=== PATIENT | male | born 1945 | race Caucasian/White ===

== ENCOUNTER → 2016-12-24 | Outpatient (CLI) | payer OTHER, MEDICARE, MEDICAID ==
[~2016-12-24] MED LIST: ACET325T51 PO; ATOR40TA64 PO; LACT10SO32 PO; LATA2.5D7 BOTH EYES; METF500T4 PO; METO10TA3 PO; OMEP20CA10 PO; PROP10DR3 BOTH EYES; PROP20TA7 PO; RIFA550T5 PO; SPIR50TA3 PO
--- NOTE | 2016-12-24 13:36 | DI ---
Indication: ITS.REASON: K74.60 LIVER CIRRHOSIS PROCEDURE: US ABDOMEN COMPLETE: Encounter: Initial Comparison: None Technique: Grayscale and color Doppler sonographic imaging of the abdomen was performed. Findings: Limited exam due to patient body habitus and bowel gas. Hepatic parenchyma is sonographically dense without gross focal mass. The gallbladder could not be visualized and may be absent. Both the intra and extrahepatic biliary system are of normal caliber with the common duct measuring 4 mm in dimension. Limited visualization of the pancreas due to shadowing bowel gas. Both kidneys are present without collecting system dilatation. The right measures 9.5 cm in length and left measures 9.8 cm. The spleen is at the upper limits of normal at 14.8 cm in length. The visualized portions of the IVC are unremarkable. Aorta could not be visualized due to shadowing bowel gas. Small amount of free fluid. Impression: 1. Small volume ascites and borderline splenomegaly. 2. Increased sonographic density of the liver compatible with the provided history of cirrhosis. .
== END ==
LOC: IMA 10:17
PROVIDERS: ATTEND Internal Medicine
DX: K74.60 Unspecified cirrhosis of liver (principal); R18.8 Other ascites

== ENCOUNTER 2017-03-26 04:14 | Inpatient (IN) ==
--- NOTE | 2017-03-26 04:38 | Emergency Department Report ---
SOB HPI - General Chief Complaint: Shortness of Breath/Dyspnea Stated Complaint: LOW BACK PAIN Time Seen by Provider: 03/26/17 04:38 Source: patient, family, EMS Mode of arrival: EMS Limitations: no limitations - History of Present Illness Patient is a 71-year-old male presents emergency room for evaluation of intermittent chest pain, shortness of breath and back pain. Patient had intermittent chest pain off and on for the last few days, did develop constant chest pain last night, no associated diaphoresis mild nausea. Patient does have chronic low back pain as well, decided today to present to the ER for evaluation. MD Complaint: shortness of breath, cough, chest pain Onset (ago): hour(s) Context: choking/aspiration Severity: mild Consistency/Duration: intermittent Relieving factors: medication Associated symptoms: cough - Related Data Home Medications Medication Instructions Recorded Confirmed Acetaminophen 650 mg PO Q4HR PRN #0 10/11/15 04/23/17 Omeprazole 20 mg PO ACB #0 10/11/15 04/23/17 Folic Acid/Vit B Comp + C 1 mg PO DAILY 04/08/17 04/23/17 [Nephrocaps] Lactulose Oral Liq [Lactulose] 40 gm PO BID 04/08/17 04/23/17 Benzonatate 100 mg PO Q6H PRN 04/23/17 04/23/17 DiphenhydrAMINE [Benadryl] 25 mg PO Q6H PRN 04/23/17 04/23/17 Previous Rx's Medication Instructions Recorded Aspirin *EC* [Ecotrin] 81 mg PO DAILY tablet 04/03/17 Coenzyme Q-10 [Co Q-10] 200 mg PO DAILY capsule 04/03/17 Furosemide [Lasix] 40 mg PO DAILY #30 tablet 04/03/17 Metoprolol Succinate (Xl) [Toprol 150 mg PO DAILY #30 tablet 04/03/17 Xl] Neomycin Sulfate 500 mg PO QID #28 tablet 04/03/17 Spironolactone [Aldactone] 50 mg PO DAILY tablet 04/03/17 Tamsulosin [Flomax] 0.4 mg PO HS #30 capsule 04/03/17 Allergies Allergy/AdvReac Type Severity Reaction Status Date / Time No Known Drug Allergies Allergy Unknown Verified 04/23/17 14:48 Review of Systems Constitutional: Reports: weakness. Denies: fever, chills ENT: Denies: congestion Gastrointestinal: Denies: abdominal pain, nausea, vomiting Genitourinary: Denies: dysuria, frequency Musculoskeletal: Reports: back pain Neurological: Denies: headache, weakness, numbness Psychiatric: Denies: anxiety, depression Endocrine: Denies: fatigue PFS Patient Stated Medical History Glaucoma Yes Coronary Artery Disease Yes Hypertension Yes Diabetes Mellitus Type 2 Yes Cirrhosis Yes Gastroesophageal Reflux Yes Disease Other GI Yes: ESOPH VARICIES Other Musculoskeletal Yes: DIFFICULTY WALKING Clinic Medical History Type 2 diabetes mellitus (Chronic Medical) Liver disease (Chronic Medical) HTN (hypertension) (Chronic Medical) Cataracts, bilateral (Chronic Medical) Family History: Family History Mother HTN (hypertension) Stroke Father Heart failure - Social History Smoking status: Never smoker Physical Exam - Limitations Limitations: no limitations - General General appearance: alert, in no apparent distress - Eye Eye exam: Present: normal appearance - ENT ENT exam: Present: normal exam, mucous membranes dry - Neck Neck exam: Present: normal inspection, full ROM - Chest Chest inspection: Present: normal inspection, symmetric chest wall rise. Absent : tenderness - Respiratory Respiratory exam: Present: normal lung sounds bilaterally. Absent: respiratory distress, wheezes, stridor - Cardiovascular Cardiovascular exam: Present: regular rate, normal rhythm, normal heart sounds - Abdominal Exam Abdominal exam: Present: soft. Absent: distention, tenderness - Extremities Exam Extremities exam: Present: normal inspection, full ROM - Back Exam Back exam: Present: normal inspection, full ROM - Skin Skin exam: Present: warm, dry - Neurological Exam Neurological exam: Present: alert, oriented X3 - Psychiatric Psychiatric exam: Present: normal affect, normal mood Course Vital Signs Temperature 97.7 F 03/26/17 04:20 Pulse Rate 96 03/26/17 04:20 Respiratory Rate 20 03/26/17 04:20 Blood Pressure 141/80 H 03/26/17 04:20 Pulse Oximetry 100 03/26/17 04:20 Temperature 97.3 F 04/03/17 15:40 Pulse Rate 71 04/03/17 16:00 Respiratory Rate 18 04/03/17 15:40 Blood Pressure 140/80 H 04/03/17 15:40 Pulse Oximetry 96 04/03/17 15:40 Shortness of Breath/Dyspnea - Differential Diagnosis Likely: acute exacerbation of chronic obstructive airways disease, congestive heart failure, community acquired pneumonia, pulmonary embolism - Medical Records Attestation: I reviewed the patient's medical records. - Lab Data Attestation: I reviewed the patient's lab results. Result diagrams: 04/03/17 04:18 04/03/17 04:18 Lab Results 03/26/17 03/26/17 03/26/17 Range/Units 04:45 04:49 04:51 WBC (4.5-11.0) T/MM3 RBC (4.50-5.90) M/MM3 Hgb (13.5-17.5) GM/DL Hct (41-53) % MCV (80-100) UM3 MCH (26-34) UUG MCHC (31-37) GM/DL RDW Std Deviation (36.9-50.2) FL Plt Count (130-400) T/MM3 MPV (9.4-12.4) UM3 Immature Gran % (Auto) Neut % (Auto) Lymph % (Auto) [place] % (Auto) Eos % (Auto) Baso % (Auto) Neut # Lymph # [place] # Eos # Baso # Abs Immat Gran (auto) Neutrophils % (Manual) (33-66) % Band Neutrophils % (0-6) % Lymphocytes % (Manual) (23-45) % Monocytes % (Manual) (0-9.0) % Neutrophils # (Manual) (1.8-7.7) T/MM3 Band Neutrophils # T/MM3 Lymphocytes # (Manual) (1-4.8) T/MM3 Monocytes # (Manual) (0-0.8) T/MM3 RBC Morph Comment INR (0.99-1.21) APTT (24-36) SEC D-Dimer (0-230) NG/ML Turbidity (0-20) Sodium (134-144) MEQ/L Potassium (3.6-5) MEQ/L Chloride (98-107) MEQ/L Carbon Dioxide (22-30) MEQ/L Anion Gap (5-15) MEQ/L BUN (9-20) MG/DL Creatinine (0.8-1.5) MG/DL GFR Calculation BUN/Creatinine Ratio (6-26) RATIO Glucose (75-110) MG/DL Calculated Osmolality (261-280) MOSM/KG Calcium (8.4-10.2) MG/DL Magnesium (1.6-2.3) MG/DL Total Bilirubin (0.20-1.30) MG/DL Icterus Index (0-7) AST (17-59) U/L ALT (21-72) U/L Alkaline Phosphatase (38-126) U/L Ammonia < 9 L (9-33) UMOL/L Troponin I (0-0.12) ng/ml B-Natriuretic Peptide (0-175) pg/mL Total Protein (6.3-8.2) G/DL Albumin (3.5-5.0) G/DL Globulin (2.4-3.6) G/DL Albumin/Globulin Ratio (1.1-2.2) RATIO Prealbumin 5.2 L (17.6-36.0) MG/DL Plasma Lactate (0.6-2.2) MMOL/L Aldosterone Baseline 37 H (<=21) ng/dL Procalcitonin NG/ML Specimen Hemolysis (0-25) 03/26/17 03/26/17 03/26/17 Range/Units 04:54 04:54 04:54 WBC 12.6 H (4.5-11.0) T/MM3 RBC 2.91 L (4.50-5.90) M/MM3 Hgb 10.4 L (13.5-17.5) GM/DL Hct 30.5 L (41-53) % MCV 104.8 H (80-100) UM3 MCH 35.7 H (26-34) UUG MCHC 34.1 (31-37) GM/DL RDW Std Deviation 58.5 H (36.9-50.2) FL Plt Count 79 L (130-400) T/MM3 MPV 10.1 (9.4-12.4) UM3 Immature Gran % (Auto) Not performed Neut % (Auto) Not performed Lymph % (Auto) Not performed [place] % (Auto) Not performed Eos % (Auto) Not performed Baso % (Auto) Not performed Neut # Not performed Lymph # Not performed [place] # Not performed Eos # Not performed Baso # Not performed Abs Immat Gran (auto) Not performed Neutrophils % (Manual) 85.0 H (33-66) % Band Neutrophils % 1.0 (0-6) % Lymphocytes % (Manual) 6.0 L (23-45) % Monocytes % (Manual) 8.0 (0-9.0) % Neutrophils # (Manual) 10.7 H (1.8-7.7) T/MM3 Band Neutrophils # 0.1 T/MM3 Lymphocytes # (Manual) 0.8 L (1-4.8) T/MM3 Monocytes # (Manual) 1.0 H (0-0.8) T/MM3 RBC Morph Comment Not performed INR (0.99-1.21) APTT (24-36) SEC D-Dimer 1114 H (0-230) NG/ML Turbidity < 20 (0-20) Sodium 136 (134-144) MEQ/L Potassium 6.5 H* (3.6-5) MEQ/L Chloride 116 H (98-107) MEQ/L Carbon Dioxide 7 L* (22-30) MEQ/L Anion Gap 13 (5-15) MEQ/L BUN 30.0 H (9-20) MG/DL Creatinine 3.0 H (0.8-1.5) MG/DL GFR Calculation 21 BUN/Creatinine Ratio 10 (6-26) RATIO Glucose 162 H (75-110) MG/DL Calculated Osmolality 272 (261-280) MOSM/KG Calcium 8.8 (8.4-10.2) MG/DL Magnesium 2.0 (1.6-2.3) MG/DL Total Bilirubin 1.70 H (0.20-1.30) MG/DL Icterus Index < 2 (0-7) AST 26 (17-59) U/L ALT 45 (21-72) U/L Alkaline Phosphatase 139 H (38-126) U/L Ammonia (9-33) UMOL/L Troponin I 0.078 (0-0.12) ng/ml B-Natriuretic Peptide 3400 H (0-175) pg/mL Total Protein 7.4 (6.3-8.2) G/DL Albumin 3.1 L (3.5-5.0) G/DL Globulin 4.3 H (2.4-3.6) G/DL Albumin/Globulin Ratio 0.7 L (1.1-2.2) RATIO Prealbumin (17.6-36.0) MG/DL Plasma Lactate 2.0 (0.6-2.2) MMOL/L Aldosterone Baseline (<=21) ng/dL Procalcitonin NG/ML Specimen Hemolysis < 15 (0-25) 03/26/17 03/26/17 03/26/17 Range/Units 04:54 04:54 07:11 WBC (4.5-11.0) T/MM3 RBC (4.50-5.90) M/MM3 Hgb (13.5-17.5) GM/DL Hct (41-53) % MCV (80-100) UM3 MCH (26-34) UUG MCHC (31-37) GM/DL RDW Std Deviation (36.9-50.2) FL Plt Count (130-400) T/MM3 MPV (9.4-12.4) UM3 Immature Gran % (Auto) Neut % (Auto) Lymph % (Auto) [place] % (Auto) Eos % (Auto) Baso % (Auto) Neut # Lymph # [place] # Eos # Baso # Abs Immat Gran (auto) Neutrophils % (Manual) (33-66) % Band Neutrophils % (0-6) % Lymphocytes % (Manual) (23-45) % Monocytes % (Manual) (0-9.0) % Neutrophils # (Manual) (1.8-7.7) T/MM3 Band Neutrophils # T/MM3 Lymphocytes # (Manual) (1-4.8) T/MM3 Monocytes # (Manual) (0-0.8) T/MM3 RBC Morph Comment INR 1.24 H (0.99-1.21) APTT 30.1 (24-36) SEC D-Dimer (0-230) NG/ML Turbidity < 20 (0-20) Sodium 136 (134-144) MEQ/L Potassium 5.6 H (3.6-5) MEQ/L Chloride 116 H (98-107) MEQ/L Carbon Dioxide 7 L* (22-30) MEQ/L Anion Gap 13 (5-15) MEQ/L BUN 31.0 H (9-20) MG/DL Creatinine 2.8 H D (0.8-1.5) MG/DL GFR Calculation 23 BUN/Creatinine Ratio 11 (6-26) RATIO Glucose 194 H (75-110) MG/DL Calculated Osmolality 274 (261-280) MOSM/KG Calcium 8.5 (8.4-10.2) MG/DL Magnesium (1.6-2.3) MG/DL Total Bilirubin 1.60 H (0.20-1.30) MG/DL Icterus Index < 2 (0-7) AST 36 (17-59) U/L ALT 44 (21-72) U/L Alkaline Phosphatase 120 (38-126) U/L Ammonia (9-33) UMOL/L Troponin I (0-0.12) ng/ml B-Natriuretic Peptide (0-175) pg/mL Total Protein 7.1 (6.3-8.2) G/DL Albumin 2.9 L (3.5-5.0) G/DL Globulin 4.2 H (2.4-3.6) G/DL Albumin/Globulin Ratio 0.7 L (1.1-2.2) RATIO Prealbumin (17.6-36.0) MG/DL Plasma Lactate (0.6-2.2) MMOL/L Aldosterone Baseline (<=21) ng/dL Procalcitonin 0.41 NG/ML Specimen Hemolysis < 15 (0-25) - Radiology Data Attestation: I reviewed the patient's radiology results. No acute cardiopulmonary findings - EKG Data EKG #1 EKG attestation: Yes: I reviewed and interpreted this EKG. EKG shows normal: sinus rhythm Rate: normal Rhythm: NSR [place]/QRS: left axis deviation, LBBB When compared to previous EKG there are: no significant changes Interpretation: no acute changes Disposition Clinical Impression: Asthma with exacerbation Disposition: 02 To [facility] Acute Care Condition: Stable - Seen By: physician
[2017-03-26] MEDS: NITROGLYCERIN 0.4 MG SUBLINGUAL TABLET SL PRN ×3 (05:01→05:13)
[2017-03-26] MEDS ORDERED: NS 1,000 ML IV ONE (05:37)
[2017-03-26] MEDS ORDERED: CALCIUM GLUCONATE 1,000 MG in NS 50 ML IV ONE (05:37)
[2017-03-26] MEDS ORDERED: DEXTROSE 50% SYRINGE 50ml (1 AMP) IVP ONE (05:38)
[2017-03-26] MEDS ORDERED: INSULIN REGULAR, HUMAN 100 UNIT/ML INJECTION IVP ONE (05:38)
[2017-03-26] MEDS ORDERED: NITROGLYCERIN 2% OINTMENT 1gm PACKET TP ONE (06:07)
--- NOTE | 2017-03-26 07:51 | XRay Report ---
INDICATION: cough shortness of air exertional dyspnea PROCEDURE: CHEST 2-VIEWS UPRIGHT (PA & LAT) Encounter: Initial COMPARISON: October 11, 2015 FINDINGS: The lungs are clear without evidence of focal abnormal airspace opacity. There is no pleural effusion or pneumothorax. The heart size, mediastinal contours and pulmonary vascularity are stable. IMPRESSION: No acute cardiopulmonary disease. .
[2017-03-26] MEDS ORDERED: CEFTRIAXONE (ER USE ONLY) 1 GM in NS 100 ML IV ONE (07:53)
[2017-03-26] MEDS: SALINE FLUSH 10ml SYRINGE IVF PRN ×4 (08:17→23:33)
[2017-03-26] MEDS: NS 1,000 ML IV SCH ×2 (08:35→23:49)
[2017-03-26] MEDS ORDERED: SENNA + DOCUSATE TABLET PO PRN (09:31)
[2017-03-26] MEDS ORDERED: METOCLOPRAMIDE 10mg/2ml INJECTION IVP PRN (09:31)
--- NOTE | 2017-03-26 10:05 | History & Physical Report ---
<Nadine Ahuja - Last Filed: 03/26/17 09:57> History of Present Illness Date: 03/26/17 Chief complaint: dyspnea HPI: Silas Paul is a pleasant 71 year old male who presented to [facility] emergency room today, 03/26/17, for evaluation of dyspnea and chest pain. He reports that for the past 3 weeks he has had increased shortness of breath and dyspnea on exertion. He also complains of off and on chest pain for "a while" and indicates that last night around 1800 he started having chest pain. He denies any radiation of the pain or diaphoresis and describes the pain as aching. He also complains of lower back pain as well as recent gagging with eating resulting in decreased eating, though he states his appetite is good. He denies any recent fevers but admits to chills and "shaking" about a week ago. He complains of a chronic nonproductive cough that he does not feel is any worse recently. He He denies any headache, changes in vision, nausea, vomiting , dysuria, hematuria, diarrhea, constipation, abdominal pain, numbness, tingling or recent falls or injury. He has a know history of cirrhosis for which he takes lactulose which causes chronic loose stools. No blood or melana in his stools. In light of his increasing dyspnea and off and on chest pain, with new back pain, he decided to seek further evaluation. He was transported to [facility] emergency room via EMS from [facility], where he resides. Upon arrival to the ED, vital signs revealed he was afebrile with a temperature of 97.7, heart rate 86, tachypneic with respiratory rate at 25, blood pressure 137/78 and pulse ox 98% on room air. His chest pain was treated with nitro which relieved his pain and a nitro patch was placed. Labs were obtained and revealed leukocytosis with WBC 12.6, anemia with hemoglobin 10.4, thrombocytopenia with platelets 79, sodium 136, hyperkalemia with potassium 5.6 , elevated renal function with BUN 31 and SCr 2.8 and hyperglycemia with glucose 194. Renal function from 09/2015 revealed SCr at 1.4. Troponin was 0.078, BNP 3400, lactate 2.0, procalcitonin was 0.041. Ammonia <9 and magnesium 2.0. CO2 was low at 7. Chest x-ray showed no acute cardiopulmonary abnormalities. He has a known history of noninsulin diabetes as well as CAD with 1 stent placed "years ago", hypertension and cirrhosis secondary to prior alcohol abuse with esophageal varieties and liver stent. He denies any alcohol use in > 5 years. In light of his acute dyspnea and concern for severe sepsis in light of his leukocytosis, thrombocytpenia, altered renal function and elevated lactate, he received Rocephin 1g IV for empiric coverage of pulmonary pathogens and Dr. Larkin was consulted and he was admitted into in-patient status for further evaluation, IV hydration, electrolyte correction and close cardiac and respiratory monitoring. His length of stay is expected to exceed more than 2 over nights. On exam, he is seen upon arrival to his room, #[id number]. He is resting in bed and has mild conversational dyspnea with noted tachypenia. He states that his chest pain has been relieved to 2/10 with the placement of the nitro patch. When asked about his chest pain, he points to his epigastric region. Cardiac exam reveals regular rate and rhythm and lungs are clear to auscultation. Abdomen is soft, distended with active bowel sounds and non-tender. Trace edema noted to bilateral lower extremities with 2+ pedal pulses bilaterally. He is alert, orientated and pleasant on exam. Review of Systems All systems: reviewed and no additional remarkable complaints except as stated - Constitutional Constitutional: Present: chills, weakness (generalized). Absent: fever(s), headache(s), night sweats - EENMT Eyes: Absent: blurry vision, change in vision, photophobia Balance: Absent: falling to one side Nose: Absent: nosebleeds Mouth/Throat: Present: changes in swallowing (gagging). Absent: sore throat - Cardiovascular Cardiovascular: Present: chest pain, dyspnea on exertion. Absent: palpitations , syncope, edema Vascular: Present: varicosities. Absent: pedal edema, unilateral swelling - Respiratory Respiratory: Present: cough, dyspnea, dyspnea on exertion. Absent: hemoptysis, wheezing, pain on inspiration, chest congestion, excessive phlegm production - Gastrointestinal Gastrointestinal: Absent: abdominal pain, change in bowel habits, change in stool character, coffee ground emesis, constipation, diarrhea, melena, nausea, vomiting - Genitourinary Genitourinary: Absent: difficulty urinating, dysuria - Musculoskeletal Musculoskeletal: Present: back pain. Absent: deformity, joint swelling, limited range of motion, neck pain - Integumentary/Breasts Integumentary: Present: non-healing lesions (left ankle - chronic) - Neurological Neurological: Present: weakness (generalized). Absent: abnormal speech, dizziness, focal weakness, headache(s), numbness - Hematologic/Lymphatic Hematologic/Lymphatic: Absent: easy bleeding PFS Patient Stated Medical History Glaucoma Coronary Artery Disease Hypertension Diabetes Mellitus Type 2 Cirrhosis Gastroesophageal Reflux Disease ESOPH VARICIES DIFFICULTY WALKING Cataracts, bilateral Anxiety Dyslipidemia Surgical History: Cardiac stent x 1. Liver stent. Knee arthoscopy, bilateral. EGD with banding - > 10 years ago. Family History: Family History Mother, age 78. HTN (hypertension) Stroke DVT DM Father, age 77. Heart failure Sister, alive age 74. No known health issues. Daughter, alive. No known health issues. - Social History Smoking status: Never smoker Substance use type: does not use Alcohol intake: former (prior abuse >5 yrs.) Alcohol intake frequency: does not drink Housing: assisted living facility ([facility] service: Yes Current occupational status: retired Does patient use chewing tobacco?: No Current residence: Assisted Living Social history: PCP - Dr. Bartlett. Medications Home Medications Medication Instructions Recorded Confirmed Type Acetaminophen 650 mg PO Q4HR PRN #0 10/11/15 03/26/17 History Lactulose 60 ml PO QID #0 10/11/15 03/26/17 History Omeprazole 20 mg PO ACB #0 10/11/15 03/26/17 History Spironolactone 50 mg PO TID #0 10/11/15 03/26/17 History cetirizine 10 mg tablet 10 mg PO DAILY tab 03/10/17 03/26/17 History furosemide 20 mg tablet 20 mg PO QAM 28 Days 03/10/17 03/26/17 History lorazepam 0.5 mg tablet 0.25 mg PO HS PRN 03/10/17 03/26/17 History melatonin 3 mg tablet 3 mg PO HS PRN 03/10/17 03/26/17 History metoprolol succinate ER 50 mg 50 mg PO DAILY 28 Days 03/10/17 03/26/17 History tablet,extended release 24 hr morphine concentrate 20 mg/mL oral 5 mg PO Q2H PRN ml 03/10/17 03/26/17 History syringe (FOR ORAL USE ONLY) neomycin 500 mg tablet 500 mg PO Q8HR 28 Days 03/10/17 03/26/17 History Benzonatate 100 mg PO Q6H PRN 03/26/17 03/26/17 History Morphine Sulfate 5 mg PO Q2H PRN 03/26/17 03/26/17 History Allergies Allergy/AdvReac Type Severity Reaction Status Date / Time No Known Drug Allergies Allergy Unknown Verified 03/26/17 09:54 Exam Vital Signs: Temperature 97.9 F 03/26/17 08:30 Pulse Rate 83 03/26/17 08:30 Respiratory Rate 24 03/26/17 08:30 Blood Pressure 139/74 03/26/17 08:30 Pulse Oximetry 99 03/26/17 08:30 Oxygen Delivery Method Room Air Telemetry Rhythm: Sinus Rhythm Height: 6 ft Weight: 267 lb 13.786 oz Body Mass Index: 36.3 - Constitutional Present: mild distress, well nourished, well developed, obese, cooperative. Absent: diaphoretic - Routine HEENT Exam Head: Present: normocephalic, atraumatic Eye: Present: PERRL. Absent: conjunctival icterus, scleral injection ENT: Present: mucous membranes moist - Routine Neck Exam Present: supple, full ROM, trachea midline - Routine Chest/Breast/Axilla Exam Chest wall: Absent: tenderness - Routine Respiratory Exam Present: dyspnea, respiratory distress (mild) - Detailed Respiratory Exam Present: clear to auscultation. Absent: wheezes Comments: increased respiratory effort and tachypnea. - Routine Cardiovascular Exam Present: RRR, S1, S2 Comments: distant - Routine Abdominal Exam Present: soft, normoactive bowel sounds, non tender, distended. Absent: rebound , guarding, firm - Routine Extremities Exam Present: edema (trace), non tender, full ROM, pulses intact (2+ bilaterally). Absent: cyanosis, calf tenderness - Routine Back/Spine/Pelvis Exam Back/Spine: Present: full ROM. Absent: vertebral tenderness, erythema, warmth - Routine Skin Exam Present: dry, warm. Absent: cyanosis, erythema, jaundice Comments: bandage noted to left medial ankle which is clean, dry and intact. Reported lesion being monitored by Dr. Jasso. No warmth, erythema or signs of bleeding or discharge. - Routine Neurological Exam Present: alert, oriented X3, moving all extremities, hearing grossly intact, normal speech. Absent: motor deficit, facial asymmetry - Routine Psychiatric Exam Present: normal affect, cooperative Results - Labs CBC & Chem 7: 03/26/17 04:54 03/26/17 07:11 - Imaging and Cardiology Chest x-ray Status: image reviewed by me Additional comments: NAD Assessment and Plan (1) SIRS (systemic inflammatory response syndrome) Current visit: Yes Status: Acute (2) Chest pain Current visit: Yes Status: Acute (3) Acute kidney injury Current visit: Yes Status: Acute (4) Hypocapnia Current visit: Yes Status: Acute (5) Hyperkalemia Current visit: Yes Status: Acute (6) Thrombocytopenia Current visit: Yes Status: Acute (7) Anemia Current visit: Yes Status: Acute (8) Hepatic cirrhosis Current visit: Yes Status: Chronic (9) Type 2 diabetes mellitus Current visit: No Status: Chronic (10) CAD (coronary artery disease) Current visit: Yes Status: Chronic (11) Dyslipidemia Current visit: Yes Status: Chronic (12) HTN (hypertension) Current visit: No Status: Acute (13) GERD (gastroesophageal reflux disease) Current visit: Yes Status: Chronic (14) Ankle wound Current visit: Yes Status: Chronic (15) Anxiety Current visit: Yes Status: Chronic (16) Obesity (BMI 30-39.9) Current visit: Yes Status: Chronic DVT Prophylaxis: SCD's Assessment and Plan: - SIRS, present on admission, as indicated by tachypnea, leukocytosis, thrombocytopenia, elevated lactate and renal insufficiency. .Patient does not have obvious source of infection or would otherwise meet criteria for severe sepsis. .Admit to inpatient status under the care of Dr. Larkin and hospitalist service. .NS 125cc/hr for fluid resuscitation. Monitor closely for signs of fluid overload with daily weight. BNP on admission was 3400. .Rocephin 1g IV x 1 dose give in ED for empiric coverage of pulmonary pathogens. Will discuss continuation of antibiotics with Dr. Larkin in light of no acute infection noted. Blood cultures pending. - Acute Chest pain with dyspnea .History of CAD with stent placement "years ago". Chest pain improved with nitro and relieved with nitropaste. .Initial troponin 0.078. Repeat troponin elevated to 7. .Dr. Lujan consulted for further evaluation. Patient is open to heart cath and treatment if indicated. .Repeat EKG appears unchanged with peaked t-waves and LBBB. Unknown if BBB is acute or chronic. Will try and obtain records from [place]. .Repeat exam with Dr. Osborne at 1120 indicated the patient was pain free. ASA given and Leah with Dr. Lujan present. Will initiate lovenox. .Discussed patient wishes with regard to code status. Patient wishes to be a FULL CODE at this time. - Acute Kidney Injury, present on admission. .Review of labs from 09/2015 revealed previous SCr at 1.5. Elevated BUN and SCr on admission at 31 and 2.8 respectively. .Fluid resuscitation with NS 125cc/hr. Recheck BMP in AM and monitor closely. - Hypocapnia, present on admission. .CO2 7 on admission. .ABG ordered - results pending. Patient tachynic on exam with mild conversational dyspnea. Consider bicarb replacement. - Hyperkalemia, present on admission. .5.6 on admission. Peaked t-waves noted on EKG. .Will hold home spirnolactone and continue to monitor closely. Coming down with IVF. Monitor closely on telemetry. - Thrombocytopenia, present on admission. .Platelets 79 on admission. - Anemia, present on admission. .No signs of acute bleeding. 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 - Hepatic cirrhosis, chronic. .Ammonia <9 on admission. History of prior TIPS procedure ~8-10 years ago. .Continue home lactulose. - Diabetes, Type II, chronic. .Hold home metformin in light of renal function. .Monitor blood sugars closely with BGMs. Sliding scale insulin as indicated. Will check A1c. - CAD, Hypertension and Dyslipidemia, chronic. .History of CAD and stent placement at [place] years ago. .Continue home medications including atorvastatin, propanolol and metoprolol. .Will hold home spironalactone and lasix in light of hyperkalemia and acute kidney injury. - GERD, chronic. .Continue home Nexium. - Ankle wound, chronic. .Currently being managed by Dr. Jasso. Monitor for signs of infection. Change bandage as needed or every 3 days. - Anxiety, chronic. .Continue home ativan as needed. - Obesity, BMI 36 .Carb controlled diet. .Patient complained of gagging with eating. Consult speech therapy for swallow function test. Upon discharge, patient's care will be returned to his PCP, Dr. Bartlett. Sepsis Assessment - Evaluation Sepsis screening result: Severe Sepsis Risk Possible source: pulmonary, endocarditis, GI tract/intra-abdominal, skin/soft tissue, wound SIRS Criteria: WBC > or equal to 12,000, RR > or equal to 20 Severe Sepsis: lactate > or equal to 2.0 mg/dl, Creatinine >2.0 mg/dL, platelet count < 100,000 - Focused Exam Respiratory exam: Present: dyspnea. Absent: wheezes Hospital Course Summary Disclaimer: The visit summary below is not to be considered part of the above Progress Note. Hospital Course: 03/26/17 11:39 - SIRS, present on admission, as indicated by tachypnea, leukocytosis, thrombocytopenia, elevated lactate and renal insufficiency. .Patient does not have obvious source of infection or would otherwise meet criteria for severe sepsis. .Admit to inpatient status under the care of Dr. Larkin and hospitalist service. .NS 125cc/hr for fluid resuscitation. Monitor closely for signs of fluid overload with daily weight. BNP on admission was 3400. .Rocephin 1g IV x 1 dose give in ED for empiric coverage of pulmonary pathogens. Will discuss continuation of antibiotics with Dr. Larkin in light of no acute infection noted. Blood cultures pending. - Acute Chest pain with dyspnea .History of CAD with stent placement "years ago". Chest pain improved with nitro and relieved with nitropaste. .Initial troponin 0.078. Repeat troponin elevated to 7. .Dr. Lujan consulted for further evaluation. Patient is open to heart cath and treatment if indicated. .Repeat EKG appears unchanged with peaked t-waves and LBBB. Unknown if BBB is acute or chronic. [facility] and [facility]. .Repeat exam with Dr. Osborne at 1120 indicated the patient was pain free. ASA given and Leah with Dr. Lujan present. Will initiate lovenox. .Discussed patient wishes with regard to code status. Patient wishes to be a FULL CODE at this time. - Acute Kidney Injury, present on admission. .Review of labs from 09/2015 revealed previous SCr at 1.5. Elevated BUN and SCr on admission at 31 and 2.8 respectively. .Fluid resuscitation with NS 125cc/hr. Recheck BMP in AM and monitor closely. - Hypocapnia, present on admission. .CO2 7 on admission. .ABG ordered - results pending. Patient tachynic on exam with mild conversational dyspnea. Consider bicarb replacement. - Hyperkalemia, present on admission. .5.6 on admission. Peaked t-waves noted on EKG. .Will hold home spirnolactone and continue to monitor closely. Coming down with IVF. Monitor closely on telemetry. - Thrombocytopenia, present on admission. .Platelets 79 on admission. - Anemia, present on admission. .No signs of acute bleeding. 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 - Hepatic cirrhosis, chronic. .Ammonia <9 on admission. History of prior TIPS procedure ~8-10 years ago. .Continue home lactulose. - Diabetes, Type II, chronic. .Hold home metformin in light of renal function. .Monitor blood sugars closely with BGMs. Sliding scale insulin as indicated. Will check A1c. - CAD, Hypertension and Dyslipidemia, chronic. .History of CAD and stent placement at [place] years ago. .Continue home medications including atorvastatin, propanolol and metoprolol. .Will hold home spironalactone and lasix in light of hyperkalemia and acute kidney injury. - GERD, chronic. .Continue home Nexium. - Ankle wound, chronic. .Currently being managed by Dr. Jasso. Monitor for signs of infection. Change bandage as needed or every 3 days. - Anxiety, chronic. .Continue home ativan as needed. - Obesity, BMI 36 .Carb controlled diet. .Patient complained of gagging with eating. Consult speech therapy for swallow function test. Upon discharge, patient's care will be returned to his PCP, Dr. Bartlett. <Jax Osborne - Last Filed: 03/26/17 15:51> History of Present Illness Date: 03/26/17 [facility] Patient Stated Medical History Glaucoma Yes Coronary Artery Disease Yes Hypertension Yes Diabetes Mellitus Type 2 Yes Cirrhosis Yes Gastroesophageal Reflux Yes Disease Other GI Yes: ESOPH VARICIES Other Musculoskeletal Yes: DIFFICULTY WALKING Clinic Medical History (Last Updated 03/26/17 @ 13:31 by Leah Kerr APRN) Type 2 diabetes mellitus (Chronic Medical) Liver disease (Chronic Medical) HTN (hypertension) (Acute Medical) Cataracts, bilateral (Chronic Medical) Family History: Family History Mother HTN (hypertension) Stroke Father Heart failure Exam Vital Signs: Temperature 97.9 F 03/26/17 08:30 Pulse Rate 92 03/26/17 11:44 Respiratory Rate 24 03/26/17 11:44 Blood Pressure 157/82 H 03/26/17 11:44 Pulse Oximetry 98 03/26/17 11:44 Oxygen Delivery Method Room Air Height: 6 ft Weight: 121.5 kg Results - Labs CBC & Chem 7: 03/26/17 04:54 03/26/17 07:11 - ABG Interpretation ABG results: 03/26/17 10:55 ABG pH 7.190 L* ABG pCO2 11 L* ABG pO2 131 H ABG HCO3 4 L ABG Total CO2 4.5 L ABG O2 Saturation 98.0 ABG Base Excess -21.4 L Assessment and Plan (1) HTN (hypertension) Current visit: No Status: Acute (2) Type 2 diabetes mellitus Current visit: No Status: Chronic (3) Dyslipidemia Current visit: Yes Status: Chronic (4) GERD (gastroesophageal reflux disease) Current visit: Yes Status: Chronic (5) CAD (coronary artery disease) Current visit: Yes Status: Chronic (6) Hepatic cirrhosis Current visit: Yes Status: Chronic (7) Obesity (BMI 30-39.9) Current visit: Yes Status: Chronic (8) Anxiety Current visit: Yes Status: Chronic (9) Ankle wound Current visit: Yes Status: Chronic (10) Acute kidney injury Current visit: Yes Status: Acute (11) SIRS (systemic inflammatory response syndrome) Current visit: Yes Status: Acute (12) Anemia Current visit: Yes Status: Acute (13) Thrombocytopenia Current visit: Yes Status: Acute (14) Hyperkalemia Current visit: Yes Status: Acute (15) Hypocapnia Current visit: Yes Status: Acute (16) Chest pain Current visit: Yes Status: Acute Assessment and Plan: I have independently examined this patient and reviewed the plan of care as above and agree. Pt is a 71 YO male with H.O DM, Cirrhosis (Attributed to ETOH), CAD and S/P 1 stent who presented to us with the above problems and had minor CP. A repeat TnI was very high suggesting an acute NSTEMI. Pt EKG shows LBBB. Pt also is very acidotic, but appeared very comfortable, no metformin found in his outpatient meds. On exam. Pt appears surprisingly comfortable. Mentation is clear, oriented x 3 conversant coherent. No SOB Mucosas moist No JVD RRR no murmur Abd - distented + Ascitic wave Ext - trace edema. Neuro - non focal no asterixis. DIAGNOSIS - 1) Acute NSTEMI. Pt is diabetic so could have silent ischemia. Initial Tni Negative, repeat at 9:22 AM - 7.46 (HIGH), repeat at 13:38 (16.4 (HIGH). Pt has had a previous stent. INR is 1.24 - Start IV Nitro - heparin - ASA given. - manage pt in the ICU, correct metabolic acidosis. - Continue betablockers. Hold diuretics for now due to GRACE. - [facility] 2) Acute renal failure BUN/Cr on admission 31/2.8 with K of 6.5. - Review of labs from 09/2015 revealed previous SCr at 1.5. Elevated BUN and SCr on admission at 31 and 2.8 respectively. - K normalized on the second sample - Will recheck again later. - Pt was on Aldactone for his cirrhosis - will hold. 3) Type II DM, and obesity - Initially reported as pt taking metformin at [facility] , but this medication is not on the list. BMI = 36 - Lactic acid normal x 2 so lactic acidosis is not the cause of the low blood pH - Will manage with sliding scale for now. a) Acidosis on ABG on admission - Pt not on Metformin. Seems to be excessive for level of kidney failure. Check UA, if urine is not very acidic, pt probably has RTA (related to DM) - Start bicarbonate drip for his acidosis - Will follow serial BUN/Cr once stable may check a PTH. - Later check Vitamin D level. - Start Oral Bicarb 4) Cirrhosis of the liver, with thrombocytopenia (PLT - 79K), coagulopathy (INR 1.24), ascites, esophageal varices. - Pt has been on Lactulose at home + oral aminoglycoside to decrease Ammonia; this could worsen acidosis (By causing diarrhea and increase losses of alkali) - Will hold off Lactulose for now, follow serial ammonia levels. - Consider abd U/S and tap if pt condition suggests ongoing infection due to risk of SBP - Pt decribes what sounds like a TIPS procedure in the past. 5) Anemia probably due to inflammation (ACD) but pt has macrocytic indices. - Check B12 and other basic workup. 6) Ankle wound - chronic, managed by Dr Jasso. 7) SIRS ? Pt received rocephin on the ED but has no symptoms of URI, or PNA. Will hold off now. His labs will be repeated tonight. His lactic acid is normal on admssion. 8) CODE STATUS - PT IS FULL CODE. Prevention PUD - PPI (IV) protonix DVT - Pt is on therapeutic lovenox. Hospital Course Summary Disclaimer: The visit summary below is not to be considered part of the above Progress Note.
[2017-03-26] MEDS: INSULIN ASPART 100unit/ml INJECTION SQ PRN ×2 (10:50→21:40)
[2017-03-26] MEDS ORDERED: ASPIRIN 325 MG TABLET PO SCH (11:15)
[2017-03-26] MEDS ORDERED: SODIUM BICARBONATE 100 MEQ in D5W 1,000 ML IV SCH (11:45)
[2017-03-26] MEDS ORDERED: ENOXAPARIN 120 MG/0.8 ML INJECTION SQ SCH (11:45)
[2017-03-26] MEDS: NITROGLYCERIN 2% OINTMENT 1gm PACKET TP SCH ×2 (11:45→17:02)
[2017-03-26] MEDS ORDERED: HEPARIN 1,000unit/ml INJECTION 10ml IVP ONE (12:00)
[2017-03-26] MEDS ORDERED: HEPARIN DRIP 20,000 UNIT/500 ML BAG IV SCH (12:32)
--- NOTE | 2017-03-26 12:44 | Cardiology Consult Note ---
History of Present Illness Consult date: 03/26/17 <Leah Kerr - 03/26/17 13:26> Requesting physician: Yair Larkin <Leah Kerr - 03/26/17 13:26> Consult reason: chest pain (elevated troponin) <Leah Kerr - 03/26/17 13: 26> Chief complaint: dyspnea, abd pain, chest pain <Leah Kerr - 03/26/17 13: 26> History of present illness: Dakota Paul is a 71 year old male who has a known history of CAD with stent placed "years ago," noninsulin diabetes, hypertension and cirrhosis secondary to prior alcohol abuse with esophageal varieties and liver stent. He presented to the ED today, for evaluation of dyspnea and chest pain. He reports that for the past 3 weeks he has had increased shortness of breath and dyspnea on exertion. He also complains of off and on chest pain for "a while" and indicates that last night around 1800 he started having chest pain. He denies any radiation of the pain or diaphoresis and describes the pain as aching. He also complains of lower back pain as well as recent gagging with eating resulting in decreased eating, though he states his appetite is good. He denies any recent fevers but admits to chills and "shaking" about a week ago. He complains of a chronic nonproductive cough that he does not feel is any worse recently. He denies any headache, changes in vision, nausea, vomiting, dysuria, hematuria, diarrhea, constipation, abdominal pain, numbness, tingling or recent falls or injury. He has a know history of cirrhosis for which he takes lactulose which causes chronic loose stools. No blood or melena in his stools. In light of his increasing dyspnea and off and on chest pain, with new back pain, he decided to seek further evaluation. He was transported to [facility] via EMS from [facility], where he resides. Upon arrival to the ED, vital signs revealed he was afebrile with a temperature of 97.7, heart rate 86, tachypneic with respiratory rate at 25, blood pressure 137/78 and pulse ox 98% on room air. His chest pain was treated with nitro which relieved his pain and a nitro patch was placed. Labs were obtained and revealed leukocytosis with WBC 12.6, anemia with hemoglobin 10.4, thrombocytopenia with platelets 79, sodium 136, hyperkalemia with potassium 5.6 , elevated renal function with BUN 31 and SCr 2.8 and hyperglycemia with glucose 194. Renal function from 09/2015 revealed SCr at 1.4. Troponin was 0.078, BNP 3400, lactate 2.0, procalcitonin was 0.041. Ammonia <9 and magnesium 2.0. CO2 was low at 7. Chest x-ray showed no acute cardiopulmonary abnormalities. He denies any alcohol use in > 5 years. In light of his acute dyspnea and concern for severe sepsis in light of his leukocytosis, thrombocytpenia, altered renal function and elevated lactate, he received Rocephin 1g IV for empiric coverage of pulmonary pathogens and Dr. Larkin was consulted and he was admitted into in-patient status for further evaluation , IV hydration, electrolyte correction and close cardiac and respiratory monitoring. His second troponin level resulted at 7.46 this morning and with chest pain and history of diabetes, Dr. Lujan is consulted. He is examined in his room on Medical. He is resting in bed and has mild conversational dyspnea with noted tachypnea. He states that his chest pain has been relieved to 2/10 with the placement of the nitro patch. When asked about his chest pain, he points to his epigastric region. Cardiac exam reveals regular rate and rhythm and lungs are clear to auscultation. Abdomen is soft, distended with active bowel sounds and non-tender. Trace edema noted to bilateral lower extremities with 2+ pedal pulses bilaterally. He is alert, orientated and pleasant on exam. <Leah Kerr 03/26/17 13:26> Review of Systems - Constitutional Constitutional: Present: chills, weakness (generalized). Absent: fever(s), headache(s), night sweats <Leah Kerr 03/26/17 13:26> - EENMT Eyes: Absent: blurry vision, change in vision, photophobia <Leah Kerr 03/26/17 13:26> Balance: Absent: falling to one side <Leah Kerr 03/26/17 13:26> Nose: Absent: nosebleeds <Leah Kerr 03/26/17 13:26> Mouth/Throat: Present: changes in swallowing (gagging). Absent: sore throat < CiriloLeah lopez [facility] 03/26/17 13:26> - Cardiovascular Cardiovascular: Present: chest pain, dyspnea on exertion. Absent: palpitations , syncope, edema <Cirilo,Amy [facility] 03/26/17 13:26> Vascular: Present: varicosities. Absent: pedal edema, unilateral swelling < CiriloLeah lopez 03/26/17 13:26> - Respiratory Respiratory: Present: cough, dyspnea, dyspnea on exertion. Absent: hemoptysis, wheezing, pain on inspiration, chest congestion, excessive phlegm production < Cirilo,Amy 03/26/17 13:26> - Gastrointestinal Gastrointestinal: Absent: abdominal pain, change in bowel habits, change in stool character, coffee ground emesis, constipation, diarrhea, melena, nausea, vomiting <CiriloLeah lopez [facility] 03/26/17 13:26> - Genitourinary Genitourinary: Absent: difficulty urinating, dysuria <CiriloLeah lopez 13:26> - Musculoskeletal Musculoskeletal: Present: back pain. Absent: deformity, joint swelling, limited range of motion, neck pain <CiriloLeah lopez 03/26/17 13:26> - Integumentary/Breasts Integumentary: Present: non-healing lesions (left ankle - chronic) <CiriloLeah lopez [facility] 03/26/17 13:26> - Neurological Neurological: Present: weakness (generalized). Absent: abnormal speech, dizziness, focal weakness, headache(s), numbness <CiriloLeah lopez [facility] 03/26/17 13 :26> - Hematologic/Lymphatic Hematologic/Lymphatic: Absent: easy bleeding <CiriloLeah lopez [facility] 03/26/17 13:26> [facility] Patient Stated Medical History Glaucoma Yes Coronary Artery Disease Yes Hypertension Yes Diabetes Mellitus Type 2 Yes Cirrhosis Yes Gastroesophageal Reflux Yes Disease Other GI Yes: ESOPH VARICIES Hx Renal Disease No Other Musculoskeletal Yes: DIFFICULTY WALKING Clinic Medical History (Last Updated 03/26/17 @ 13:31 by Leah Kerr APRN) HTN (hypertension) (Acute Medical) Cataracts, bilateral (Chronic Medical) Liver disease (Chronic Medical) Type 2 diabetes mellitus (Chronic Medical) <Jerson Lujan - 04/01/17 08:13> Patient Stated Medical History Glaucoma Yes Coronary Artery Disease Yes Hypertension Yes Dyslipidemia Yes Diabetes Mellitus Type 2 Yes Cirrhosis Yes Gastroesophageal Reflux Yes Disease Other GI Yes: ESOPH VARICIES Other Musculoskeletal Yes: DIFFICULTY WALKING Anxiety Yes <Leah Kerr 03/26/17 13:26> Surgical History: Cardiac stent x 1. Liver stent. Knee arthoscopy, bilateral. EGD with banding - > 10 years ago. <Leah Kerr 03/26/17 13:26> Family History: Family History Mother HTN (hypertension) Stroke Father Heart failure <Jerson Lujan - 04/01/17 08:13> Mother, age 78. HTN (hypertension) Stroke DVT DM Father, age 77. Heart failure Sister, alive age 74. No known health issues. Daughter, alive. No known health issues. <Leah Kerr 03/26/17 13:26> - Social History Smoking status: Never smoker <Leah Kerr 03/26/17 13:26> Substance use type: does not use <Leah Kerr 03/26/17 13:26> Alcohol intake: former <Leah Kerr 03/26/17 13:26> Alcohol intake frequency: does not drink <Leah Kerr 03/26/17 13:26> Housing: assisted living facility <Leah Kerr 03/26/17 13:26> Current occupational status: retired <Leah Kerr 03/26/17 13:26> Does patient use chewing tobacco?: No <Leah Kerr 03/26/17 13:26> Current residence: Assisted Living <Leah Kerr 03/26/17 13:26> Medications Home Medications Medication Instructions Recorded Confirmed Type Acetaminophen 650 mg PO Q4HR PRN #0 10/11/15 03/26/17 History Lactulose 60 ml PO QID #0 10/11/15 03/26/17 History Omeprazole 20 mg PO ACB #0 10/11/15 03/26/17 History Spironolactone 50 mg PO TID #0 10/11/15 03/26/17 History cetirizine 10 mg tablet 10 mg PO DAILY tab 03/10/17 03/26/17 History furosemide 20 mg tablet 20 mg PO QAM 28 Days 03/10/17 03/26/17 History lorazepam 0.5 mg tablet 0.25 mg PO HS PRN 03/10/17 03/26/17 History melatonin 3 mg tablet 3 mg PO HS PRN 03/10/17 03/26/17 History metoprolol succinate ER 50 mg 50 mg PO DAILY 28 Days 03/10/17 03/26/17 History tablet,extended release 24 hr morphine concentrate 20 mg/mL oral 5 mg PO Q2H PRN ml 03/10/17 03/26/17 History syringe (FOR ORAL USE ONLY) neomycin 500 mg tablet 500 mg PO Q8HR 28 Days 03/10/17 03/26/17 History Benzonatate 100 mg PO Q6H PRN 03/26/17 03/26/17 History Morphine Sulfate 5 mg PO Q2H PRN 03/26/17 03/26/17 History <Jerson Lujan - 04/01/17 08:13> Allergies Allergy/AdvReac Type Severity Reaction Status Date / Time No Known Drug Allergies Allergy Unknown Verified 03/26/17 09:54 <Jerson Lujan - 04/01/17 08:13> Exam Vital signs: Temperature 97.0 F 04/01/17 07:17 Pulse Rate 70 04/01/17 07:17 Respiratory Rate 20 04/01/17 07:17 Blood Pressure 153/69 H 04/01/17 07:17 Pulse Oximetry 97 04/01/17 07:17 Oxygen Delivery Method Room Air <Jerson Lujan - 04/01/17 08:13> Temperature 97.9 F 03/26/17 08:30 Pulse Rate 92 03/26/17 11:44 Respiratory Rate 24 03/26/17 11:44 Blood Pressure 157/82 H 03/26/17 11:44 Pulse Oximetry 98 03/26/17 11:44 Oxygen Delivery Method Room Air <Leah Kerr - 03/26/17 13:26> - Constitutional no acute distress, obese, cooperative <Leah Kerr - 03/26/17 13:26> - Routine HEENT Exam ENT: Present: mucous membranes moist <Leah Kerr - 03/26/17 13:26> - Routine Neck Exam Absent: JVD, carotid bruit <Leah Kerr 03/26/17 13:26> - Routine Chest/Breast/Axilla Exam Chest wall: Absent: tenderness <Leah Kerr 03/26/17 13:26> - Routine Respiratory Exam Present: dyspnea <Leah Kerr 03/26/17 13:26> - Routine Cardiovascular Exam Present: RRR, S1, S2 <Leah Kerr 03/26/17 13:26> - Routine Abdominal Exam Present: soft, normoactive bowel sounds <Leah Kerr 03/26/17 13:26> - Routine Skin Exam Present: intact <Leah Kerr 03/26/17 13:26> - Routine Neurological Exam Present: alert, oriented X3 <Leah Kerr 03/26/17 13:26> - Routine Psychiatric Exam Present: normal affect, normal thought process <Leah Kerr 03/26/17 13: 26> Results 04/01/17 04:26 04/01/17 04:26 <TaiJerson - 04/01/17 08:13> Cardiac Enzymes 04/01/17 Range/Units 04:26 AST 32 (17-59) U/L CBC 04/01/17 Range/Units 04:26 WBC 4.5 (4.5-11.0) T/MM3 RBC 2.50 L (4.50-5.90) M/MM3 Hgb 8.6 L (13.5-17.5) GM/DL Hct 26.6 L (41-53) % Plt Count 66 L (130-400) T/MM3 Neut # 3.4 (1.8-7.7) T/MM3 Lymph # 0.6 L (1-4.8) T/MM3 [place] # 0.4 (0-0.8) T/MM3 Eos # 0.1 (0-0.5) T/MM3 Baso # 0.0 (0-0.2) T/MM3 Comprehensive Metabolic Panel 04/01/17 Range/Units 04:26 Sodium 135 (134-144) MEQ/L Potassium 4.0 (3.6-5) MEQ/L Chloride 103 (98-107) MEQ/L Carbon Dioxide 26 (22-30) MEQ/L BUN 31.0 H (9-20) MG/DL Creatinine 2.3 H (0.8-1.5) MG/DL Glucose 99 (75-110) MG/DL Calcium 7.6 L (8.4-10.2) MG/DL Unconjugated Bilirubin 0.40 (0.00-11.10) MG/DL AST 32 (17-59) U/L ALT 24 (21-72) U/L Alkaline Phosphatase 80 (38-126) U/L Total Protein 5.6 L (6.3-8.2) G/DL Albumin 2.3 L (3.5-5.0) G/DL Intake and Output 03/31/17 04/01/17 04/01/17 22:59 06:59 14:59 Intake Total 955.00 / 955.00 898.75 / 898.75 206.25 / 206.25 Output Total 425 / 425 475 / 475 Balance 530.00 / 530.00 423.75 / 423.75 206.25 / 206.25 Intake: IV 465.00 / 465.00 648.75 / 648.75 206.25 / 206.25 Kefzol 2 G In Normal 100 / 100 100 / 100 Saline 100 ml @ 200 mls/ hr IV Q8H [facility] Rx#: [id number] Normal Saline 1,000 ml @ 365.00 / 365.00 548.75 / 548.75 206.25 / 206.25 75 mls/hr IV .[id number] Rx#:[id number] Oral 490 / 490 250 / 250 Output: Urine 425 / 425 475 / 475 Other: # Voids 1 # Bowel Movements 1 Weight 130.8 kg 130.4 kg Patient Weight 04/02/17 06:59 Weight 130.4 kg <Jerson Lujan - 04/01/17 08:13> Cardiac Enzymes 03/26/17 Range/Units 09:22 Troponin I 7.460 H D (0-0.12) ng/ml Intake and Output 03/25/17 03/26/17 03/26/17 22:59 06:59 14:59 Intake Total 100 / 100 Balance 100 / 100 Intake: IV 100 / 100 Rocephin 1 gm In Normal 100 / 100 Saline 100 ml @ 200 mls/ hr IV O ONE Rx#:[id number] Other: Weight 267 lb 13.786 oz Patient Weight 03/27/17 06:59 Weight 267 lb 13.786 oz Laboratory Results - last 48 hr 03/26/17 03/26/17 03/26/17 04:45 04:49 04:54 WBC 12.6 H RBC 2.91 L Hgb 10.4 L Hct 30.5 L MCV 104.8 H MCH 35.7 H MCHC 34.1 RDW Std Deviation 58.5 H Plt Count 79 L MPV 10.1 Immature Gran % (Auto) Not performed Neut % (Auto) Not performed Lymph % (Auto) Not performed [place] % (Auto) Not performed Eos % (Auto) Not performed Baso % (Auto) Not performed Neut # Not performed Lymph # Not performed [place] # Not performed Eos # Not performed Baso # Not performed Abs Immat Gran (auto) Not performed Neutrophils % (Manual) 85.0 H Band Neutrophils % 1.0 Lymphocytes % (Manual) 6.0 L Monocytes % (Manual) 8.0 Neutrophils # (Manual) 10.7 H Band Neutrophils # 0.1 Lymphocytes # (Manual) 0.8 L Monocytes # (Manual) 1.0 H RBC Morph Comment Not performed INR APTT D-Dimer ABG pH ABG pCO2 ABG pO2 ABG HCO3 ABG Total CO2 ABG O2 Saturation ABG Base Excess O2 Delivery Method Turbidity Sodium Potassium Chloride Carbon Dioxide Anion Gap BUN Creatinine GFR Calculation BUN/Creatinine Ratio Glucose Glucometer Calculated Osmolality Calcium Magnesium Total Bilirubin Icterus Index AST ALT Alkaline Phosphatase Ammonia < 9 L Troponin I B-Natriuretic Peptide Total Protein Albumin Globulin Albumin/Globulin Ratio Prealbumin 5.2 L Plasma Lactate Procalcitonin Specimen Hemolysis Specimen Comment Tests Not Done Reason Tests Not Done 03/26/17 03/26/17 03/26/17 04:54 04:54 04:54 WBC RBC Hgb Hct MCV MCH MCHC RDW Std Deviation Plt Count MPV Immature Gran % (Auto) Neut % (Auto) Lymph % (Auto) [place] % (Auto) Eos % (Auto) Baso % (Auto) Neut # Lymph # [place] # Eos # Baso # Abs Immat Gran (auto) Neutrophils % (Manual) Band Neutrophils % Lymphocytes % (Manual) Monocytes % (Manual) Neutrophils # (Manual) Band Neutrophils # Lymphocytes # (Manual) Monocytes # (Manual) RBC Morph Comment INR APTT D-Dimer 1114 H ABG pH ABG pCO2 ABG pO2 ABG HCO3 ABG Total CO2 ABG O2 Saturation ABG Base Excess O2 Delivery Method Turbidity < 20 Sodium 136 Potassium 6.5 H* Chloride 116 H Carbon Dioxide 7 L* Anion Gap 13 BUN 30.0 H Creatinine 3.0 H GFR Calculation 21 BUN/Creatinine Ratio 10 Glucose 162 H Glucometer Calculated Osmolality 272 Calcium 8.8 Magnesium 2.0 Total Bilirubin 1.70 H Icterus Index < 2 AST 26 ALT 45 Alkaline Phosphatase 139 H Ammonia Troponin I 0.078 B-Natriuretic Peptide 3400 H Total Protein 7.4 Albumin 3.1 L Globulin 4.3 H Albumin/Globulin Ratio 0.7 L Prealbumin Plasma Lactate 2.0 Procalcitonin 0.41 Specimen Hemolysis < 15 Specimen Comment Tests Not Done Reason Tests Not Done 03/26/17 03/26/17 03/26/17 04:54 07:11 09:22 WBC RBC Hgb Hct MCV MCH MCHC RDW Std Deviation Plt Count MPV Immature Gran % (Auto) Neut % (Auto) Lymph % (Auto) [place] % (Auto) Eos % (Auto) Baso % (Auto) Neut # Lymph # [place] # Eos # Baso # Abs Immat Gran (auto) Neutrophils % (Manual) Band Neutrophils % Lymphocytes % (Manual) Monocytes % (Manual) Neutrophils # (Manual) Band Neutrophils # Lymphocytes # (Manual) Monocytes # (Manual) RBC Morph Comment INR 1.24 H APTT 30.1 D-Dimer ABG pH ABG pCO2 ABG pO2 ABG HCO3 ABG Total CO2 ABG O2 Saturation ABG Base Excess O2 Delivery Method Turbidity < 20 Sodium 136 Potassium 5.6 H Chloride 116 H Carbon Dioxide 7 L* Anion Gap 13 BUN 31.0 H Creatinine 2.8 H D GFR Calculation 23 BUN/Creatinine Ratio 11 Glucose 194 H Glucometer Calculated Osmolality 274 Calcium 8.5 Magnesium Total Bilirubin 1.60 H Icterus Index < 2 AST 36 ALT 44 Alkaline Phosphatase 120 Ammonia Troponin I B-Natriuretic Peptide Total Protein 7.1 Albumin 2.9 L Globulin 4.2 H Albumin/Globulin Ratio 0.7 L Prealbumin Plasma Lactate 1.6 Procalcitonin Specimen Hemolysis < 15 Specimen Comment Tests Not Done Reason Tests Not Done 03/26/17 03/26/17 03/26/17 09:22 10:25 10:37 WBC RBC Hgb Hct MCV MCH MCHC RDW Std Deviation Plt Count MPV Immature Gran % (Auto) Neut % (Auto) Lymph % (Auto) [place] % (Auto) Eos % (Auto) Baso % (Auto) Neut # Lymph # [place] # Eos # Baso # Abs Immat Gran (auto) Neutrophils % (Manual) Band Neutrophils % Lymphocytes % (Manual) Monocytes % (Manual) Neutrophils # (Manual) Band Neutrophils # Lymphocytes # (Manual) Monocytes # (Manual) RBC Morph Comment INR APTT D-Dimer ABG pH ABG pCO2 ABG pO2 ABG HCO3 ABG Total CO2 ABG O2 Saturation ABG Base Excess O2 Delivery Method Turbidity Sodium Potassium Chloride Carbon Dioxide Anion Gap BUN Creatinine GFR Calculation BUN/Creatinine Ratio Glucose Glucometer 186 Calculated Osmolality Calcium Magnesium Total Bilirubin Icterus Index AST ALT Alkaline Phosphatase Ammonia Troponin I 7.460 H D B-Natriuretic Peptide Total Protein Albumin Globulin Albumin/Globulin Ratio Prealbumin Plasma Lactate Procalcitonin Specimen Hemolysis < 15 Specimen Comment [place] new specimen Tests Not Done Abg Reason Tests Not Done Clotted specimen 03/26/17 10:55 WBC RBC Hgb Hct MCV MCH MCHC RDW Std Deviation Plt Count MPV Immature Gran % (Auto) Neut % (Auto) Lymph % (Auto) [place] % (Auto) Eos % (Auto) Baso % (Auto) Neut # Lymph # [place] # Eos # Baso # Abs Immat Gran (auto) Neutrophils % (Manual) Band Neutrophils % Lymphocytes % (Manual) Monocytes % (Manual) Neutrophils # (Manual) Band Neutrophils # Lymphocytes # (Manual) Monocytes # (Manual) RBC Morph Comment INR APTT D-Dimer ABG pH 7.190 L* ABG pCO2 11 L* ABG pO2 131 H ABG HCO3 4 L ABG Total CO2 4.5 L ABG O2 Saturation 98.0 ABG Base Excess -21.4 L O2 Delivery Method Room air Turbidity Sodium Potassium Chloride Carbon Dioxide Anion Gap BUN Creatinine GFR Calculation BUN/Creatinine Ratio Glucose Glucometer Calculated Osmolality Calcium Magnesium Total Bilirubin Icterus Index AST ALT Alkaline Phosphatase Ammonia Troponin I B-Natriuretic Peptide Total Protein Albumin Globulin Albumin/Globulin Ratio Prealbumin Plasma Lactate Procalcitonin Specimen Hemolysis Specimen Comment Tests Not Done Reason Tests Not Done <Leah Kerr - 03/26/17 13:26> - Imaging and Cardiology EKG results: image reviewed <Leah Kerr - 03/26/17 13:26> Imaging & Cardiology Narrative: Date of Exam: 03/26/17 Ordering Provider: Henry Mesa MD Type of Exam(s): XR chest 2V Reason for Exam(s): cough shortness of air exertional dyspnea INDICATION: cough shortness of air exertional dyspnea PROCEDURE: CHEST 2-VIEWS UPRIGHT (PA & LAT) Encounter: Initial COMPARISON: October 11, 2015 FINDINGS: The lungs are clear without evidence of focal abnormal airspace opacity. There is no pleural effusion or pneumothorax. The heart size, mediastinal contours and pulmonary vascularity are stable. IMPRESSION: No acute cardiopulmonary disease. 03/26/17 13:06 <Leah Kerr - 03/26/17 13:26> EKG interpretations - Dysrhythmias Sinus rhythms and dysrhythmias: sinus rhythm <Leah Kerr - 03/26/17 13:26> - Blocks, axis, hypertrophy, ST abn AV and intraventricular conduction: 1 AV block, left bundle branch block (fixed/ intermittent, complete/incomplete) <Leah Kerr - 03/26/17 13:26> QRS axis and voltage: left axis deviation (-30 to -90) <Leah Kerr - 03/26 13:26> Assessment and Plan (1) HTN (hypertension) Current visit: No Status: Acute (2) Liver disease Current visit: No Status: Chronic (3) Type 2 diabetes mellitus Current visit: No Status: Chronic (4) Dyslipidemia Current visit: Yes Status: Chronic (5) CAD (coronary artery disease) Current visit: Yes Status: Chronic (6) Acute kidney injury Current visit: Yes Status: Acute (7) SIRS (systemic inflammatory response syndrome) Current visit: Yes Status: Acute (8) NSTEMI (non-ST elevated myocardial infarction) Current visit: Yes Status: Acute <Jerson Lujan - 04/01/17 08:13> (1) NSTEMI (non-ST elevated myocardial infarction) Start date: 03/26/17 Current visit: Yes Status: Acute NSTEMI .History of CAD with stent placement "years ago". Chest pain improved with nitro and relieved with nitropaste. .Initial troponin 0.078. Repeat troponin elevated to 7.46, continue to trend. .Repeat EKG appears unchanged with peaked t-waves and LBBB. Unknown if BBB is acute or chronic. .Needs heart cath when kidney function allows. .Transfer to CCU. Start nitro drip. Start Heparin drip per pharmacy consult ( thank you for your help). .Discussed patient wishes with regard to code status. Patient wishes to be a FULL CODE at this time. Plan Left heart cath tomorrow afternoon if kidney function allows (2) SIRS (systemic inflammatory response syndrome) Current visit: Yes Status: Acute Per attending: - SIRS, present on admission, as indicated by tachypnea, leukocytosis, thrombocytopenia, elevated lactate and renal insufficiency. .Patient does not have obvious source of infection or would otherwise meet criteria for severe sepsis. .Admit to inpatient status under the care of Dr. Larkin and hospitalist service. .NS 125cc/hr for fluid resuscitation. Monitor closely for signs of fluid overload with daily weight. BNP on admission was 3400. .Rocephin 1g IV x 1 dose give in ED for empiric coverage of pulmonary pathogens. Will discuss continuation of antibiotics with Dr. Larkin in light of no acute infection noted. Blood cultures pending. (3) Acute kidney injury Current visit: Yes Status: Acute - Acute Kidney Injury, present on admission. .Review of labs from 09/2015 revealed previous SCr at 1.5. Elevated BUN and SCr on admission at 31 and 2.8 respectively. .No NAFISA/ ARB due to kidney injury (4) CAD (coronary artery disease) Current visit: Yes Status: Chronic History of CAD and stent placement at [place] years ago. Continue home medications including atorvastatin, and metoprolol. Hold home Spironolactone and Lasix in light of hyperkalemia and acute kidney injury. (5) Type 2 diabetes mellitus Current visit: No Status: Chronic per attending (6) HTN (hypertension) Current visit: No Status: Acute Continue home metoprolol (7) Dyslipidemia Current visit: Yes Status: Chronic Continue home atorvastatin (8) Liver disease Current visit: No Status: Chronic No Statins due to liver disease <Leah Kerr - 03/26/17 18:42> - Attestation Attestation Narrative: 04/01/17 08:13 Recommendation After examining the patient I agree with the above assessment. I am involved in the formulation of the patient's plan of care. <Jerson Lujan - 04/01/17 08:13> Hospital Course Summary Disclaimer: The visit summary below is not to be considered part of the above Progress Note. <Jerson Lujan - 04/01/17 08:13> The visit summary below is not to be considered part of the above Progress Note. <Leah Kerr - 03/26/17 13:26> Hospital Course: 03/26/17 11:39 - SIRS, present on admission, as indicated by tachypnea, leukocytosis, thrombocytopenia, elevated lactate and renal insufficiency. .Patient does not have obvious source of infection or would otherwise meet criteria for severe sepsis. .Admit to inpatient status under the care of Dr. Larkin and hospitalist service. .NS 125cc/hr for fluid resuscitation. Monitor closely for signs of fluid overload with daily weight. BNP on admission was 3400. .Rocephin 1g IV x 1 dose give in ED for empiric coverage of pulmonary pathogens. Will discuss continuation of antibiotics with Dr. Larkin in light of no acute infection noted. Blood cultures pending. - Acute Chest pain with dyspnea .History of CAD with stent placement "years ago". Chest pain improved with nitro and relieved with nitropaste. .Initial troponin 0.078. Repeat troponin elevated to 7. .Dr. Lujan consulted for further evaluation. Patient is open to heart cath and treatment if indicated. .Repeat EKG appears unchanged with peaked t-waves and LBBB. Unknown if BBB is acute or chronic. [facility] .Repeat exam with Dr. Osborne at 1120 indicated the patient was pain free. ASA given and Leah with Dr. Lujan present. Will initiate lovenox. .Discussed patient wishes with regard to code status. Patient wishes to be a FULL CODE at this time. - Acute Kidney Injury, present on admission. .Review of labs from 09/2015 revealed previous SCr at 1.5. Elevated BUN and SCr on admission at 31 and 2.8 respectively. .Fluid resuscitation with NS 125cc/hr. Recheck BMP in AM and monitor closely. - Hypocapnia, present on admission. .CO2 7 on admission. .ABG ordered - results pending. Patient tachynic on exam with mild conversational dyspnea. Consider bicarb replacement. - Hyperkalemia, present on admission. .5.6 on admission. Peaked t-waves noted on EKG. .Will hold home spirnolactone and continue to monitor closely. Coming down with IVF. Monitor closely on telemetry. - Thrombocytopenia, present on admission. .Platelets 79 on admission. - Anemia, present on admission. .No signs of acute bleeding. 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 - Hepatic cirrhosis, chronic. .Ammonia <9 on admission. History of prior TIPS procedure ~8-10 years ago. .Continue home lactulose. - Diabetes, Type II, chronic. .Hold home metformin in light of renal function. .Monitor blood sugars closely with BGMs. Sliding scale insulin as indicated. Will check A1c. - CAD, Hypertension and Dyslipidemia, chronic. .History of CAD and stent placement at [place] years ago. .Continue home medications including atorvastatin, propanolol and metoprolol. .Will hold home spironalactone and lasix in light of hyperkalemia and acute kidney injury. - GERD, chronic. .Continue home Nexium. - Ankle wound, chronic. .Currently being managed by Dr. Jasso. Monitor for signs of infection. Change bandage as needed or every 3 days. - Anxiety, chronic. .Continue home ativan as needed. - Obesity, BMI 36 .Carb controlled diet. .Patient complained of gagging with eating. Consult speech therapy for swallow function test. Upon discharge, patient's care will be returned to his PCP, Dr. Bartlett. <Leah Kerr - 03/26/17 13:26> Sepsis Assessment - Evaluation Sepsis screening result: Severe Sepsis Risk <Leah Kerr - 03/26/17 13:26>
[2017-03-26] MEDS ORDERED: BENZONATATE 100 MG CAPSULE PO PRN (12:57)
--- NOTE | 2017-03-26 12:59 | Pharmacy Consult ---
Pharmacy Consult-Heparin - Laboratory Information Heparin Plt Count 79 T/MM3 (130-400) L 03/26/17 04:54 APTT 30.1 SEC (24-36) 03/26/17 04:54 - Consult Information HEPARIN CONSULT (Initial): Dx: CARDIAC Event Baseline PTT = 30.1 Sec. Baseline platelet count = 79 T/mm3 (noted low). PTT Target Range = 50 - 75 Will give Heparin Bolus of 7,000 units, start Heparin Drip at 1440units/hr (36ml /hr). Heparin 20,000 units in D5W 500ml. We will continue to monitor and make adjustments accordingly. Thank you.
[2017-03-26] MEDS ORDERED: LACTULOSE 20 GM/30 ML ORAL LIQUID PO SCH (13:00)
[2017-03-26] MEDS: HEPARIN DRIP 20,000 UNIT/500 ML BAG IV SCH (13:22)
[2017-03-26] MEDS: ACETAMINOPHEN 325 MG TABLET PO PRN (13:45)
[2017-03-26] MEDS: NITROGLYCERIN DRIP 50 MG/250 ML BAG IV PRN (15:20)
[2017-03-26] MEDS: PANTOPRAZOLE 40 MG INJECTION IVP SCH (17:15)
[2017-03-26] MEDS ORDERED: LEVOFLOXACIN PB 750 MG/150 ML BAG IV SCH (20:30)
[2017-03-26] MEDS ORDERED: SODIUM BICARBONATE 650 MG TABLET PO SCH (21:00)
[2017-03-26] MEDS: NS FLUSH BAG 500ml IV PRN (22:49)
[2017-03-27] MEDS: SODIUM BICARBONATE 100 MEQ in D5W 1,000 ML IV SCH ×2 (00:45→12:37)
[2017-03-27] MEDS: ACETAMINOPHEN 325 MG TABLET PO PRN ×2 (00:48→17:58)
[2017-03-27] MEDS: HEPARIN DRIP 20,000 UNIT/500 ML BAG IV SCH ×3 (03:45→13:42)
[2017-03-27] MEDS: INSULIN ASPART 100unit/ml INJECTION SQ PRN ×4 (05:24→20:42)
[2017-03-27] MEDS: SALINE FLUSH 10ml SYRINGE IVF PRN ×3 (05:24→17:00)
--- NOTE | 2017-03-27 07:29 | Pharmacy Consult- Renal Dosing ---
Pharamcy Consul-Renal Dosing - Laboratory Information 03/26/17 03/26/17 03/27/17 17:32 22:10 05:19 BUN 32.0 H 32.0 H 32.0 H Creatinine 2.6 H D 2.6 H 2.5 H LEVAQUIN DOSING: Patient's SCr = 2.5 mg/dl. Calculated CrCl = 37 mL/min. I was contacted by nursing at home with a Levaquin Consult. With the age of 71 and serum creatininie of 2.5 mg/dL, I ordered Levofloxacin 750 mg IV q48h. Thank you for the Consult, Ken White [facility].
--- NOTE | 2017-03-27 08:17 | XRay Report ---
Indication: PICC placement PROCEDURE: XR chest post-procedure 1V: Encounter: Initial Comparison: 03/26/2017 at 1711 Findings: Left PICC line remains in place with the tip projecting over the mid SVC. Lungs are clear. No pneumothorax. Motion artifact. Cardiac silhouette remains enlarged. Mediastinal contours and pulmonary vascularity are unchanged. Impression: Left PICC line tip projecting over the mid SVC. There is a preliminary report by virtual radiologic. .
--- NOTE | 2017-03-27 08:20 | XRay Report ---
Indication: post picc insertion PROCEDURE: XR chest post-procedure 1V: Encounter: Initial Comparison: 03/26/2017 at 0534 Findings: New left PICC line in place with the tip projecting over the mid SVC. No gross pneumothorax. Heart size and mediastinal contours are stable. Impression: New left PICC line tip projecting over the region of the mid SVC. .
--- NOTE | 2017-03-27 08:21 | XRay Report ---
Indication: check post picc insertion PROCEDURE: XR chest post-procedure 1V: Encounter: Initial Comparison: March 26, 2017 at 0534 Findings: Left PICC line in place with the tip apparently extending into the azygos vein. No pneumothorax. Lungs are grossly clear. Cardiac silhouette is enlarged but unchanged. Impression: Left PICC line tip projects over the azygos vein. Recommend repositioning or replacement prior to use. There is a preliminary report by virtual radiologic. .
--- NOTE | 2017-03-27 08:48 | Progress Note ---
Subjective: PT states he is feeilng fine. No CP no SOB. No adverse events overnight reported by nursing. Bartenders was called with gram + cocci in blood, pt was given Vancomicyn one dose and will continue. Pt states he is feeling fine. He had a good night, denies any pain, malaise not SOB, has tachypnea. Objective Vital signs: Temperature 97.3 F 03/27/17 08:00 Pulse Rate 79 03/27/17 08:00 Respiratory Rate 32 H 03/27/17 08:00 Blood Pressure 120/56 03/27/17 08:00 Pulse Oximetry 100 03/27/17 08:00 Oxygen Delivery Method Room Air Rhythm: Normal Sinus Rhythm Weight: 123.7 kg - Constitutional Present: no acute distress - Routine HEENT Exam Head: Present: normocephalic, atraumatic Eye: Present: EOMI, PERRL - Routine Respiratory Exam Present: CTA bilaterally Comments: Pt has tachypnea. - Routine Cardiovascular Exam Present: RRR - Routine Abdominal Exam Present: soft, non tender, distended - Routine Extremities Exam Present: edema. Absent: cyanosis, clubbing - Routine Neurological Exam Present: alert, oriented X3 - Routine Psychiatric Exam Present: normal affect Results - Labs CBC & Chem 7: 03/27/17 05:18 03/27/17 05:19 - ABG Interpretation ABG results: 03/26/17 03/26/17 10:55 23:22 ABG pH 7.190 L* ABG pCO2 11 L* ABG pO2 131 H ABG HCO3 4 L ABG Total CO2 4.5 L ABG O2 Saturation 98.0 ABG Base Excess -21.4 L VBG pH 7.210 L VBG pCO2 18 L VBG pO2 35 L VBG HCO3 7 L VBG Total CO2 7.8 VBG O2 Saturation 52.0 VBG Base Excess -18.5 L Assessment and Plan (1) HTN (hypertension) Current visit: No Status: Acute (2) Type 2 diabetes mellitus Current visit: No Status: Chronic (3) Dyslipidemia Current visit: Yes Status: Chronic (4) GERD (gastroesophageal reflux disease) Current visit: Yes Status: Chronic (5) CAD (coronary artery disease) Current visit: Yes Status: Chronic (6) Hepatic cirrhosis Current visit: Yes Status: Chronic (7) Obesity (BMI 30-39.9) Current visit: Yes Status: Chronic (8) Anxiety Current visit: Yes Status: Chronic (9) Ankle wound Current visit: Yes Status: Chronic (10) Acute kidney injury Current visit: Yes Status: Acute (11) SIRS (systemic inflammatory response syndrome) Current visit: Yes Status: Acute (12) Anemia Current visit: Yes Status: Acute (13) Thrombocytopenia Current visit: Yes Status: Acute (14) Hyperkalemia Current visit: Yes Status: Acute (15) Hypocapnia Current visit: Yes Status: Acute (16) Chest pain Current visit: Yes Status: Acute Assessment and Plan: This is a 71 YO male with H.O DM, Cirrhosis (Attributed to ETOH), CAD and S/P 1 stent who presented to us with the above problems and had minor CP. A repeat TnI was very high suggesting an acute NSTEMI. Pt EKG showed LBBB and was repeat EKG did not show any changes. Pt was moved to the ICU on 03/26 in the AM; repeat TnI remained high but it is now trending down. Electrically and mechanically stable. On 03/26 pt was reported to have gram + Cocci in blood and was started on Vancomicyn. This was growing on 2/2 bottles. DIAGNOSIS - 1) Acute NSTEMI (03/26); pt did not have a lot of CP on admission. Pt is diabetic so could have silent ischemia. Initial Tni Negative, repeat at 9:22 AM - 7.46 (HIGH), repeat at 13:38 (16.4 (HIGH); now trending down. Pt has had a previous stent. INR was 1.24 on admission. Will need a cardiac cath at some time. - Continue with IV Nitro - heparin - very stable. - ASA given. - Continue beta-blockers. - Hold diuretics for now due to GRACE. - [facility] 2) Gram positive bacteremia with Staphylococcus Sp. No sensitivities yet. Called lab and confirmed no sensitivities are done yet; This is a preliminary result but 2/2 bottles are growing same organism. . - Called pharmacy - will continue with vancomicyn (Received first dose yesterday evening) - Will hold Levaquin for now. - HRCT chest - looking for a source ? PNA ? - Abdominal U/S and paracenthesis later - R/O SBP. 3) Acute renal failure BUN/Cr on admission .8 with K of 6.5 on admission, this rapidly normalized after pt was seen in the ED and is now normal. 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 Baseline creatinine previous this admission was about 1.5 - BUN/Cr = 31/2.8 (03/26); 32/2.5 (03/27) - K = 6.5 (03/26); 4.7 (03/27) - Will follow serial BUN/Cr once stable may check a PTH and a Vitamin D level. - Pt was on Aldactone for his cirrhosis - will hold. 4) Type II DM, and obesity - Initially reported as pt taking metformin at [facility] , but this medication is not on the list. BMI = 36 - Lactic acid normal x 2 so lactic acidosis is not the cause of the low blood pH. CO2 very low - possibly RTA. - Will manage glucose with sliding scale for now. a) Acidosis on ABG on admission, most likely due to RTA. remains acidotic. Lactic acid normal on admission. - ABG ON ADMISSION - pH -7.19; CO2 - 11; PO2 131, HCO3 - 4; total CO2 45, BE -(minus) 21.4 - Aldosterone level (PENDING). - Urine pH is 5.0 pt probably has RTA (related to DM) - While on Bicarb drip his CO2 is stable but has not increased. Will increase Bicarb to 150 MEq/L and increase to 125 cc/hr (03/27 - 8am) was on 100MEq/L at 100cc/hr - Increase Oral bicarb to 650 mg PO TID. - Recheck this PM. 5) Cirrhosis of the liver, with thrombocytopenia (PLT - 79K), coagulopathy (INR 1.24), ascites, esophageal varices. Pt has also hyponatremia. - Na levels - 136 (03/26); 128 (03/27) WIll restrict oral fluids. - Ammonia - <9 (03/26); 17 (03/27) OF LACTULOSE. - PLT - 79k (03/26); 71k (03/27) - Pt has been on Lactulose at home + oral aminoglycoside to decrease Ammonia ; this could worsen acidosis (By causing diarrhea and increase losses of alkali) . - Lactulose on hold. Ammonia trending up will keep an eye on it. - U/S ordered. - Pt decribes what sounds like a TIPS procedure in the past. 6) Anemia probably due to inflammation (ACD) but pt has macrocytic indices. - B12 is pending. 7) Ankle wound - chronic, managed by Dr Jasso. - Source of Staph ? 8) SIRS ? Pt received rocephin on the ED, no source was identified. Will check CT chest - paracenthesis - if negative ankle wound could be the source - May need to look for OM if the wound looks bad enough. 9) CODE STATUS - PT IS FULL CODE. Prevention PUD - PPI (IV) protonix DVT - Pt is on therapeutic Heparin for ACS. Sepsis Assessment - Evaluation Sepsis screening result: No Definite Risk Hospital Course Summary Disclaimer: The visit summary below is not to be considered part of the above Progress Note. Hospital Course: 03/26/17 11:39 - SIRS, present on admission, as indicated by tachypnea, leukocytosis, thrombocytopenia, elevated lactate and renal insufficiency. .Patient does not have obvious source of infection or would otherwise meet criteria for severe sepsis. .Admit to inpatient status under the care of Dr. Larkin and hospitalist service. .NS 125cc/hr for fluid resuscitation. Monitor closely for signs of fluid overload with daily weight. BNP on admission was 3400. .Rocephin 1g IV x 1 dose give in ED for empiric coverage of pulmonary pathogens. Will discuss continuation of antibiotics with Dr. Larkin in light of no acute infection noted. Blood cultures pending. - Acute Chest pain with dyspnea .History of CAD with stent placement "years ago". Chest pain improved with nitro and relieved with nitropaste. .Initial troponin 0.078. Repeat troponin elevated to 7. .Dr. Lujan consulted for further evaluation. Patient is open to heart cath and treatment if indicated. .Repeat EKG appears unchanged with peaked t-waves and LBBB. Unknown if BBB is acute or chronic. Will try and obtain records from [place]. .Repeat exam with Dr. Osborne at 1120 indicated the patient was pain free. ASA given and Leah with Dr. Lujan present. Will initiate lovenox. .Discussed patient wishes with regard to code status. Patient wishes to be a FULL CODE at this time. - Acute Kidney Injury, present on admission. .Review of labs from 09/2015 revealed previous SCr at 1.5. Elevated BUN and SCr on admission at 31 and 2.8 respectively. .Fluid resuscitation with NS 125cc/hr. Recheck BMP in AM and monitor closely. - Hypocapnia, present on admission. .CO2 7 on admission. .ABG ordered - results pending. Patient tachynic on exam with mild conversational dyspnea. Consider bicarb replacement. - Hyperkalemia, present on admission. .5.6 on admission. Peaked t-waves noted on EKG. .Will hold home spirnolactone and continue to monitor closely. Coming down with IVF. Monitor closely on telemetry. - Thrombocytopenia, present on admission. .Platelets 79 on admission. - Anemia, present on admission. .No signs of acute bleeding. 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 - Hepatic cirrhosis, chronic. .Ammonia <9 on admission. History of prior TIPS procedure ~8-10 years ago. .Continue home lactulose. - Diabetes, Type II, chronic. .Hold home metformin in light of renal function. .Monitor blood sugars closely with BGMs. Sliding scale insulin as indicated. Will check A1c. - CAD, Hypertension and Dyslipidemia, chronic. .History of CAD and stent placement at [place] years ago. .Continue home medications including atorvastatin, propanolol and metoprolol. .Will hold home spironalactone and lasix in light of hyperkalemia and acute kidney injury. - GERD, chronic. .Continue home Nexium. - Ankle wound, chronic. .Currently being managed by Dr. Jasso. Monitor for signs of infection. Change bandage as needed or every 3 days. - Anxiety, chronic. .Continue home ativan as needed. - Obesity, BMI 36 .Carb controlled diet. .Patient complained of gagging with eating. Consult speech therapy for swallow function test. Upon discharge, patient's care will be returned to his PCP, Dr. Bartlett.
[2017-03-27] MEDS: PANTOPRAZOLE 40 MG INJECTION IVP SCH (08:54)
[2017-03-27] MEDS: ASPIRIN *EC* 81 MG TABLET PO SCH (08:55)
--- NOTE | 2017-03-27 09:02 | Pharmacy Consult-Antibiotics ---
Pharmacy Consult-Vancomycin - Laboratory Information WBC 9.6 T/MM3 (4.5-11.0) 03/27/17 05:18 BUN 32.0 MG/DL (9-20) H 03/27/17 05:19 Creatinine 2.5 MG/DL (0.8-1.5) H 03/27/17 05:19 Procalcitonin 0.41 NG/ML 03/26/17 04:54 VANCOMYCIN CONSULT: Dx: SIRS, no known source of infection Current Renal Fx: Serum Creatinine = 2.5mg/dl. Estimated Creatinine Clearance ~ 37 mL/min. The patient hs Acute Renal Function so the dosing of the patient is critical. I ordered Vancomycin 1,500 mg IV q24hrs @ 0900. The estimated trough will be aroung 18 mcg/ml. The Pharmacy will continue to monitor renal function and vancomycin levels, and will adjust regimen to maintain therapeutic levels. Thank you for the Vancomycin consult, Ken White RP,
[2017-03-27] MEDS: SODIUM BICARBONATE 650 MG TABLET PO SCH ×3 (10:07→21:01)
--- NOTE | 2017-03-27 10:07 | Ultrasound Report ---
Indication: cirrhosis with ascites PROCEDURE: US abdomen complete: Encounter: Initial Comparison: None Technique: Grayscale and color Doppler sonographic imaging of the abdomen was performed. Findings: Hepatic parenchyma is echogenic, nodular and mildly heterogeneous without discrete mass. The gallbladder is apparently visualized with mild wall thickening that could be reactive given the patient's history of cirrhosis. No shadowing gallstones seen. Sonographic Romano's sign was negative. No intrahepatic bile duct dilatation. Extrahepatic common duct is normal at 5 mm in diameter. Visualized portions of the head and body of the pancreas are unremarkable. Both kidneys are present without collecting system dilatation. The right measures 11 cm in length and left measures 10.7 cm. The spleen is enlarged at 16.3 cm in diameter. The visualized portions of the aorta and IVC are unremarkable. Trace ascites seen in Morison's pouch and the left lower quadrant. Impression: 1. Minimal ascites. This does not appear to be enough to safely perform a diagnostic paracentesis. 2. Changes of cirrhosis and portal hypertension. .
--- NOTE | 2017-03-27 10:07 | Echocardiogram ---
DATE OF PROCEDURE March 26, [address] Yair Larkin This is a two-dimensional echo with spectral Doppler, color-flow and M-mode. It was obtained in a patient with chest pain. Left atrium is dilated. Left ventricle end-diastolic dimension is increased. Left ventricle wall thickness is increased. Global hypokinesia is present with ejection fraction of about 30-35%. Right atrium is normal. Right ventricle is normal. Aortic root dimension is normal. Mitral annulus is calcified. Mitral valve leaflets are normal with moderate mitral regurgitation. Aortic valve shows fibrocalcific changes with no stenosis or insufficiency. Pulmonary valve shows no pulmonary insufficiency. There is no pericardial effusion. IMPRESSION 1. Global hypokinesia with ejection fraction of about 30-35%. 2. Left ventricular dilation. 3. Concentric left ventricular hypertrophy. 4. Left atrial dilation. 5. Mitral annulus calcification with moderate mitral regurgitation. 6. Aortic sclerosis. 7. Mild tricuspid regurgitation with normal estimated pulmonary artery systolic pressure of 20. MTDD
--- NOTE | 2017-03-27 11:15 | CT Scan Report ---
Indication: Gram positive bacteremia PROCEDURE: CT chest wo con: Encounter: Initial Comparison: Chest x-ray dated March 26, 2017 Technique: Axial CT images were performed through the chest without intravenous contrast. Coronal and sagittal two-dimensional reformats. Automated Exposure Control and Iterative Reconstruction dose reducing techniques were utilized. Findings: There is new fluid in the right major fissure creating a "pseudotumor" appearance. Small right pleural effusion. Interlobular septal thickening throughout the lungs. Right lower lobe mild atelectasis. No pneumothorax. No pulmonary masses. Motion artifact. The central airways are patent. Exam was obtained in expiration. No axillary or mediastinal adenopathy by CT criteria. Left PICC line in place extending to the mid SVC. Heart is mildly enlarged. No pericardial effusion. The upper abdomen shows a TIPS procedure and a cirrhotic liver with evidence of portal hypertension. Splenomegaly. Bilateral gynecomastia. Trace perihepatic ascites. Arterial vascular calcifications. Impression: 1. Evidence of volume overload and moderate pulmonary edema. 2. Cirrhosis and portal hypertension. 3. No focal pneumonia. .
--- NOTE | 2017-03-27 11:31 | Cardiology Progress Note ---
Subjective Principal diagnosis: chest pain (elevated troponin) <Leah Kerr - 11:34> Interval history: Dakota is seen in his room in CCU. He has undergone abdominal US and CT of chest this morning. He denies chest pain or pressure, palpitations, or dyspnea. <Leah Kerr - 03/27/17 11:34> Exam Vital signs: Temperature 97.3 F 04/03/17 15:40 Pulse Rate 71 04/03/17 16:00 Respiratory Rate 18 04/03/17 15:40 Blood Pressure 140/80 H 04/03/17 15:40 Pulse Oximetry 96 04/03/17 15:40 Oxygen Delivery Method Room Air <MargievenessapipeJerson - 04/05/17 11:13> Temperature 98.1 F 03/28/17 16:00 Pulse Rate 75 03/28/17 16:30 Respiratory Rate 25 H 03/28/17 16:30 Blood Pressure 133/71 03/28/17 16:30 Pulse Oximetry 98 03/28/17 16:30 Oxygen Delivery Method Room Air <Edmundo Garciaca L - 03/28/17 18:07> Temperature 97.3 F 03/27/17 08:00 Pulse Rate 79 03/27/17 08:00 Respiratory Rate 32 H 03/27/17 08:00 Blood Pressure 120/56 03/27/17 08:00 Pulse Oximetry 100 03/27/17 08:00 Oxygen Delivery Method Room Air <Leah Kerr - 03/27/17 11:34> - Constitutional no acute distress, well nourished, cooperative <Leah Kerr - 03/27/17 11: 34> - Routine HEENT Exam ENT: Present: mucous membranes moist <Leah Kerr - 03/27/17 11:34> - Routine Neck Exam Absent: JVD, carotid bruit <Leah Kerr 03/27/17 11:34> - Routine Chest/Breast/Axilla Exam Chest wall: Absent: tenderness <Leah Kerr - 03/27/17 11:34> - Routine Respiratory Exam Present: CTA bilaterally. Absent: rales, respiratory distress, wheezes < Leah Kerr - 03/27/17 11:34> - Routine Cardiovascular Exam Present: RRR, S1, S2. Absent: JVD <Leah Kerr - 03/27/17 11:34> - Routine Abdominal Exam Present: soft, non tender <Leah Kerr - 03/27/17 11:34> - Routine Extremities Exam Present: edema <Leah Kerr - 03/27/17 11:34> - Routine Skin Exam Present: intact. Absent: rash <Leah Kerr - 03/27/17 11:34> - Routine Neurological Exam Present: alert, oriented X3 <Leah Kerr - 03/27/17 11:34> - Routine Psychiatric Exam Present: normal affect, normal thought process <Leah Kerr 03/27/17 11: 34> - Urinary Catheter Management Urethral Cath placed during this visit: yes, but has since been removed by the nurse < Jerson Lujan - 04/05/17 11:13> Urethral indwelling: Yes <MargievenessapipeJerson - 04/05/17 11:13> Insertion date: 04/01/17 <CheynenepipeJerson - 04/05/17 11:13> Insertion time: 11:37 <Allyssa Lujanin - 04/05/17 11:13> Removal date: 04/03/17 <TaiJerson - 04/05/17 11:13> Removal time: 13:01 <TaiJerson - 04/05/17 11:13> Hospital Course This is a general summary of the patient's hospital course. For more details refer to the complete medical record. <CheyennepipeJerson - 04/05/17 11:13> This is a general summary of the patient's hospital course. For more details refer to the complete medical record. <Allyssa Garcia - 03/28/17 18:07> This is a general summary of the patient's hospital course. For more details refer to the complete medical record. <Leah Kerr - 03/27/17 11:34> Hospital course: 03/26/17 11:39 - SIRS, present on admission, as indicated by tachypnea, leukocytosis, thrombocytopenia, elevated lactate and renal insufficiency. .Patient does not have obvious source of infection or would otherwise meet criteria for severe sepsis. .Admit to inpatient status under the care of Dr. Larkin and hospitalist service. .NS 125cc/hr for fluid resuscitation. Monitor closely for signs of fluid overload with daily weight. BNP on admission was 3400. .Rocephin 1g IV x 1 dose give in ED for empiric coverage of pulmonary pathogens. Will discuss continuation of antibiotics with Dr. Larkin in light of no acute infection noted. Blood cultures pending. - Acute Chest pain with dyspnea .History of CAD with stent placement "years ago". Chest pain improved with nitro and relieved with nitropaste. .Initial troponin 0.078. Repeat troponin elevated to 7. .Dr. Lujan consulted for further evaluation. Patient is open to heart cath and treatment if indicated. .Repeat EKG appears unchanged with peaked t-waves and LBBB. Unknown if BBB is acute or chronic. Will try and obtain records from [place]. .Repeat exam with Dr. Osborne at 1120 indicated the patient was pain free. ASA given and Leah with Dr. Lujan present. Will initiate lovenox. .Discussed patient wishes with regard to code status. Patient wishes to be a FULL CODE at this time. - Acute Kidney Injury, present on admission. .Review of labs from 09/2015 revealed previous SCr at 1.5. Elevated BUN and SCr on admission at 31 and 2.8 respectively. .Fluid resuscitation with NS 125cc/hr. Recheck BMP in AM and monitor closely. - Hypocapnia, present on admission. .CO2 7 on admission. .ABG ordered - results pending. Patient tachynic on exam with mild conversational dyspnea. Consider bicarb replacement. - Hyperkalemia, present on admission. .5.6 on admission. Peaked t-waves noted on EKG. .Will hold home spirnolactone and continue to monitor closely. Coming down with IVF. Monitor closely on telemetry. - Thrombocytopenia, present on admission. .Platelets 79 on admission. - Anemia, present on admission. .No signs of acute bleeding. 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 - Hepatic cirrhosis, chronic. .Ammonia <9 on admission. History of prior TIPS procedure ~8-10 years ago. .Continue home lactulose. - Diabetes, Type II, chronic. .Hold home metformin in light of renal function. .Monitor blood sugars closely with BGMs. Sliding scale insulin as indicated. Will check A1c. - CAD, Hypertension and Dyslipidemia, chronic. .History of CAD and stent placement at [place] years ago. .Continue home medications including atorvastatin, propanolol and metoprolol. .Will hold home spironalactone and lasix in light of hyperkalemia and acute kidney injury. - GERD, chronic. .Continue home Nexium. - Ankle wound, chronic. .Currently being managed by Dr. Jasso. Monitor for signs of infection. Change bandage as needed or every 3 days. - Anxiety, chronic. .Continue home ativan as needed. - Obesity, BMI 36 .Carb controlled diet. .Patient complained of gagging with eating. Consult speech therapy for swallow function test. Upon discharge, patient's care will be returned to his PCP, Dr. Bartlett. <Leah Kerr - 03/27/17 11:34> Progress Note-A&P (1) HTN (hypertension) Status: Chronic (2) Liver disease Status: Chronic (3) Type 2 diabetes mellitus Status: Chronic (4) Dyslipidemia Status: Chronic (5) CAD (coronary artery disease) Status: Chronic (6) Acute kidney injury Status: Resolved (7) SIRS (systemic inflammatory response syndrome) Problem details: later discovered to be severe sepsis Status: Resolved (8) Anemia Problem details: Chronic disease, some rectal blood loss during hospitalization Status: Acute (9) NSTEMI (non-ST elevated myocardial infarction) Status: Resolved <Jerson Lujan - 04/05/17 11:13> (1) Anemia (2) CAD (coronary artery disease) Status: Chronic (3) HTN (hypertension) Status: Acute (4) Type 2 diabetes mellitus Status: Chronic (5) Liver disease Status: Chronic (6) Dyslipidemia Status: Chronic (7) Acute kidney injury Status: Acute Assessment and plan: Creatinine 2.5 today (8) SIRS (systemic inflammatory response syndrome) Status: Acute (9) NSTEMI (non-ST elevated myocardial infarction) Status: Acute Assessment and plan: Patient need heart cath at some point. Unable to proceed today due to kidney function and infection. Will continue to wait and watch. Continue Heparin drip today and plan to change to DVT prophylaxis Heprain tomorrow. Continue to watch Hgb and platelets. <Leah Kerr - 03/27/17 11:28> (1) NSTEMI (non-ST elevated myocardial infarction) Status: Acute (2) HTN (hypertension) Status: Acute (3) Liver disease Status: Chronic (4) Type 2 diabetes mellitus Status: Chronic (5) Dyslipidemia Status: Chronic (6) CAD (coronary artery disease) Status: Chronic Assessment and plan: Patient need heart cath at some point. Unable to proceed today due to kidney function and infection. Will continue to wait and watch. Change to DVT prophylaxis. Continue to watch Hgb and platelets. (7) Acute kidney injury Status: Acute (8) SIRS (systemic inflammatory response syndrome) Status: Acute <Allyssa Garcia - 03/28/17 18:07> - Time Spent With Patient Total time spent is greater than 50% in coordination of care (as documented) at patient's floor/unit and/or counseling patient: <Jerson Lujan - 04/05/17 11:13> Total time spent is greater than 50% in coordination of care (as documented) at patient's floor/unit and/or counseling patient: <Allyssa Garcia - 03/28/17 18:07> Total time spent is greater than 50% in coordination of care (as documented) at patient's floor/unit and/or counseling patient: <Leah Kerr - 03/27/17 11:34> less than 15 minutes <Leah Kerr - 03/27/17 11:34> - Attestation Attestation Narrative: Recommendation After examining the patient I agree with the above assessment. I am involved in the formulation of the patient's plan of care. <Jerson Lujan - 04/05/17 11:13> Sepsis Assessment - Evaluation Sepsis screening result: No Definite Risk <Leah Kerr - 03/27/17 11:34>
[2017-03-27] MEDS: SODIUM BICARBONATE 150 MEQ in D5W 850 ML IV SCH ×2 (12:27→21:29)
--- NOTE | 2017-03-27 13:36 | Pharmacy Consult ---
Pharmacy Consult-Heparin - Laboratory Information Heparin Plt Count 71 T/MM3 (130-400) L 03/27/17 05:18 APTT 80.4 SEC (24-36) H 03/27/17 12:31 HEPARIN CONSULT (Recurring): PTT = 80 Sec. Platelet count = 71 T/mm3. I adjusted the Heparin Drip to 880 units/hr (22 ml/hr). I ordered a recheck of the PTT in 6 hours and the pharmacy will adjust the regimen as needed at that time. The pharmacy will continue monitor the heparin per protocol. Thank you for the Heparin Consult, Ken White, Pharmacist.
[2017-03-27] MEDS: FUROSEMIDE 20 MG/2 ML INJECTION IVP SCH ×2 (13:42→20:59)
[2017-03-27] MEDS ORDERED: ALBUMIN HUMAN 12.5gm (25%) 50ml IV ONE (19:27)
[2017-03-27] MEDS ORDERED: FALL RISK - PHARMACY CONSULT XX PRN (22:47)
[2017-03-28] MEDS ORDERED: ACETAMINOPHEN 325 MG TABLET PO ONE (00:14)
[2017-03-28] MEDS: HEPARIN DRIP 20,000 UNIT/500 ML BAG IV SCH (00:47)
[2017-03-28] MEDS: NITROGLYCERIN DRIP 50 MG/250 ML BAG IV PRN (04:56)
[2017-03-28] MEDS: INSULIN ASPART 100unit/ml INJECTION SQ PRN ×3 (06:22→21:27)
[2017-03-28] MEDS: SODIUM BICARBONATE 150 MEQ in D5W 850 ML IV SCH ×2 (06:26→15:00)
[2017-03-28] MEDS: PANTOPRAZOLE 40 MG INJECTION IVP SCH (08:22)
[2017-03-28] MEDS: FUROSEMIDE 20 MG/2 ML INJECTION IVP SCH ×2 (08:26→20:07)
[2017-03-28] MEDS: ASPIRIN *EC* 81 MG TABLET PO SCH (08:27)
[2017-03-28] MEDS: ACETAMINOPHEN 325 MG TABLET PO PRN ×2 (08:35→22:20)
--- NOTE | 2017-03-28 09:53 | Pharmacy Consult ---
Pharmacy Consult-Heparin - Laboratory Information Heparin Plt Count 72 T/MM3 (130-400) L 03/28/17 05:10 APTT 51.9 SEC (24-36) H 03/28/17 05:10 - Consult Information HEPARIN CONSULT (Recurring): day 3 71 y.o. male with chest pain and elevated troponin placed on heparin drip per pharmacy protocol while he awaits heart cath. heart cath has been on hold due to kidney function and infection. goal PTT range= 50-75 sec PTT = 51.1 Sec. Platelet count = 72 T/mm3. Will continue Heparin Drip at 880 units/hr (22 ml/hr). Will recheck PTT with morning labs. Thank you for the consult, Ibis Neves RPh
--- NOTE | 2017-03-28 10:43 | Progress Note ---
Subjective: Pt is doing much better today. He was transfused last night. His HR is about 80 now, he denies any CP, SOB. Hemodinamically stable. Objective Vital signs: Temperature 98.2 F 03/28/17 04:00 Pulse Rate 75 03/28/17 07:15 Respiratory Rate 28 H 03/28/17 07:15 Blood Pressure 115/58 03/28/17 07:15 Pulse Oximetry 96 03/28/17 07:15 Oxygen Delivery Method Room Air Rhythm: Normal Sinus Rhythm Weight: 123.7 kg - Routine Respiratory Exam Present: CTA bilaterally - Routine Cardiovascular Exam Present: RRR, no murmur - Routine Extremities Exam Present: edema. Absent: cyanosis, clubbing - Routine Neurological Exam Present: alert, oriented X3, CN II-XII intact - Routine Psychiatric Exam Present: normal affect, cooperative, good insight, good judgment Results - Labs CBC & Chem 7: 03/28/17 05:10 03/28/17 05:10 - ABG Interpretation ABG results: 03/26/17 03/26/17 10:55 23:22 ABG pH 7.190 L* ABG pCO2 11 L* ABG pO2 131 H ABG HCO3 4 L ABG Total CO2 4.5 L ABG O2 Saturation 98.0 ABG Base Excess -21.4 L VBG pH 7.210 L VBG pCO2 18 L VBG pO2 35 L VBG HCO3 7 L VBG Total CO2 7.8 VBG O2 Saturation 52.0 VBG Base Excess -18.5 L Assessment and Plan (1) HTN (hypertension) Current visit: No Status: Acute (2) Type 2 diabetes mellitus Current visit: No Status: Chronic (3) Dyslipidemia Current visit: Yes Status: Chronic (4) GERD (gastroesophageal reflux disease) Current visit: Yes Status: Chronic (5) CAD (coronary artery disease) Current visit: Yes Status: Chronic (6) Hepatic cirrhosis Current visit: Yes Status: Chronic (7) Obesity (BMI 30-39.9) Current visit: Yes Status: Chronic (8) Anxiety Current visit: Yes Status: Chronic (9) Ankle wound Current visit: Yes Status: Chronic (10) Acute kidney injury Current visit: Yes Status: Acute (11) SIRS (systemic inflammatory response syndrome) Current visit: Yes Status: Acute (12) Anemia Current visit: Yes Status: Acute (13) Thrombocytopenia Current visit: Yes Status: Acute (14) Hyperkalemia Current visit: Yes Status: Acute (15) Hypocapnia Current visit: Yes Status: Acute (16) Chest pain Current visit: Yes Status: Acute Assessment and Plan: This is a 71 YO male with H.O DM, Cirrhosis (Attributed to ETOH), CAD and S/P 1 stent who presented to us with the above problems and minimal CP. He was worked up for ACS. Initial TnI was negative, but a repeat TnI was very high suggesting an acute NSTEMI, this was confirmed in a third set. Pt EKG showed LBBB and was repeat EKG did not show any NEW changes. Pt was moved to the ICU on 03/26 in the AM; placed on NTG drip, heparin drip and bicarb drip: Remains electrically and mechanically stable. On 03/26 pt was reported to have gram + Cocci in blood and was started on Vancomicyn. This grew on 2/2 bottles. 1 bottle (Reported 03/27) grew pansensitive S. Aureus; if both ottles show pansensitive organism will change antibiotics. Pt Hemoglobin dropped on 03/27 and pt was given 1 U of PRBC. DIAGNOSIS - 1) Acute NSTEMI (03/26); Stable over the last 48 hrs - Pt is diabetic so could have silent ischemia. Initial Tni Negative, repeat at 9:22 AM - 7.46 (HIGH), repeat at 13:38 (16.4 (HIGH); now trending down. Pt has had a previous stent. INR was 1.24 on admission. Will need a cardiac cath at some time. - On IV Nitro - heparin - ASA very stable. - Continue beta-blockers. - Diuretics resumed yesterday due to early pulmonary edema on CT chest. - [facility] 2) Gram positive bacteremia with Staphylococcus Aureus, one bottle grew MSSA, the other bottle has no sensitivities yet. - Called pharmacy - will continue with vancomicyn (Received first dose 03/26 - at night). Once 2 BC shows sensitivities will de-escalate. - HRCT chest - No PNA; Abdominal U/S - No significant ascites. - Will have wound care check on L foot ulcer - near the achyles tendon - no erythema, pain or drainage seen. 3) Acute renal failure BUN/Cr on admission 31/2.8 with K of 6.5 on admission, this rapidly normalized after pt was seen in the ED and is now normal. 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 Baseline creatinine previous this admission was about 1.5. His CO2 is normalizing slowly with Bicarb drip. A fractional excretion of urea was ordered but the urea in urine has not been processed. - BUN/Cr = 31/2.8 (03/26); 32/2.5 (03/27); 32/2.4 (03/28) - K = 6.5 (03/26); 4.7 (03/27); 3.6 (03/28) - CO2 - 7 (03/26); 18 (03/28) - Will follow serial BUN/Cr once stable may check a PTH and a Vitamin D level. - Pt was on Aldactone for his cirrhosis - will hold due to hyperkalemia on admisison. * CHECK PSA IN AM. 4) Type II DM, and obesity - Initially reported as pt taking metformin at [facility] , but this medication is not on the list. BMI = 36 - Lactic acidosis R/O on admission. - Will manage glucose with sliding scale for now. a) Acidosis on ABG on admission, most likely due to RTA. remains acidotic. Lactic acid normal on admission. - ABG ON ADMISSION - pH -7.19; CO2 - 11; PO2 131, HCO3 - 4; total CO2 45, BE -(minus) 21.4 - Urine pH is 5.0 pt probably has RTA (related to DM) - While on Bicarb drip his CO2 is stable but has not increased. Will increase Bicarb to 150 MEq/L and increase to 125 cc/hr (03/27 - 8am) was on 100MEq/L at 100cc/hr - Increase Oral bicarb to 650 mg PO TID (03/27) * Aldosterone level (PENDING) 5) Cirrhosis of the liver, with thrombocytopenia (PLT - 79K), coagulopathy (INR 1.24), ascites (minimal), esophageal varices and hyponatremia. Pt apparently had a TIPS procedure in the past. - Na levels - 136 (03/26); 128 (03/27) WIll restrict oral fluids. - Ammonia - <9 (03/26); 17 (03/27); <9 (03/28) OF LACTULOSE & OFF ORAL AMINOGLYCOSIDE. - PLT - 79k (03/26); 71k (03/27) - Lactulose on hold. Ammonia is normal. 6) Anemia probably due to inflammation (ACD) but pt has macrocytic indices. - B12 & other labs are pending. 7) Ankle wound - chronic, managed by Dr Jasso. - Source of Staph ? - Have wound care check it up soon. 8) SIRS ? Pt received rocephin on the ED, no source was identified, for S Aureus in blood. This has improved. 9) CODE STATUS - PT IS FULL CODE. Prevention PUD - PPI (IV) protonix DVT - Pt is on therapeutic Heparin for ACS. Sepsis Assessment - Evaluation Sepsis screening result: No Definite Risk Hospital Course Summary Disclaimer: The visit summary below is not to be considered part of the above Progress Note. Hospital Course: 03/26/17 11:39 - SIRS, present on admission, as indicated by tachypnea, leukocytosis, thrombocytopenia, elevated lactate and renal insufficiency. .Patient does not have obvious source of infection or would otherwise meet criteria for severe sepsis. .Admit to inpatient status under the care of Dr. Larkin and hospitalist service. .NS 125cc/hr for fluid resuscitation. Monitor closely for signs of fluid overload with daily weight. BNP on admission was 3400. .Rocephin 1g IV x 1 dose give in ED for empiric coverage of pulmonary pathogens. Will discuss continuation of antibiotics with Dr. Larkin in light of no acute infection noted. Blood cultures pending. - Acute Chest pain with dyspnea .History of CAD with stent placement "years ago". Chest pain improved with nitro and relieved with nitropaste. .Initial troponin 0.078. Repeat troponin elevated to 7. .Dr. Lujan consulted for further evaluation. Patient is open to heart cath and treatment if indicated. .Repeat EKG appears unchanged with peaked t-waves and LBBB. Unknown if BBB is acute or chronic. Will try and obtain records from [place]. .Repeat exam with Dr. Osborne at 1120 indicated the patient was pain free. ASA given and Leah with Dr. Lujan present. Will initiate lovenox. .Discussed patient wishes with regard to code status. Patient wishes to be a FULL CODE at this time. - Acute Kidney Injury, present on admission. .Review of labs from 09/2015 revealed previous SCr at 1.5. Elevated BUN and SCr on admission at 31 and 2.8 respectively. .Fluid resuscitation with NS 125cc/hr. Recheck BMP in AM and monitor closely. - Hypocapnia, present on admission. .CO2 7 on admission. .ABG ordered - results pending. Patient tachynic on exam with mild conversational dyspnea. Consider bicarb replacement. - Hyperkalemia, present on admission. .5.6 on admission. Peaked t-waves noted on EKG. .Will hold home spirnolactone and continue to monitor closely. Coming down with IVF. Monitor closely on telemetry. - Thrombocytopenia, present on admission. .Platelets 79 on admission. - Anemia, present on admission. .No signs of acute bleeding. 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 - Hepatic cirrhosis, chronic. .Ammonia <9 on admission. History of prior TIPS procedure ~8-10 years ago. .Continue home lactulose. - Diabetes, Type II, chronic. .Hold home metformin in light of renal function. .Monitor blood sugars closely with BGMs. Sliding scale insulin as indicated. Will check A1c. - CAD, Hypertension and Dyslipidemia, chronic. .History of CAD and stent placement at [place] years ago. .Continue home medications including atorvastatin, propanolol and metoprolol. .Will hold home spironalactone and lasix in light of hyperkalemia and acute kidney injury. - GERD, chronic. .Continue home Nexium. - Ankle wound, chronic. .Currently being managed by Dr. Jasso. Monitor for signs of infection. Change bandage as needed or every 3 days. - Anxiety, chronic. .Continue home ativan as needed. - Obesity, BMI 36 .Carb controlled diet. .Patient complained of gagging with eating. Consult speech therapy for swallow function test. Upon discharge, patient's care will be returned to his PCP, Dr. Bartlett.
[2017-03-28] MEDS: SODIUM BICARBONATE 650 MG TABLET PO SCH ×3 (15:06→20:06)
--- NOTE | 2017-03-28 17:38 | Cardiology Progress Note ---
Subjective Principal diagnosis: chest pain (elevated troponin) <Edmundo Garciaca L - 18:02> Interval history: Dakota is seen in his room in CCU. He denies any chest pain or palpitations. He reports feeling overall very improved. His appetite is good, up eating dinner. <Edmundo Garciaca L - 03/28/17 18:02> Exam Vital signs: Temperature 97.3 F 04/03/17 15:40 Pulse Rate 71 04/03/17 16:00 Respiratory Rate 18 04/03/17 15:40 Blood Pressure 140/80 H 04/03/17 15:40 Pulse Oximetry 96 04/03/17 15:40 Oxygen Delivery Method Room Air <Jerson Lujan - 04/05/17 11:13> Temperature 98.1 F 03/28/17 16:00 Pulse Rate 75 03/28/17 16:30 Respiratory Rate 25 H 03/28/17 16:30 Blood Pressure 133/71 03/28/17 16:30 Pulse Oximetry 98 03/28/17 16:30 Oxygen Delivery Method Room Air <Edmundo Garciaca L - 03/28/17 18:02> - Constitutional no acute distress <Akila Garciaecca L - 03/28/17 18:02> - Routine HEENT Exam Head: Present: normocephalic, atraumatic <Edmundo Garciaca L - 03/28/17 18:02> Eye: Present: PERRL <Edmundo Garciaca L - 03/28/17 18:02> ENT: Present: mucous membranes moist <Edmundo Garciaca L - 03/28/17 18:02> - Routine Neck Exam Absent: JVD, carotid bruit <KennaiAkilaAllyssa L - 03/28/17 18:02> - Routine Respiratory Exam Present: decreased breath sounds, diminished air movement <KennaiEdmundoAllyssa L - 03/28/17 18:02> - Routine Cardiovascular Exam Present: RRR <Akila Garciaecca L - 03/28/17 18:02> - Routine Abdominal Exam Present: distended <ElyseryleyiEdmundoAllyssa L - 03/28/17 18:02> - Routine Extremities Exam Present: no edema <Allyssa Garcia - 03/28/17 18:02> - Routine Skin Exam Present: intact <Allyssa Garcia - 03/28/17 18:02> - Routine Neurological Exam Present: alert, oriented X3 <Allyssa Garcia - 03/28/17 18:02> - Routine Psychiatric Exam Present: normal affect, normal thought process <Allyssa Garcia - 03/28/17 18 :02> - Urinary Catheter Management Urethral Cath placed during this visit: yes, but has since been removed by the nurse < Jerson Lujan - 04/05/17 11:13> Urethral indwelling: Yes <MargieivánJerson - 04/05/17 11:13> Insertion date: 04/01/17 <MargieivánJerson - 04/05/17 11:13> Insertion time: 11:37 <MargieivánJerson - 04/05/17 11:13> Removal date: 04/03/17 <TaiJerson - 04/05/17 11:13> Removal time: 13:01 <MargieivánJerson - 04/05/17 11:13> Hospital Course This is a general summary of the patient's hospital course. For more details refer to the complete medical record. <TaiJerson - 04/05/17 11:13> This is a general summary of the patient's hospital course. For more details refer to the complete medical record. <Allyssa Garcia - 03/28/17 18:02> Time spent with patient: less than 15 minutes <Allyssa Garcia - 03/28/17 18: 02> Progress Note-A&P (1) HTN (hypertension) Status: Chronic (2) Liver disease Status: Chronic (3) Type 2 diabetes mellitus Status: Chronic (4) Dyslipidemia Status: Chronic (5) CAD (coronary artery disease) Status: Chronic (6) Acute kidney injury Status: Resolved (7) SIRS (systemic inflammatory response syndrome) Problem details: later discovered to be severe sepsis Status: Resolved (8) Anemia Problem details: Chronic disease, some rectal blood loss during hospitalization Status: Acute (9) NSTEMI (non-ST elevated myocardial infarction) Status: Resolved <Jerson Lujan - 04/05/17 11:13> (1) NSTEMI (non-ST elevated myocardial infarction) Status: Acute (2) HTN (hypertension) Status: Acute (3) Liver disease Status: Chronic (4) Type 2 diabetes mellitus Status: Chronic (5) Dyslipidemia Status: Chronic (6) CAD (coronary artery disease) Status: Chronic (7) Acute kidney injury Status: Acute (8) SIRS (systemic inflammatory response syndrome) Status: Acute <Allyssa Garcia 03/28/17 18:17> - Time Spent With Patient Total time spent is greater than 50% in coordination of care (as documented) at patient's floor/unit and/or counseling patient: <Jerson Lujan - 04/05/17 11:13> Total time spent is greater than 50% in coordination of care (as documented) at patient's floor/unit and/or counseling patient: <Allyssa Garcia - 03/28/17 18:02> less than 15 minutes <Allyssa Garcia 03/28/17 18:02> - Attestation Attestation Narrative: Recommendation After examining the patient I agree with the above assessment. I am involved in the formulation of the patient's plan of care. <Jerson Lujan - 04/05/17 11:13> Sepsis Assessment - Evaluation Sepsis screening result: No Definite Risk <Allyssa Garcia 03/28/17 18:02>
[2017-03-28] MEDS: HEPARIN SUB-Q 5,000 UNITS/0.5 ML INJECTION SQ SCH (22:31)
[2017-03-29] MEDS: SODIUM BICARBONATE 150 MEQ in D5W 850 ML IV SCH (00:48)
[2017-03-29] MEDS: HEPARIN SUB-Q 5,000 UNITS/0.5 ML INJECTION SQ SCH ×3 (01:26→21:57)
[2017-03-29] MEDS: ACETAMINOPHEN 325 MG TABLET PO PRN (06:39)
[2017-03-29] MEDS: MAGNESIUM SULFATE 1gm PREMIX 1 GM/100 ML BAG IV SCH ×4 (09:05→12:35)
[2017-03-29] MEDS: POTASSIUM CHLORIDE 20 MEQ/15 ML ORAL LIQUID PO SCH ×2 (09:11→17:29)
[2017-03-29] MEDS: ASPIRIN *EC* 81 MG TABLET PO SCH (09:11)
[2017-03-29] MEDS: FUROSEMIDE 20 MG/2 ML INJECTION IVP SCH ×2 (09:12→21:51)
[2017-03-29] MEDS: SODIUM BICARBONATE 650 MG TABLET PO SCH ×3 (09:13→21:56)
[2017-03-29] MEDS: SALINE FLUSH 10ml SYRINGE IVF PRN ×3 (09:14→21:52)
[2017-03-29] MEDS: NS FLUSH BAG 500ml IV PRN ×2 (09:15→09:33)
--- NOTE | 2017-03-29 09:18 | Progress Note ---
Subjective: Pt states he is feeling really good today. His heparin was D/C. He denies any CP , or SOA. He is quite comfortable. Remained hemodinamically stable throught his NSTEMI. No arrythmias. Objective Vital signs: Temperature 97.4 F 03/29/17 04:00 Pulse Rate 77 03/29/17 06:15 Respiratory Rate 29 H 03/29/17 06:15 Blood Pressure 129/75 03/29/17 06:15 Pulse Oximetry 98 03/29/17 06:15 Oxygen Delivery Method Room Air Rhythm: Normal Sinus Rhythm Weight: 123.7 kg - Constitutional Present: no acute distress - Routine HEENT Exam Head: Present: normocephalic, atraumatic Eye: Present: EOMI, PERRL - Routine Respiratory Exam Present: CTA bilaterally - Routine Cardiovascular Exam Present: RRR, no murmur - Routine Abdominal Exam Present: soft, non distended, non tender - Routine Extremities Exam Present: edema. Absent: cyanosis, clubbing - Routine Neurological Exam Present: alert, oriented X3 - Routine Psychiatric Exam Present: normal affect Results - Labs CBC & Chem 7: 03/29/17 04:29 03/29/17 04:29 - ABG Interpretation ABG results: 03/26/17 03/26/17 10:55 23:22 ABG pH 7.190 L* ABG pCO2 11 L* ABG pO2 131 H ABG HCO3 4 L ABG Total CO2 4.5 L ABG O2 Saturation 98.0 ABG Base Excess -21.4 L VBG pH 7.210 L VBG pCO2 18 L VBG pO2 35 L VBG HCO3 7 L VBG Total CO2 7.8 VBG O2 Saturation 52.0 VBG Base Excess -18.5 L Assessment and Plan (1) HTN (hypertension) Current visit: No Status: Acute (2) Type 2 diabetes mellitus Current visit: No Status: Chronic (3) Dyslipidemia Current visit: Yes Status: Chronic (4) GERD (gastroesophageal reflux disease) Current visit: Yes Status: Chronic (5) CAD (coronary artery disease) Current visit: Yes Status: Chronic (6) Hepatic cirrhosis Current visit: Yes Status: Chronic (7) Obesity (BMI 30-39.9) Current visit: Yes Status: Chronic (8) Anxiety Current visit: Yes Status: Chronic (9) Ankle wound Current visit: Yes Status: Chronic (10) Acute kidney injury Current visit: Yes Status: Acute (11) SIRS (systemic inflammatory response syndrome) Current visit: Yes Status: Acute (12) Anemia Current visit: Yes Status: Acute (13) Thrombocytopenia Current visit: Yes Status: Acute (14) Hyperkalemia Current visit: Yes Status: Acute (15) Hypocapnia Current visit: Yes Status: Acute (16) Chest pain Current visit: Yes Status: Acute Assessment and Plan: This is a 71 YO male with H.O DM, Cirrhosis (Attributed to ETOH), CAD and S/P 1 stent who presented to us with the above problems and minimal CP. He was worked up for ACS. Initial TnI was negative, but a repeat TnI was very high suggesting an acute NSTEMI, this was confirmed in a third set. Pt EKG showed LBBB and was repeat EKG did not show any NEW changes. Pt was moved to the ICU on 03/26 in the AM; placed on NTG drip, heparin drip and bicarb drip: as of 03/29, he remains electrically and mechanically stable. On 03/26 pt was reported to have gram + Cocci in blood and was started on Vancomicyn. This grew on 2/2 bottles. 1 bottle (Reported 03/27) grew pansensitive S. Aureus; if both ottles show pansensitive organism will change antibiotics. Pt Hemoglobin dropped on 03/27 and pt was given 1 U of PRBC, after this his HR dropped from 110 sustained to about 80. DIAGNOSIS - 1) Acute NSTEMI (03/26); Stable over the last 72 hrs - Initial Tni Negative, repeat at 9:22 AM - 7.46 (HIGH), repeat at 13:38 (16.4 (HIGH); then trended down. Pt has had a previous stent. INR was 1.24 on admission. Will need a cardiac cath at some time. - On IV Nitro @ low dose, ASA very stable. - Was on Heparin drip since admission till this AM (03/29) - was D/C - Continue beta-blockers. - Diuretics resumed yesterday due to early pulmonary edema on CT chest. - Resumed Aldactone (03/29) see below. - [facility]. 2) Gram positive bacteremia with Staphylococcus Aureus, one bottle grew MSSA, the other one was not tested. - Vancomicyn day 4 - will change to Ancef today. May need 14 d of treatement will ask [facility] for an opinion tomorrow. - Called pharmacy - will continue with vancomicyn (Received first dose 03/26 - at night). - HRCT chest - No PNA; Abdominal U/S - No significant ascites. - Will have wound care check on L foot ulcer - near the achyles tendon - no erythema, pain or drainage seen. - WILL GIVE VANCOMICYN TODAY - THEN CHANGE TO ANCEF 3) Acute renal failure BUN/Cr on admission 31/2.8 with K of 6.5 on admission, this rapidly normalized after pt was seen in the ED and is now normal. 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 Baseline creatinine previous this admission was about 1.5. His CO2 is normalizing slowly with Bicarb drip. A fractional excretion of urea was ordered but the urea in urine has not been processed. - BUN/Cr = 31/2.8 (03/26); 32/2.5 (03/27); 32/2.4 (03/28); 33/2.2 (03/29) - K = 6.5 (03/26); 4.7 (03/27); 3.6 (03/28); 3.2 (03/29) - CO2 - 7 (03/26); 18 (03/28) - Will check PVR as pt could have post renal obstruction -> failure. - Will follow serial BUN/Cr once stable may check a PTH and a Vitamin D level. - PSA DONE (PENDING) 4) Type II DM, and obesity - Initially reported as pt taking metformin at [facility] , but this medication is not on the list. BMI = 36 - Lactic acidosis R/O on admission. - Will manage glucose with sliding scale for now. a) Acidosis on ABG on admission, most likely due to RTA. remains acidotic. Lactic acid normal on admission. Was on bicarb drip, was stopped this AM, as CO2 normalized. Will remain on PO bicarb. Will check again BMP and UA at 2pm. - ABG ON ADMISSION - pH -7.19; CO2 - 11; PO2 131, HCO3 - 4; total CO2 45, BE -(minus) 21.4 - Urine pH is 5.0 pt probably has RTA (related to DM) - While on Bicarb drip his CO2 is stable but has not increased. Will increase Bicarb to 150 MEq/L and increase to 125 cc/hr (03/27 - 8am) was on 100MEq/L at 100cc/hr - Increase Oral bicarb to 650 mg PO TID (03/27) * ALDOSTERONE LEVEL (PENDING) 5) Cirrhosis of the liver, with thrombocytopenia, mild coagulopathy (INR 1.24 on admission), ascites (minimal), esophageal varices and hyponatremia. Pt apparently had a TIPS procedure in the past. - Na levels - 136 (03/26); 128 (03/27); 131 (03/29) *FLUID RESTRICTION TO 1,000 CC/DAY STARTED ON 03/28 - Ammonia - <9 (03/26); 17 (03/27); <9 (03/28) OF LACTULOSE & OFF ORAL AMINOGLYCOSIDE. - PLT - 79k (03/26); 71k (03/27) - Lactulose on hold. Ammonia is normal. - RESUME ALDACTONE AT 50MG/DAY - PT IS HYPOKALEMIC NOW. WILL WATCH CAREFULLY. - CHECK AMMONIA LEVEL NOW. 6) Anemia probably due to inflammation (ACD) but pt has macrocytic indices. - B12 & other labs are pending. - S/P transfusion of 1U PRBC on 03/28 - Hemoglobin 8.8 (03/29) may need a second unit of blood transfused. 7) FEN A) Hyponatremia - fluid restricted as of now, Na trending up B) Hypokalemia - on admisison K was high. Now low, will replace orally and restart Aldactone. C) Hypomagenesemia - will give 4grams IV 8) Ankle wound - chronic, managed by Dr Jasso. - Source of Staph ? - Have wound care check it up soon. 9) SIRS ? Pt received rocephin on the ED, no source was identified, for S Aureus in blood. This has improved. 10) CODE STATUS - PT IS FULL CODE. Prevention PUD - PPI (IV) protonix DVT - Will continue with SCD's - pt also on Heparin Q12H per Cardiology's recommendations. Sepsis Assessment - Evaluation Sepsis screening result: No Definite Risk Hospital Course Summary Disclaimer: The visit summary below is not to be considered part of the above Progress Note. Hospital Course: 03/26/17 11:39 - SIRS, present on admission, as indicated by tachypnea, leukocytosis, thrombocytopenia, elevated lactate and renal insufficiency. .Patient does not have obvious source of infection or would otherwise meet criteria for severe sepsis. .Admit to inpatient status under the care of Dr. Larkin and hospitalist service. .NS 125cc/hr for fluid resuscitation. Monitor closely for signs of fluid overload with daily weight. BNP on admission was 3400. .Rocephin 1g IV x 1 dose give in ED for empiric coverage of pulmonary pathogens. Will discuss continuation of antibiotics with Dr. Larkin in light of no acute infection noted. Blood cultures pending. - Acute Chest pain with dyspnea .History of CAD with stent placement "years ago". Chest pain improved with nitro and relieved with nitropaste. .Initial troponin 0.078. Repeat troponin elevated to 7. .Dr. Lujan consulted for further evaluation. Patient is open to heart cath and treatment if indicated. .Repeat EKG appears unchanged with peaked t-waves and LBBB. Unknown if BBB is acute or chronic. [facility] .Repeat exam with Dr. Osborne at 1120 indicated the patient was pain free. ASA given and Leah with Dr. Lujan present. Will initiate lovenox. .Discussed patient wishes with regard to code status. Patient wishes to be a FULL CODE at this time. - Acute Kidney Injury, present on admission. .Review of labs from 09/2015 revealed previous SCr at 1.5. Elevated BUN and SCr on admission at 31 and 2.8 respectively. .Fluid resuscitation with NS 125cc/hr. Recheck BMP in AM and monitor closely. - Hypocapnia, present on admission. .CO2 7 on admission. .ABG ordered - results pending. Patient tachynic on exam with mild conversational dyspnea. Consider bicarb replacement. - Hyperkalemia, present on admission. .5.6 on admission. Peaked t-waves noted on EKG. .Will hold home spirnolactone and continue to monitor closely. Coming down with IVF. Monitor closely on telemetry. - Thrombocytopenia, present on admission. .Platelets 79 on admission. - Anemia, present on admission. .No signs of acute bleeding. 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 - Hepatic cirrhosis, chronic. .Ammonia <9 on admission. History of prior TIPS procedure ~8-10 years ago. .Continue home lactulose. - Diabetes, Type II, chronic. .Hold home metformin in light of renal function. .Monitor blood sugars closely with BGMs. Sliding scale insulin as indicated. Will check A1c. - CAD, Hypertension and Dyslipidemia, chronic. .History of CAD and stent placement at [facility] years ago. .Continue home medications including atorvastatin, propanolol and metoprolol. .Will hold home spironalactone and lasix in light of hyperkalemia and acute kidney injury. - GERD, chronic. .Continue home Nexium. - Ankle wound, chronic. .Currently being managed by Dr. Jasso. Monitor for signs of infection. Change bandage as needed or every 3 days. - Anxiety, chronic. .Continue home ativan as needed. - Obesity, BMI 36 .Carb controlled diet. .Patient complained of gagging with eating. Consult speech therapy for swallow function test. Upon discharge, patient's care will be returned to his PCP, Dr. Bartlett.
[2017-03-29] MEDS: PANTOPRAZOLE 40 MG INJECTION IVP SCH (09:32)
[2017-03-29] MEDS: SPIRONOLACTONE 50 MG TABLET PO SCH (14:18)
[2017-03-29] MEDS: CEFAZOLIN 2 G in NS 100 ML IV SCH ×2 (14:20→21:48)
--- NOTE | 2017-03-29 16:57 | Cardiology Progress Note ---
Subjective Principal diagnosis: chest pain (elevated troponin) <Allyssa Garcia L - 17:02> Interval history: Dakota is seen in his room in CCU. He denies any chest pain or palpitations. He reports feeling overall very improved. His appetite is good, up eating dinner. <Allyssa Garcia L - 03/30/17 10:14> Exam Vital signs: Temperature 97.3 F 04/03/17 15:40 Pulse Rate 71 04/03/17 16:00 Respiratory Rate 18 04/03/17 15:40 Blood Pressure 140/80 H 04/03/17 15:40 Pulse Oximetry 96 04/03/17 15:40 Oxygen Delivery Method Room Air <Jerson Lujan - 04/05/17 11:15> Temperature 97.4 F 03/29/17 04:00 Pulse Rate 74 03/29/17 16:00 Respiratory Rate 29 H 03/29/17 06:15 Blood Pressure 129/75 03/29/17 06:15 Pulse Oximetry 98 03/29/17 06:15 Oxygen Delivery Method Room Air <Edmundo Garciaca L - 03/29/17 17:02> - Constitutional no acute distress, cooperative <Edmundo Garciaca L - 03/29/17 17:02> - Routine HEENT Exam Head: Present: normocephalic <Edmundo Garciaca L - 03/29/17 17:02> Eye: Present: PERRL, conjunctivae pink <Edmundo Garciaca L - 03/29/17 17:02> ENT: Present: mucous membranes moist <Edmundo Garciaca L - 03/29/17 17:02> - Routine Neck Exam Absent: JVD, carotid bruit <Edmundo Garciaca L - 03/29/17 17:02> - Routine Cardiovascular Exam Present: RRR, no murmur <Edmundo Garciaca L - 03/29/17 17:02> - Routine Abdominal Exam Present: soft, normoactive bowel sounds, non tender <Edmundo Garciaca L - 17:02> - Routine Skin Exam Present: intact <Edmundo Garciaca L - 03/30/17 10:14> - Routine Neurological Exam Present: alert, oriented X3 <Allsysa Garcia - 03/30/17 10:14> - Routine Psychiatric Exam Present: normal affect, normal thought process <Allyssa Garcia - 03/30/17 10 :14> - Urinary Catheter Management Urethral Cath placed during this visit: yes, but has since been removed by the nurse < Jerson Lujan - 04/05/17 11:15> Urethral indwelling: Yes <Allyssa Lujanin - 04/05/17 11:15> Insertion date: 04/01/17 <Miladys Lujansein - 04/05/17 11:15> Insertion time: 11:37 <Miladys Lujansein - 04/05/17 11:15> Removal date: 04/03/17 <Miladys Lujansein - 04/05/17 11:15> Removal time: 13:01 <Miladys Lujansein - 04/05/17 11:15> Hospital Course This is a general summary of the patient's hospital course. For more details refer to the complete medical record. <Jerson Lujan - 04/05/17 11:15> This is a general summary of the patient's hospital course. For more details refer to the complete medical record. <Allyssa Garcia - 03/29/17 17:02> Hospital course: 03/26/17 11:39 - SIRS, present on admission, as indicated by tachypnea, leukocytosis, thrombocytopenia, elevated lactate and renal insufficiency. .Patient does not have obvious source of infection or would otherwise meet criteria for severe sepsis. .Admit to inpatient status under the care of Dr. Larkin and hospitalist service. .NS 125cc/hr for fluid resuscitation. Monitor closely for signs of fluid overload with daily weight. BNP on admission was 3400. .Rocephin 1g IV x 1 dose give in ED for empiric coverage of pulmonary pathogens. Will discuss continuation of antibiotics with Dr. Larkin in light of no acute infection noted. Blood cultures pending. - Acute Chest pain with dyspnea .History of CAD with stent placement "years ago". Chest pain improved with nitro and relieved with nitropaste. .Initial troponin 0.078. Repeat troponin elevated to 7. .Dr. Lujan consulted for further evaluation. Patient is open to heart cath and treatment if indicated. .Repeat EKG appears unchanged with peaked t-waves and LBBB. Unknown if BBB is acute or chronic. Will try and obtain records from [facility]. .Repeat exam with Dr. Osborne at 1120 indicated the patient was pain free. ASA given and Leah with Dr. Lujan present. Will initiate lovenox. .Discussed patient wishes with regard to code status. Patient wishes to be a FULL CODE at this time. - Acute Kidney Injury, present on admission. .Review of labs from 09/2015 revealed previous SCr at 1.5. Elevated BUN and SCr on admission at 31 and 2.8 respectively. .Fluid resuscitation with NS 125cc/hr. Recheck BMP in AM and monitor closely. - Hypocapnia, present on admission. .CO2 7 on admission. .ABG ordered - results pending. Patient tachynic on exam with mild conversational dyspnea. Consider bicarb replacement. - Hyperkalemia, present on admission. .5.6 on admission. Peaked t-waves noted on EKG. .Will hold home spirnolactone and continue to monitor closely. Coming down with IVF. Monitor closely on telemetry. - Thrombocytopenia, present on admission. .Platelets 79 on admission. - Anemia, present on admission. .No signs of acute bleeding. 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 - Hepatic cirrhosis, chronic. .Ammonia <9 on admission. History of prior TIPS procedure ~8-10 years ago. .Continue home lactulose. - Diabetes, Type II, chronic. .Hold home metformin in light of renal function. .Monitor blood sugars closely with BGMs. Sliding scale insulin as indicated. Will check A1c. - CAD, Hypertension and Dyslipidemia, chronic. .History of CAD and stent placement at [place] years ago. .Continue home medications including atorvastatin, propanolol and metoprolol. .Will hold home spironalactone and lasix in light of hyperkalemia and acute kidney injury. - GERD, chronic. .Continue home Nexium. - Ankle wound, chronic. .Currently being managed by Dr. Jasso. Monitor for signs of infection. Change bandage as needed or every 3 days. - Anxiety, chronic. .Continue home ativan as needed. - Obesity, BMI 36 .Carb controlled diet. .Patient complained of gagging with eating. Consult speech therapy for swallow function test. Upon discharge, patient's care will be returned to his PCP, Dr. Bartlett. <Akila Garciasunita Crouch 03/29/17 17:02> Time spent with patient: less than 15 minutes <Allyssa Garcia 03/30/17 10: 14> DVT Prophylaxis: SQ Heparin <Allyssa Garcia 03/29/17 17:02> Progress Note-A&P (1) HTN (hypertension) Status: Chronic (2) Liver disease Status: Chronic (3) Type 2 diabetes mellitus Status: Chronic (4) Dyslipidemia Status: Chronic (5) CAD (coronary artery disease) Status: Chronic (6) Acute kidney injury Status: Resolved (7) SIRS (systemic inflammatory response syndrome) Problem details: later discovered to be severe sepsis Status: Resolved (8) Anemia Problem details: Chronic disease, some rectal blood loss during hospitalization Status: Acute (9) NSTEMI (non-ST elevated myocardial infarction) Status: Resolved <TaiJerson 04/05/17 11:15> (1) NSTEMI (non-ST elevated myocardial infarction) Status: Acute Assessment and plan: troponin down to 2.2 today, nitro gtt dc'd, SL nitro prn chest pain (2) HTN (hypertension) Status: Acute Assessment and plan: well controlled, continue to monitor (3) Liver disease Status: Chronic (4) Type 2 diabetes mellitus Status: Chronic Assessment and plan: per hospitalist (5) Dyslipidemia Status: Chronic Assessment and plan: not a candidate for statins 2/2 liver disease (6) CAD (coronary artery disease) Status: Chronic Assessment and plan: Continue to plan for cardiac cath when renal fx stable (7) Acute kidney injury Status: Acute Assessment and plan: creatinine 2.2 today, BUN 33 (8) SIRS (systemic inflammatory response syndrome) Status: Acute <Allyssa Garcia Willa 03/30/17 10:13> - Time Spent With Patient Total time spent is greater than 50% in coordination of care (as documented) at patient's floor/unit and/or counseling patient: <CheyennepipeJerson - 04/05/17 11:15> Total time spent is greater than 50% in coordination of care (as documented) at patient's floor/unit and/or counseling patient: <Allyssa Garcia - 03/29/17 17:02> less than 15 minutes <Allyssa Garcia - 03/30/17 10:14> - Attestation Attestation Narrative: Recommendation After examining the patient I agree with the above assessment. I am involved in the formulation of the patient's plan of care. <Jerson Lujan - 04/05/17 11:15> Sepsis Assessment - Evaluation Sepsis screening result: No Definite Risk <Allyssa Garcia - 03/29/17 17:02>
[2017-03-29] MEDS: INSULIN ASPART 100unit/ml INJECTION SQ PRN ×2 (17:30→19:44)
[2017-03-29] MEDS ORDERED: PNEUMOCOCCAL 13 VACCINE 0.5ml INJECTION IM ONE (17:38)
[2017-03-30] MEDS: CEFAZOLIN 2 G in NS 100 ML IV SCH ×3 (04:42→20:09)
[2017-03-30] MEDS: ASPIRIN *EC* 81 MG TABLET PO SCH (08:47)
[2017-03-30] MEDS: SPIRONOLACTONE 50 MG TABLET PO SCH (08:47)
[2017-03-30] MEDS: FUROSEMIDE 20 MG/2 ML INJECTION IVP SCH (08:47)
[2017-03-30] MEDS: SODIUM BICARBONATE 650 MG TABLET PO SCH ×3 (08:50→21:27)
[2017-03-30] MEDS: PANTOPRAZOLE 40 MG INJECTION IVP SCH (08:50)
[2017-03-30] MEDS: HEPARIN SUB-Q 5,000 UNITS/0.5 ML INJECTION SQ SCH ×2 (08:51→21:28)
[2017-03-30] MEDS: POTASSIUM CHLORIDE 20 MEQ/15 ML ORAL LIQUID PO SCH ×2 (08:52→17:38)
[2017-03-30] MEDS: SALINE FLUSH 10ml SYRINGE IVF PRN ×2 (08:52→20:37)
--- NOTE | 2017-03-30 09:27 | Progress Note ---
Subjective: Pt is doing very well today. he denies any CP/SOB. VSS are stable this AM. Will probably have a cath soon. Objective Vital signs: Temperature 98.3 F 03/29/17 19:30 Pulse Rate 76 03/30/17 05:30 Respiratory Rate 28 H 03/30/17 05:30 Blood Pressure 122/75 03/30/17 05:30 Pulse Oximetry 93 03/30/17 05:30 Oxygen Delivery Method Room Air Rhythm: Normal Sinus Rhythm Weight: 126.9 kg - Constitutional Present: no acute distress, well nourished, obese - Routine HEENT Exam Head: Present: normocephalic, atraumatic Eye: Present: EOMI, PERRL - Routine Respiratory Exam Present: accessory muscle use, CTA bilaterally - Routine Cardiovascular Exam Present: RRR - Routine Abdominal Exam Present: soft, normoactive bowel sounds, non distended, non tender - Routine Extremities Exam Present: edema. Absent: cyanosis, clubbing - Routine Neurological Exam Present: alert, oriented X3, CN II-XII intact - Routine Psychiatric Exam Present: normal affect, good insight, good judgment Results - Labs CBC & Chem 7: 03/30/17 05:38 03/30/17 05:38 - ABG Interpretation ABG results: 03/26/17 03/26/17 10:55 23:22 ABG pH 7.190 L* ABG pCO2 11 L* ABG pO2 131 H ABG HCO3 4 L ABG Total CO2 4.5 L ABG O2 Saturation 98.0 ABG Base Excess -21.4 L VBG pH 7.210 L VBG pCO2 18 L VBG pO2 35 L VBG HCO3 7 L VBG Total CO2 7.8 VBG O2 Saturation 52.0 VBG Base Excess -18.5 L Assessment and Plan (1) HTN (hypertension) Current visit: No Status: Acute (2) Type 2 diabetes mellitus Current visit: No Status: Chronic (3) Dyslipidemia Current visit: Yes Status: Chronic (4) GERD (gastroesophageal reflux disease) Current visit: Yes Status: Chronic (5) CAD (coronary artery disease) Current visit: Yes Status: Chronic (6) Hepatic cirrhosis Current visit: Yes Status: Chronic (7) Obesity (BMI 30-39.9) Current visit: Yes Status: Chronic (8) Anxiety Current visit: Yes Status: Chronic (9) Ankle wound Current visit: Yes Status: Chronic (10) Acute kidney injury Current visit: Yes Status: Acute (11) SIRS (systemic inflammatory response syndrome) Current visit: Yes Status: Acute (12) Anemia Current visit: Yes Status: Acute (13) Thrombocytopenia Current visit: Yes Status: Acute (14) Hyperkalemia Current visit: Yes Status: Acute (15) Hypocapnia Current visit: Yes Status: Acute (16) Chest pain Current visit: Yes Status: Acute Assessment and Plan: This is a 71 YO male with H.O DM, Cirrhosis (Attributed to ETOH), CAD and S/P 1 stent who presented to us with the above problems and minimal CP. Initial TnI was negative, but a repeat TnI was very high suggesting an acute NSTEMI, this was confirmed in a third set. Pt EKG showed LBBB and was repeat EKG did not show any NEW changes. Pt was moved to the ICU on 03/26 in the AM; placed on NTG drip, heparin drip and bicarb drip (was very acidotic on admission); he remained electrically and mechanically stable. On 03/26 pt was reported to have gram + Cocci in blood and was started on Vancomicyn. This grew on 10/30 bottles, of MSSA. His antibiotics were changed to Ancef (03/29). Pt Hemoglobin dropped on 03/27 and pt was given 1 U of PRBC, after his transfusison his HR dropped from 110 sustained to about 80. DIAGNOSIS - 1) Acute NSTEMI (03/26); Stable - Initial Tni Negative, repeat (03/26) @ 9:22 AM - 7.46 (HIGH), repeat (03/26) @ 13:38 16.4 (HIGH); then trended down. Pt has had a previous stent. INR was 1.24 on admission. Will need a cardiac cath at some time. - Was on Heparin drip, NTG drip and bicarb drip (03/26 - 03/29) - Pt remained hemodinamically stable, electrically and mechanically stable throught his NSTEMI. Will need a cath. - Continue ASA, SL NTG PRN, BB. - Will change diuretics to PO lasix today (03/30) - Aldactone started on 03/29. 2) Gram positive bacteremia with Staphylococcus Aureus, MSSA per final culture, source unknown. DAY # 5 OF TREATMENT (03/30) - Received Vancomicyn for 4 days, changed to Ancef (03/29). May need 14 d of treatement. - HRCT chest - No PNA; Abdominal U/S - No significant ascites. 3) CKD + Acute renal failure on admisison - BUN/Cr on admission 31/2.8 with K of 6.5 on admission, pt was very acidotic on admission; most likely due to RTA. Baseline creatinine previous this admission was about 1.5. His CO2 has normalized after several days of bicarb drip and now on oral bicarb. A fractional excretion of urea was ordered but the urea in urine has not been processed as of 03/30 -> cancelled at this time it probably will not be relevant. - BUN/Cr = 31/2.8 (03/26); 32/2.5 (03/27); 32/2.4 (03/28); 33/2.2 (03/29); 32/2.2 ( 03/30) - K = 6.5 (03/26); 4.7 (03/27); 3.6 (03/28); 3.2 (03/29) - PSA DONE (PENDING) 4) Type II DM, and obesity - Initially reported as pt taking metformin at [facility] , but this medication is not on the list. BMI = 36 - Lactic acidosis R/O on admission. - Will manage glucose with sliding scale for now. a) Acidosis on ABG on admission, most likely due to RTA. remains acidotic. Lactic acid normal on admission. Was on bicarb drip, was stopped on 03/29, as CO2 normalized. Will remain on PO bicarb. - CO2 - 7 (03/26); 18 (03/28); 25 (03/30) - ABG ON ADMISSION - pH -7.19; CO2 - 11; PO2 131, HCO3 - 4; total CO2 45, BE -(minus) 21.4 - On Oral bicarb to 650 mg PO TID (03/27) - Urine pH is 5.0 - repeat UA (03/29) shows urine pH is 5.5. * ALDOSTERONE LEVEL (03/26 - PENDING) 5) Cirrhosis of the liver, with thrombocytopenia, mild coagulopathy (INR 1.24 on admission), ascites (minimal), esophageal varices and hyponatremia. Pt apparently had a TIPS procedure in the past. - Na levels - 136 (03/26); 128 (03/27); 131 (03/29); 145 (03/30) *FLUID RESTRICTION TO 1,000 CC/DAY STARTED ON 03/28 - Ammonia - <9 (03/26); 17 (03/27); <9 (03/28); 11 (03/29) OF LACTULOSE & OFF ORAL AMINOGLYCOSIDE. - PLT - 79k (03/26); 71k (03/27); 79k (03/30) - RESUME ALDACTONE (03/29) AT 50MG/DAY - PT WAS HYPOKALEMIC (03/29) AND HYPOMAGNESEMIC. WILL WATCH CAREFULLY. * 6) Anemia probably due to inflammation (ACD) but pt has macrocytic indices. - B12 is normal @ 464 - S/P transfusion of 1U PRBC on 03/28 - Hemoglobin 8.8 (03/29) may need a second unit of blood transfused. 7) FEN A) Hyponatremia - on a PO fluid restriction of 1000 cc/day - Na is normal now. B) Hyperkalemia/Hypokalemia - - K - 6,5 (admission) - dropped to 3.2 (03/29) * normal today C) Hypomagenesemia 1.3 (03/29) - Received 4gm IV (03/29), with correction to 2.1 (03/30) will start PO Mg (03/30) 8) Severe protein calorie malnutrition - due to chronic illness (cirrhosis, CKD ) - Albumin level - 2.4 (03/30) - Prealbumin - 5.2 (03/26) - Check PTH, vitamin D, testosterone 9) Ankle wound - chronic, managed by Dr Jasso. - Source of Staph ? - Have wound care check it up soon. 10) SIRS ? Pt received rocephin on the ED, no source was identified, for S Aureus in blood. This has improved. 11) CODE STATUS - PT IS FULL CODE. Prevention PUD - PPI (IV) protonix -> Changed to PO ranitidine (03/30) DVT - Will continue with SCD's - pt also on Heparin Q12H per Cardiology's recommendations. Sepsis Assessment - Evaluation Sepsis screening result: No Definite Risk Hospital Course Summary Disclaimer: The visit summary below is not to be considered part of the above Progress Note. Hospital Course: 03/26/17 11:39 - SIRS, present on admission, as indicated by tachypnea, leukocytosis, thrombocytopenia, elevated lactate and renal insufficiency. .Patient does not have obvious source of infection or would otherwise meet criteria for severe sepsis. .Admit to inpatient status under the care of Dr. Larkin and hospitalist service. .NS 125cc/hr for fluid resuscitation. Monitor closely for signs of fluid overload with daily weight. BNP on admission was 3400. .Rocephin 1g IV x 1 dose give in ED for empiric coverage of pulmonary pathogens. Will discuss continuation of antibiotics with Dr. Larkin in light of no acute infection noted. Blood cultures pending. - Acute Chest pain with dyspnea .History of CAD with stent placement "years ago". Chest pain improved with nitro and relieved with nitropaste. .Initial troponin 0.078. Repeat troponin elevated to 7. .Dr. Lujan consulted for further evaluation. Patient is open to heart cath and treatment if indicated. .Repeat EKG appears unchanged with peaked t-waves and LBBB. Unknown if BBB is acute or chronic. [facility] and obtain [facility]. .Repeat exam with Dr. Osborne at 1120 indicated the patient was pain free. ASA given and Leah with Dr. Lujan present. Will initiate lovenox. .Discussed patient wishes with regard to code status. Patient wishes to be a FULL CODE at this time. - Acute Kidney Injury, present on admission. .Review of labs from 09/2015 revealed previous SCr at 1.5. Elevated BUN and SCr on admission at 31 and 2.8 respectively. .Fluid resuscitation with NS 125cc/hr. Recheck BMP in AM and monitor closely. - Hypocapnia, present on admission. .CO2 7 on admission. .ABG ordered - results pending. Patient tachynic on exam with mild conversational dyspnea. Consider bicarb replacement. - Hyperkalemia, present on admission. .5.6 on admission. Peaked t-waves noted on EKG. .Will hold home spirnolactone and continue to monitor closely. Coming down with IVF. Monitor closely on telemetry. - Thrombocytopenia, present on admission. .Platelets 79 on admission. - Anemia, present on admission. .No signs of acute bleeding. 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 - Hepatic cirrhosis, chronic. .Ammonia <9 on admission. History of prior TIPS procedure ~8-10 years ago. .Continue home lactulose. - Diabetes, Type II, chronic. .Hold home metformin in light of renal function. .Monitor blood sugars closely with BGMs. Sliding scale insulin as indicated. Will check A1c. - CAD, Hypertension and Dyslipidemia, chronic. .History of CAD and stent placement at [place] years ago. .Continue home medications including atorvastatin, propanolol and metoprolol. .Will hold home spironalactone and lasix in light of hyperkalemia and acute kidney injury. - GERD, chronic. .Continue home Nexium. - Ankle wound, chronic. .Currently being managed by Dr. Jasso. Monitor for signs of infection. Change bandage as needed or every 3 days. - Anxiety, chronic. .Continue home ativan as needed. - Obesity, BMI 36 .Carb controlled diet. .Patient complained of gagging with eating. Consult speech therapy for swallow function test. Upon discharge, patient's care will be returned to his PCP, Dr. Bartlett.
[2017-03-30] MEDS: INSULIN ASPART 100unit/ml INJECTION SQ PRN ×2 (11:05→20:36)
[2017-03-30] MEDS: NS FLUSH BAG 500ml IV PRN (11:06)
[2017-03-30] MEDS: FUROSEMIDE 40 MG TABLET PO SCH (11:10)
--- NOTE | 2017-03-30 12:23 | Cardiology Progress Note ---
Subjective Principal diagnosis: chest pain (elevated troponin) <Allyssa Garcia L - 12:23> Interval history: Dakota is seen in his room in CCU. He denies any chest pain or palpitations. He is anxious to eat if he is not having his heart cath today. <Allyssa Garcia L - 03/30/17 12:23> Exam Vital signs: Temperature 97.3 F 04/03/17 15:40 Pulse Rate 71 04/03/17 16:00 Respiratory Rate 18 04/03/17 15:40 Blood Pressure 140/80 H 04/03/17 15:40 Pulse Oximetry 96 04/03/17 15:40 Oxygen Delivery Method Room Air <Jerson Lujan - 04/05/17 11:17> Temperature 97.5 F 03/30/17 11:00 Pulse Rate 75 03/30/17 11:15 Respiratory Rate 24 03/30/17 11:15 Blood Pressure 128/69 03/30/17 11:00 Pulse Oximetry 98 03/30/17 11:15 Oxygen Delivery Method Room Air <Edmundo Garciaca L - 03/30/17 12:23> - Constitutional no acute distress <Edmundo Garciaca L - 03/31/17 12:58> - Routine HEENT Exam Head: Present: normocephalic, atraumatic <Edmundo Garciaca L - 03/31/17 12:58> - Routine Neck Exam Absent: JVD, carotid bruit <Edmundo Garciaca L - 03/31/17 12:58> - Routine Respiratory Exam Present: CTA bilaterally <Edmundo Garciaca L - 03/31/17 12:58> - Routine Cardiovascular Exam Present: RRR, no murmur <Edmundo Garciaca L - 03/31/17 12:59> - Routine Abdominal Exam Present: normoactive bowel sounds <Edmundo Garciaca L - 03/31/17 12:58> - Routine Extremities Exam Present: edema <Edmundo Garciaca L - 03/31/17 12:58> - Routine Skin Exam Present: intact <Edmundo Garciaca L - 03/31/17 12:58> - Routine Neurological Exam Present: alert, oriented X3 <Allyssa Garcia - 03/31/17 12:58> - Routine Psychiatric Exam Present: normal affect, normal thought process <Allyssa Garcia - 03/31/17 12 :58> - Urinary Catheter Management Urethral Cath placed during this visit: yes, but has since been removed by the nurse < Jerson Lujan - 04/05/17 11:17> Urethral indwelling: Yes <Jerson Lujan - 04/05/17 11:17> Insertion date: 04/01/17 <Jerson Lujan - 04/05/17 11:17> Insertion time: 11:37 <Jerson Lujan - 04/05/17 11:17> Removal date: 04/03/17 <Jerson Lujan - 04/05/17 11:17> Removal time: 13:01 <Jerson Lujan - 04/05/17 11:17> Hospital Course This is a general summary of the patient's hospital course. For more details refer to the complete medical record. <Jerson Lujan - 04/05/17 11:17> This is a general summary of the patient's hospital course. For more details refer to the complete medical record. ECHO: IMPRESSION 1. Global hypokinesia with ejection fraction of about 30-35%. 2. Left ventricular dilation. 3. Concentric left ventricular hypertrophy. 4. Left atrial dilation. 5. Mitral annulus calcification with moderate mitral regurgitation. 6. Aortic sclerosis. 7. Mild tricuspid regurgitation with normal estimated pulmonary artery systolic pressure of 20. <Allyssa Garcia - 03/31/17 12:58> Hospital course: 03/26/17 11:39 - SIRS, present on admission, as indicated by tachypnea, leukocytosis, thrombocytopenia, elevated lactate and renal insufficiency. .Patient does not have obvious source of infection or would otherwise meet criteria for severe sepsis. .Admit to inpatient status under the care of Dr. Larkin and hospitalist service. .NS 125cc/hr for fluid resuscitation. Monitor closely for signs of fluid overload with daily weight. BNP on admission was 3400. .Rocephin 1g IV x 1 dose give in ED for empiric coverage of pulmonary pathogens. Will discuss continuation of antibiotics with Dr. Chaya in light of no acute infection noted. Blood cultures pending. - Acute Chest pain with dyspnea .History of CAD with stent placement "years ago". Chest pain improved with nitro and relieved with nitropaste. .Initial troponin 0.078. Repeat troponin elevated to 7. .Dr. Lujan consulted for further evaluation. Patient is open to heart cath and treatment if indicated. .Repeat EKG appears unchanged with peaked t-waves and LBBB. Unknown if BBB is acute or chronic. Will try and obtain records from [place]. .Repeat exam with Dr. Osborne at 1120 indicated the patient was pain free. ASA given and Leah with Dr. Lujan present. Will initiate lovenox. .Discussed patient wishes with regard to code status. Patient wishes to be a FULL CODE at this time. - Acute Kidney Injury, present on admission. .Review of labs from 09/2015 revealed previous SCr at 1.5. Elevated BUN and SCr on admission at 31 and 2.8 respectively. .Fluid resuscitation with NS 125cc/hr. Recheck BMP in AM and monitor closely. - Hypocapnia, present on admission. .CO2 7 on admission. .ABG ordered - results pending. Patient tachynic on exam with mild conversational dyspnea. Consider bicarb replacement. - Hyperkalemia, present on admission. .5.6 on admission. Peaked t-waves noted on EKG. .Will hold home spirnolactone and continue to monitor closely. Coming down with IVF. Monitor closely on telemetry. - Thrombocytopenia, present on admission. .Platelets 79 on admission. - Anemia, present on admission. .No signs of acute bleeding. 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 - Hepatic cirrhosis, chronic. .Ammonia <9 on admission. History of prior TIPS procedure ~8-10 years ago. .Continue home lactulose. - Diabetes, Type II, chronic. .Hold home metformin in light of renal function. .Monitor blood sugars closely with BGMs. Sliding scale insulin as indicated. Will check A1c. - CAD, Hypertension and Dyslipidemia, chronic. .History of CAD and stent placement at [place] years ago. .Continue home medications including atorvastatin, propanolol and metoprolol. .Will hold home spironalactone and lasix in light of hyperkalemia and acute kidney injury. - GERD, chronic. .Continue home Nexium. - Ankle wound, chronic. .Currently being managed by Dr. Jasso. Monitor for signs of infection. Change bandage as needed or every 3 days. - Anxiety, chronic. .Continue home ativan as needed. - Obesity, BMI 36 .Carb controlled diet. .Patient complained of gagging with eating. Consult speech therapy for swallow function test. Upon discharge, patient's care will be returned to his PCP, Dr. Bartlett. <Allyssa Garcia - 03/31/17 12:58> Progress Note-A&P (1) HTN (hypertension) Status: Chronic (2) Liver disease Status: Chronic (3) Type 2 diabetes mellitus Status: Chronic (4) Dyslipidemia Status: Chronic (5) CAD (coronary artery disease) Status: Chronic (6) Acute kidney injury Status: Resolved (7) SIRS (systemic inflammatory response syndrome) Problem details: later discovered to be severe sepsis Status: Resolved (8) Anemia Problem details: Chronic disease, some rectal blood loss during hospitalization Status: Acute (9) NSTEMI (non-ST elevated myocardial infarction) Status: Resolved <Jerson Lujan - 04/05/17 11:17> (1) NSTEMI (non-ST elevated myocardial infarction) Status: Acute Assessment and plan: cardiac cath completed, diffuse severe coronary disease, not amendable to intervention or surgical correction 2/2 to co-morbidities. Recommend medical management. (2) HTN (hypertension) Status: Acute Assessment and plan: stable, continue meds, monitor (3) Liver disease Status: Chronic Assessment and plan: recommend statin for CAD medical management, follow LFT's closely (4) Type 2 diabetes mellitus Status: Chronic Assessment and plan: per medical team (5) Dyslipidemia Status: Chronic Assessment and plan: Recommend lipid management 2/2 CAD, statin therapy carries a risk due to pt's chronic liver disease, recommend atorvastatin 40mg daily, follow LFT's closely. (6) CAD (coronary artery disease) Status: Chronic Assessment and plan: diffuse on today's cath, recommend medical management due to pt's multiple co- morbidities. (7) Acute kidney injury Status: Acute Assessment and plan: fluids continued post cath, follow renal function (8) SIRS (systemic inflammatory response syndrome) Status: Acute <Allyssa Garcia - 03/31/17 12:58> - Time Spent With Patient Total time spent is greater than 50% in coordination of care (as documented) at patient's floor/unit and/or counseling patient: <Jerson Lujan - 04/05/17 11:17> Total time spent is greater than 50% in coordination of care (as documented) at patient's floor/unit and/or counseling patient: <Allyssa Garcia - 03/30/17 12:23> less than 15 minutes <Allyssa Garcia - 03/31/17 12:59> - Attestation Attestation Narrative: Recommendation After examining the patient I agree with the above assessment. I am involved in the formulation of the patient's plan of care. <Jerson Lujan - 04/05/17 11:17> Sepsis Assessment - Evaluation Sepsis screening result: No Definite Risk <Allyssa Garcia - 03/30/17 12:23>
[2017-03-30] MEDS ORDERED: LIDOCAINE 1% (10mg/ml) 30ml SDV INJ ONE (14:30)
[2017-03-30] MEDS ORDERED: HEPARIN 1,000 UNITS/500 ML PREMIX (*CVL ONLY*) IV ONE (14:30)
[2017-03-30] MEDS: NS 1,000 ML IV SCH (14:35)
[2017-03-30] MEDS ORDERED: NITROGLYCERIN 50MG INJECTION IV ONE (14:54)
[2017-03-30] MEDS ORDERED: MIDAZOLAM 2mg/2ml INJECTION ONE (14:54)
[2017-03-30] MEDS ORDERED: Verapamil 5 MG/2 ML VIAL ONE (14:54)
[2017-03-30] MEDS ORDERED: HEPARIN 1,000unit/ml INJECTION 10ml ONE (14:54)
[2017-03-30] MEDS ORDERED: FentaNYL 100 MCG/2 ML INJECTION ONE (14:54)
[2017-03-30] MEDS ORDERED: ATROPINE 1 MG/ML INJECTION IVP PRN (15:35)
[2017-03-30] MEDS ORDERED: LORazepam 0.5 MG TABLET PO PRN (15:35)
[2017-03-30] MEDS ORDERED: MORPHINE SULFATE 4 MG SYRINGE IVP PRN ×2 (15:35)
[2017-03-30] MEDS ORDERED: NITROGLYCERIN 0.4 MG SUBLINGUAL TABLET SL PRN (15:35)
[2017-03-30] MEDS ORDERED: ONDANSETRON 4 MG/2 ML INJECTION IVP PRN (15:35)
[2017-03-30] MEDS ORDERED: HYDROCODONE/APAP 5mg/325mg TABLET PO PRN (15:35)
[2017-03-30] MEDS ORDERED: BISACODYL 10 MG SUPPOSITORY RECTALLY PRN (15:35)
[2017-03-30] MEDS ORDERED: METOCLOPRAMIDE 10mg/2ml INJECTION IVP PRN (15:35)
[2017-03-30] MEDS ORDERED: PROMETHAZINE 25 MG INJECTION IVP PRN (15:35)
[2017-03-30] MEDS ORDERED: Bisacodyl EC TAB 5 MG TABLET PO PRN (15:35)
[2017-03-30] MEDS ORDERED: MAG-AL + SIM ORAL LIQUID 30ml PO PRN (15:35)
[2017-03-30] MEDS ORDERED: ACETAMINOPHEN 325 MG TABLET PO PRN (15:35)
[2017-03-30] MEDS: MAGNESIUM OXIDE 400 MG TABLET PO SCH (21:28)
[2017-03-30] MEDS: RANITIDINE 150 MG TABLET PO SCH (21:28)
[2017-03-31] MEDS: NS 1,000 ML IV SCH ×3 (02:13→17:54)
[2017-03-31] MEDS: CEFAZOLIN 2 G in NS 100 ML IV SCH ×3 (04:18→20:11)
[2017-03-31] MEDS: SALINE FLUSH 10ml SYRINGE IVF PRN ×2 (04:19→12:48)
[2017-03-31] MEDS: SPIRONOLACTONE 50 MG TABLET PO SCH (09:20)
[2017-03-31] MEDS: MAGNESIUM OXIDE 400 MG TABLET PO SCH ×2 (09:21→22:00)
[2017-03-31] MEDS: SODIUM BICARBONATE 650 MG TABLET PO SCH ×3 (09:21→22:00)
[2017-03-31] MEDS: ASPIRIN *EC* 81 MG TABLET PO SCH (09:21)
[2017-03-31] MEDS: HEPARIN SUB-Q 5,000 UNITS/0.5 ML INJECTION SQ SCH (09:28)
[2017-03-31] MEDS: [UNRECOGNIZED DRUG - OTHER] PO SCH (09:50)
[2017-03-31] MEDS: FOLIC ACID PO SCH (09:50)
[2017-03-31] MEDS: VIT B COMP PO SCH (09:50)
--- NOTE | 2017-03-31 10:24 | Progress Note ---
Subjective: Pt states he is feeling very good today. Had a cardiac cath that showed diffuse 3 vessel disease not amenable to treatment with PTCA or CABG. Will start medical management. I discussed with pt the pros and cons of statin therapy. He just had a NSTEMI ans is very high risk of recurrence due to his coronary anatomy, and diabetes. His benefit of statins outweight the risk. Pt wants to proceed with Statin therapy. Objective Vital signs: Temperature 97.7 F 03/31/17 04:00 Pulse Rate 73 03/31/17 06:16 Respiratory Rate 25 H 03/31/17 06:16 Blood Pressure 136/61 03/31/17 06:16 Pulse Oximetry 94 03/31/17 06:16 Oxygen Delivery Method Room Air Rhythm: Normal Sinus Rhythm Weight: 126.6 kg - Routine HEENT Exam Head: Present: normocephalic, atraumatic Eye: Present: EOMI, PERRL - Routine Cardiovascular Exam Present: RRR - Routine Abdominal Exam Present: soft, non distended, non tender - Routine Extremities Exam Absent: cyanosis, clubbing, edema - Routine Neurological Exam Present: alert, oriented X3, CN II-XII intact - Routine Psychiatric Exam Present: normal affect, good insight, good judgment Results - Labs CBC & Chem 7: 03/31/17 04:29 03/31/17 04:29 - ABG Interpretation ABG results: 03/26/17 03/26/17 03/30/17 10:55 23:22 10:50 ABG pH 7.190 L* 7.480 H ABG pCO2 11 L* 37 ABG pO2 131 H 78 L ABG HCO3 4 L 28 H ABG Total CO2 4.5 L 28.7 H ABG O2 Saturation 98.0 96.0 ABG Base Excess -21.4 L 4.0 H VBG pH 7.210 L VBG pCO2 18 L VBG pO2 35 L VBG HCO3 7 L VBG Total CO2 7.8 VBG O2 Saturation 52.0 VBG Base Excess -18.5 L Assessment and Plan (1) HTN (hypertension) Current visit: No Status: Acute (2) Type 2 diabetes mellitus Current visit: No Status: Chronic (3) Dyslipidemia Current visit: Yes Status: Chronic (4) GERD (gastroesophageal reflux disease) Current visit: Yes Status: Chronic (5) CAD (coronary artery disease) Current visit: Yes Status: Chronic (6) Hepatic cirrhosis Current visit: Yes Status: Chronic (7) Obesity (BMI 30-39.9) Current visit: Yes Status: Chronic (8) Anxiety Current visit: Yes Status: Chronic (9) Ankle wound Current visit: Yes Status: Chronic (10) Acute kidney injury Current visit: Yes Status: Acute (11) SIRS (systemic inflammatory response syndrome) Current visit: Yes Status: Acute (12) Anemia Current visit: Yes Status: Acute (13) Thrombocytopenia Current visit: Yes Status: Acute (14) Hyperkalemia Current visit: Yes Status: Acute (15) Hypocapnia Current visit: Yes Status: Acute (16) Chest pain Current visit: Yes Status: Acute Assessment and Plan: This is a 71 YO male with H.O DM, Cirrhosis (Attributed to ETOH), CAD and S/P 1 stent who presented to us not feeling well, with minimal CP. Initial TnI was negative, but a repeat TnI was very high suggesting an acute NSTEMI, this was confirmed in a third set. Pt EKG showed LBBB and was repeat EKG did not show any NEW changes. Pt was moved to the ICU on 03/26 in the AM; placed on NTG drip, heparin drip and bicarb drip (was very acidotic on admission); he remained electrically and mechanically stable. On 03/26 pt was reported to have gram + Cocci in blood and was started on Vancomicyn. This grew on 2/2 bottles, of MSSA. His antibiotics were changed to Ancef (03/29). Pt Hemoglobin dropped on and pt was given 1 U of PRBC, after his transfusison his HR dropped from 110 sustained to about 80. He had a cardiac cath on 03/30 that showed diffuse tripple vessel disease not amenable for PTCA or CABG. DIAGNOSIS - 1) Acute NSTEMI (03/26); Stable - Initial Tni Negative, repeat (03/26) @ 9:22 AM - 7.46 (HIGH), repeat (03/26) @ 13:38 16.4 (HIGH); then trended down. Pt has had a previous stent. INR was 1.24 on admission. Will need a cardiac cath at some time. - Was on Heparin drip, NTG drip and bicarb drip (03/26 - 03/29) - Pt remained hemodinamically stable, electrically and mechanically stable throught his NSTEMI. Will need a cath. - Continue ASA, SL NTG PRN, BB. - Will change diuretics to PO lasix today (03/30) - Aldactone started on 03/29. - Diffuse CAD not amenable to be corrected by PTCA or CABG - Discussed with pt benefits/risk of statins, on chronic compensated liver disease. Will start Atorvastatin 40mg/day. Pt understands the risk, and the fact that liver damage with statins is rare, and that the benefit due to his advanced CAD is much greater than the risks. - Check baseline LFT's, CPK. Dicussed with Cardiology and there is not need to check a lipid panel at this time 2) Gram positive bacteremia with Staphylococcus Aureus, MSSA per final culture, source unknown. DAY # 6 OF TREATMENT (03/31) No fever, chills hemodinamically very stable. - Received Vancomicyn for 4 days, changed to Ancef (03/29). Will need 14 d of treatement. - HRCT chest - No PNA; Abdominal U/S - No significant ascites. 3) CKD + Acute renal failure on admisison - BUN/Cr on admission 31/2.8 with K of 6.5 on admission, pt was very acidotic on admission; most likely due to RTA. Baseline creatinine previous this admission was about 1.5. His CO2 has normalized after several days of bicarb drip and now on oral bicarb. A fractional excretion of urea was ordered but the urea in urine has not been processed as of 03/30 -> cancelled at this time it probably will not be relevant. - BUN/Cr = 31/2.8 (03/26); 32/2.5 (03/27); 32/2.4 (03/28); 33/2.2 (03/29); 32/2.2 ( 03/30) - K = 6.5 (03/26); 4.7 (03/27); 3.6 (03/28); 3.2 (03/29) - Intact PTH is HIGH - 160.3 * will need a 24 hr urine collection. - PSA DONE (PENDING) a) Acidosis on ABG on admission, most likely due to RTA. Lactic acid normal on admission. Was on bicarb drip, was stopped on 03/29, as CO2 normalized. Will remain on PO bicarb. - ABG ON ADMISSION - pH -7.19; CO2 - 11; PO2 131, HCO3 - 4; total CO2 45, BE -(minus) 21.4 - CO2 - 7 (03/26); 18 (03/28); 25 (03/30); 27 (03/31) - On Oral bicarb to 650 mg PO TID (03/27) -> will decrease to BID since pt is maintaining his CO2 levels. - Urine pH is 5.0 - repeat UA (03/29) shows urine pH is 5.5. 4) Type II DM, and obesity - Initially reported as pt taking metformin at [facility] , but this medication is not on the list. BMI = 36. Pt has CKD and Metformin is contraindicated. - Lactic acidosis R/O on admission. - Will manage glucose with sliding scale for now. * ALDOSTERONE LEVEL (03/26 - PENDING) 5) Cirrhosis of the liver, with thrombocytopenia, mild coagulopathy (INR 1.24 on admission), ascites (minimal), esophageal varices and hyponatremia (Not present on admission/now resolved) . Pt apparently had a TIPS procedure in the past. Pt is compensated at present. Has no encephalopathy, ammmonia has been normal, off Lactulose and PO aminoglycoside/minimal ascites. - Na levels - 136 (03/26); 128 (03/27); 131 (03/29); 145 (03/30) *FLUID RESTRICTION TO 1,000 CC/DAY STARTED ON 03/28 - Ammonia - <9 (03/26); 17 (03/27); <9 (03/28); 11 (03/29) OF LACTULOSE & OFF ORAL AMINOGLYCOSIDE. - PLT - 79k (03/26); 71k (03/27); 79k (03/30) - RESUME ALDACTONE (03/29) AT 50MG/DAY - PT WAS HYPOKALEMIC (03/29) AND HYPOMAGNESEMIC. K is stable. 6) Anemia probably due to inflammation (ACD) but pt has macrocytic indices. - B12 is normal @ 464 - Other anemia studies are pending. - S/P transfusion of 1U PRBC on 03/28 - Hemoglobin is 8.8 (03/31) - Hemoglobin 8.8 (03/29) may need a second unit of blood transfused. 7) FEN A) RESOLVED - Hyponatremia - Will D/C fluid restriction. B) RESOLVED - Hyperkalemia/Hypokalemia - NORMAL K OF 03/31 - K - 6,5 (admission) - dropped to 3.2 (03/29), 4.1 (03/31) C) RESOLVED - Hypomagenesemia 1.3 (03/29) - Received 4gm IV (03/29), with correction to 2.1 (03/30) Started PO Mg (03/30) -> Mg is 1.9 (03/31) 8) Severe protein calorie malnutrition - due to chronic illness (cirrhosis, CKD ) - Albumin level - 2.4 (03/30) - Prealbumin - 5.2 (03/26) - Vitamin D, testosterone pending 9) Ankle wound - chronic, managed by Dr Jasso. - Source of Staph ? - Have wound care check it up soon. 10) RESOLVED - SIRS ON ADMISSION (MET CRITERIA) ? Pt received rocephin on the ED , no source was identified, for S Aureus in blood. This has improved. 11) CODE STATUS - PT IS FULL CODE. Prevention PUD - PO ranitidine (03/30) DVT - Will continue with SCD's - pt also on Heparin Q12H per Cardiology's recommendations. Sepsis Assessment - Evaluation Sepsis screening result: No Definite Risk Hospital Course Summary Disclaimer: The visit summary below is not to be considered part of the above Progress Note. Hospital Course: 03/26/17 11:39 - SIRS, present on admission, as indicated by tachypnea, leukocytosis, thrombocytopenia, elevated lactate and renal insufficiency. .Patient does not have obvious source of infection or would otherwise meet criteria for severe sepsis. .Admit to inpatient status under the care of Dr. Larkin and hospitalist service. .NS 125cc/hr for fluid resuscitation. Monitor closely for signs of fluid overload with daily weight. BNP on admission was 3400. .Rocephin 1g IV x 1 dose give in ED for empiric coverage of pulmonary pathogens. Will discuss continuation of antibiotics with Dr. Larkin in light of no acute infection noted. Blood cultures pending. - Acute Chest pain with dyspnea .History of CAD with stent placement "years ago". Chest pain improved with nitro and relieved with nitropaste. .Initial troponin 0.078. Repeat troponin elevated to 7. .Dr. Lujan consulted for further evaluation. Patient is open to heart cath and treatment if indicated. .Repeat EKG appears unchanged with peaked t-waves and LBBB. Unknown if BBB is acute or chronic. Will try and obtain records from [place]. .Repeat exam with Dr. Osborne at 1120 indicated the patient was pain free. ASA given and Leah with Dr. Lujan present. Will initiate lovenox. .Discussed patient wishes with regard to code status. Patient wishes to be a FULL CODE at this time. - Acute Kidney Injury, present on admission. .Review of labs from 09/2015 revealed previous SCr at 1.5. Elevated BUN and SCr on admission at 31 and 2.8 respectively. .Fluid resuscitation with NS 125cc/hr. Recheck BMP in AM and monitor closely. - Hypocapnia, present on admission. .CO2 7 on admission. .ABG ordered - results pending. Patient tachynic on exam with mild conversational dyspnea. Consider bicarb replacement. - Hyperkalemia, present on admission. .5.6 on admission. Peaked t-waves noted on EKG. .Will hold home spirnolactone and continue to monitor closely. Coming down with IVF. Monitor closely on telemetry. - Thrombocytopenia, present on admission. .Platelets 79 on admission. - Anemia, present on admission. .No signs of acute bleeding. 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 - Hepatic cirrhosis, chronic. .Ammonia <9 on admission. History of prior TIPS procedure ~8-10 years ago. .Continue home lactulose. - Diabetes, Type II, chronic. .Hold home metformin in light of renal function. .Monitor blood sugars closely with BGMs. Sliding scale insulin as indicated. Will check A1c. - CAD, Hypertension and Dyslipidemia, chronic. .History of CAD and stent placement at [place] years ago. .Continue home medications including atorvastatin, propanolol and metoprolol. .Will hold home spironalactone and lasix in light of hyperkalemia and acute kidney injury. - GERD, chronic. .Continue home Nexium. - Ankle wound, chronic. .Currently being managed by Dr. Jasso. Monitor for signs of infection. Change bandage as needed or every 3 days. - Anxiety, chronic. .Continue home ativan as needed. - Obesity, BMI 36 .Carb controlled diet. .Patient complained of gagging with eating. Consult speech therapy for swallow function test. Upon discharge, patient's care will be returned to his PCP, Dr. Bartlett.
[2017-03-31] MEDS: INSULIN ASPART 100unit/ml INJECTION SQ PRN ×2 (10:59→20:49)
--- NOTE | 2017-03-31 13:29 | Cardiology Progress Note ---
Subjective Principal diagnosis: chest pain (elevated troponin) Interval history: Dakota is seen in his room in CCU. He denies any chest pain or palpitations. He underwent cardiac cath with right radial access, site is stable, board remains intact. Exam Vital signs: Temperature 97.8 F 03/31/17 12:00 Pulse Rate 74 03/31/17 13:01 Respiratory Rate 23 03/31/17 13:01 Blood Pressure 136/62 03/31/17 13:01 Pulse Oximetry 98 03/31/17 13:01 Oxygen Delivery Method Room Air - Constitutional no acute distress - Routine HEENT Exam Head: Present: normocephalic Eye: Present: PERRL ENT: Present: mucous membranes moist - Routine Neck Exam Absent: JVD, carotid bruit - Routine Respiratory Exam Present: decreased breath sounds. Absent: wheezes, crackles - Routine Cardiovascular Exam Present: RRR - Routine Abdominal Exam Present: soft, normoactive bowel sounds - Routine Extremities Exam Present: edema (mild BLE) - Routine Skin Exam Present: intact - Routine Neurological Exam Present: alert, oriented X3 - Routine Psychiatric Exam Present: normal affect, normal thought process - Urinary Catheter Management Urethral Cath placed during this visit: yes Urethral indwelling: Yes Reason for continuing: Prolonged Immobilization Insertion date: 04/01/17 Insertion time: 11:37 Hospital Course This is a general summary of the patient's hospital course. For more details refer to the complete medical record. Hospital course: 03/26/17 11:39 - SIRS, present on admission, as indicated by tachypnea, leukocytosis, thrombocytopenia, elevated lactate and renal insufficiency. .Patient does not have obvious source of infection or would otherwise meet criteria for severe sepsis. .Admit to inpatient status under the care of Dr. Larkin and hospitalist service. .NS 125cc/hr for fluid resuscitation. Monitor closely for signs of fluid overload with daily weight. BNP on admission was 3400. .Rocephin 1g IV x 1 dose give in ED for empiric coverage of pulmonary pathogens. Will discuss continuation of antibiotics with Dr. Larkin in light of no acute infection noted. Blood cultures pending. - Acute Chest pain with dyspnea .History of CAD with stent placement "years ago". Chest pain improved with nitro and relieved with nitropaste. .Initial troponin 0.078. Repeat troponin elevated to 7. .Dr. Lujan consulted for further evaluation. Patient is open to heart cath and treatment if indicated. .Repeat EKG appears unchanged with peaked t-waves and LBBB. Unknown if BBB is acute or chronic. Will try and obtain records from [place]. .Repeat exam with Dr. Osborne at 1120 indicated the patient was pain free. ASA given and Leah with Dr. Lujan present. Will initiate lovenox. .Discussed patient wishes with regard to code status. Patient wishes to be a FULL CODE at this time. - Acute Kidney Injury, present on admission. .Review of labs from 09/2015 revealed previous SCr at 1.5. Elevated BUN and SCr on admission at 31 and 2.8 respectively. .Fluid resuscitation with NS 125cc/hr. Recheck BMP in AM and monitor closely. - Hypocapnia, present on admission. .CO2 7 on admission. .ABG ordered - results pending. Patient tachynic on exam with mild conversational dyspnea. Consider bicarb replacement. - Hyperkalemia, present on admission. .5.6 on admission. Peaked t-waves noted on EKG. .Will hold home spirnolactone and continue to monitor closely. Coming down with IVF. Monitor closely on telemetry. - Thrombocytopenia, present on admission. .Platelets 79 on admission. - Anemia, present on admission. .No signs of acute bleeding. 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 - Hepatic cirrhosis, chronic. .Ammonia <9 on admission. History of prior TIPS procedure ~8-10 years ago. .Continue home lactulose. - Diabetes, Type II, chronic. .Hold home metformin in light of renal function. .Monitor blood sugars closely with BGMs. Sliding scale insulin as indicated. Will check A1c. - CAD, Hypertension and Dyslipidemia, chronic. .History of CAD and stent placement at [place] years ago. .Continue home medications including atorvastatin, propanolol and metoprolol. .Will hold home spironalactone and lasix in light of hyperkalemia and acute kidney injury. - GERD, chronic. .Continue home Nexium. - Ankle wound, chronic. .Currently being managed by Dr. Jasso. Monitor for signs of infection. Change bandage as needed or every 3 days. - Anxiety, chronic. .Continue home ativan as needed. - Obesity, BMI 36 .Carb controlled diet. .Patient complained of gagging with eating. Consult speech therapy for swallow function test. Upon discharge, patient's care will be returned to his PCP, Dr. Bartlett. Time spent with patient: less than 15 minutes DVT Prophylaxis: SCD's Progress Note-A&P (1) NSTEMI (non-ST elevated myocardial infarction) Status: Resolved Assessment and plan: Cardiac cath yesterday shows diffuse CAD, not amendable to aggressive intervention. Recommend medical management. Current Visit: Yes (2) HTN (hypertension) Status: Acute Assessment and plan: stable, continue home meds Current Visit: No (3) Liver disease Status: Chronic Assessment and plan: discussed statin use with attending, Dr. Osborne initiated atorvastatin Current Visit: No (4) Type 2 diabetes mellitus Status: Chronic Current Visit: No (5) Dyslipidemia Status: Chronic Current Visit: Yes (6) CAD (coronary artery disease) Status: Chronic Current Visit: Yes (7) Acute kidney injury Status: Resolved Current Visit: Yes (8) SIRS (systemic inflammatory response syndrome) Status: Resolved Current Visit: Yes - Time Spent With Patient Total time spent is greater than 50% in coordination of care (as documented) at patient's floor/unit and/or counseling patient: less than 15 minutes Sepsis Assessment - Evaluation Sepsis screening result: No Definite Risk
[2017-03-31] MEDS: COENZYME Q-10 200mg TABLET PO SCH (15:51)
[2017-03-31] MEDS ORDERED: ACETAMINOPHEN 500 MG TABLET PO PRN (16:27)
[2017-03-31] MEDS: RANITIDINE 150 MG TABLET PO SCH (22:00)
[2017-03-31] MEDS ORDERED: ATORVASTATIN 40 MG TABLET PO SCH (22:00)
[2017-03-31] MEDS: TAMSULOSIN 0.4 MG CAPSULE PO SCH (22:35)
[2017-04-01] MEDS: CEFAZOLIN 2 G in NS 100 ML IV SCH ×3 (04:00→21:05)
--- NOTE | 2017-04-01 08:26 | Progress Note ---
Subjective: Pt is awake alert, oriented x 3, sitting up in bed, feeling comfortable. Denies any CP, SOB, chills or fevers. No adverse events reported over night. Objective Vital signs: Temperature 97.0 F 04/01/17 07:17 Pulse Rate 70 04/01/17 07:17 Respiratory Rate 20 04/01/17 07:17 Blood Pressure 153/69 H 04/01/17 07:17 Pulse Oximetry 97 04/01/17 07:17 Oxygen Delivery Method Room Air Rhythm: Normal Sinus Rhythm Weight: 130.4 kg - Constitutional Present: no acute distress, obese - Routine HEENT Exam Head: Present: normocephalic, atraumatic Eye: Present: EOMI, PERRL - Routine Respiratory Exam Present: CTA bilaterally - Routine Cardiovascular Exam Present: RRR - Routine Abdominal Exam Present: soft, distended - Routine Extremities Exam Present: edema. Absent: cyanosis, clubbing - Routine Neurological Exam Present: alert, oriented X3, CN II-XII intact - Routine Psychiatric Exam Present: normal affect, good insight, good judgment Results - Labs CBC & Chem 7: 04/01/17 04:26 04/01/17 04:26 - ABG Interpretation ABG results: 03/26/17 03/26/17 03/30/17 10:55 23:22 10:50 ABG pH 7.190 L* 7.480 H ABG pCO2 11 L* 37 ABG pO2 131 H 78 L ABG HCO3 4 L 28 H ABG Total CO2 4.5 L 28.7 H ABG O2 Saturation 98.0 96.0 ABG Base Excess -21.4 L 4.0 H VBG pH 7.210 L VBG pCO2 18 L VBG pO2 35 L VBG HCO3 7 L VBG Total CO2 7.8 VBG O2 Saturation 52.0 VBG Base Excess -18.5 L Assessment and Plan (1) HTN (hypertension) Current visit: No Status: Acute (2) Type 2 diabetes mellitus Current visit: No Status: Chronic (3) Dyslipidemia Current visit: Yes Status: Chronic (4) GERD (gastroesophageal reflux disease) Current visit: Yes Status: Chronic (5) CAD (coronary artery disease) Current visit: Yes Status: Chronic (6) Hepatic cirrhosis Current visit: Yes Status: Chronic (7) Obesity (BMI 30-39.9) Current visit: Yes Status: Chronic (8) Anxiety Current visit: Yes Status: Chronic (9) Ankle wound Current visit: Yes Status: Chronic (10) Acute kidney injury Current visit: Yes Status: Acute (11) SIRS (systemic inflammatory response syndrome) Current visit: Yes Status: Acute (12) Anemia Current visit: Yes Status: Acute (13) Thrombocytopenia Current visit: Yes Status: Acute (14) Hyperkalemia Current visit: Yes Status: Acute (15) Hypocapnia Current visit: Yes Status: Acute (16) Chest pain Current visit: Yes Status: Acute (17) Acidosis, renal tubular Current visit: Yes Status: Acute (18) Bacteremia due to Gram-positive bacteria Current visit: Yes Status: Acute Assessment and Plan: This is a 71 YO male with H.O DM, Cirrhosis (Attributed to ETOH), CAD and S/P 1 stent who presented to us not feeling well for several days and with minimal CP. Initial TnI was negative, but a repeat TnI was very high suggesting an acute NC. EKG did not show ST elevation. His elevated TnI was confirmed in a third set. Pt EKG showed LBBB and was repeat EKG did not show any NEW changes. Pt was moved to the ICU, due to a NEW NSTEMI on 03/26 in the AM; placed on NTG drip, heparin drip and bicarb drip (was very acidotic on admission); he remained electrically and mechanically stable. On 03/26 pt was reported to have gram + Cocci in blood and was started on Vancomicyn. This grew on 2/ bottles, of MSSA. His antibiotics were changed to Ancef (03/29). Pt Hemoglobin dropped on 03/27 and pt was given 1 U of PRBC, after his transfusison his HR dropped from 110 sustained to about 80. He had a cardiac cath on 03/30 that showed diffuse tripple vessel disease not amenable for PTCA or CABG. He was moved out of the ICU to the Medical unit on 03/31. DIAGNOSIS - 1) CARDIOVASCULAR ASSESSMENT - A) Acute NSTEMI (03/26) - Initial Tni Negative, repeat (03/26) @ 9:22 AM - 7.46 (HIGH), repeat (03/26) @ 13:38 16.4 (HIGH); then trended down. Pt has had a previous stent. Cardiac cath done on 03/30 (Dr Lujan). - Day # 7 post NSTEMI. - Remaines stable, electrically and mechanically. Will continue with telemetry. - Continue SL NTG PRN, Toprol XL - Increased ASA to 325 mg/day (04/01) - Cath report (verbally by Dr Lujan - Diffuse CAD not amenable to be corrected by PTCA or CABG - Discussed with pt benefits/risk of statins, on chronic compensated liver disease on 03/31. - Pt vrebalized understanding the fact that liver damage with statins is very rare, and that the benefit due to his advanced CAD is much greater. - Started Atorvastatin 40mg/day (03/31). - AST/ALT normal (04/01) - 2-D echo (03/26) "........................... IMPRESSION 1. Global hypokinesia with ejection fraction of about 30-35%. 2. Left ventricular dilation. 3. Concentric left ventricular hypertrophy. 4. Left atrial dilation. 5. Mitral annulus calcification with moderate mitral regurgitation. 6. Aortic sclerosis. 7. Mild tricuspid regurgitation with normal estimated pulmonary artery systolic pressure of 20. ......................................" B) Congestive heart failure - with pulmonary edema this hospitalization after the NSTEMI (Per CT report - 03/27 - responded very well to diuretics) - Toprol XL 100 mg/day (03/31) - Lasix 40mg/day - Aldactone (also for his cirrhosis - reduce ascites) - 50mg/day (k today 4.0 ) - Episode of pulmonary edema on day 2 of hospital stay - per CT chest done on 03/27 - probably overloaded due to IVF and IV bicarbonate drip with marginal renal function. - CT chest (03/27) "...................................... Impression: 1. Evidence of volume overload and moderate pulmonary edema. 2. Cirrhosis and portal hypertension. 3. No focal pneumonia. ......................................" C) Hypertension, probably in part due to HYPERALDOSTERONISM. - ALDOSTERONE LEVEL IS HIGH ON ADMISSION (03/26) @ 37 (NORMAL IS LESS THAN 21 ) 2) INFECTIOUS DISEASE ASSESSMENT - - CONSIDER ID evaluation for length of treatment and for recommendations in case additional imaging/workup is needed since we do not have a source. A) Gram positive bacteremia with Staphylococcus Aureus, MSSA per final culture, source unknown. 2 out of 2 bottles positive. DAY # 7 OF TREATMENT (04/01) - Received Vancomicyn for 4 days, then was changed to Ancef (03/29). Will need 14 d of treatement. - (04/25) HRCT chest - No PNA; Abdominal U/S - No significant ascites to tap safely per U/S report. B) Ankle wound - chronic, managed by Dr Jasso. 3) CKD + Acute renal failure on admisson - BUN/Cr on admission 31/2.8 with K of 6.5 on admission, pt was very acidotic on admission. Baseline creatinine previous this admission was about 1.5. His CO2 has normalized after several days of bicarb drip and now on oral bicarb, he is maintaining well, however creatinine has not normalized to his preadmission values. Perez placed on 04/01 - will observe if Cr drops may consider doing 24 hr urine collection later. Will need to follow with nephrology. - BUN/Cr = 31/2.8 (03/26); 32/2.5 (03/27); 32/2.4 (03/28); 33/2.2 (03/29); 32/2.2 ( 03/30) - Placed a Perez on 04/01 - if creatinine trends DOWN, would recommend UROLOGY EVALUATION. - Intact PTH is HIGH - 160.3 * - PSA DONE VERY LOW 0.1 a) Acidosis on ABG on admission (pH - 7.19 - probably due to CKD/GRACE - infection). Was on bicarb drip 03/26 -> 03/29, as CO2 normalized, and is maintaining well on PO Bicarbonate. - ABG ON ADMISSION - pH -7.19; CO2 - 11; PO2 131, HCO3 - 4; total CO2 45, BE -(minus) 21.4 - CO2 - 7 (03/26); 18 (03/28); 25 (03/30); 27 (03/31) - Normalized now. - On Oral bicarb to 650 mg PO BID. b) Hydronephrosis - per U/S done initially, looking for ascites - pt has dilatation of the collecting systems bilaterally in abdominal U/S. Will place perez and post pone the 24 hr urine collection. 4) Fluid and electrolyte issues. A) SODIUM - RESOLVED - Hyponatremia - was managed with fluid restricition and responded very well. - Cortisol normal; TSH normal. - Other tests - urine/plasma osm, uric acid, NOT ORDERED. B) POTASSIUM - RESOLVED - Hyperkalemia (K - 6,5 (admission) then dropped ( Hypokalemia) and is now normal. - K = 6.5 (03/26); 4.7 (03/27); 3.6 (03/28); 3.2 (03/29) -> normal. - Not on K supplements but on aldactone. C) MAGNESIUM - IMPROVED - Mg was 1.3 (03/29) - Received 4gm IV (03/29), with correction to 2.1 (03/30) Started PO Mg (03/30) -> Mg is 1.9 (03/31) - On MagOx 400mg PO BID -> will incease to TID as Mg is a bit low. 5) Type II DM, and obesity - Pt is on Sliding scale. Only used 9 units over the last 24 hrs (04/01) - Insulin requirements are very low, need oral intake to improve DENISE. - Don't know the value of HbA1c with recent transfussions - can be done later. 6) Cirrhosis of the liver, with thrombocytopenia, mild coagulopathy (INR 1.24 on admission), ascites (minimal), esophageal varices (H/O). Pt apparently had a TIPS procedure in the past. Pt is compensated at present. Has no encephalopathy , ammmonia has been normal, off Lactulose and PO aminoglycoside/minimal ascites. - Na levels - 136 (03/26); 128 (03/27); 131 (03/29); 145 (03/30) *Was on mild fluid restriction and improved. - Ammonia - <9 (03/26); 17 (03/27); <9 (03/28); 11 (03/29) OF LACTULOSE & OFF ORAL AMINOGLYCOSIDE. - PLT - 79k (03/26); 71k (03/27); 79k (03/30) - RESUMED ALDACTONE (03/29) AT 50MG/DAY -PT HAS HIGH ALDOSTERONE LEVELS. 7) Anemia probably due to inflammation (ACD) but pt may have to be checked for GI bleed. (Had heme + stools). ORDERED ERYTHROPOIETIN LEVEL (04/01) IF LOW MAY BENEFIT FROM EPOGEN SHOTS. - Anemia workup Suggesive of ACD - Iron - 53 (N), TIBC 181 (LOW), Saturation 29%. B12 is normal @ 464 - S/P transfusion of 1U PRBC on 03/28; Hemoglobin trending slowly down - Will give second unit of PRBC today. May need to be scoped. 8) Severe protein calorie malnutrition - due to chronic illness (cirrhosis, CKD ) - WILL RECHECK PAB IN THE AM. - Albumin level - 2.4 (03/30); Prealbumin - 5.2 (03/26) - Vitamin D, testosterone pending. - Requested dietary evaluation for a calorie count - May benefit from appetite stimulation - probably Marinol has the least side effects. 9) RESOLVED - SIRS ON ADMISSION (MET CRITERIA) ? Pt received rocephin on the ED , no source was identified, for S Aureus in blood. This has improved. 10) CODE STATUS - PT IS FULL CODE. Prevention PUD - PO ranitidine (03/30) DVT - Will continue with SCD's pt INR a bit high so this would protect him a bit from DVT's as well. Further care 1) Consider ID evaluation as above for length of treatment for MSSA bacteremia and to see if pt needs further workup (YUKO ? Bone scan ?) 2) If creatinine comes down after the Perez - may need urology eval - consider urodinamics if there is no bladder outlet obstruction (PSA LOW) 3) Will need F/U with Stamping Die Try Out Worker (CKD), and maybe Dishwashing Machine Repairer after D/C ( Hyperaldo) as well as Lap Cutter and PCP. Sepsis Assessment - Evaluation Sepsis screening result: No Definite Risk Hospital Course Summary Disclaimer: The visit summary below is not to be considered part of the above Progress Note. Hospital Course: 03/26/17 11:39 - SIRS, present on admission, as indicated by tachypnea, leukocytosis, thrombocytopenia, elevated lactate and renal insufficiency. .Patient does not have obvious source of infection or would otherwise meet criteria for severe sepsis. .Admit to inpatient status under the care of Dr. Larkin and hospitalist service. .NS 125cc/hr for fluid resuscitation. Monitor closely for signs of fluid overload with daily weight. BNP on admission was 3400. .Rocephin 1g IV x 1 dose give in ED for empiric coverage of pulmonary pathogens. Will discuss continuation of antibiotics with Dr. Larkin in light of no acute infection noted. Blood cultures pending. - Acute Chest pain with dyspnea .History of CAD with stent placement "years ago". Chest pain improved with nitro and relieved with nitropaste. .Initial troponin 0.078. Repeat troponin elevated to 7. .Dr. Lujan consulted for further evaluation. Patient is open to heart cath and treatment if indicated. .Repeat EKG appears unchanged with peaked t-waves and LBBB. Unknown if BBB is acute or chronic. Will try and obtain records from [place]. .Repeat exam with Dr. Osborne at 1120 indicated the patient was pain free. ASA given and Leah with Dr. Lujan present. Will initiate lovenox. .Discussed patient wishes with regard to code status. Patient wishes to be a FULL CODE at this time. - Acute Kidney Injury, present on admission. .Review of labs from 09/2015 revealed previous SCr at 1.5. Elevated BUN and SCr on admission at 31 and 2.8 respectively. .Fluid resuscitation with NS 125cc/hr. Recheck BMP in AM and monitor closely. - Hypocapnia, present on admission. .CO2 7 on admission. .ABG ordered - results pending. Patient tachynic on exam with mild conversational dyspnea. Consider bicarb replacement. - Hyperkalemia, present on admission. .5.6 on admission. Peaked t-waves noted on EKG. .Will hold home spirnolactone and continue to monitor closely. Coming down with IVF. Monitor closely on telemetry. - Thrombocytopenia, present on admission. .Platelets 79 on admission. - Anemia, present on admission. .No signs of acute bleeding. 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 - Hepatic cirrhosis, chronic. .Ammonia <9 on admission. History of prior TIPS procedure ~8-10 years ago. .Continue home lactulose. - Diabetes, Type II, chronic. .Hold home metformin in light of renal function. .Monitor blood sugars closely with BGMs. Sliding scale insulin as indicated. Will check A1c. - CAD, Hypertension and Dyslipidemia, chronic. .History of CAD and stent placement at [facility] years ago. .Continue home medications including atorvastatin, propanolol and metoprolol. .Will hold home spironalactone and lasix in light of hyperkalemia and acute kidney injury. - GERD, chronic. .Continue home Nexium. - Ankle wound, chronic. .Currently being managed by Dr. Jasso. Monitor for signs of infection. Change bandage as needed or every 3 days. - Anxiety, chronic. .Continue home ativan as needed. - Obesity, BMI 36 .Carb controlled diet. .Patient complained of gagging with eating. Consult speech therapy for swallow function test. Upon discharge, patient's care will be returned to his PCP, Dr. Bartlett.
[2017-04-01] MEDS: FUROSEMIDE 40 MG TABLET PO SCH (09:28)
[2017-04-01] MEDS: SODIUM BICARBONATE 650 MG TABLET PO SCH ×3 (09:28→21:05)
[2017-04-01] MEDS: COENZYME Q-10 200mg TABLET PO SCH (09:28)
[2017-04-01] MEDS: MAGNESIUM OXIDE 400 MG TABLET PO SCH ×3 (09:28→21:07)
[2017-04-01] MEDS: SPIRONOLACTONE 50 MG TABLET PO SCH (09:28)
[2017-04-01] MEDS: NS 1,000 ML IV SCH ×3 (09:29→21:07)
[2017-04-01] MEDS: VIT B COMP PO SCH (09:30)
[2017-04-01] MEDS: FOLIC ACID PO SCH (09:30)
[2017-04-01] MEDS: [UNRECOGNIZED DRUG - OTHER] PO SCH (09:30)
[2017-04-01] MEDS: ASPIRIN *EC* 325 MG TABLET PO SCH (09:39)
--- NOTE | 2017-04-01 10:55 | Cardiac Catheterization Report ---
DATE OF PROCEDURE March 30, 2017 The patient is a 71-year-old gentleman who had a non-ST elevation myocardial infarction recently and was referred for further evaluation by cardiac catheterization and possible intervention. Informed consent was obtained after explaining the procedure and the potential risks to the patient who agreed to proceed with the procedure. PROCEDURE 1. Left heart catheterization. 2. Coronary angiography. 3. Measurement of the LVEDP by crossing the aortic valve. TECHNIQUE He was prepped and draped in the usual sterile techniques. Conscious sedation was performed using Versed and fentanyl. 1% lidocaine was used for local anesthesia. Using modified Seldinger technique, arterial access was obtained into the right radial artery with placement of a 6-Algerian arterial sheath. 3000 units of heparin, 300 mcg of nitroglycerin, and 2.5 mg of verapamil were given through the arterial sheath. Left ventricle end-diastolic pressure was about 10 and there was no gradient across the aortic valve. CORONARY ANGIOGRAPHY Left main was free of significant lesions. Left anterior descending artery had subtotal occlusion proximally at the ostium and 95% stenosis in mid segment. Left circumflex artery had 70% proximal and 90% mid stenosis. Right coronary was occluded with [id number] collaterals. The patient tolerated the procedure well with no complications. IMPRESSION 1. Severe multivessel coronary artery disease as described above. PLAN The patient is not a good surgical candidate with multiple severe comorbid problems. I will review the images and talk to the patient. However, at this point, I think we should continue medical management given the severity of the coronary artery disease and the location of the lesions which would put him at high risk of having intervention. NATHAN
[2017-04-01] MEDS: INSULIN ASPART 100unit/ml INJECTION SQ PRN ×3 (11:10→21:22)
--- NOTE | 2017-04-01 11:10 | Cardiology Progress Note ---
Subjective Principal diagnosis: chest pain (elevated troponin) <Leah Kerr 11:25> Interval history: Dakota is seen in his room in [facility]. He states he is feeling much better. He denies any chest pain or palpitations. <Leah Kerr 04/01/17 14:07> Exam Vital signs: Temperature 97.3 F 04/03/17 15:40 Pulse Rate 71 04/03/17 16:00 Respiratory Rate 18 04/03/17 15:40 Blood Pressure 140/80 H 04/03/17 15:40 Pulse Oximetry 96 04/03/17 15:40 Oxygen Delivery Method Room Air <Jerson Lujan - 04/05/17 11:20> Temperature 97.0 F 04/01/17 07:17 Pulse Rate 70 04/01/17 07:17 Respiratory Rate 20 04/01/17 07:17 Blood Pressure 153/69 H 04/01/17 07:17 Pulse Oximetry 97 04/01/17 07:17 Oxygen Delivery Method Room Air <Leah Kerr 04/01/17 11:25> - Constitutional no acute distress, cooperative <Leah Kerr 04/01/17 11:25> - Routine HEENT Exam ENT: Present: mucous membranes moist <Leah Kerr 04/01/17 11:25> - Routine Neck Exam Absent: JVD, carotid bruit <CiriloLeah Loyola 04/01/17 11:25> - Routine Chest/Breast/Axilla Exam Chest wall: Absent: tenderness <CiriloLeah Loyola 04/01/17 11:25> - Routine Respiratory Exam Present: CTA bilaterally. Absent: dyspnea, rales, wheezes <CiriloLeah Milla 04/01/17 11:25> - Routine Cardiovascular Exam Present: RRR, S1, S2, no murmur <CiriloLeah lopez Milla 04/01/17 11:25> - Routine Abdominal Exam Present: soft, normoactive bowel sounds <CiriloLeah Milla 04/01/17 11:25> - Routine Extremities Exam Present: edema <CiriloLeah lopez Milla 04/01/17 11:25> - Routine Skin Exam Present: intact <CiriloLeah lopez 04/01/17 11:25> - Routine Neurological Exam Present: alert, oriented X3 <Leah Kerr Milla - 04/01/17 11:25> - Routine Psychiatric Exam Present: normal affect, normal thought process <Cirilo,Amy Milla - 04/01/17 11: 25> - Additional findings Additional findings: Date of Exam: 03/30/17 Type of Exam(s): CA heart cath LT DATE OF PROCEDURE March 30, 2017 The patient is a 71-year-old gentleman who had a non-ST elevation myocardial infarction recently and was referred for further evaluation by cardiac catheterization and possible intervention. Informed consent was obtained after explaining the procedure and the potential risks to the patient who agreed to proceed with the procedure. PROCEDURE 1. Left heart catheterization. 2. Coronary angiography. 3. Measurement of the LVEDP by crossing the aortic valve. TECHNIQUE He was prepped and draped in the usual sterile techniques. Conscious sedation was performed using Versed and fentanyl. 1% lidocaine was used for local anesthesia. Using modified Seldinger technique, arterial access was obtained into the right radial artery with placement of a 6-Ivorian arterial sheath. 3000 units of heparin, 300 mcg of nitroglycerin, and 2.5 mg of verapamil were given through the arterial sheath. Left ventricle end-diastolic pressure was about 10 and there was no gradient across the aortic valve. CORONARY ANGIOGRAPHY Left main was free of significant lesions. Left anterior descending artery had subtotal occlusion proximally at the ostium and 95% stenosis in mid segment. Left circumflex artery had 70% proximal and 90% mid stenosis. Right coronary was occluded with [id number] collaterals. The patient tolerated the procedure well with no complications. IMPRESSION 1. Severe multivessel coronary artery disease as described above. PLAN The patient is not a good surgical candidate with multiple severe comorbid problems. I will review the images and talk to the patient. However, at this point, I think we should continue medical management given the severity of the coronary artery disease and the location of the lesions which would put him at high risk of having intervention. <Leah Kerr - 04/01/17 11:25> - Urinary Catheter Management Urethral Cath placed during this visit: no <Jerson Lujan - 04/05/17 11:20> yes <Leah Kerr - 04/02/17 13:01> Urethral indwelling: Yes <Leah Kerr - 04/02/17 13:01> Reason for continuing: Accurate I&O/Aggressive Diuresis <Leah Kerr - 03/14 13:01> Insertion date: 04/01/17 <Leah Kerr - 04/01/17 14:07> Insertion time: 11:37 <Leah Kerr - 04/01/17 14:07> Hospital Course This is a general summary of the patient's hospital course. For more details refer to the complete medical record. <Allyssa Lujanin - 04/05/17 11:20> This is a general summary of the patient's hospital course. For more details refer to the complete medical record. <Leah Kerr - 04/01/17 11:25> Hospital course: Per KarissaistBraxton Osborne DIAGNOSIS - 1) CARDIOVASCULAR ASSESSMENT - A) Acute NSTEMI (03/26) - Initial Tni Negative, repeat (03/26) @ 9:22 AM - 7.46 (HIGH), repeat (03/26) @ 13:38 16.4 (HIGH); then trended down. Pt has had a previous stent. Cardiac cath done on 03/30 (Dr Lujan). - Day # 7 post NSTEMI. - Remaines stable, electrically and mechanically. Will continue with telemetry. - Continue SL NTG PRN, Toprol XL - Increased ASA to 325 mg/day (04/01) - Cath report (verbally by Dr Lujan - Diffuse CAD not amenable to be corrected by PTCA or CABG - Discussed with pt benefits/risk of statins, on chronic compensated liver disease on 03/31. - Pt vrebalized understanding the fact that liver damage with statins is very rare, and that the benefit due to his advanced CAD is much greater. - Started Atorvastatin 40mg/day (03/31). - AST/ALT normal (04/01) - 2-D echo (03/26) "........................... IMPRESSION 1. Global hypokinesia with ejection fraction of about 30-35%. 2. Left ventricular dilation. 3. Concentric left ventricular hypertrophy. 4. Left atrial dilation. 5. Mitral annulus calcification with moderate mitral regurgitation. 6. Aortic sclerosis. 7. Mild tricuspid regurgitation with normal estimated pulmonary artery systolic pressure of 20. ......................................" B) Congestive heart failure - with pulmonary edema this hospitalization after the NSTEMI (Per CT report - 03/27 - responded very well to diuretics) - Toprol XL 100 mg/day (03/31) - Lasix 40mg/day - Aldactone (also for his cirrhosis - reduce ascites) - 50mg/day (k today 4.0 ) - Episode of pulmonary edema on day 2 of hospital stay - per CT chest done on 03/27 - probably overloaded due to IVF and IV bicarbonate drip with marginal renal function. - CT chest (03/27) "...................................... Impression: 1. Evidence of volume overload and moderate pulmonary edema. 2. Cirrhosis and portal hypertension. 3. No focal pneumonia. ......................................" C) Hypertension, probably in part due to HYPERALDOSTERONISM. - ALDOSTERONE LEVEL IS HIGH ON ADMISSION (03/26) @ 37 (NORMAL IS LESS THAN 21 ) 2) INFECTIOUS DISEASE ASSESSMENT - - CONSIDER ID evaluation for length of treatment and for recommendations in case additional imaging/workup is needed since we do not have a source. A) Gram positive bacteremia with Staphylococcus Aureus, MSSA per final culture, source unknown. 2 out of 2 bottles positive. DAY # 7 OF TREATMENT (04/01) - Received Vancomicyn for 4 days, then was changed to Ancef (03/29). Will need 14 d of treatement. - (04/25) HRCT chest - No PNA; Abdominal U/S - No significant ascites to tap safely per U/S report. B) Ankle wound - chronic, managed by Dr Jasso. 3) CKD + Acute renal failure on admisson - BUN/Cr on admission 31/2.8 with K of 6.5 on admission, pt was very acidotic on admission. Baseline creatinine previous this admission was about 1.5. His CO2 has normalized after several days of bicarb drip and now on oral bicarb, he is maintaining well, however creatinine has not normalized to his preadmission values. Perez placed on 04/01 - will observe if Cr drops may consider doing 24 hr urine collection later. Will need to follow with nephrology. - BUN/Cr = 31/2.8 (03/26); 32/2.5 (03/27); 32/2.4 (03/28); 33/2.2 (03/29); 32/2.2 ( 03/30) - Placed a Perez on 04/01 - if creatinine trends DOWN, would recommend UROLOGY EVALUATION. - Intact PTH is HIGH - 160.3 * - PSA DONE VERY LOW 0.1 a) Acidosis on ABG on admission (pH - 7.19 - probably due to CKD/GRACE - infection). Was on bicarb drip 03/26 -> 03/29, as CO2 normalized, and is maintaining well on PO Bicarbonate. - ABG ON ADMISSION - pH -7.19; CO2 - 11; PO2 131, HCO3 - 4; total CO2 45, BE -(minus) 21.4 - CO2 - 7 (03/26); 18 (03/28); 25 (03/30); 27 (03/31) - Normalized now. - On Oral bicarb to 650 mg PO BID. b) Hydronephrosis - per U/S done initially, looking for ascites - pt has dilatation of the collecting systems bilaterally in abdominal U/S. Will place perez and post pone the 24 hr urine collection. 4) Fluid and electrolyte issues. A) SODIUM - RESOLVED - Hyponatremia - was managed with fluid restricition and responded very well. - Cortisol normal; TSH normal. - Other tests - urine/plasma osm, uric acid, NOT ORDERED. B) POTASSIUM - RESOLVED - Hyperkalemia (K - 6,5 (admission) then dropped ( Hypokalemia) and is now normal. - K = 6.5 (03/26); 4.7 (03/27); 3.6 (03/28); 3.2 (03/29) -> normal. - Not on K supplements but on aldactone. C) MAGNESIUM - IMPROVED - Mg was 1.3 (03/29) - Received 4gm IV (03/29), with correction to 2.1 (03/30) Started PO Mg (03/30) -> Mg is 1.9 (03/31) - On MagOx 400mg PO BID -> will incease to TID as Mg is a bit low. 5) Type II DM, and obesity - Pt is on Sliding scale. Only used 9 units over the last 24 hrs (04/01) - Insulin requirements are very low, need oral intake to improve DENISE. - Don't know the value of HbA1c with recent transfussions - can be done later. 6) Cirrhosis of the liver, with thrombocytopenia, mild coagulopathy (INR 1.24 on admission), ascites (minimal), esophageal varices (H/O). Pt apparently had a TIPS procedure in the past. Pt is compensated at present. Has no encephalopathy , ammmonia has been normal, off Lactulose and PO aminoglycoside/minimal ascites. - Na levels - 136 (03/26); 128 (03/27); 131 (03/29); 145 (03/30) *Was on mild fluid restriction and improved. - Ammonia - <9 (03/26); 17 (03/27); <9 (03/28); 11 (03/29) OF LACTULOSE & OFF ORAL AMINOGLYCOSIDE. - PLT - 79k (03/26); 71k (03/27); 79k (03/30) - RESUMED ALDACTONE (03/29) AT 50MG/DAY -PT HAS HIGH ALDOSTERONE LEVELS. 7) Anemia probably due to inflammation (ACD) but pt may have to be checked for GI bleed. (Had heme + stools). ORDERED ERYTHROPOIETIN LEVEL (04/01) IF LOW MAY BENEFIT FROM EPOGEN SHOTS. - Anemia workup Suggesive of ACD - Iron - 53 (N), TIBC 181 (LOW), Saturation 29%. B12 is normal @ 464 - S/P transfusion of 1U PRBC on 03/28; Hemoglobin trending slowly down - Will give second unit of PRBC today. May need to be scoped. 8) Severe protein calorie malnutrition - due to chronic illness (cirrhosis, CKD ) - WILL RECHECK PAB IN THE AM. - Albumin level - 2.4 (03/30); Prealbumin - 5.2 (03/26) - Vitamin D, testosterone pending. - Requested dietary evaluation for a calorie count - May benefit from appetite stimulation - probably Marinol has the least side effects. 9) RESOLVED - SIRS ON ADMISSION (MET CRITERIA) ? Pt received rocephin on the ED , no source was identified, for S Aureus in blood. This has improved. 10) CODE STATUS - PT IS FULL CODE. Prevention PUD - PO ranitidine (03/30) DVT - Will continue with SCD's pt INR a bit high so this would protect him a bit from DVT's as well. Further care 1) Consider ID evaluation as above for length of treatment for MSSA bacteremia and to see if pt needs further workup (YUKO ? Bone scan ?) 2) If creatinine comes down after the Perez - may need urology eval - consider urodinamics if there is no bladder outlet obstruction (PSA LOW) 3) Will need F/U with Sales Recruiting Coordinator (CKD), and maybe Hotel Or Motel Manager after D/C ( Hyperaldo) as well as Film Composer and PCP. Heart cath 03/30/17 IMPRESSION 1. Severe multivessel coronary artery disease as described above. PLAN The patient is not a good surgical candidate with multiple severe comorbid problems. I will review the images and talk to the patient. However, at this point, I think we should continue medical management given the severity of the coronary artery disease and the location of the lesions which would put him at high risk of having intervention. Continue Aspirin, Metoprolol, Spironolactone. Do not recommend using Statin therapy due to liver disease <Leah Kerr - 04/01/17 14:07> Progress Note-A&P (1) HTN (hypertension) Status: Chronic (2) Liver disease Status: Chronic (3) Type 2 diabetes mellitus Status: Chronic (4) Dyslipidemia Status: Chronic (5) CAD (coronary artery disease) Status: Chronic (6) Acute kidney injury Status: Resolved (7) SIRS (systemic inflammatory response syndrome) Problem details: later discovered to be severe sepsis Status: Resolved (8) Anemia Problem details: Chronic disease, some rectal blood loss during hospitalization Status: Acute (9) NSTEMI (non-ST elevated myocardial infarction) Status: Resolved <Jerson Lujan - 04/05/17 11:20> (1) Anemia (2) CAD (coronary artery disease) Status: Chronic Assessment and plan: Heart cath 03/30/17 IMPRESSION 1. Severe multivessel coronary artery disease as described above. PLAN The patient is not a good surgical candidate with multiple severe comorbid problems. I will review the images and talk to the patient. However, at this point, I think we should continue medical management given the severity of the coronary artery disease and the location of the lesions which would put him at high risk of having intervention. Continue Aspirin, Metoprolol, Spironolactone. Do not recommend using Statin therapy due to liver disease (3) HTN (hypertension) Status: Acute (4) Type 2 diabetes mellitus Status: Chronic (5) Liver disease Status: Chronic (6) Dyslipidemia Status: Chronic (7) Acute kidney injury Status: Resolved (8) SIRS (systemic inflammatory response syndrome) Status: Resolved (9) NSTEMI (non-ST elevated myocardial infarction) Status: Resolved Assessment and plan: DATE OF PROCEDURE March 30, 2017 The patient is a 71-year-old gentleman who had a non-ST elevation myocardial infarction recently and was referred for further evaluation by cardiac catheterization and possible intervention. Informed consent was obtained after explaining the procedure and the potential risks to the patient who agreed to proceed with the procedure. PROCEDURE 1. Left heart catheterization. 2. Coronary angiography. 3. Measurement of the LVEDP by crossing the aortic valve. TECHNIQUE He was prepped and draped in the usual sterile techniques. Conscious sedation was performed using Versed and fentanyl. 1% lidocaine was used for local anesthesia. Using modified Seldinger technique, arterial access was obtained into the right radial artery with placement of a 6-Ivorian arterial sheath. 3000 units of heparin, 300 mcg of nitroglycerin, and 2.5 mg of verapamil were given through the arterial sheath. Left ventricle end-diastolic pressure was about 10 and there was no gradient across the aortic valve. CORONARY ANGIOGRAPHY Left main was free of significant lesions. Left anterior descending artery had subtotal occlusion proximally at the ostium and 95% stenosis in mid segment. Left circumflex artery had 70% proximal and 90% mid stenosis. Right coronary was occluded with [id number] collaterals. The patient tolerated the procedure well with no complications. IMPRESSION 1. Severe multivessel coronary artery disease as described above. PLAN The patient is not a good surgical candidate with multiple severe comorbid problems. I will review the images and talk to the patient. However, at this point, I think we should continue medical management given the severity of the coronary artery disease and the location of the lesions which would put him at high risk of having intervention. <Leah Kerr - 04/02/17 13:01> - Time Spent With Patient Total time spent is greater than 50% in coordination of care (as documented) at patient's floor/unit and/or counseling patient: <Jerson Lujan - 04/05/17 11:20> Total time spent is greater than 50% in coordination of care (as documented) at patient's floor/unit and/or counseling patient: <Leah Kerr - 04/01/17 11:25> less than 15 minutes <Leah Kerr - 04/02/17 13:01> - Attestation Attestation Narrative: Recommendation After examining the patient I agree with the above assessment. I am involved in the formulation of the patient's plan of care. <Jerson Lujan - 04/05/17 11:20> Sepsis Assessment - Evaluation Sepsis screening result: No Definite Risk <Leah Kerr - 04/01/17 11:25>
--- NOTE | 2017-04-01 14:52 | Wound Care Progress Note ---
Wound Management - Patient Status Premedicated Prior to Dressing Change: No - Wound Left Medial Ankle Wound Type: Open Wound Wound Present on Admission?: Yes Length: 1.5 Width: 2.5 Depth: 0.2 Wound Bed Appearance: [place], [place] Wound Appearance: [place] Tunneling: No Undermining: No Drainage Description: Yellow Drainage Amount: Scant Drainage Odor: No Odor Dressing Status: Changed Primary Dressing: Foam Dressing Dressing Change Date: 04/01/17 (n) Dressing Change Time: 14:50 Dressing Change Patient Tolerance: Tolerated Well (Pt has been seen by Dr Kohli prior)
[2017-04-01 16:53] VITALS: BMI 38.9
--- NOTE | 2017-04-01 16:59 | Progress Note ---
Subjective: Dakota was seen with Dr. Osborne. Overall, he's doing better. Denies chest pain or dyspnea. No abdominal pain or GI complaints. He seems to be in good spirits. Objective Vital signs: Temperature 97.8 F 04/01/17 16:00 Pulse Rate 73 04/01/17 16:00 Respiratory Rate 14 04/01/17 16:00 Blood Pressure 125/73 04/01/17 16:00 Pulse Oximetry 98 04/01/17 16:00 Oxygen Delivery Method Room Air Height: 1.83 m Weight: 130.4 kg Body Mass Index: 38.9 - Constitutional Present: no acute distress, obese - Routine HEENT Exam ENT: Present: mucous membranes moist - Routine Cardiovascular Exam Present: RRR, S1, S2, murmur - Routine Abdominal Exam Present: soft, normoactive bowel sounds, non tender - Routine Extremities Exam Present: edema (anasarca/low albumin) - Routine Skin Exam Present: intact, pallor, warm - Routine Neurological Exam Present: alert, oriented X3 - Routine Psychiatric Exam Present: normal affect, normal thought process Results - Labs CBC & Chem 7: 04/01/17 04:26 04/01/17 04:26 - ABG Interpretation ABG results: 03/26/17 03/26/17 03/30/17 10:55 23:22 10:50 ABG pH 7.190 L* 7.480 H ABG pCO2 11 L* 37 ABG pO2 131 H 78 L ABG HCO3 4 L 28 H ABG Total CO2 4.5 L 28.7 H ABG O2 Saturation 98.0 96.0 ABG Base Excess -21.4 L 4.0 H VBG pH 7.210 L VBG pCO2 18 L VBG pO2 35 L VBG HCO3 7 L VBG Total CO2 7.8 VBG O2 Saturation 52.0 VBG Base Excess -18.5 L Assessment and Plan (1) HTN (hypertension) Current visit: No Status: Acute (2) Type 2 diabetes mellitus Current visit: No Status: Chronic (3) Dyslipidemia Current visit: Yes Status: Chronic (4) GERD (gastroesophageal reflux disease) Current visit: Yes Status: Chronic (5) CAD (coronary artery disease) Current visit: Yes Status: Chronic (6) Hepatic cirrhosis Current visit: Yes Status: Chronic (7) Obesity (BMI 30-39.9) Current visit: Yes Status: Chronic (8) Anxiety Current visit: Yes Status: Chronic (9) Ankle wound Current visit: Yes Status: Chronic (10) Acute kidney injury Current visit: Yes Status: Resolved (11) SIRS (systemic inflammatory response syndrome) Current visit: Yes Status: Resolved (12) Anemia Current visit: Yes Status: Acute (13) Thrombocytopenia Current visit: Yes Status: Acute (14) Hyperkalemia Current visit: Yes Status: Acute (15) Hypocapnia Current visit: Yes Status: Acute (16) Chest pain Current visit: Yes Status: Acute (17) Acidosis, renal tubular Current visit: Yes Status: Acute (18) Bacteremia due to Gram-positive bacteria Current visit: Yes Status: Acute Assessment and Plan: Discussed with Dr. Osborne. NSTEMI - continue SL NTG PRN, Toprol XL, statin (s/p risk:benefit discussion). ASA was increased to 325 on 04/01; now with heme pos stools. CHF; EF 35%; continue meds as above plus Lasix & Aldactone MSSA bacteremia - may need ID assistance; source unknown (though has chronic ankle wound). Vancomicyn for 4 days, then was changed to Ancef (03/29) GRACE on CKD - improving. Ccreatinine has not normalized to his preadmission values. Stone placed on 04/01. if Cr drops consider doing 24 hr urine collection later. Will need outpatient neph followup Acidosis - resolved Electrolyte abnormalities - K & Mg, Na improved Cirrhosis, severe PCM - liver disease stable; consult dietary for recommendations. Studies pending Anemia - repeat transfusion; may need to consult sx for scope if persists Sepsis Assessment - Evaluation Sepsis screening result: No Definite Risk Hospital Course Summary Disclaimer: The visit summary below is not to be considered part of the above Progress Note. Hospital Course: 03/26/17 11:39 - SIRS, present on admission, as indicated by tachypnea, leukocytosis, thrombocytopenia, elevated lactate and renal insufficiency. .Patient does not have obvious source of infection or would otherwise meet criteria for severe sepsis. .Admit to inpatient status under the care of Dr. Larkin and hospitalist service. .NS 125cc/hr for fluid resuscitation. Monitor closely for signs of fluid overload with daily weight. BNP on admission was 3400. .Rocephin 1g IV x 1 dose give in ED for empiric coverage of pulmonary pathogens. Will discuss continuation of antibiotics with Dr. Larkin in light of no acute infection noted. Blood cultures pending. - Acute Chest pain with dyspnea .History of CAD with stent placement "years ago". Chest pain improved with nitro and relieved with nitropaste. .Initial troponin 0.078. Repeat troponin elevated to 7. .Dr. Lujan consulted for further evaluation. Patient is open to heart cath and treatment if indicated. .Repeat EKG appears unchanged with peaked t-waves and LBBB. Unknown if BBB is acute or chronic. Will try and obtain records from [place]. .Repeat exam with Dr. Osborne at 1120 indicated the patient was pain free. ASA given and Leah with Dr. Lujan present. Will initiate lovenox. .Discussed patient wishes with regard to code status. Patient wishes to be a FULL CODE at this time. - Acute Kidney Injury, present on admission. .Review of labs from 09/2015 revealed previous SCr at 1.5. Elevated BUN and SCr on admission at 31 and 2.8 respectively. .Fluid resuscitation with NS 125cc/hr. Recheck BMP in AM and monitor closely. - Hypocapnia, present on admission. .CO2 7 on admission. .ABG ordered - results pending. Patient tachynic on exam with mild conversational dyspnea. Consider bicarb replacement. - Hyperkalemia, present on admission. .5.6 on admission. Peaked t-waves noted on EKG. .Will hold home spirnolactone and continue to monitor closely. Coming down with IVF. Monitor closely on telemetry. - Thrombocytopenia, present on admission. .Platelets 79 on admission. - Anemia, present on admission. .No signs of acute bleeding. 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 - Hepatic cirrhosis, chronic. .Ammonia <9 on admission. History of prior TIPS procedure ~8-10 years ago. .Continue home lactulose. - Diabetes, Type II, chronic. .Hold home metformin in light of renal function. .Monitor blood sugars closely with BGMs. Sliding scale insulin as indicated. Will check A1c. - CAD, Hypertension and Dyslipidemia, chronic. .History of CAD and stent placement at [place] years ago. .Continue home medications including atorvastatin, propanolol and metoprolol. .Will hold home spironalactone and lasix in light of hyperkalemia and acute kidney injury. - GERD, chronic. .Continue home Nexium. - Ankle wound, chronic. .Currently being managed by Dr. Jasso. Monitor for signs of infection. Change bandage as needed or every 3 days. - Anxiety, chronic. .Continue home ativan as needed. - Obesity, BMI 36 .Carb controlled diet. .Patient complained of gagging with eating. Consult speech therapy for swallow function test. Upon discharge, patient's care will be returned to his PCP, Dr. Bartlett.
[2017-04-01] MEDS: HEPARIN SUB-Q 5,000 UNITS/0.5 ML INJECTION SQ SCH (18:19)
[2017-04-01] MEDS: ASPIRIN *EC* 81 MG TABLET PO SCH (18:20)
[2017-04-01] MEDS: TAMSULOSIN 0.4 MG CAPSULE PO SCH (21:08)
[2017-04-01] MEDS: RANITIDINE 150 MG TABLET PO SCH (21:09)
[2017-04-02] MEDS: NS 1,000 ML IV SCH ×3 (04:37→18:21)
[2017-04-02] MEDS: CEFAZOLIN 2 G in NS 100 ML IV SCH ×3 (04:43→20:57)
[2017-04-02] MEDS: COENZYME Q-10 200mg TABLET PO SCH (08:27)
[2017-04-02] MEDS: MAGNESIUM OXIDE 400 MG TABLET PO SCH ×3 (08:28→21:10)
[2017-04-02] MEDS: FUROSEMIDE 40 MG TABLET PO SCH (08:28)
[2017-04-02] MEDS: SPIRONOLACTONE 50 MG TABLET PO SCH (08:28)
[2017-04-02] MEDS: SODIUM BICARBONATE 650 MG TABLET PO SCH ×3 (08:28→21:09)
[2017-04-02] MEDS: ASPIRIN *EC* 325 MG TABLET PO SCH (08:29)
[2017-04-02] MEDS: VIT B COMP PO SCH (08:29)
[2017-04-02] MEDS: FOLIC ACID PO SCH (08:29)
[2017-04-02] MEDS: [UNRECOGNIZED DRUG - OTHER] PO SCH (08:29)
--- NOTE | 2017-04-02 09:58 | Progress Note ---
<Whitney Greenfield - Last Filed: 04/02/17 10:32> Subjective: Dakota feels pretty good today. He slept well again last night. He has not had any pain. His nurse was at bedside during the conversation and she states that he had another black-colored stool late in the afternoon yesterday, and there was also bright red on the toilet paper. He states he's not too worried about it , and comments that he's always been told that one of his blood levels has been a little lower than normal. His VS have been stable. He has been able to walk slowly with his walker but is steady on his feet. He denies feeling lightheaded or dizzy when he gets up. He denies having any problems breathing, but his nurse reports that his lungs sound course. He denies abdominal pain or bloating , nausea/vomiting. He has been eating/drinking well. He states that he nearly feels well enough to go home. Objective Vital signs: Temperature 97.0 F 04/02/17 07:53 Pulse Rate 76 04/02/17 07:53 Respiratory Rate 18 04/02/17 07:53 Blood Pressure 140/74 H 04/02/17 07:53 Pulse Oximetry 95 04/02/17 07:53 Oxygen Delivery Method Room Air Height: 1.83 m Weight: 130.4 kg Body Mass Index: 38.9 - Constitutional Present: no acute distress, obese - Routine HEENT Exam ENT: Present: mucous membranes moist, oropharynx clear - Routine Respiratory Exam Comments: lung sounds were course throughout - Routine Cardiovascular Exam Present: S1, S2, murmur - Routine Abdominal Exam Present: soft, normoactive bowel sounds, non distended, non tender - Routine Extremities Exam Present: edema (anasarca), pulses intact - Routine Skin Exam Present: intact, pallor, warm, wounds (approx 2.5x1.5 cm healing wound to Left medial ankle/achilles - healing well with mild erythema), ecchymosis (arms) - Routine Neurological Exam Present: alert, oriented X3 - Routine Psychiatric Exam Present: normal affect, normal thought process Results - Labs CBC & Chem 7: 04/02/17 04:31 04/02/17 04:31 - ABG Interpretation ABG results: 03/26/17 03/26/17 03/30/17 10:55 23:22 10:50 ABG pH 7.190 L* 7.480 H ABG pCO2 11 L* 37 ABG pO2 131 H 78 L ABG HCO3 4 L 28 H ABG Total CO2 4.5 L 28.7 H ABG O2 Saturation 98.0 96.0 ABG Base Excess -21.4 L 4.0 H VBG pH 7.210 L VBG pCO2 18 L VBG pO2 35 L VBG HCO3 7 L VBG Total CO2 7.8 VBG O2 Saturation 52.0 VBG Base Excess -18.5 L Assessment and Plan (1) HTN (hypertension) Current visit: No Status: Acute (2) Type 2 diabetes mellitus Current visit: No Status: Chronic (3) Dyslipidemia Current visit: Yes Status: Chronic (4) GERD (gastroesophageal reflux disease) Current visit: Yes Status: Chronic (5) CAD (coronary artery disease) Current visit: Yes Status: Chronic (6) Hepatic cirrhosis Current visit: Yes Status: Chronic (7) Obesity (BMI 30-39.9) Current visit: Yes Status: Chronic (8) Anxiety Current visit: Yes Status: Chronic (9) Ankle wound Current visit: Yes Status: Chronic (10) Acute kidney injury Current visit: Yes Status: Resolved (11) SIRS (systemic inflammatory response syndrome) Current visit: Yes Status: Resolved (12) Anemia Current visit: Yes Status: Acute (13) Thrombocytopenia Current visit: Yes Status: Acute (14) Hyperkalemia Current visit: Yes Status: Acute (15) Hypocapnia Current visit: Yes Status: Acute (16) Chest pain Current visit: Yes Status: Acute (17) Acidosis, renal tubular Current visit: Yes Status: Acute (18) Bacteremia due to Gram-positive bacteria Current visit: Yes Status: Acute Assessment and Plan: ABLA, GI bleed -hgb post transfusion on 04/01 improved to 10.3; this am it is down to 8.8 -may need to reduce ASA back to 81 mg/day or DC it temporarily if bleeding continues - I checked with cardiology, they recommend stopping ASA -repeat hgb tonight and in am -may need to consult sx to consider endoscopy -continue Zantac and add PPI MSSA bacteremia -Vanco x4 days; has been on Ancef since 03/29 -suspect source is left ankle wound, which has been present for 2-3 weeks. Pt reports this was infected earlier on. Appears to be healing well. Continue wound care. -consider ID consultation -repeat BC ordered GRACE on CKD -Cr slowly improving but still above baseline -continue Stone -will need neph/uro f/u outpt -electrolytes are stable NSTEMI, CHF systolic (EF 35%) -continue SL NTG PRN, Toprol XL, statin (s/p risk:benefit discussion) -continue Lasix, aldactone Cirrhosis -continue aldactone -check ammonia level tomorrow Labs -testosterone low at 34 -Vit D low at 5 -will discuss with attending Sepsis Assessment - Evaluation Sepsis screening result: No Definite Risk Hospital Course Summary Disclaimer: The visit summary below is not to be considered part of the above Progress Note. Hospital Course: This is a 71 YO male with H.O DM, Cirrhosis (Attributed to ETOH), CAD and S/P 1 stent who presented to us not feeling well for several days and with minimal CP. Initial TnI was negative, but a repeat TnI was very high suggesting an acute SC. EKG did not show ST elevation. His elevated TnI was confirmed in a third set. Pt EKG showed LBBB and was repeat EKG did not show any NEW changes. Pt was moved to the ICU, due to a NEW NSTEMI on 03/26 in the AM; placed on NTG drip, heparin drip and bicarb drip (was very acidotic on admission); he remained electrically and mechanically stable. On 03/26 pt was reported to have gram + Cocci in blood and was started on Vancomycin. This grew on 2/ bottles, of MSSA. His antibiotics were changed to Ancef (03/29). Pt Hemoglobin dropped on 03/27 and pt was given 1 U of PRBC, after his transfusion his HR dropped from 110 sustained to about 80. He had a cardiac cath on 03/30 that showed diffuse tripple vessel disease not amenable for PTCA or CABG. He was moved out of the ICU to the Medical unit on 03/31. Stone catheter was inserted. He had black stools on 04/01 and was transfused another unit PRBC. Cardiology recommended to stop ASA on 04/01/17. Blood cultures repeated on 04/02/17. <Shantelle Kelly - Last Filed: 04/02/17 20:08> Objective Vital signs: Temperature 97.6 F 04/02/17 15:54 Pulse Rate 70 04/02/17 16:00 Respiratory Rate 18 04/02/17 15:54 Blood Pressure 113/69 04/02/17 15:54 Pulse Oximetry 98 04/02/17 15:54 Oxygen Delivery Method Room Air Results - Labs CBC & Chem 7: 04/02/17 04:31 04/02/17 04:31 Microbiology Results: Microbiology 04/02/17 10:28 Peripheral/Iv Start Blood Culture - Preliminary Culture Initiated - Results Pending 04/02/17 10:45 Peripheral/Iv Start Blood Culture - Preliminary Culture Initiated - Results Pending - ABG Interpretation ABG results: 03/26/17 03/26/17 03/30/17 10:55 23:22 10:50 ABG pH 7.190 L* 7.480 H ABG pCO2 11 L* 37 ABG pO2 131 H 78 L ABG HCO3 4 L 28 H ABG Total CO2 4.5 L 28.7 H ABG O2 Saturation 98.0 96.0 ABG Base Excess -21.4 L 4.0 H VBG pH 7.210 L VBG pCO2 18 L VBG pO2 35 L VBG HCO3 7 L VBG Total CO2 7.8 VBG O2 Saturation 52.0 VBG Base Excess -18.5 L Assessment and Plan (1) NSTEMI (non-ST elevated myocardial infarction) Current visit: Yes Status: Resolved Present on admission (2) Bacteremia due to Gram-positive bacteria Problem details: MICAELA bacteremia BC x 2+ 03/26/17 Current visit: Yes Status: Acute (3) Anemia Current visit: Yes Status: Acute (4) HTN (hypertension) Current visit: No Status: Chronic (5) Type 2 diabetes mellitus Current visit: No Status: Chronic (6) Dyslipidemia Current visit: Yes Status: Chronic (7) GERD (gastroesophageal reflux disease) Current visit: Yes Status: Chronic (8) CAD (coronary artery disease) Current visit: Yes Status: Chronic (9) Hepatic cirrhosis Current visit: Yes Status: Chronic (10) Obesity (BMI 30-39.9) Current visit: Yes Status: Chronic (11) Anxiety Current visit: Yes Status: Chronic (12) Ankle wound Current visit: Yes Status: Chronic (13) Acute kidney injury Current visit: Yes Status: Resolved (14) SIRS (systemic inflammatory response syndrome) Current visit: Yes Status: Resolved (15) Hyperkalemia Current visit: Yes Status: Acute (16) Chest pain Current visit: Yes Status: Acute (17) Acidosis, renal tubular Current visit: Yes Status: Chronic (18) Thrombocytopenia Current visit: Yes Status: Chronic Assessment and Plan: I have independently evaluated and examined this patient. I reviewed the chart, the patient's history, and the ARBORIST's documented findings as above. We discussed and formulated the assessment and plan as above with additions as below: Complex patient with multiple underlying chronic medical problems. Overall the patient reports that he is feeling better. He had one soft dark stool today with some associated bright red blood while wiping. Reports he typically has about 2 stools daily-noted that he is currently not on lactulose. He denies lightheadedness or dyspnea and has been ambulating in the halls. Respirations are nonlabored although breath sounds are slightly coarse Abdomen is obese, soft, and nontender Patient dressing present on the left ankle-wound could not be directly visualized Aspirin held today, dose reduced 81 mg daily. PPI added due to suggestion of recurrent upper GI bleeding. No further stools reported by nursing, reassess hemoglobin in a.m. or acutely if evidence of recurrent bleeding. Blood cultures being repeated today confirm that bacteremia has been suppressed. Anticipate 2 weeks of antibiotics which can be completed at patient' s nursing facility. Need to clarify need for lactulose but I anticipate he will need at least one dose daily due to underlying cirrhosis. Hospital Course Summary Disclaimer: The visit summary below is not to be considered part of the above Progress Note.
[2017-04-02] MEDS: INSULIN ASPART 100unit/ml INJECTION SQ PRN ×3 (10:10→22:08)
--- NOTE | 2017-04-02 13:07 | Cardiology Progress Note ---
Subjective Principal diagnosis: chest pain (elevated troponin) <Leah Kerr - 13:07> Interval history: Dakota is sitting up in his room on Medical. He states he is feeling much better. He denies any chest pain or palpitations. <Leah Kerr Milla - 04/02/17 13:07> Exam Vital signs: Temperature 97.3 F 04/03/17 15:40 Pulse Rate 71 04/03/17 16:00 Respiratory Rate 18 04/03/17 15:40 Blood Pressure 140/80 H 04/03/17 15:40 Pulse Oximetry 96 04/03/17 15:40 Oxygen Delivery Method Room Air <Jerson Lujan - 04/05/17 11:28> Temperature 97.0 F 04/02/17 12:00 Pulse Rate 80 04/02/17 12:00 Respiratory Rate 16 04/02/17 12:00 Blood Pressure 142/75 H 04/02/17 12:00 Pulse Oximetry 98 04/02/17 12:00 Oxygen Delivery Method Room Air <Leah Kerr - 04/02/17 13:07> - Constitutional no acute distress, cooperative <eLah Kerr - 04/02/17 13:07> - Routine HEENT Exam ENT: Present: mucous membranes moist <Leah Kerr 04/02/17 13:07> - Routine Neck Exam Absent: JVD, carotid bruit <Leah Kerr 04/02/17 13:07> - Routine Chest/Breast/Axilla Exam Chest wall: Absent: tenderness (/) <Leah Kerr 04/02/17 13:07> - Routine Respiratory Exam Present: decreased breath sounds, CTA bilaterally. Absent: rales, wheezes < Leah Kerr 04/02/17 13:07> - Routine Cardiovascular Exam Present: RRR, S1, S2. Absent: JVD <Leah Kerr 04/02/17 13:07> - Routine Abdominal Exam Present: soft, non tender <Leah Kerr 04/02/17 13:07> - Routine Extremities Exam Present: edema (trace) <Leah Kerr 04/02/17 13:07> - Routine Skin Exam Present: intact <Leah Kerr - 04/02/17 13:07> - Routine Neurological Exam Present: alert, oriented X3 <Leah Kerr - 04/02/17 13:07> - Routine Psychiatric Exam Present: normal affect, normal thought process <Leah Kerr - 04/02/17 13: 07> - Urinary Catheter Management Urethral Cath placed during this visit: no <Miladys Lujansein - 04/05/17 11:28> yes <CiriloLeah Milla - 04/05/17 09:04> Urethral indwelling: Yes <Leah Kerr - 04/02/17 13:07> Reason for continuing: Accurate I&O/Aggressive Diuresis <CiriloLeah lopez Milla 06/14 09:04> Insertion date: 04/01/17 <Leah Kerr - 04/02/17 13:07> Insertion time: 11:37 <Leah Kerr - 04/02/17 13:07> Hospital Course This is a general summary of the patient's hospital course. For more details refer to the complete medical record. <Miladys Lujansein - 04/05/17 11:28> This is a general summary of the patient's hospital course. For more details refer to the complete medical record. <Leah Kerr Milla - 04/02/17 13:07> Hospital course: Per KarissaistBraxton Osborne DIAGNOSIS - 1) CARDIOVASCULAR ASSESSMENT - A) Acute NSTEMI (03/26) - Initial Tni Negative, repeat (03/26) @ 9:22 AM - 7.46 (HIGH), repeat (03/26) @ 13:38 16.4 (HIGH); then trended down. Pt has had a previous stent. Cardiac cath done on 03/30 (Dr Lujan). - Day # 7 post NSTEMI. - Remaines stable, electrically and mechanically. Will continue with telemetry. - Continue SL NTG PRN, Toprol XL - Increased ASA to 325 mg/day (04/01) - Cath report (verbally by Dr Lujan - Diffuse CAD not amenable to be corrected by PTCA or CABG - Discussed with pt benefits/risk of statins, on chronic compensated liver disease on 03/31. - Pt vrebalized understanding the fact that liver damage with statins is very rare, and that the benefit due to his advanced CAD is much greater. - Started Atorvastatin 40mg/day (03/31). - AST/ALT normal (04/01) - 2-D echo (03/26) "........................... IMPRESSION 1. Global hypokinesia with ejection fraction of about 30-35%. 2. Left ventricular dilation. 3. Concentric left ventricular hypertrophy. 4. Left atrial dilation. 5. Mitral annulus calcification with moderate mitral regurgitation. 6. Aortic sclerosis. 7. Mild tricuspid regurgitation with normal estimated pulmonary artery systolic pressure of 20. ......................................" B) Congestive heart failure - with pulmonary edema this hospitalization after the NSTEMI (Per CT report - 03/27 - responded very well to diuretics) - Toprol XL 100 mg/day (03/31) - Lasix 40mg/day - Aldactone (also for his cirrhosis - reduce ascites) - 50mg/day (k today 4.0 ) - Episode of pulmonary edema on day 2 of hospital stay - per CT chest done on 03/27 - probably overloaded due to IVF and IV bicarbonate drip with marginal renal function. - CT chest (03/27) "...................................... Impression: 1. Evidence of volume overload and moderate pulmonary edema. 2. Cirrhosis and portal hypertension. 3. No focal pneumonia. ......................................" C) Hypertension, probably in part due to HYPERALDOSTERONISM. - ALDOSTERONE LEVEL IS HIGH ON ADMISSION (03/26) @ 37 (NORMAL IS LESS THAN 21 ) 2) INFECTIOUS DISEASE ASSESSMENT - - CONSIDER ID evaluation for length of treatment and for recommendations in case additional imaging/workup is needed since we do not have a source. A) Gram positive bacteremia with Staphylococcus Aureus, MSSA per final culture, source unknown. 2 out of 2 bottles positive. DAY # 7 OF TREATMENT (04/01) - Received Vancomicyn for 4 days, then was changed to Ancef (03/29). Will need 14 d of treatement. - (04/25) HRCT chest - No PNA; Abdominal U/S - No significant ascites to tap safely per U/S report. B) Ankle wound - chronic, managed by Dr Jasso. 3) CKD + Acute renal failure on admisson - BUN/Cr on admission 31/2.8 with K of 6.5 on admission, pt was very acidotic on admission. Baseline creatinine previous this admission was about 1.5. His CO2 has normalized after several days of bicarb drip and now on oral bicarb, he is maintaining well, however creatinine has not normalized to his preadmission values. Perez placed on 04/01 - will observe if Cr drops may consider doing 24 hr urine collection later. Will need to follow with nephrology. - BUN/Cr = 31/2.8 (03/26); 32/2.5 (03/27); 32/2.4 (03/28); 33/2.2 (03/29); 32/2.2 ( 03/30) - Placed a Perez on 04/01 - if creatinine trends DOWN, would recommend UROLOGY EVALUATION. - Intact PTH is HIGH - 160.3 * - PSA DONE VERY LOW 0.1 a) Acidosis on ABG on admission (pH - 7.19 - probably due to CKD/GRACE - infection). Was on bicarb drip 03/26 -> 03/29, as CO2 normalized, and is maintaining well on PO Bicarbonate. - ABG ON ADMISSION - pH -7.19; CO2 - 11; PO2 131, HCO3 - 4; total CO2 45, BE -(minus) 21.4 - CO2 - 7 (03/26); 18 (03/28); 25 (03/30); 27 (03/31) - Normalized now. - On Oral bicarb to 650 mg PO BID. b) Hydronephrosis - per U/S done initially, looking for ascites - pt has dilatation of the collecting systems bilaterally in abdominal U/S. Will place perez and post pone the 24 hr urine collection. 4) Fluid and electrolyte issues. A) SODIUM - RESOLVED - Hyponatremia - was managed with fluid restricition and responded very well. - Cortisol normal; TSH normal. - Other tests - urine/plasma osm, uric acid, NOT ORDERED. B) POTASSIUM - RESOLVED - Hyperkalemia (K - 6,5 (admission) then dropped ( Hypokalemia) and is now normal. - K = 6.5 (03/26); 4.7 (03/27); 3.6 (03/28); 3.2 (03/29) -> normal. - Not on K supplements but on aldactone. C) MAGNESIUM - IMPROVED - Mg was 1.3 (03/29) - Received 4gm IV (03/29), with correction to 2.1 (03/30) Started PO Mg (03/30) -> Mg is 1.9 (03/31) - On MagOx 400mg PO BID -> will incease to TID as Mg is a bit low. 5) Type II DM, and obesity - Pt is on Sliding scale. Only used 9 units over the last 24 hrs (04/01) - Insulin requirements are very low, need oral intake to improve DENISE. - Don't know the value of HbA1c with recent transfussions - can be done later. 6) Cirrhosis of the liver, with thrombocytopenia, mild coagulopathy (INR 1.24 on admission), ascites (minimal), esophageal varices (H/O). Pt apparently had a TIPS procedure in the past. Pt is compensated at present. Has no encephalopathy , ammmonia has been normal, off Lactulose and PO aminoglycoside/minimal ascites. - Na levels - 136 (03/26); 128 (03/27); 131 (03/29); 145 (03/30) *Was on mild fluid restriction and improved. - Ammonia - <9 (03/26); 17 (03/27); <9 (03/28); 11 (03/29) OF LACTULOSE & OFF ORAL AMINOGLYCOSIDE. - PLT - 79k (03/26); 71k (03/27); 79k (03/30) - RESUMED ALDACTONE (03/29) AT 50MG/DAY -PT HAS HIGH ALDOSTERONE LEVELS. 7) Anemia probably due to inflammation (ACD) but pt may have to be checked for GI bleed. (Had heme + stools). ORDERED ERYTHROPOIETIN LEVEL (04/01) IF LOW MAY BENEFIT FROM EPOGEN SHOTS. - Anemia workup Suggesive of ACD - Iron - 53 (N), TIBC 181 (LOW), Saturation 29%. B12 is normal @ 464 - S/P transfusion of 1U PRBC on 03/28; Hemoglobin trending slowly down - Will give second unit of PRBC today. May need to be scoped. 8) Severe protein calorie malnutrition - due to chronic illness (cirrhosis, CKD ) - WILL RECHECK PAB IN THE AM. - Albumin level - 2.4 (03/30); Prealbumin - 5.2 (03/26) - Vitamin D, testosterone pending. - Requested dietary evaluation for a calorie count - May benefit from appetite stimulation - probably Marinol has the least side effects. 9) RESOLVED - SIRS ON ADMISSION (MET CRITERIA) ? Pt received rocephin on the ED , no source was identified, for S Aureus in blood. This has improved. 10) CODE STATUS - PT IS FULL CODE. Prevention PUD - PO ranitidine (03/30) DVT - Will continue with SCD's pt INR a bit high so this would protect him a bit from DVT's as well. Further care 1) Consider ID evaluation as above for length of treatment for MSSA bacteremia and to see if pt needs further workup (YUKO ? Bone scan ?) 2) If creatinine comes down after the Perez - may need urology eval - consider urodinamics if there is no bladder outlet obstruction (PSA LOW) 3) Will need F/U with Liquefied Petroleum Gasfitter (CKD), and maybe Stone Banker after D/C ( Hyperaldo) as well as Principal Java Software Engineer and PCP. Heart cath 03/30/17 IMPRESSION 1. Severe multivessel coronary artery disease as described above. PLAN The patient is not a good surgical candidate with multiple severe comorbid problems. I will review the images and talk to the patient. However, at this point, I think we should continue medical management given the severity of the coronary artery disease and the location of the lesions which would put him at high risk of having intervention. 04/01/17 Continue Aspirin, Metoprolol, Spironolactone. Do not recommend using Statin therapy due to liver disease 04/02/17 Due to black stools and drop in Hbg, Aspirin was changed to EC 81mg daily. <Leah Kerr - 04/02/17 14:14> Progress Note-A&P (1) HTN (hypertension) Status: Chronic (2) Liver disease Status: Chronic (3) Type 2 diabetes mellitus Status: Chronic (4) Dyslipidemia Status: Chronic (5) CAD (coronary artery disease) Status: Chronic (6) Acute kidney injury Status: Resolved (7) SIRS (systemic inflammatory response syndrome) Problem details: later discovered to be severe sepsis Status: Resolved (8) Anemia Problem details: Chronic disease, some rectal blood loss during hospitalization Status: Acute (9) NSTEMI (non-ST elevated myocardial infarction) Status: Resolved <Jerson Lujan 04/05/17 11:28> (1) Anemia Problem details: Chronic disease, some rectal blood loss during hospitalization Status: Acute Assessment and plan: After discussing patient's degree of CAD with Dr. Lujan, he recommends EC baby aspirin daily. Continue PPI. (2) CAD (coronary artery disease) Status: Chronic (3) HTN (hypertension) Status: Chronic (4) Type 2 diabetes mellitus Status: Chronic (5) Liver disease Status: Chronic (6) Dyslipidemia Status: Chronic (7) Acute kidney injury Status: Resolved (8) SIRS (systemic inflammatory response syndrome) Problem details: later discovered to be severe sepsis Status: Resolved (9) NSTEMI (non-ST elevated myocardial infarction) Status: Resolved <Leah Kerr 04/05/17 09:03> - Time Spent With Patient Total time spent is greater than 50% in coordination of care (as documented) at patient's floor/unit and/or counseling patient: <Jerson Lujan 04/05/17 11:28> Total time spent is greater than 50% in coordination of care (as documented) at patient's floor/unit and/or counseling patient: <Leah Kerr - 04/02/17 13:07> less than 15 minutes <Leah Kerr 04/02/17 14:14> - Attestation Attestation Narrative: Recommendation After examining the patient I agree with the above assessment. I am involved in the formulation of the patient's plan of care. <Jerson Lujan 04/05/17 11:28> Sepsis Assessment - Evaluation Sepsis screening result: No Definite Risk <Leah Kerr 04/02/17 13:07>
[2017-04-02] MEDS: TAMSULOSIN 0.4 MG CAPSULE PO SCH (21:09)
[2017-04-02] MEDS: RANITIDINE 150 MG TABLET PO SCH (21:09)
[2017-04-02] MEDS: SALINE FLUSH 10ml SYRINGE IVF PRN (21:13)
[2017-04-03] MEDS: CEFAZOLIN 2 G in NS 100 ML IV SCH ×2 (04:54→12:18)
[2017-04-03] MEDS ORDERED: PANTOPRAZOLE 40 MG TABLET PO SCH (06:30)
[2017-04-03] MEDS ORDERED: ASPIRIN *EC* 81 MG TABLET PO SCH (09:00)
[2017-04-03] MEDS: COENZYME Q-10 200mg TABLET PO SCH (09:44)
[2017-04-03] MEDS: SODIUM BICARBONATE 650 MG TABLET PO SCH ×2 (09:44→14:41)
[2017-04-03] MEDS: MAGNESIUM OXIDE 400 MG TABLET PO SCH ×2 (09:44→14:41)
[2017-04-03] MEDS: FUROSEMIDE 40 MG TABLET PO SCH (09:44)
[2017-04-03] MEDS: SPIRONOLACTONE 50 MG TABLET PO SCH (09:44)
[2017-04-03] MEDS: INSULIN ASPART 100unit/ml INJECTION SQ PRN ×2 (10:16→14:41)
[2017-04-03] MEDS: VIT B COMP PO SCH (10:16)
[2017-04-03] MEDS: FOLIC ACID PO SCH (10:16)
[2017-04-03] MEDS: [UNRECOGNIZED DRUG - OTHER] PO SCH (10:16)
[2017-04-03 11:55] VITALS: RESP 18
--- NOTE | 2017-04-03 13:54 | Progress Note ---
<Whitney Greenfield - Last Filed: 04/03/17 13:50> Subjective: Dakota feels much better today and feels like he could go home. He denies weakness/dizziness. No chest pain or SOA. No abdominal pain or GI complaints. His arms/hands dont' seem as swollen today. He hasn't had a BM yet today to look for black/bloody stools. We discussed dc options - his preference is to go home with HH, but it's unlikely HH would be able to come out TID for abx dosing. He is opposed to SNF, even though it would be short-term. Objective Vital signs: Temperature 97.8 F 04/03/17 11:55 Pulse Rate 73 04/03/17 11:55 Respiratory Rate 18 04/03/17 11:55 Blood Pressure 127/79 04/03/17 11:55 Pulse Oximetry 98 04/03/17 11:55 Oxygen Delivery Method Room Air Weight: 132.7 kg - Constitutional Present: no acute distress, well nourished, well developed, obese - Routine HEENT Exam ENT: Present: mucous membranes moist - Routine Respiratory Exam Present: CTA bilaterally (slightly course) - Routine Cardiovascular Exam Present: S1, S2 - Routine Abdominal Exam Present: soft, normoactive bowel sounds, non distended, non tender - Routine Extremities Exam Present: edema (1+ b/l LE) - Routine Musculoskeletal Exam Musculoskeletal: Present: moving extremities well - Routine Skin Exam Present: intact, dry, warm - Routine Neurological Exam Present: alert, oriented X3 - Routine Psychiatric Exam Present: normal affect, normal thought process Results - Labs CBC & Chem 7: 04/03/17 04:18 04/03/17 04:18 Microbiology Results: Microbiology 04/02/17 10:28 Peripheral/Iv Start Blood Culture - Preliminary No Growth After 1 Day 04/02/17 10:45 Peripheral/Iv Start Blood Culture - Preliminary No Growth After 1 Day - ABG Interpretation ABG results: 03/26/17 03/26/17 03/30/17 10:55 23:22 10:50 ABG pH 7.190 L* 7.480 H ABG pCO2 11 L* 37 ABG pO2 131 H 78 L ABG HCO3 4 L 28 H ABG Total CO2 4.5 L 28.7 H ABG O2 Saturation 98.0 96.0 ABG Base Excess -21.4 L 4.0 H VBG pH 7.210 L VBG pCO2 18 L VBG pO2 35 L VBG HCO3 7 L VBG Total CO2 7.8 VBG O2 Saturation 52.0 VBG Base Excess -18.5 L Assessment and Plan (1) HTN (hypertension) Current visit: No Status: Chronic (2) Type 2 diabetes mellitus Current visit: No Status: Chronic (3) Dyslipidemia Current visit: Yes Status: Chronic (4) GERD (gastroesophageal reflux disease) Current visit: Yes Status: Chronic (5) CAD (coronary artery disease) Current visit: Yes Status: Chronic (6) Hepatic cirrhosis Current visit: Yes Status: Chronic (7) Obesity (BMI 30-39.9) Current visit: Yes Status: Chronic (8) Anxiety Current visit: Yes Status: Chronic (9) Ankle wound Current visit: Yes Status: Chronic (10) Acute kidney injury Current visit: Yes Status: Resolved (11) SIRS (systemic inflammatory response syndrome) Current visit: Yes Status: Resolved (12) Anemia Current visit: Yes Status: Acute (13) Thrombocytopenia Current visit: Yes Status: Chronic (14) Hyperkalemia Current visit: Yes Status: Acute (15) Chest pain Current visit: Yes Status: Acute (16) NSTEMI (non-ST elevated myocardial infarction) Current visit: Yes Status: Resolved Present on admission (17) Acidosis, renal tubular Current visit: Yes Status: Chronic (18) Bacteremia due to Gram-positive bacteria Problem details: MICAELA bacteremia BC x 2+ 03/26/17 Current visit: Yes Status: Acute DVT Prophylaxis: SCD's GI Prophylaxis: Protonix, Rantidine Assessment and Plan: MSSA bacteremia -continue Ancef 14 day course (through April 09) -source most likely left ankle wound GI bleed -hgb stable at 8.8 -cont PPI and H2 -ASA resumed at lower dose - 81 mg - per cardiology Cirrhosis -resume lactulose at lower dose -NH3 normal this am CKD -recommend outpt neph f/u -minimal improvement in cr with Perez -sono reviewed - no collecting system dilitation -dc perez today -may need uro f/u DC plans -d/w CM - checking into HH, SNF options Sepsis Assessment - Evaluation Sepsis screening result: No Definite Risk Hospital Course Summary Disclaimer: The visit summary below is not to be considered part of the above Progress Note. Hospital Course: Per Hospitalist- Dylon DIAGNOSIS - 1) CARDIOVASCULAR ASSESSMENT - A) Acute NSTEMI (03/26) - Initial Tni Negative, repeat (03/26) @ 9:22 AM - 7.46 (HIGH), repeat (03/26) @ 13:38 16.4 (HIGH); then trended down. Pt has had a previous stent. Cardiac cath done on 03/30 (Dr Lujan). - Day # 7 post NSTEMI. - Remaines stable, electrically and mechanically. Will continue with telemetry. - Continue SL NTG PRN, Toprol XL - Increased ASA to 325 mg/day (04/01) - Cath report (verbally by Dr Lujan - Diffuse CAD not amenable to be corrected by PTCA or CABG - Discussed with pt benefits/risk of statins, on chronic compensated liver disease on 03/31. - Pt vrebalized understanding the fact that liver damage with statins is very rare, and that the benefit due to his advanced CAD is much greater. - Started Atorvastatin 40mg/day (03/31). - AST/ALT normal (04/01) - 2-D echo (03/26) "........................... IMPRESSION 1. Global hypokinesia with ejection fraction of about 30-35%. 2. Left ventricular dilation. 3. Concentric left ventricular hypertrophy. 4. Left atrial dilation. 5. Mitral annulus calcification with moderate mitral regurgitation. 6. Aortic sclerosis. 7. Mild tricuspid regurgitation with normal estimated pulmonary artery systolic pressure of 20. ......................................" B) Congestive heart failure - with pulmonary edema this hospitalization after the NSTEMI (Per CT report - 03/27 - responded very well to diuretics) - Toprol XL 100 mg/day (03/31) - Lasix 40mg/day - Aldactone (also for his cirrhosis - reduce ascites) - 50mg/day (k today 4.0 ) - Episode of pulmonary edema on day 2 of hospital stay - per CT chest done on 03/27 - probably overloaded due to IVF and IV bicarbonate drip with marginal renal function. - CT chest (03/27) "...................................... Impression: 1. Evidence of volume overload and moderate pulmonary edema. 2. Cirrhosis and portal hypertension. 3. No focal pneumonia. ......................................" C) Hypertension, probably in part due to HYPERALDOSTERONISM. - ALDOSTERONE LEVEL IS HIGH ON ADMISSION (03/26) @ 37 (NORMAL IS LESS THAN 21 ) 2) INFECTIOUS DISEASE ASSESSMENT - - CONSIDER ID evaluation for length of treatment and for recommendations in case additional imaging/workup is needed since we do not have a source. A) Gram positive bacteremia with Staphylococcus Aureus, MSSA per final culture, source unknown. 2 out of 2 bottles positive. DAY # 7 OF TREATMENT (04/01) - Received Vancomicyn for 4 days, then was changed to Ancef (03/29). Will need 14 d of treatement. - (04/25) HRCT chest - No PNA; Abdominal U/S - No significant ascites to tap safely per U/S report. B) Ankle wound - chronic, managed by Dr Jasso. 3) CKD + Acute renal failure on admisson - BUN/Cr on admission 31/2.8 with K of 6.5 on admission, pt was very acidotic on admission. Baseline creatinine previous this admission was about 1.5. His CO2 has normalized after several days of bicarb drip and now on oral bicarb, he is maintaining well, however creatinine has not normalized to his preadmission values. Perez placed on 04/01 - will observe if Cr drops may consider doing 24 hr urine collection later. Will need to follow with nephrology. - BUN/Cr = 31/2.8 (03/26); 32/2.5 (03/27); 32/2.4 (03/28); 33/2.2 (03/29); 32/2.2 ( 03/30) - Placed a Perez on 04/01 - if creatinine trends DOWN, would recommend UROLOGY EVALUATION. - Intact PTH is HIGH - 160.3 * - PSA DONE VERY LOW 0.1 a) Acidosis on ABG on admission (pH - 7.19 - probably due to CKD/GRACE - infection). Was on bicarb drip 03/26 -> 03/29, as CO2 normalized, and is maintaining well on PO Bicarbonate. - ABG ON ADMISSION - pH -7.19; CO2 - 11; PO2 131, HCO3 - 4; total CO2 45, BE -(minus) 21.4 - CO2 - 7 (03/26); 18 (03/28); 25 (03/30); 27 (03/31) - Normalized now. - On Oral bicarb to 650 mg PO BID. b) Hydronephrosis - per U/S done initially, looking for ascites - pt has dilatation of the collecting systems bilaterally in abdominal U/S. Will place perez and post pone the 24 hr urine collection. 4) Fluid and electrolyte issues. A) SODIUM - RESOLVED - Hyponatremia - was managed with fluid restricition and responded very well. - Cortisol normal; TSH normal. - Other tests - urine/plasma osm, uric acid, NOT ORDERED. B) POTASSIUM - RESOLVED - Hyperkalemia (K - 6,5 (admission) then dropped ( Hypokalemia) and is now normal. - K = 6.5 (03/26); 4.7 (03/27); 3.6 (03/28); 3.2 (03/29) -> normal. - Not on K supplements but on aldactone. C) MAGNESIUM - IMPROVED - Mg was 1.3 (03/29) - Received 4gm IV (03/29), with correction to 2.1 (03/30) Started PO Mg (03/30) -> Mg is 1.9 (03/31) - On MagOx 400mg PO BID -> will incease to TID as Mg is a bit low. 5) Type II DM, and obesity - Pt is on Sliding scale. Only used 9 units over the last 24 hrs (04/01) - Insulin requirements are very low, need oral intake to improve DENISE. - Don't know the value of HbA1c with recent transfussions - can be done later. 6) Cirrhosis of the liver, with thrombocytopenia, mild coagulopathy (INR 1.24 on admission), ascites (minimal), esophageal varices (H/O). Pt apparently had a TIPS procedure in the past. Pt is compensated at present. Has no encephalopathy , ammmonia has been normal, off Lactulose and PO aminoglycoside/minimal ascites. - Na levels - 136 (03/26); 128 (03/27); 131 (03/29); 145 (03/30) *Was on mild fluid restriction and improved. - Ammonia - <9 (03/26); 17 (03/27); <9 (03/28); 11 (03/29) OF LACTULOSE & OFF ORAL AMINOGLYCOSIDE. - PLT - 79k (03/26); 71k (03/27); 79k (03/30) - RESUMED ALDACTONE (03/29) AT 50MG/DAY -PT HAS HIGH ALDOSTERONE LEVELS. 7) Anemia probably due to inflammation (ACD) but pt may have to be checked for GI bleed. (Had heme + stools). ORDERED ERYTHROPOIETIN LEVEL (04/01) IF LOW MAY BENEFIT FROM EPOGEN SHOTS. - Anemia workup Suggesive of ACD - Iron - 53 (N), TIBC 181 (LOW), Saturation 29%. B12 is normal @ 464 - S/P transfusion of 1U PRBC on 03/28; Hemoglobin trending slowly down - Will give second unit of PRBC today. May need to be scoped. 8) Severe protein calorie malnutrition - due to chronic illness (cirrhosis, CKD ) - WILL RECHECK PAB IN THE AM. - Albumin level - 2.4 (03/30); Prealbumin - 5.2 (03/26) - Vitamin D, testosterone pending. - Requested dietary evaluation for a calorie count - May benefit from appetite stimulation - probably Marinol has the least side effects. 9) RESOLVED - SIRS ON ADMISSION (MET CRITERIA) ? Pt received rocephin on the ED , no source was identified, for S Aureus in blood. This has improved. 10) CODE STATUS - PT IS FULL CODE. Prevention PUD - PO ranitidine (03/30) DVT - Will continue with SCD's pt INR a bit high so this would protect him a bit from DVT's as well. Further care 1) Consider ID evaluation as above for length of treatment for MSSA bacteremia and to see if pt needs further workup (YUKO ? Bone scan ?) 2) If creatinine comes down after the Perez - may need urology eval - consider urodinamics if there is no bladder outlet obstruction (PSA LOW) 3) Will need F/U with Hydraulic Lift Driver (CKD), and maybe Offender Job Retention Specialist after D/C ( Hyperaldo) as well as Technical Support 1 Software Engineer and PCP. Heart cath 03/30/17 IMPRESSION 1. Severe multivessel coronary artery disease as described above. PLAN The patient is not a good surgical candidate with multiple severe comorbid problems. I will review the images and talk to the patient. However, at this point, I think we should continue medical management given the severity of the coronary artery disease and the location of the lesions which would put him at high risk of having intervention. 04/01/17 Continue Aspirin, Metoprolol, Spironolactone. Do not recommend using Statin therapy due to liver disease 04/02/17 Due to black stools and drop in Hbg, Aspirin was changed to EC 81mg daily. 04/03/17 13:59 MSSA bacteremia -continue Ancef 14 day course (through April 09) -source most likely left ankle wound GI bleed -hgb stable at 8.8 -cont PPI and H2 -ASA resumed at lower dose - 81 mg - per cardiology Cirrhosis -resume lactulose at lower dose -NH3 normal this am CKD -recommend outpt neph f/u -minimal improvement in cr with Perez -sono reviewed - no collecting system dilitation -dc perez today -may need uro f/u DC plans -d/w CM - checking into , SNF options <Shantelle Kelly - Last Filed: 04/03/17 18:22> Objective Vital signs: Temperature 97.3 F 04/03/17 15:40 Pulse Rate 71 04/03/17 16:00 Respiratory Rate 18 04/03/17 15:40 Blood Pressure 140/80 H 04/03/17 15:40 Pulse Oximetry 96 04/03/17 15:40 Oxygen Delivery Method Room Air Results - Labs CBC & Chem 7: 04/03/17 04:18 04/03/17 04:18 Microbiology Results: Microbiology 04/02/17 10:28 Peripheral/Iv Start Blood Culture - Preliminary No Growth After 1 Day 04/02/17 10:45 Peripheral/Iv Start Blood Culture - Preliminary No Growth After 1 Day - ABG Interpretation ABG results: 03/26/17 03/26/17 03/30/17 10:55 23:22 10:50 ABG pH 7.190 L* 7.480 H ABG pCO2 11 L* 37 ABG pO2 131 H 78 L ABG HCO3 4 L 28 H ABG Total CO2 4.5 L 28.7 H ABG O2 Saturation 98.0 96.0 ABG Base Excess -21.4 L 4.0 H VBG pH 7.210 L VBG pCO2 18 L VBG pO2 35 L VBG HCO3 7 L VBG Total CO2 7.8 VBG O2 Saturation 52.0 VBG Base Excess -18.5 L Assessment and Plan (1) NSTEMI (non-ST elevated myocardial infarction) Current visit: Yes Status: Resolved (2) Bacteremia due to Gram-positive bacteria Problem details: MICAELA bacteremia BC x 2+ 03/26/17 Current visit: Yes Status: Acute (3) Anemia Problem details: Chronic disease, some rectal blood loss during hospitalization Current visit: Yes Status: Acute (4) HTN (hypertension) Current visit: No Status: Chronic (5) Type 2 diabetes mellitus Current visit: No Status: Chronic (6) Dyslipidemia Current visit: Yes Status: Chronic (7) GERD (gastroesophageal reflux disease) Current visit: Yes Status: Chronic (8) CAD (coronary artery disease) Current visit: Yes Status: Chronic (9) Hepatic cirrhosis Current visit: Yes Status: Chronic (10) Obesity (BMI 30-39.9) Current visit: Yes Status: Chronic (11) Anxiety Current visit: Yes Status: Chronic (12) Ankle wound Current visit: Yes Status: Chronic (13) Acute kidney injury Current visit: Yes Status: Resolved (14) SIRS (systemic inflammatory response syndrome) Problem details: later discovered to be severe sepsis Current visit: Yes Status: Resolved (15) Hyperkalemia Current visit: Yes Status: Resolved (16) Acidosis, renal tubular Current visit: Yes Status: Chronic (17) Thrombocytopenia Current visit: Yes Status: Chronic Assessment and Plan: I have independently evaluated and examined this patient. I reviewed the chart, the patient's history, and the TAPE COATER's documented findings as above. We discussed and formulated the assessment and plan as above with additions as below: Please see discharge summary from my comments. Outpatient IV antibiotics subsequently coordinated per home health. Patient doing well. Hospital Course Summary Disclaimer: The visit summary below is not to be considered part of the above Progress Note.
--- NOTE | 2017-04-03 15:23 | Discharge Instructions ---
Discharge Plan - Med Rec/Dispo Referrals/Follow Up: Samantha Bartlett MD [Family Provider] - 1 Week Jerson Lujan MD [Physician] - 2 Weeks Daya Instructions: Back Pain (GEN), Myocardial Infarction (DC), Anemia (DC) Additional Instructions: Heart attack - continue medications. You were not a candidate for stents. Continue Aspirin 81 mg daily & watch closely for black/bloody stools. If you start to feel weak, lightheaded/dizzy, short of breath, or fatigued you need to call Dr. Bartlett. If your symptoms are severe, call 911. Kidney disease - recommend for you to follow up with a kidney doctor ( skip tender). Dr. Bartlett's office can help you arrange this. Have your lab rechecked on 04/06/17 (CMP, magnesium, ammonia, and CBC). IV antibiotics (Ancef) for bloodstream infection: Continue Ancef every 8 hours ( keep on schedule - this is very important!). Home Health will help you with this and they will help you with PICC line care. You should continue to watch for infection in your arm. Your last day of antibiotics will be April 09. Cirrhosis: continue Lactulose, but we will reduce your dose to twice a day. Prescriptions: New Aspirin *EC* [Ecotrin] 81 mg PO DAILY tablet Folic Acid/Vit B Comp + C [Nephrocaps] 1 cap PO DAILY capsule Lactulose Oral Liq [Lactulose] 40 gm PO BID solution Metoprolol Succinate (Xl) [Toprol Xl] 150 mg PO DAILY #30 tablet Tamsulosin [Flomax] 0.4 mg PO HS #30 capsule Coenzyme Q-10 [Co Q-10] 200 mg PO DAILY capsule Furosemide [Lasix] 40 mg PO DAILY #30 tablet Spironolactone [Aldactone] 50 mg PO DAILY tablet Continue Acetaminophen 650 mg PO Q4HR PRN #0 PRN Reason: PAIN Omeprazole 20 mg PO ACB #0 Benzonatate 100 mg PO Q6H PRN PRN Reason: Cough Discontinued Spironolactone 50 mg PO TID #0 Morphine Sulfate 5 mg PO Q2H PRN PRN Reason: Pain Lactulose 60 ml PO QID #0 furosemide 20 mg tablet 20 mg PO QAM 28 Days neomycin 500 mg tablet 500 mg PO Q8HR 28 Days metoprolol succinate ER 50 mg tablet,extended release 24 hr 50 mg PO DAILY 28 Days morphine concentrate 20 mg/mL oral syringe (FOR ORAL USE ONLY) 5 mg PO Q2H PRN ml PRN Reason: Pain - Disposition Discharged Home, Self-Care
[2017-04-03 15:41] VITALS: BP 140/80; PULSE 71; TEMP 97.3; O2SAT 96
--- NOTE | 2017-04-03 15:50 | Discharge Instructions ---
Discharge Plan - Med Rec/Dispo Referrals/Follow Up: Jerson Lujan MD [Physician] - 2 Weeks Samantha Bartlett MD [Family Provider] - 1 Week (Follow up about low testosterone, low vitamin D levels. Recommend nephrology follow up.) Daya Instructions: Myocardial Infarction (DC), Anemia (DC), Back Pain (GEN) Additional Instructions: Heart attack - continue medications. You were not a candidate for stents. Continue Aspirin 81 mg daily & watch closely for black/bloody stools. If you start to feel weak, lightheaded/dizzy, short of breath, or fatigued you need to call Dr. Bartlett. If your symptoms are severe, call 911. Kidney disease - recommend for you to follow up with a kidney doctor ( practice professional). Dr. Bartlett's office can help you arrange this. Have your lab rechecked on 04/06/17 (CMP, magnesium, ammonia, and CBC). IV antibiotics (Ancef) for bloodstream infection: Continue Ancef every 8 hours ( keep on schedule - this is very important!). Home Health will help you with this and they will help you with PICC line care. You should continue to watch for infection in your arm. Your last day of antibiotics will be April 09. Cirrhosis: continue Lactulose, but we will reduce your dose to twice a day. Prescriptions: New Aspirin *EC* [Ecotrin] 81 mg PO DAILY tablet Folic Acid/Vit B Comp + C [Nephrocaps] 1 cap PO DAILY capsule Lactulose Oral Liq [Lactulose] 40 gm PO BID solution Metoprolol Succinate (Xl) [Toprol Xl] 150 mg PO DAILY #30 tablet Tamsulosin [Flomax] 0.4 mg PO HS #30 capsule Coenzyme Q-10 [Co Q-10] 200 mg PO DAILY capsule Furosemide [Lasix] 40 mg PO DAILY #30 tablet Spironolactone [Aldactone] 50 mg PO DAILY tablet Continue Acetaminophen 650 mg PO Q4HR PRN #0 PRN Reason: PAIN Omeprazole 20 mg PO ACB #0 Benzonatate 100 mg PO Q6H PRN PRN Reason: Cough Discontinued Spironolactone 50 mg PO TID #0 Morphine Sulfate 5 mg PO Q2H PRN PRN Reason: Pain Lactulose 60 ml PO QID #0 furosemide 20 mg tablet 20 mg PO QAM 28 Days neomycin 500 mg tablet 500 mg PO Q8HR 28 Days metoprolol succinate ER 50 mg tablet,extended release 24 hr 50 mg PO DAILY 28 Days morphine concentrate 20 mg/mL oral syringe (FOR ORAL USE ONLY) 5 mg PO Q2H PRN ml PRN Reason: Pain Discharge Instructions/Outpatient Orders: Final Provider Discharge Instructions Location: Determined By Patient - Disposition 01 Discharged Home, Self-Care
--- NOTE | 2017-04-03 15:56 | Discharge Summary ---
<Whitney Greenfield D - Last Filed: 04/03/17 15:52> Discharge Information Date of admission: 03/26/17 07:57 Attending Physician: Jax Osborne MD Primary care physician: AMARI Bartlett MD Consults: 03/26/17 Pharmacy Consult [CONS] Routine Pharmacy Consult: Heparin 03/26/17 09:32 Case Management Consult [CONS] Routine Reason For Exam: discharge planning 03/26/17 10:59 Physician Consult [CONS] Timed Consulting Provider: Jerson Lujan Reason For Exam: chest pain, elevated troponin Ordering Provider has Notified Projection Engineer: No 03/27/17 Pharmacy Consult [CONS] Routine Pharmacy Consult: Vancomycin 03/31/17 11:28 Wound Vein Clinic Consult [CONS] Routine Reason for consultation: wound tx by Kamilla to left heel, skin tear R AC, buttocks chronic issues 04/01/17 08:00 IRU Screening [Inpatient Rehab Screening] [CONS] Routine 04/01/17 09:14 Dietary Consult [CONS] Routine Comment: Please do a calorie count. Reason For Exam: Severe malnutrition - Discharge Diagnosis (1) HTN (hypertension) Status: Chronic (2) Type 2 diabetes mellitus Status: Chronic (3) Dyslipidemia Status: Chronic (4) GERD (gastroesophageal reflux disease) Status: Chronic (5) CAD (coronary artery disease) Status: Chronic (6) Hepatic cirrhosis Status: Chronic (7) Obesity (BMI 30-39.9) Status: Chronic (8) Anxiety Status: Chronic (9) Ankle wound Status: Chronic (10) Acute kidney injury Status: Resolved (11) SIRS (systemic inflammatory response syndrome) Problem Details: later discovered to be severe sepsis Status: Resolved (12) Anemia Status: Acute (13) Thrombocytopenia Status: Chronic (14) Hyperkalemia Status: Acute (15) Chest pain Status: Acute (16) NSTEMI (non-ST elevated myocardial infarction) Status: Resolved (17) Acidosis, renal tubular Status: Chronic (18) Bacteremia due to Gram-positive bacteria Problem Details: MICAELA bacteremia BC x 2+ 03/26/17 Status: Acute - Procedures Procedures: 2-D echo 03/26/17 IMPRESSION 1. Global hypokinesia with ejection fraction of about 30-35%. 2. Left ventricular dilation. 3. Concentric left ventricular hypertrophy. 4. Left atrial dilation. 5. Mitral annulus calcification with moderate mitral regurgitation. 6. Aortic sclerosis. 7. Mild tricuspid regurgitation with normal estimated pulmonary artery systolic pressure of 20. PICC line 03/26/17 PRBC TRANSFUSION on 03/28/17 and again on 04/01/17 CARDIAC CATHETERIZATION 03/30/17 - severe multivessel CAD Left main was free of significant lesions. Left anterior descending artery had subtotal occlusion proximally at the ostium and 95% stenosis in mid segment. Left circumflex artery had 70% proximal and 90% mid stenosis. Right coronary was occluded with [id number] collaterals. Stone catheter 04/01/17-04/03/17 - Laboratory Labs: 04/03/17 04:18 04/03/17 04:18 - Microbiology Microbiology BC 03/26/17 positive for MSSA / Repeat BC 04/02/17 - negative after 1 day - Radiology Radiology: CXR 03/26/17 - lungs clear; repeated to confirm PICC line placement. CHEST CT 03/27/17 1. Evidence of volume overload and moderate pulmonary edema. 2. Cirrhosis and portal hypertension. 3. No focal pneumonia. ABDOMINAL U/S 03/27/17 1. Minimal ascites. This does not appear to be enough to safely perform a diagnostic paracentesis. 2. Changes of cirrhosis and portal hypertension. History of Present Illness HPI: Silas Paul is a pleasant 71 year old male who presented to [facility] emergency room today, 03/26/17, for evaluation of dyspnea and chest pain. He reports that for the past 3 weeks he has had increased shortness of breath and dyspnea on exertion. He also complains of off and on chest pain for "a while" and indicates that last night around 1800 he started having chest pain. He denies any radiation of the pain or diaphoresis and describes the pain as aching. He also complains of lower back pain as well as recent gagging with eating resulting in decreased eating, though he states his appetite is good. He denies any recent fevers but admits to chills and "shaking" about a week ago. He complains of a chronic nonproductive cough that he does not feel is any worse recently. He He denies any headache, changes in vision, nausea, vomiting , dysuria, hematuria, diarrhea, constipation, abdominal pain, numbness, tingling or recent falls or injury. He has a know history of cirrhosis for which he takes lactulose which causes chronic loose stools. No blood or melana in his stools. In light of his increasing dyspnea and off and on chest pain, with new back pain, he decided to seek further evaluation. He was transported to [facility] emergency room via EMS from [facility], where he resides. Upon arrival to the ED, vital signs revealed he was afebrile with a temperature of 97.7, heart rate 86, tachypneic with respiratory rate at 25, blood pressure 137/78 and pulse ox 98% on room air. His chest pain was treated with nitro which relieved his pain and a nitro patch was placed. Labs were obtained and revealed leukocytosis with WBC 12.6, anemia with hemoglobin 10.4, thrombocytopenia with platelets 79, sodium 136, hyperkalemia with potassium 5.6 , elevated renal function with BUN 31 and SCr 2.8 and hyperglycemia with glucose 194. Renal function from 09/2015 revealed SCr at 1.4. Troponin was 0.078, BNP 3400, lactate 2.0, procalcitonin was 0.041. Ammonia <9 and magnesium 2.0. CO2 was low at 7. Chest x-ray showed no acute cardiopulmonary abnormalities. He has a known history of noninsulin diabetes as well as CAD with 1 stent placed "years ago", hypertension and cirrhosis secondary to prior alcohol abuse with esophageal varieties and liver stent. He denies any alcohol use in > 5 years. In light of his acute dyspnea and concern for severe sepsis in light of his leukocytosis, thrombocytpenia, altered renal function and elevated lactate, he received Rocephin 1g IV for empiric coverage of pulmonary pathogens and Dr. Larkin was consulted and he was admitted into in-patient status for further evaluation, IV hydration, electrolyte correction and close cardiac and respiratory monitoring. His length of stay is expected to exceed more than 2 over nights. On exam, he is seen upon arrival to his room, #[id number]. He is resting in bed and has mild conversational dyspnea with noted tachypenia. He states that his chest pain has been relieved to 2/10 with the placement of the nitro patch. When asked about his chest pain, he points to his epigastric region. Cardiac exam reveals regular rate and rhythm and lungs are clear to auscultation. Abdomen is soft, distended with active bowel sounds and non-tender. Trace edema noted to bilateral lower extremities with 2+ pedal pulses bilaterally. He is alert, orientated and pleasant on exam. Objective Vital signs: Temperature 97.3 F 04/03/17 15:40 Pulse Rate 71 04/03/17 15:40 Respiratory Rate 18 04/03/17 15:40 Blood Pressure 140/80 H 04/03/17 15:40 Pulse Oximetry 96 04/03/17 15:40 Oxygen Delivery Method Room Air Weight: 132.7 kg - Constitutional Present: no acute distress, well nourished, well developed, obese - Routine HEENT Exam ENT: Present: mucous membranes moist, oropharynx clear - Routine Respiratory Exam Present: CTA bilaterally - Routine Cardiovascular Exam Present: S1, S2 - Routine Abdominal Exam Present: soft, normoactive bowel sounds, non distended, non tender - Routine Extremities Exam Present: edema (b/l LE) - Routine Musculoskeletal Exam Musculoskeletal: Present: moving extremities well - Routine Skin Exam Present: intact, warm - Routine Neurological Exam Present: alert, oriented X3 - Routine Psychiatric Exam Present: normal affect, normal thought process Hospital Course This is a general summary of the patient's hospital course. For more details refer to the complete medical record. Hospital course: [place] was admitted on 03/26/17 for NSTEMI, CHF, SIRS (later with positive blood cultures that grew out MSSA - severe sepsis). He was treated with Vanco x4 days then switched to Ancef on 03/29/17. Source was likely left ankle wound. Dr. Lujan was consulted; Troponin peaked at 16.4. He was taken to the medical laboratory technical officer on 03/30/17 and this showed severe multivessel CAD - medical management was recommended. Toprol was increased to 100 mg/day; also started Lasix at a higher dose (40 mg/day). ASA was increased to 325 mg, but he began to have black/ bloody stools so this was reduced to 81 mg. He ultimately was transfused on 2 occasions during hospitalizations, and after ASA was decreased his hgb remained stable. H2 [place] and PPI were continued. Metabolic acidosis present on admission resolved in part due to bicarb gtt/oral bicarb. Creatinine trended down to 2.8 to 2.0 by day of discharge. A Stone was inserted on 04/01/17 with the thought this may help with renal function, and creatinine improved slightly from 2.3 to 2.0. Flomax was initiated. Stone was discontinued on 04/03/17. He also had electrolyte problems that were corrected prior to discharge - hyperkalemia (spironolactone initially held then restarted at lower dose); hyponatremia (responded well to fluid restriction); hypomagnesemia (replaced). Cirrhosis remained stable and actually were reduced his dose of lactulose without rise in his ammonia level. Recommend outpatient nephrology f/u. May need 24 hr urine; may also need urology f/u. PTH was 160, indicating long-standing CKD. Consider f/u with oncology nurse regarding hyperaldosteronism. F/U in outpatient setting regarding low Vit D level and low Testosterone. F/U with pending repeat blood cultures. Monitor closely for worsening signs of anemia/GI bleed. CMP, ammonia, CBC, mg ordered for 04/06/17. DC home with and [place] for Ancef injections and PICC care. F/U with Dr. Bartlett in [address] Lujan's office for f/u appointment in the next 2 weeks. Time spent with patient: discharge greater than 30 minutes GI Prophylaxis: Protonix, Rantidine Discharge Plan - Med Rec/Dispo Referrals/Follow Up: Jerson Lujan MD [Physician] - 2 Weeks Samantha Bartlett MD [Family Provider] - 1 Week (Follow up about low testosterone, low vitamin D levels. Recommend nephrology follow up.) [place] Instructions: Myocardial Infarction (DC), Anemia (DC), Back Pain (GEN) Additional Instructions: Heart attack - continue medications. You were not a candidate for stents. Continue Aspirin 81 mg daily & watch closely for black/bloody stools. If you start to feel weak, lightheaded/dizzy, short of breath, or fatigued you need to call Dr. Bartlett. If your symptoms are severe, call 911. Kidney disease - recommend for you to follow up with a kidney doctor ( reinforcement maker). Dr. Bartlett's office can help you arrange this. Have your lab rechecked on 04/06/17 (CMP, magnesium, ammonia, and CBC). IV antibiotics (Ancef) for bloodstream infection: Continue Ancef every 8 hours ( keep on schedule - this is very important!). Home Health will help you with this and they will help you with PICC line care. You should continue to watch for infection in your arm. Your last day of antibiotics will be April 09. Cirrhosis: continue Lactulose, but we will reduce your dose to twice a day. Prescriptions: New Aspirin *EC* [Ecotrin] 81 mg PO DAILY tablet Folic Acid/Vit B Comp + C [Nephrocaps] 1 cap PO DAILY capsule Lactulose Oral Liq [Lactulose] 40 gm PO BID solution Metoprolol Succinate (Xl) [Toprol Xl] 150 mg PO DAILY #30 tablet Tamsulosin [Flomax] 0.4 mg PO HS #30 capsule Coenzyme Q-10 [Co Q-10] 200 mg PO DAILY capsule Furosemide [Lasix] 40 mg PO DAILY #30 tablet Spironolactone [Aldactone] 50 mg PO DAILY tablet Neomycin Sulfate 500 mg PO QID #28 tablet Continue Acetaminophen 650 mg PO Q4HR PRN #0 PRN Reason: PAIN Omeprazole 20 mg PO ACB #0 Benzonatate 100 mg PO Q6H PRN PRN Reason: Cough Discontinued Spironolactone 50 mg PO TID #0 Morphine Sulfate 5 mg PO Q2H PRN PRN Reason: Pain Lactulose 60 ml PO QID #0 furosemide 20 mg tablet 20 mg PO QAM 28 Days neomycin 500 mg tablet 500 mg PO Q8HR 28 Days metoprolol succinate ER 50 mg tablet,extended release 24 hr 50 mg PO DAILY 28 Days morphine concentrate 20 mg/mL oral syringe (FOR ORAL USE ONLY) 5 mg PO Q2H PRN ml PRN Reason: Pain Discharge Instructions/Outpatient Orders: Final Provider Discharge Instructions Location: Determined By Patient - Disposition 01 Discharged Home, Self-Care <Delbert Kellyfrancisco Crouch - Last Filed: 04/03/17 18:19> Discharge Information Date of admission: 03/26/17 07:57 Attending Physician: Jax Osborne MD Primary care physician: AMARI Bartlett MD Consults: 03/26/17 Pharmacy Consult [CONS] Routine Pharmacy Consult: Heparin 03/26/17 09:32 Case Management Consult [CONS] Routine Reason For Exam: discharge planning 03/26/17 10:59 Physician Consult [CONS] Timed Consulting Provider: Jerson Lujan Reason For Exam: chest pain, elevated troponin Ordering Provider has Notified Projection Engineer: Sunita 03/27/17 Pharmacy Consult [CONS] Routine Pharmacy Consult: Vancomycin 03/31/17 11:28 Wound Vein Clinic Consult [CONS] Routine Reason for consultation: wound tx by Kamilla to left heel, skin tear R AC, buttocks chronic issues 04/01/17 08:00 IRU Screening [Inpatient Rehab Screening] [CONS] Routine 04/01/17 09:14 Dietary Consult [CONS] Routine Comment: Please do a calorie count. Reason For Exam: Severe malnutrition - Discharge Diagnosis (1) NSTEMI (non-ST elevated myocardial infarction) Status: Resolved (2) Bacteremia due to Gram-positive bacteria Problem Details: MICAELA bacteremia BC x 2+ 03/26/17 Status: Acute (3) Anemia Problem Details: Chronic disease, some rectal blood loss during hospitalization Status: Acute (4) HTN (hypertension) Qualifiers: Hypertension type: essential hypertension Qualified Code(s): I10 - Essential (primary) hypertension Status: Chronic (5) Type 2 diabetes mellitus Qualifiers: Diabetes mellitus complication status: with circulatory complication Diabetes mellitus complication detail: with other circulatory complications Diabetes mellitus medical terminologist insulin use: without medical terminologist use Qualified Code( s): E11.59 - Type 2 diabetes mellitus with other circulatory complications Status: Chronic (6) Dyslipidemia Status: Chronic (7) GERD (gastroesophageal reflux disease) Qualifiers: Esophagitis presence: without esophagitis Qualified Code(s): K21.9 - Gastro -esophageal reflux disease without esophagitis Status: Chronic (8) CAD (coronary artery disease) Qualifiers: Coronary Disease-Associated Artery/Lesion type: lummi artery [place] vs. transplanted heart: lummi heart Associated angina: with stable angina Qualified Code(s): I25.118 - Atherosclerotic heart disease of lummi coronary artery with other forms of angina pectoris Status: Chronic (9) Hepatic cirrhosis Qualifiers: Hepatic cirrhosis type: alcoholic cirrhosis Status: Chronic (10) Obesity (BMI 30-39.9) Status: Chronic (11) Anxiety Status: Chronic (12) Ankle wound Qualifiers: Encounter type: subsequent encounter Laterality: left Qualified Code(s): S91.002D - Unspecified open wound, left ankle, subsequent encounter Status: Chronic (13) Acute kidney injury Status: Resolved (14) SIRS (systemic inflammatory response syndrome) Problem Details: later discovered to be severe sepsis Status: Resolved (15) Hyperkalemia Status: Resolved (16) Acidosis, renal tubular Status: Chronic (17) Thrombocytopenia Status: Chronic - Laboratory Labs: 04/03/17 04:18 04/03/17 04:18 - Microbiology Microbiology 04/02/17 10:28 Peripheral/Iv Start Blood Culture - Preliminary No Growth After 1 Day 04/02/17 10:45 Peripheral/Iv Start Blood Culture - Preliminary No Growth After 1 Day Objective Vital signs: Temperature 97.3 F 04/03/17 15:40 Pulse Rate 71 04/03/17 16:00 Respiratory Rate 18 04/03/17 15:40 Blood Pressure 140/80 H 04/03/17 15:40 Pulse Oximetry 96 04/03/17 15:40 Oxygen Delivery Method Room Air Hospital Course This is a general summary of the patient's hospital course. For more details refer to the complete medical record. Hospital course: I have independently evaluated and examined this patient. I reviewed the chart, the patient's history, and the MUD ANALYSIS SUPERVISOR's documented findings as above. We discussed and formulated the assessment and plan as above with additions as below: Mr. Paul continues to do well. He denies pain and has had no further dark stools although notes small amount of red blood when he wipes. He denied rectal pain or diarrhea/constipation. Hemoglobin has been stable the past 24 hours. Overall patient reports that he feels good and is anxious to go home. Blood cultures obtained yesterday are negative after 24 hours. Examination reveals good airflow with clear lungs, bruises on the upper extremities, and soft abdomen. Case management has coordinated outpatient antibiotics to be provided at home through's 04/09 to complete 2 weeks of therapy directed MICAELA. Stable for discharge. Multiple problems evaluated during hospitalization but primary management problems were coronary artery disease with non-ST elevation PA, MICAELA bacteremia-ankle wound probable source, and anemia. Follow-up plans as previously outlined.
--- NOTE | 2017-04-03 16:11 | Discharge Instructions ---
Discharge Plan - Med Rec/Dispo Referrals/Follow Up: Jerson Lujan MD [Physician] - 2 Weeks Samantha Bartlett MD [Family Provider] - 1 Week (Follow up about low testosterone, low vitamin D levels. Recommend nephrology follow up.) [place] Instructions: Myocardial Infarction (DC), Anemia (DC), Back Pain (GEN) Additional Instructions: Heart attack - continue medications. You were not a candidate for stents. Continue Aspirin 81 mg daily & watch closely for black/bloody stools. If you start to feel weak, lightheaded/dizzy, short of breath, or fatigued you need to call Dr. Bartlett. If your symptoms are severe, call 911. Kidney disease - recommend for you to follow up with a kidney doctor ( au pair). Dr. Bartlett's office can help you arrange this. Have your lab rechecked on 04/06/17 (CMP, magnesium, ammonia, and CBC). IV antibiotics (Ancef) for bloodstream infection: Continue Ancef every 8 hours ( keep on schedule - this is very important!). Home Health will help you with this and they will help you with PICC line care. You should continue to watch for infection in your arm. Your last day of antibiotics will be April 09. Cirrhosis: continue Lactulose, but we will reduce your dose to twice a day. Prescriptions: New Aspirin *EC* [Ecotrin] 81 mg PO DAILY tablet Folic Acid/Vit B Comp + C [Nephrocaps] 1 cap PO DAILY capsule Lactulose Oral Liq [Lactulose] 40 gm PO BID solution Metoprolol Succinate (Xl) [Toprol Xl] 150 mg PO DAILY #30 tablet Tamsulosin [Flomax] 0.4 mg PO HS #30 capsule Coenzyme Q-10 [Co Q-10] 200 mg PO DAILY capsule Furosemide [Lasix] 40 mg PO DAILY #30 tablet Spironolactone [Aldactone] 50 mg PO DAILY tablet Neomycin Sulfate 500 mg PO QID #28 tablet Continue Acetaminophen 650 mg PO Q4HR PRN #0 PRN Reason: PAIN Omeprazole 20 mg PO ACB #0 Benzonatate 100 mg PO Q6H PRN PRN Reason: Cough Discontinued Spironolactone 50 mg PO TID #0 Morphine Sulfate 5 mg PO Q2H PRN PRN Reason: Pain Lactulose 60 ml PO QID #0 furosemide 20 mg tablet 20 mg PO QAM 28 Days neomycin 500 mg tablet 500 mg PO Q8HR 28 Days metoprolol succinate ER 50 mg tablet,extended release 24 hr 50 mg PO DAILY 28 Days morphine concentrate 20 mg/mL oral syringe (FOR ORAL USE ONLY) 5 mg PO Q2H PRN ml PRN Reason: Pain Discharge Instructions/Outpatient Orders: Final Provider Discharge Instructions Location: Determined By Patient - Disposition 01 Discharged Home, Self-Care
[2017-04-04] MEDS ORDERED: LACTULOSE 20 GM/30 ML ORAL LIQUID PO SCH (09:00)
[2017-04-17] MEDS ORDERED: NS 100 ML ONE (11:58)
[2017-04-17] MEDS ORDERED: SALINE FLUSH 10ml SYRINGE ONE (11:58)
[2017-04-17] MEDS ORDERED: IOHEXOL 300mg/ml 100ml INJECTION ONE (11:58)
== END 2017-04-03 18:00 | disposition home health service (06) | DRG 281 ==
LOC: ED 04:14 → MED 07:47 → SRG 07:56 → MED 07:57 → SRG 08:30 → CCU 12:44 → SRG 03-31 17:51 → MED 03-31 17:51 → UNDODISIN 04-03 18:00
PROVIDERS: ADMIT Hospitalist; ATTEND Internal Medicine

== ENCOUNTER 2017-04-23 14:27 | Inpatient (IN) ==
[2017-04-23] MEDS: SALINE FLUSH 10ml SYRINGE IVF PRN (15:04)
--- NOTE | 2017-04-23 15:12 | XRay Report ---
INDICATION: dyspnea PROCEDURE: CHEST 2-VIEWS UPRIGHT (PA & LAT) Encounter: Initial COMPARISON: Chest CT dated March 27, 2017 and chest x-ray dated March 26, 2017 FINDINGS: Worsening airspace opacity in the right lower lobe. Increasing pulmonary vascular congestion. Prior left PICC line has been removed. Continued oval mass in the right midlung measuring 4.2 cm in diameter. No pneumothorax. Cardiac silhouette remains severely enlarged. Mediastinal contours are stable. Impression: 1. Worsening pulmonary edema. 2. Rounded mass in the right midlung appear to represent loculated fluid or "pseudotumor" on the recent chest CT. Follow-up chest CT in 2-3 months is suggested. .
--- NOTE | 2017-04-23 16:19 | Emergency Department Report ---
SOB HPI - General Chief Complaint: Shortness of Breath/Dyspnea Stated Complaint: diff breathing Time Seen by Provider: 04/23/17 14:39 - History of Present Illness 71-year-old gentleman with history of hepatic cirrhosis, renal insufficiency and CHF. He was recently discharged from [facility], has been on about 2 weeks. Since discharge he has had a 30 pounds of water weight gain. His breathing has become acutely worse and he now is quite dyspneic with simple activities. However lying still in bed with his head elevated does not have any episodes of hypoxemia. He does have some urine output. - Related Data Home Medications Medication Instructions Recorded Confirmed Acetaminophen 650 mg PO Q4HR PRN #0 10/11/15 04/23/17 Omeprazole 20 mg PO ACB #0 10/11/15 04/23/17 Folic Acid/Vit B Comp + C 1 mg PO DAILY 04/08/17 04/23/17 [Nephrocaps] Lactulose Oral Liq [Lactulose] 40 gm PO BID 04/08/17 04/23/17 Benzonatate 100 mg PO Q6H PRN 04/23/17 04/23/17 DiphenhydrAMINE [Benadryl] 25 mg PO Q6H PRN 04/23/17 04/23/17 Previous Rx's Medication Instructions Recorded Aspirin *EC* [Ecotrin] 81 mg PO DAILY tablet 04/03/17 Coenzyme Q-10 [Co Q-10] 200 mg PO DAILY capsule 04/03/17 Furosemide [Lasix] 40 mg PO DAILY #30 tablet 04/03/17 Metoprolol Succinate (Xl) [Toprol 150 mg PO DAILY #30 tablet 04/03/17 Xl] Neomycin Sulfate 500 mg PO QID #28 tablet 04/03/17 Spironolactone [Aldactone] 50 mg PO DAILY tablet 04/03/17 Tamsulosin [Flomax] 0.4 mg PO HS #30 capsule 04/03/17 Allergies Allergy/AdvReac Type Severity Reaction Status Date / Time No Known Drug Allergies Allergy Unknown Verified 04/23/17 14:48 Review of Systems All systems: reviewed and negative except as stated PFSH Patient Stated Medical History Glaucoma Yes Coronary Artery Disease Yes Hypertension Yes Diabetes Mellitus Type 2 Yes Cirrhosis Yes Gastroesophageal Reflux Yes Disease Other GI Yes: ESOPH VARICIES Hx Renal Disease No Other Musculoskeletal Yes: DIFFICULTY WALKING Clinic Medical History (Last Updated 04/09/17 @ 00:00 by Background Daemon) Cataracts, bilateral (Chronic Medical) HTN (hypertension) (Chronic Medical) Liver disease (Chronic Medical) Type 2 diabetes mellitus (Chronic Medical) Surgical History: Cardiac stent x 1. Liver stent. Knee arthoscopy, bilateral. EGD with banding - > 10 years ago. Family History: Family History Mother HTN (hypertension) Stroke Father Heart failure - Social History Smoking status: Never smoker Substance use type: does not use Alcohol intake frequency: former alcohol drinker Physical Exam - Limitations Limitations: no limitations - General General appearance: alert, in no apparent distress - Normal Exams: Head:: Normocephalic without trauma Cardiovascular:: Regular rate and rhythm, without murmur or gallop, Pulses 2+ all extremities, capillary refill, <2 seconds all extremities Abdomen:: Bowel sounds positive, soft, non-tender, non-distended, no hepatosplenomegaly, masses or bruits noted Musculoskeletal:: No tenderness, or deformity noted, good range of motion, all extremities Neurological:: Patient is alert, and oriented, cranial nerves, motor/sensory/ cerebellar, exams w/o gross deficits, to observation Psychiatric:: Patient exhibits, appropriate attention, emotion and affect - Expanded Respiratory Exam Location: Left: rales (mild), Right: rales, Lower: rales - Other Other exam information: 4+ pitting edema bilateral lower extremities Course Vital Signs Temperature 97.9 F 04/23/17 14:30 Pulse Rate 63 04/23/17 14:30 Respiratory Rate 28 H 04/23/17 14:30 Blood Pressure 152/71 H 04/23/17 14:30 Pulse Oximetry 96 04/23/17 14:30 Temperature 97.9 F 04/23/17 14:30 Pulse Rate 66 04/23/17 15:46 Respiratory Rate 28 H 04/23/17 15:46 Blood Pressure 135/82 04/23/17 15:46 Pulse Oximetry 97 04/23/17 15:46 Shortness of Breath/Dyspnea - [facility] Narrative Medical decision making narrative: Creatinine is elevated at 2.8, albumin elevated at 42. Patient has bilirubin of 1.4 other labs reviewed. Chest x-ray shows use pulmonary edema throughout both sides. D-dimer is elevated as is BNP. Cannot do a CT angiogram due to elevated creatinine. VQ scan is ordered, hospitalist consulted. Hospitalist agreed to anticoagulated patient overnight while we await VQ scan. Diuresis and intravascular fluid hydration per hospitalist. - Lab Data Result diagrams: 04/23/17 15:09 04/23/17 15:09 Lab Results 04/23/17 04/23/17 04/23/17 Range/Units 15:09 15:09 15:09 WBC 7.5 (4.5-11.0) T/MM3 RBC 2.81 L (4.50-5.90) M/MM3 Hgb 9.9 L (13.5-17.5) GM/DL Hct 30.5 L (41-53) % MCV 108.5 H (80-100) UM3 MCH 35.2 H (26-34) UUG MCHC 32.5 (31-37) GM/DL RDW Std Deviation 67.1 H (36.9-50.2) FL Plt Count 79 L (130-400) T/MM3 MPV 11.7 (9.4-12.4) UM3 Immature Gran % (Auto) 0.5 (0.0-0.5) % Neut % (Auto) 81.8 H (33-66) % Lymph % (Auto) 6.7 L (23-45) % [place] % (Auto) 7.1 (0-9.0) % Eos % (Auto) 3.1 (0-4) % Baso % (Auto) 0.8 (0-2) % Neut # 6.1 (1.8-7.7) T/MM3 Lymph # 0.5 L (1-4.8) T/MM3 [place] # 0.5 (0-0.8) T/MM3 Eos # 0.2 (0-0.5) T/MM3 Baso # 0.1 (0-0.2) T/MM3 Abs Immat Gran (auto) 0.04 H (0.00-0.03) T/MM3 D-Dimer 2356 H (0-230) NG/ML Turbidity < 20 (0-20) Sodium 138 (134-144) MEQ/L Potassium 5.6 H (3.6-5) MEQ/L Chloride 113 H (98-107) MEQ/L Carbon Dioxide 15 L (22-30) MEQ/L Anion Gap 10 (5-15) MEQ/L BUN 42.0 H (9-20) MG/DL Creatinine 2.8 H (0.8-1.5) MG/DL GFR Calculation 23 BUN/Creatinine Ratio 15 (6-26) RATIO Glucose 163 H (75-110) MG/DL Calculated Osmolality 281 H (261-280) MOSM/KG Calcium 8.5 (8.4-10.2) MG/DL Total Bilirubin 1.40 H (0.20-1.30) MG/DL Icterus Index < 2 (0-7) AST 30 (17-59) U/L ALT 35 (21-72) U/L Alkaline Phosphatase 154 H (38-126) U/L Troponin I 0.017 (0-0.12) ng/ml B-Natriuretic Peptide 7170 H (0-175) pg/mL Total Protein 7.4 (6.3-8.2) G/DL Albumin 3.1 L (3.5-5.0) G/DL Globulin 4.3 H (2.4-3.6) G/DL Albumin/Globulin Ratio 0.7 L (1.1-2.2) RATIO Specimen Hemolysis < 15 (0-25) Disposition Clinical Impression: Congestive heart failure Disposition: Discharged Home, Self-Care Condition: Stable Prescriptions: No Action Acetaminophen 650 mg PO Q4HR PRN #0 PRN Reason: PAIN Aspirin *EC* [Ecotrin] 81 mg PO DAILY tablet Metoprolol Succinate (Xl) [Toprol Xl] 150 mg PO DAILY #30 tablet Tamsulosin [Flomax] 0.4 mg PO HS #30 capsule Lactulose Oral Liq [Lactulose] 40 gm PO BID Folic Acid/Vit B Comp + C [Nephrocaps] 1 mg PO DAILY Benzonatate 100 mg PO Q6H PRN PRN Reason: Cough DiphenhydrAMINE [Benadryl] 25 mg PO Q6H PRN PRN Reason: Rash Omeprazole 20 mg PO ACB #0 Coenzyme Q-10 [Co Q-10] 200 mg PO DAILY capsule Furosemide [Lasix] 40 mg PO DAILY #30 tablet Spironolactone [Aldactone] 50 mg PO DAILY tablet Neomycin Sulfate 500 mg PO QID #28 tablet Referrals: AMARI ALCALA ARNP [Primary Care Provider] - Ewy,Samantha F, MD [Family Provider] - Time of Disposition: 16:23 - Seen By: physician
--- NOTE | 2017-04-23 17:02 | History & Physical Report ---
<Liv Cortez V - Last Filed: 04/23/17 16:52> History of Present Illness Date: 04/23/17 Chief complaint: perpherial edema, dyspnea HPI: Patient is a pleasant 71-year-old male who is well known to the hospitalist services as she was recently admitted on 03/26/17 with sirs, acute kidney injury , hyperkalemia and chest pain. His discharged on April 03 and has been at [facility] under the care of Dr. Bartlett. Patient was evaluated again in the emergency room on 04/08/17 when he was found to have a rash to his abdomen, groin and arms. At that time he was discharged on a prednisone taper as well as Lamisil and Benadryl. He notes that following this emergency room visit, he started noticing increased edema of the lower extremities. For the last week he has noticed increased dyspnea especially with exertion. Due to the worsening symptoms. Today he presented to the emergency room for further acute evaluation and treatment. Lab studies were obtained . WBC count 7.5, hemoglobin 9.9, hematocrit 30.5, platelet count 79. Sodium 138, potassium 5.6, BUN 42, creatinine 2.8, total bilirubin 1.4. Alkaline phosphatase is elevated at 154. An INR was elevated at 2356. Chest x-ray did reveal worsening pulmonary edema with rounded mass in the right midlung that may represent loculated fluid or "pseudocyst". His weight on the day of last admission 03/17/17 was 110 kilograms , and his discharge weight on 04/03 was 132 kg. Today, his weight is 139 kilograms. Given his increased peripheral edema, accompanied with symptomatic dyspnea, elevated potassium with acute renal failure and creatinine greater than 2.5. Patient does meet criteria for inpatient admission under the care of the hospitalist services. It is expected that his stay will be greater than 2 overnights. Review of Systems All systems: reviewed and no additional remarkable complaints except as stated - Constitutional Constitutional: Present: fatigue, weight gain - Cardiovascular Cardiovascular: Present: dyspnea on exertion Vascular: Present: pedal edema - Respiratory Respiratory: Present: dyspnea on exertion PFSH Medical History Glaucoma Coronary Artery Disease Hypertension Diabetes Mellitus Type 2 Cirrhosis Gastroesophageal Reflux Disease ESOPH VARICIES DIFFICULTY WALKING Cataracts, bilateral Anxiety Dyslipidemia Cardiac catheterization-03/30/17, Dr. Lujan Severe multivessel coronary artery disease. At that time it was noted that Dr. Lujan did not feel the patient is a good surgical candidate due to his multiple severe comorbidities. ECHO- 03/26/17 IMPRESSION 1. Global hypokinesia with ejection fraction of about 30-35%. 2. Left ventricular dilation. 3. Concentric left ventricular hypertrophy. 4. Left atrial dilation. 5. Mitral annulus calcification with moderate mitral regurgitation. 6. Aortic sclerosis. 7. Mild tricuspid regurgitation with normal estimated pulmonary artery systolic pressure of 20. Surgical History: Cardiac stent x 1. Liver stent. Knee arthoscopy, bilateral. EGD with banding - > 10 years ago. Family History: Family History Mother, age 78. HTN (hypertension) Stroke DVT DM Father, age 77. Heart failure Sister, alive age 74. No known health issues. Daughter, alive. No known health issues. - Social History Smoking status: Never smoker Substance use type: does not use Alcohol intake: former Alcohol intake frequency: does not drink Housing: assisted living facility ([facility]) Current residence: Assisted Living Social history: PCP Dr Bartlett Medications Home Medications Medication Instructions Recorded Confirmed Type Acetaminophen 650 mg PO Q4HR PRN #0 10/11/15 04/23/17 History Omeprazole 20 mg PO ACB #0 10/11/15 04/23/17 History Folic Acid/Vit B Comp + C 1 mg PO DAILY 04/08/17 04/23/17 History [Nephrocaps] Lactulose Oral Liq [Lactulose] 40 gm PO BID 04/08/17 04/23/17 History Benzonatate 100 mg PO Q6H PRN 04/23/17 04/23/17 History DiphenhydrAMINE [Benadryl] 25 mg PO Q6H PRN 04/23/17 04/23/17 History Allergies Allergy/AdvReac Type Severity Reaction Status Date / Time No Known Drug Allergies Allergy Unknown Verified 04/23/17 14:48 Exam Vital Signs: Temperature 97.9 F 04/23/17 14:30 Pulse Rate 67 04/23/17 16:50 Respiratory Rate 24 04/23/17 16:50 Blood Pressure 145/78 H 04/23/17 16:50 Pulse Oximetry 99 04/23/17 16:50 Oxygen Delivery Method Room Air Height: 1.83 m Weight: 139.3 kg - Constitutional Present: mild distress (Conversational dyspnea), well nourished, well developed - Routine HEENT Exam Eye: Present: EOMI ENT: Present: mucous membranes moist, dentition normal - Routine Respiratory Exam Present: distant breath sounds (Decreased breath sounds throughout). Absent: wheezes - Routine Cardiovascular Exam Present: RRR, S1, S2. Absent: murmur - Routine Abdominal Exam Present: soft, normoactive bowel sounds, non distended. Absent: tenderness - Routine Extremities Exam Present: edema (bilateral lower ext), normal capillary refill - Routine Back/Spine/Pelvis Exam Back/Spine: Present: full ROM - Routine Skin Exam Present: intact, dry, warm - Routine Neurological Exam Present: alert, oriented X3, CN II-XII intact, moving all extremities - Routine Psychiatric Exam Present: normal affect, normal thought process Results - Labs CBC & Chem 7: 04/23/17 15:09 04/23/17 15:09 Assessment and Plan (1) Acute kidney injury Current visit: No Status: Acute (2) Hyperkalemia Current visit: No Status: Acute (3) Acute on chronic heart failure Current visit: Yes Status: Acute DVT Prophylaxis: Heparin drip Resuscitation Status: Full Code Assessment and Plan: Admit patient as a inpatient under the care of Dr Kelly for Acute on chronic heart failure, with acute kidney injury and hyperkalemia Given the acute elevation in potassium, accompanied with acute renal failure and creatinine greater than 2.5. He does meet criteria for inpatient admission. Last echocardiogram was on 03/26/17 revealing global hypokinesia with an EF of 30 -35%. Catheterization completed at the beginning of March revealed severe multivessel disease. However, due to patient's severe comorbidities, he is not a surgical candidate for cardiac intervention. Given his elevated d-dimer. We will obtain a VQ scan tomorrow to rule out pulmonary emboli. Will start patient on heparin drip for anticoagulation. Pharmacy consult placed for dosing. Will monitor accu-checks given reported DM Monitor patient on cardiac telemetry. We did review his wishes for advanced directives and he verbalizes that he would like to be initially a full code, however, would not want any long-term prolonging such as ventilator, feeding tube. Home medications will need to be reviewed by attending SCDs to bilateral lower extremity for DVT prophylaxis Will recheck CBC and CMP tomorrow morning to follow blood counts renal function and electrolytes. Scuffs further orders and plan of care with attending, Dr. Kelly. At time of discharge medical care will return to primary care provider, Dr. Bartlett Sepsis Assessment - Evaluation Sepsis screening result: No Definite Risk Hospital Course Summary Disclaimer: The visit summary below is not to be considered part of the above Progress Note. Hospital Course: 04/23/17-admission Admit patient as a inpatient under the care of Dr Kelly for Acute on chronic heart failure, with acute kidney injury and hyperkalemia Given the acute elevation in potassium, accompanied with acute renal failure and creatinine greater than 2.5. He does meet criteria for inpatient admission. Last echocardiogram was on 03/26/17 revealing global hypokinesia with an EF of 30 -35%. Catheterization completed at the beginning of March revealed severe multivessel disease. However, due to patient's severe comorbidities, he is not a surgical candidate for cardiac intervention. Given his elevated d-dimer. We will obtain a VQ scan tomorrow to rule out pulmonary emboli. Will start patient on heparin drip for anticoagulation. Pharmacy consult placed for dosing. Will monitor accu-checks given reported DM Monitor patient on cardiac telemetry. We did review his wishes for advanced directives and he verbalizes that he would like to be initially a full code, however, would not want any long-term prolonging such as ventilator, feeding tube. Home medications will need to be reviewed by attending SCDs to bilateral lower extremity for DVT prophylaxis Will recheck CBC and CMP tomorrow morning to follow blood counts renal function and electrolytes. Scuffs further orders and plan of care with attending, Dr. Kelly. At time of discharge medical care will return to primary care provider, Dr. Bartlett <Shantelle Kelly - Last Filed: 04/23/17 19:11> History of Present Illness Date: 04/23/17 [facility] Patient Stated Medical History Glaucoma Yes: fixed Coronary Artery Disease Yes Hypertension Yes Other Cardiology Yes: chf Diabetes Mellitus Type 2 Yes Cirrhosis Yes Gastroesophageal Reflux Yes Disease Other GI Yes: ESOPH VARICIES Hx Renal Disease Yes Other Musculoskeletal Yes: DIFFICULTY WALKING Clinic Medical History (Last Updated 04/23/17 @ 17:20 by Liv Cortez APRN) Cataracts, bilateral (Chronic Medical) HTN (hypertension) (Chronic Medical) Liver disease (Chronic Medical) Type 2 diabetes mellitus (Chronic Medical) Family History: Family History Mother HTN (hypertension) Stroke Father Heart failure Exam Vital Signs: Temperature 97.9 F 04/23/17 14:30 Pulse Rate 66 04/23/17 16:59 Respiratory Rate 22 04/23/17 16:59 Blood Pressure 154/71 H 04/23/17 16:59 Pulse Oximetry 97 04/23/17 16:59 Oxygen Delivery Method Room Air Height: 1.83 m Weight: 140.5 kg Results - Labs CBC & Chem 7: 04/23/17 15:09 04/23/17 15:09 Assessment and Plan (1) Acute on chronic heart failure Problem details: Systolic Current visit: Yes Status: Acute (2) Acute kidney injury Current visit: No Status: Acute (3) Hyperkalemia Current visit: No Status: Acute Assessment and Plan: I have independently evaluated and examined this patient. I reviewed the chart, the patient's history, and the ENGINEER/CONDUCTOR/PA's documented findings as above. We discussed and formulated the assessment and plan as above with additions as below: Mr. Paul is known from prior admission during which he had a non-ST elevation MD with high grade triple vessel disease identified, rectal bleeding, and bacteremia due to gram-positive bacteria requiring treatment with IV antibiotics. Antibiotics were completed as an outpatient. The patient notes increasing dyspnea over the past week as noted with exertional dyspnea and occasional rattling in his chest. He denies pleuritic pain or any chest pain or tightness in his chest whatsoever. His feet and legs have become more swollen and weight gain is as noted. He has not developed orthopnea or PND but weight gain is as previously noted. On examination the patient is alert and cooperative. He is moderately dyspneic while speaking, breath sounds are diminished in the lower half of the lung iraheta but no wheezing was present. Cardiac rhythm regular with S1-S2. +3 pitting edema dorsal surface of the legs and edema is palpable in the dependent aspect of his thighs. EKG has been reviewed by myself demonstrating sinus rhythm with first-degree AV block, left bundle branch block, poor R-wave progression, and marked left axis deviation. This is unchanged from EKG of 03/26/17. Chest x-ray is also been reviewed by myself demonstrating increased vascular markings throughout/pulmonary edema, borderline cardiomegaly, and probable bilateral pleural effusions. Labs are notable for d-dimer of 2356-not INR. Hemoglobin is slightly improved from discharge. Bicarbonate 15, potassium 5.6, creatinine 2.8 (up from 2.0/2.3 at discharge), BNP 7170 (up from 3400 in late February). Impression: Acute on chronic systolic CHF Pulmonary edema/pleural effusions Acute kidney injury/CKD-4 with RTA Hyperkalemia Elevated d-dimer Metabolic acidosis Peripheral edema Ischemic cardiomyopathy Coronary artery disease, triple-vessel Anemia, recent GI blood loss Diabetes mellitus Hypertension Cirrhosis, chronic Patient is admitted with exertional dyspnea, acute kidney injury, and multiple metabolic abnormalities. IV diuresis has been initiated with Bumex 2 mg IV every 8 hours. If diuresis is not adequately obtained with this Bumex drip may be necessary due to underlying renal failure. We will need close follow-up of electrolytes. Required bicarbonate supplementation orally last admission. Stone catheter required last admission for fluid management, will assess ability to urinate in adequately measure urine output today prior to placing catheter. Spironolactone on hold due to hyperkalemia. Continue aspirin/metoprolol due to coronary disease. Continue lactulose and neomycin by mouth for management of cirrhosis. D-dimer significantly elevated-renal function precludes CTA. V/Q being obtained in the morning; anticoagulated empirically overnight. Check venous Doppler to rule out DVT. Old records reviewed, discussed with Dr. Crawford, x-rays reviewed by myself. Laboratory data reviewed and compared to prior data. Hospital Course Summary Disclaimer: The visit summary below is not to be considered part of the above Progress Note.
[2017-04-23] MEDS ORDERED: HEPARIN 1,000unit/ml INJECTION 10ml IVP ONE (18:00)
--- NOTE | 2017-04-23 18:25 | Pharmacy Consult ---
Pharmacy Consult-Heparin - Laboratory Information Heparin Plt Count 79 T/MM3 (130-400) L 04/23/17 15:09 APTT 29.8 SEC (24-36) 04/23/17 15:09 80yo M admitted with r/o PE. WT = 140.5 kg Multiple comorbidities. Anticoagulation started at HEPARIN 9,000 units IV Bolus, Heparin 20,000 units in 500ml TRA 1920 units/hr (48 ml/hr). Target PTT = 55-83 Will recheck Platelets in am as well. Thank you.
[2017-04-23] MEDS ORDERED: DiphenhydrAMINE 25 MG CAPSULE PO PRN (18:44)
[2017-04-23] MEDS ORDERED: BENZONATATE 100 MG CAPSULE PO PRN (18:44)
[2017-04-23] MEDS: HEPARIN DRIP 20,000 UNIT/500 ML BAG IV SCH (18:50)
[2017-04-23] MEDS: LACTULOSE 20 GM/30 ML ORAL LIQUID PO SCH (22:14)
[2017-04-23] MEDS: TAMSULOSIN 0.4 MG CAPSULE PO SCH (22:14)
[2017-04-23] MEDS: NEOMYCIN 500 MG TABLET PO SCH (22:15)
[2017-04-23] MEDS: INSULIN ASPART 100unit/ml INJECTION SQ PRN (22:24)
[2017-04-24] MEDS: HEPARIN DRIP 20,000 UNIT/500 ML BAG IV SCH (05:34)
[2017-04-24] MEDS ORDERED: SALINE FLUSH 10ml SYRINGE ONE (05:47)
[2017-04-24] MEDS: OMEPRAZOLE 20 MG CAPSULE PO SCH (07:22)
--- NOTE | 2017-04-24 07:46 | Nuclear Medicine Report ---
Indication: dyspnea, renal insufficiency, elevated DDimer PROCEDURE: NM pul vent and perfuse: Comparison: Chest x-ray dated April 23, 2017 Technique: The patient received 40.9mCi aerosolized Tc-99m DTPA prior to obtaining ventilation images. Next, 6.6 mCi of Tc-99m MAA was administered intravenously prior to obtaining perfusion images in the standard 8 views. A chest x-ray from yesterday was reviewed. Findings: Ventilation images demonstrate radiotracer uptake throughout both lungs with a relative decrease in uptake in the right upper lobe at the area of opacity seen on chest x-ray. Perfusion images also demonstrate good uptake bilaterally. There is an area of decrease in radiotracer uptake in the right upper lobe which corresponds to a defect seen in the ventilation images. There are no segmental perfusion defects. Impression: Low probability lung ventilation/perfusion scan for pulmonary embolus (approximately 15% probability). .
--- NOTE | 2017-04-24 07:56 | Pharmacy Consult ---
Pharmacy Consult-Heparin - Laboratory Information Heparin Plt Count 67 T/MM3 (130-400) L 04/24/17 04:40 APTT > 200.0 SEC (24-36) H* 04/24/17 07:15 - Consult Information HEPARIN CONSULT (Recurring): PTT = > 200 Sec. Platelet count = 67 T/mm3. Hold heparin drip for 3 hours the we will adjust Heparin Drip to 1,200 units/hr (30 ml/hr). Will recheck PTT and adjust regimen as needed. Thank you.
--- NOTE | 2017-04-24 08:15 | Ultrasound Report ---
Indication: elevated d-dimer PROCEDURE: US venous doppler LE BI: Encounter: Initial Comparison: None Technique: Color Doppler duplex and grayscale sonographic imaging of both lower extremities was performed. Findings: There is no evidence for acute deep venous thrombosis in either thigh. Specifically, serial graded compression was performed from the inguinal ligament to the popliteal bifurcation, bilaterally, demonstrating appropriate compressibility of the deep venous system. In addition, color and pulsed Doppler demonstrate appropriate spontaneous flow, variation with respiration, and augmentation with calf compression. At the ankle, normal flow is identified in the posterior tibial veins; these vessels are also normal in caliber. Impression: No evidence of acute DVT in either lower limb. .
[2017-04-24] MEDS: FOLIC ACID PO SCH (09:03)
[2017-04-24] MEDS: COENZYME Q-10 200mg TABLET PO SCH (09:03)
[2017-04-24] MEDS: [UNRECOGNIZED DRUG - OTHER] PO SCH (09:03)
[2017-04-24] MEDS: VIT B COMP PO SCH (09:03)
[2017-04-24] MEDS: ASPIRIN *EC* 81 MG TABLET PO SCH (09:04)
[2017-04-24] MEDS: LACTULOSE 20 GM/30 ML ORAL LIQUID PO SCH ×2 (09:04→21:18)
[2017-04-24] MEDS: NEOMYCIN 500 MG TABLET PO SCH ×4 (09:05→21:20)
[2017-04-24] MEDS: SALINE FLUSH 10ml SYRINGE IVF PRN (09:08)
[2017-04-24] MEDS ORDERED: HEPARIN DRIP 20,000 UNIT/500 ML BAG IV SCH (10:00)
[2017-04-24] MEDS: INSULIN ASPART 100unit/ml INJECTION SQ PRN ×3 (11:07→21:43)
--- NOTE | 2017-04-24 11:40 | Progress Note ---
<Liv Cortez V - Last Filed: 04/24/17 11:34> Subjective: Mr Paul is seen this morning in follow-up. While up in the chair. He is alert, oriented and pleasant. He does remember me from our visit yesterday. States that his breathing feels significantly improved today. He notes that he was able to ambulate in the taveras a significant distance prior to becoming short of breath. He also feels that his lower extremities, especially his feet are less edematous. Weight is noted to be down 2 kg (4.4lbs) from admission yesterday. Denies having chest pain, or GI concerns. Stone catheter intact with good urinary output. Objective Vital signs: Temperature 97.0 F 04/24/17 07:18 Pulse Rate 59 L 04/24/17 07:18 Respiratory Rate 18 04/24/17 07:18 Blood Pressure 131/69 04/24/17 07:18 Pulse Oximetry 100 04/24/17 07:18 Oxygen Delivery Method Room Air Weight: 138.5 kg - Constitutional Present: no acute distress, well nourished, well developed - Routine HEENT Exam Head: Present: normocephalic, atraumatic Eye: Present: EOMI, PERRL ENT: Present: mucous membranes moist, dentition normal - Routine Respiratory Exam Present: CTA bilaterally, diminished air movement (diminished posterior bases). Absent: wheezes - Routine Cardiovascular Exam Present: RRR, S1, S2, no murmur. Absent: murmur - Routine Abdominal Exam Present: soft, normoactive bowel sounds, non distended. Absent: tenderness - Routine Extremities Exam Present: edema (Bilateral lower ext up to knees. 2+), normal capillary refill - Routine Skin Exam Present: dry, warm - Routine Neurological Exam Present: alert, oriented X3, CN II-XII intact, moving all extremities - Routine Lymphatic Exam Lymphatic: Absent: adenopathy - Routine Psychiatric Exam Present: normal affect, normal thought process Results - Labs CBC & Chem 7: 04/24/17 04:40 04/24/17 04:40 Assessment and Plan (1) Acute kidney injury Current visit: No Status: Acute (2) Hyperkalemia Current visit: No Status: Acute (3) Acute on chronic heart failure Problem details: Systolic Current visit: Yes Status: Acute Assessment and Plan: 04/24/17 Impression: Acute on chronic systolic CHF Pulmonary edema/pleural effusions Acute kidney injury/CKD-4 with RTA Hyperkalemia Elevated d-dimer Metabolic acidosis Peripheral edema Ischemic cardiomyopathy Coronary artery disease, triple-vessel Anemia, recent GI blood loss Diabetes mellitus Hypertension Cirrhosis, chronic Plan Continue with aggressive diuresis, Bumex 2 milligrams IV every 8 hours. Patient' s weight is trending down and he reports feeling less dyspneic with exertion. VQ scan was performed this morning to rule out pulmonary emboli. Radiologist indicates low probability of PE-15% of ability. Bilateral lower extremity venous Doppler is negative for acute DVT. Given findings of no acute thrombus. Heparin drip was discontinued. Hyperkalemia is beginning to trend down. Spironolactone continues to be on hold. Continue lactulose and neomycin by mouth for management of cirrhosis. Continue to monitor Accu-Cheks and utilize sliding scale NovoLog. Will continue to follow daily labs Discuss current orders and plan of care with attending, Dr. Kelly Sepsis Assessment - Evaluation Sepsis screening result: No Definite Risk Hospital Course Summary Disclaimer: The visit summary below is not to be considered part of the above Progress Note. Hospital Course: 04/23/17-admission Admit patient as a inpatient under the care of Dr Kelly for Acute on chronic heart failure, with acute kidney injury and hyperkalemia Given the acute elevation in potassium, accompanied with acute renal failure and creatinine greater than 2.5. He does meet criteria for inpatient admission. Last echocardiogram was on 03/26/17 revealing global hypokinesia with an EF of 30 -35%. Catheterization completed at the beginning of March revealed severe multivessel disease. However, due to patient's severe comorbidities, he is not a surgical candidate for cardiac intervention. Given his elevated d-dimer. We will obtain a VQ scan tomorrow to rule out pulmonary emboli. Will start patient on heparin drip for anticoagulation. Pharmacy consult placed for dosing. Will monitor accu-checks given reported DM Monitor patient on cardiac telemetry. We did review his wishes for advanced directives and he verbalizes that he would like to be initially a full code, however, would not want any long-term prolonging such as ventilator, feeding tube. Home medications will need to be reviewed by attending SCDs to bilateral lower extremity for DVT prophylaxis Will recheck CBC and CMP tomorrow morning to follow blood counts renal function and electrolytes. Scuffs further orders and plan of care with attending, Dr. Kelly. At time of discharge medical care will return to primary care provider, Dr. Bartlett 04/24 VQ scan and lower extremity Doppler both negative for acute thrombus. Heparin drip was discontinued. Continue with Bumex 2 milligrams every 8 hours for diuresis. <Shantelle Kelly - Last Filed: 04/24/17 19:29> Objective Vital signs: Temperature 96.4 F L 04/24/17 15:06 Pulse Rate 61 04/24/17 15:06 Respiratory Rate 18 04/24/17 15:06 Blood Pressure 115/62 04/24/17 15:06 Pulse Oximetry 96 04/24/17 15:06 Oxygen Delivery Method Room Air Results - Labs CBC & Chem 7: 04/24/17 04:40 04/24/17 04:40 Assessment and Plan (1) Acute on chronic heart failure Problem details: Systolic Current visit: Yes Status: Acute (2) Acute kidney injury Current visit: No Status: Acute (3) Hyperkalemia Current visit: No Status: Acute Assessment and Plan: I have independently evaluated and examined this patient. I reviewed the chart, the patient's history, and the ENGINEER CONDUCTOR/PA's documented findings as above. We discussed and formulated the assessment and plan as above with additions as below: Patient reports feeling significantly improved today. He was able to ambulate from his room to the nursing desk and back with minimal dyspnea. Heparin was discontinued this morning for an elevated PTT and due to bleeding from the penis following Stone placement and from a wound on the scalp. V/Q and venous Dopplers were known to be negative prior to scheduled time to resume heparin and the patient reports that there's been no further bleeding since heparin was discontinued. The patient is alert and in no distress on exam. He is speaking without dyspnea currently, respirations are nonlabored at rest and breath sounds are clear at the bases with improved air flow compared to yesterday. +2 edema persists on the dorsal surface of the feet. Creatinine is up slightly from yesterday; urine output is excellent with Bumex- nearly 4 L urine output since admission. Will decrease Bumex to 2 mg twice a day and reassess in a.m. Persistent metabolic acidosis but slightly improved from yesterday. Could consider oral sodium bicarbonate but prefer to avoid the sodium load at present. VQ scan reviewed by myself-small area of decreased uptake on ventilation scan in the right upper lobe, perfusion without deficits. Low probability PE. High-risk medications in use, x-rays reviewed by myself, laboratory data reviewed. Hospital Course Summary Disclaimer: The visit summary below is not to be considered part of the above Progress Note.
[2017-04-24] MEDS: TAMSULOSIN 0.4 MG CAPSULE PO SCH (21:20)
[2017-04-25] MEDS: OMEPRAZOLE 20 MG CAPSULE PO SCH (06:32)
[2017-04-25] MEDS: LACTULOSE 20 GM/30 ML ORAL LIQUID PO SCH ×2 (09:10→21:02)
[2017-04-25] MEDS: FOLIC ACID PO SCH (09:11)
[2017-04-25] MEDS: COENZYME Q-10 200mg TABLET PO SCH (09:11)
[2017-04-25] MEDS: [UNRECOGNIZED DRUG - OTHER] PO SCH (09:11)
[2017-04-25] MEDS: VIT B COMP PO SCH (09:11)
[2017-04-25] MEDS: NEOMYCIN 500 MG TABLET PO SCH (09:11)
[2017-04-25] MEDS: ASPIRIN *EC* 81 MG TABLET PO SCH (09:12)
--- NOTE | 2017-04-25 09:56 | Progress Note ---
<Jean PierreWhitney D - Last Filed: 04/25/17 10:49> Subjective: Overall doing better. Having loose stools. He's unsure why he's not on a statin. His rash (which was to upper thighs and abdomen) has improved - unfortunately the steroids may have contributed to his fluid overload. Denies chest pain. Short of breath symptoms improved. Objective Vital signs: Temperature 96.8 F 04/25/17 07:39 Pulse Rate 69 04/25/17 07:39 Respiratory Rate 24 04/25/17 07:39 Blood Pressure 130/67 04/25/17 07:39 Pulse Oximetry 97 04/25/17 07:39 Oxygen Delivery Method Room Air Weight: 135.9 kg - Constitutional Present: no acute distress, well nourished, well developed - Routine HEENT Exam Eye: Absent: conjunctival icterus - Routine Respiratory Exam Comments: no distress talks in full sentences - Routine Cardiovascular Exam Present: S1, S2 - Routine Abdominal Exam Present: non distended - Routine Extremities Exam Present: edema (b/l lower ext) Comments: dressing to right forearm both legs are wrapped with NAFISA - Routine Musculoskeletal Exam Musculoskeletal: Present: no clubbing or cyanosis - Routine Skin Exam Present: dry, warm - Routine Neurological Exam Present: alert, oriented X3 - Routine Psychiatric Exam Present: normal affect, normal thought process Results - Labs CBC & Chem 7: 04/25/17 04:37 04/25/17 04:37 Assessment and Plan (1) Acute kidney injury Current visit: No Status: Acute (2) Hyperkalemia Current visit: No Status: Acute (3) Acute on chronic heart failure Problem details: Systolic Current visit: Yes Status: Acute Assessment and Plan: Assessment GRACE - baseline creatinine about 1.5 Electrolyte abnormalities - Hyperkalemia & hyperphosphatemia Renal tubular acidosis Acute on chronic systolic heart failure CKD - stage IV HTN Dyslipidemia Type 2 DM CAD Hepatic cirrhosis Obesity Anxiety Chronic ankle wound NSTEMI with heart catheterization in March, - severe multivessel CAD MICAELA bacteremia 03/26/17, treated with Vanco x4 days then Ancef x2 weeks Plan GRACE - Cr still elevated at 2.9; continue reduced dose of Bumex (he is diuresing well). Neomycin dc'd since it can be potentially nephrotoxic. Stone in place. Multiple labs checked during previous hospital stay - aldosterone 37, Vit D 5 ( low), PTH 160.3 (indicated long standing CKD). May need to discuss resuming bicarb with nephrology. May need 24 hour urine. Acute on chronic systolic CHF - continue Bumex as above. Recent echo/heart cath for NSTEMI. CAD - Resume statin. Continue ASA Last echo 03/26/2017, showing EF of 30-35%; LVH; LV dilation; Moderate MR; aortic sclerosis; mild MR; PA pressure 20 Decrease Toprol - HR in low-60s. BP under good control. Anemia, macrocytic - hx of PRBC transfusion during previous hospital stay. Iron studies were done at that time as well - iron 53, TIBC 181 (low); % sat 29, e- poietin 62.7 (high); B12 464; RBC folate 437; RBC folate hemolysate 104.9 Recommend CHF education; daily weights on dc; good candidate for ROTP followup after discharge - pt consented Cirrhosis - no encephalopathy. Reduce dose of lactulose (consider dc). Hep C antibody negative on 02/28/17. Sepsis Assessment - Evaluation Sepsis screening result: No Definite Risk Hospital Course Summary Disclaimer: The visit summary below is not to be considered part of the above Progress Note. Hospital Course: 04/23/17-admission Admit patient as a inpatient under the care of Dr Kelly for Acute on chronic heart failure, with acute kidney injury and hyperkalemia Given the acute elevation in potassium, accompanied with acute renal failure and creatinine greater than 2.5. He does meet criteria for inpatient admission. Last echocardiogram was on 03/26/17 revealing global hypokinesia with an EF of 30 -35%. Catheterization completed at the beginning of March revealed severe multivessel disease. However, due to patient's severe comorbidities, he is not a surgical candidate for cardiac intervention. Given his elevated d-dimer. We will obtain a VQ scan tomorrow to rule out pulmonary emboli. Will start patient on heparin drip for anticoagulation. Pharmacy consult placed for dosing. Will monitor accu-checks given reported DM Monitor patient on cardiac telemetry. We did review his wishes for advanced directives and he verbalizes that he would like to be initially a full code, however, would not want any long-term prolonging such as ventilator, feeding tube. Home medications will need to be reviewed by attending SCDs to bilateral lower extremity for DVT prophylaxis Will recheck CBC and CMP tomorrow morning to follow blood counts renal function and electrolytes. Scuffs further orders and plan of care with attending, Dr. Kelly. At time of discharge medical care will return to primary care provider, Dr. Bartlett 04/24 VQ scan and lower extremity Doppler both negative for acute thrombus. Heparin drip was discontinued. Continue with Bumex 2 milligrams every 8 hours for diuresis. 04/25/17 Assessment GRACE - Cr still elevated at 2.9; continue reduced dose of Bumex (he is diuresing well). Neomycin dc'd since it can be potentially nephrotoxic. Stone in place. Acute on chronic systolic CHF - continue Bumex as above. Decrease Toprol - HR in low-60s. BP under good control. Anemia, macrocytic - hx of PRBC transfusion during previous hospital stay. 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 Reduce dose of lactulose (consider dc). <Jax Osborne - Last Filed: 04/25/17 17:08> Objective Vital signs: Temperature 96.9 F 04/25/17 15:52 Pulse Rate 67 04/25/17 15:52 Respiratory Rate 26 H 04/25/17 15:52 Blood Pressure 118/69 04/25/17 15:52 Pulse Oximetry 98 04/25/17 15:52 Oxygen Delivery Method Room Air Results - Labs CBC & Chem 7: 04/25/17 04:37 04/25/17 04:37 Assessment and Plan (1) Acute kidney injury Current visit: No Status: Acute (2) Hyperkalemia Current visit: No Status: Acute (3) Acute on chronic heart failure Problem details: Systolic Current visit: Yes Status: Acute Assessment and Plan: Pt was seen and examined with Whitney earlier today. Agree with above plan of care with the following comments. Pt was recently hospitalized for a NSTEMI. At that time he had severe metabolic acidosis, was in the ICU with bicarb drip. His Cirrhosis was compensated he had no significant ascites. Also he had MSSA bacteremia. He came back when finishing his oral antibiotics with a rash and was given oral steroids then had an episode thought to be pulmonary edema. DIAGNOSIS - 1) CARDIOVASCULAR ASSESSMENT - A) Congestive heart failure - with pulmonary edema after the NSTEMI (Per CT report - 03/27 - responded very well to diuretics) - and recurrent fluid overload that triggered this admission. - Toprol XL dose was decreased from 150mg to 100mg (04/25). This would increase cardiac output and renal perfussion (aim for HR in the mid 70's) - 2-D echo (03/26/2017) "........................... IMPRESSION 1. Global hypokinesia with ejection fraction of about 30-35%. 2. Left ventricular dilation. 3. Concentric left ventricular hypertrophy. 4. Left atrial dilation. 5. Mitral annulus calcification with moderate mitral regurgitation. 6. Aortic sclerosis. 7. Mild tricuspid regurgitation with normal estimated pulmonary artery systolic pressure of 20. ......................................" B) NSTEMI (03/26/2017) - INOPERABLE CAD Pt has had a previous stent. - Pt denies having new episodes of CP. - Cath report (verbally by Dr Lujan - Diffuse CAD not amenable to be corrected by PTCA or CABG - Discussed with pt benefits/risk of statins, on chronic compensated liver disease on 03/31. Pt was given a statin prior to D/C last admission - will resume today (04/25) C) Hypertension, probably in part due to HYPERALDOSTERONISM. - ALDOSTERONE LEVEL WAS HIGH LAST ADMISSION (03/26) @ 37 (NORMAL IS LESS THAN 21) 2) RENAL ASSESSMENT A) CKD + Acute renal failure last admission - and again this admission - Will need to follow with nephrology. - Intact PTH was HIGH - 160.3 * (last admission) - PSA DONE VERY LOW 0.1 (last admission) B) Acidosis - will resume oral bicarb to 650 mg PO BID. C) Hydronephrosis - per U/S done early March - pt was placed on Flomax. Will reassess. 3) Cirrhosis of the liver, with thrombocytopenia, mild coagulopathy, ascites ( minimal), esophageal varices (H/O). Pt apparently had a TIPS procedure in the past. Pt is compensated at present. - Stop oral aminoglycoside, continue Lactulose for now, may be able to be off Lactulose. - Aldactone on hold. 4) Type II DM, and obesity - BS control has improved with nutritional deterioration, over the last several years in part due to his CKD. 5) Anemia probably due to inflammation (ACD) but pt may have to be checked for GI bleed. (Had heme + stools). Epogen level was high (last admission) @ 62.7 - Anemia workup Suggesive of ACD - Iron - 53 (N), TIBC 181 (LOW), Saturation 29%. B12 is normal @ 464 - S/P transfusion of 2U PRBC on early MARCH. - Pt may need scopes 6) Severe protein calorie malnutrition - due to chronic illness (cirrhosis, CKD ) - Albumin level - 2.4 (03/30); Prealbumin - 5.2 (03/26) Will recheck. Hospital Course Summary Disclaimer: The visit summary below is not to be considered part of the above Progress Note. Addendum entered and electronically signed by Whitney Greenfiedl APRN 04/25/17 13: 03: I discussed the case with repairer hairspring, Dr. Chong. She recommends to start oral bicarb 650 mg BID today. However, if K continues to increase and he isn't diuresing well, she recommends starting a bicarb gtt along with a bumex gtt.
[2017-04-25] MEDS: INSULIN ASPART 100unit/ml INJECTION SQ PRN ×2 (11:07→15:10)
[2017-04-25] MEDS: TAMSULOSIN 0.4 MG CAPSULE PO SCH ×2 (20:47→21:02)
[2017-04-25] MEDS: SODIUM BICARBONATE 650 MG TABLET PO SCH (20:55)
[2017-04-25] MEDS: ATORVASTATIN 40 MG TABLET PO SCH ×2 (20:55→21:02)
[2017-04-26] MEDS: OMEPRAZOLE 20 MG CAPSULE PO SCH (06:13)
[2017-04-26] MEDS: SODIUM BICARBONATE 650 MG TABLET PO SCH ×2 (08:02→21:33)
[2017-04-26] MEDS: LACTULOSE 20 GM/30 ML ORAL LIQUID PO SCH ×3 (08:02→21:32)
[2017-04-26] MEDS: SALINE FLUSH 10ml SYRINGE IVF PRN (08:02)
[2017-04-26] MEDS: COENZYME Q-10 200mg TABLET PO SCH (08:02)
[2017-04-26] MEDS: ASPIRIN *EC* 81 MG TABLET PO SCH (08:02)
[2017-04-26] MEDS: FOLIC ACID PO SCH (09:35)
[2017-04-26] MEDS: VIT B COMP PO SCH (09:35)
[2017-04-26] MEDS: [UNRECOGNIZED DRUG - OTHER] PO SCH (09:35)
--- NOTE | 2017-04-26 09:42 | Progress Note ---
Subjective: Pt is doing well today; as usual has no complaints. Denies any SOB or CP. No abdominal pain. K still a bit high. Objective Vital signs: Temperature 97.2 F 04/26/17 07:10 Pulse Rate 72 04/26/17 08:00 Respiratory Rate 18 04/26/17 07:10 Blood Pressure 126/67 04/26/17 07:10 Pulse Oximetry 96 04/26/17 07:10 Oxygen Delivery Method Room Air Rhythm: Normal Sinus Rhythm Weight: 133.9 kg - Constitutional Present: no acute distress, well developed - Routine HEENT Exam Head: Present: normocephalic, atraumatic Eye: Present: EOMI, PERRL - Routine Respiratory Exam Present: CTA bilaterally - Routine Cardiovascular Exam Present: RRR, S1, S2 - Routine Abdominal Exam Present: soft, non distended, non tender - Routine Extremities Exam Absent: cyanosis, clubbing, edema - Routine Neurological Exam Present: alert, oriented X3 - Routine Psychiatric Exam Present: normal affect, cooperative, good insight, good judgment Results - Labs CBC & Chem 7: 04/26/17 04:26 04/26/17 04:26 Assessment and Plan (1) Acute kidney injury Current visit: No Status: Acute (2) Hyperkalemia Current visit: No Status: Acute (3) Acute on chronic heart failure Problem details: Systolic Current visit: Yes Status: Acute (4) Chronic kidney disease (CKD) stage G3a/A2, moderately decreased glomerular filtration rate (GFR) between 45-59 mL/min/1.73 square meter and albuminuria creatinine ratio between 30-299 mg/g Current visit: Yes Status: Chronic Will get a 24 hr urine collection to better estimate once more compensated Assessment and Plan: This is a pt well known to me from a previous admission to us in early March 2017 ; at that time, he was hospitalized for a NSTEMI; he had severe metabolic acidosis, was in the ICU with bicarb drip + Nitrodrip and heparin drip. His Cirrhosis was compensated he had no significant ascites to tap. Also he had MSSA bacteremia. He came back when finishing his oral antibiotics with a rash and was given oral steroids then had an episode thought to be pulmonary edema. He has diuresed very well and is not off O2 brething well. His CKD is worse again and his H.H is dropping. He may need another transfussion and scopes prior to D/C DIAGNOSIS - 1) CARDIOVASCULAR ASSESSMENT - A) Congestive heart failure - with pulmonary edema after the NSTEMI (Per CT report - 03/27 - responded very well to diuretics) - and recurrent fluid overload that triggered this admission. Now pt is much improved. - Admission - Weight - 140.5 kg - Today's - Weight - 133.9 kg - Toprol XL dose was decreased from 150mg to 100mg (04/25). This would increase cardiac output and renal perfussion (aim for HR in the mid 70's). Earlier today HR was even lower. Now trending up. - 2-D echo (03/26/2017) "........................... IMPRESSION 1. Global hypokinesia with ejection fraction of about 30-35%. 2. Left ventricular dilation. 3. Concentric left ventricular hypertrophy. 4. Left atrial dilation. 5. Mitral annulus calcification with moderate mitral regurgitation. 6. Aortic sclerosis. 7. Mild tricuspid regurgitation with normal estimated pulmonary artery systolic pressure of 20. ......................................" B) RECENT NSTEMI (03/26/2017) - INOPERABLE CAD Pt has had a previous stent. - Pt denies having new episodes of CP, this admission. - Lipitor was resumed on 04/25. C) Hypertension, probably in part due to hyperaldosteronism (Aldosterone high - see last admission) - Due to CKD and hyperkalemia will not be able to safely use Aldactone any more. 2) RENAL ASSESSMENT A) CKD + Acute renal failure last admission - worse at this time, probably in part due to aggressive diuresis. Pt Wt on admission was 140.5kg today is 133.9. - Intact PTH was HIGH - 160.3 * (last admission) - PSA DONE VERY LOW 0.1 (last admission) - Will hydrate gently (on 04/27) - with LR 1000 cc @ 75cc/hr since BUN is even higher. B) Acidosis - Oral bicarb resumed @ 650 mg PO BID (04/25). CO2 about the same , should improve with hydration and a bit higher HR -> better perfussion to the kidneys. C) Hydronephrosis - per U/S done early March - - Continue with Flomax. - Recheck renal U/S in the AM. D) Hyperkalemia - stable - will observe for now. E) Hyperphosphatemia - will add Calcium acetate (04/26) . 3) Cirrhosis of the liver, with thrombocytopenia, mild coagulopathy, ascites ( minimal), esophageal varices (H/O). Pt apparently had a TIPS procedure in the past. Pt is compensated at present. - Stop oral aminoglycoside - Neomycin has been associated with [place] and nephrotoxicity. - Lowered dose of Lactulose. 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 4) Type II DM, and obesity - BS control has improved with nutritional deterioration, over the last several years in part due to his CKD. 5) Anemia probably due to inflammation (ACD) but pt may have to be checked for GI bleed. (Had heme + stools). Epogen level was high (last admission) @ 62.7 - Recheck iron studies - check also LDH and Haptoglobin - may need transfussion again and scopes. - Anemia workup EARLY [facility] - Suggesive of ACD - Iron - 53 (N), TIBC 181 (LOW) , Saturation 29%. B12 is normal @ 464. Was given 2U PRBC early March. 6) Severe protein calorie malnutrition - due to chronic illness (cirrhosis, CKD ) PREVENTION PUD - PPI DVT - SCD Sepsis Assessment - Evaluation Sepsis screening result: No Definite Risk Hospital Course Summary Disclaimer: The visit summary below is not to be considered part of the above Progress Note. Hospital Course: 04/23/17-admission Admit patient as a inpatient under the care of Dr Kelly for Acute on chronic heart failure, with acute kidney injury and hyperkalemia Given the acute elevation in potassium, accompanied with acute renal failure and creatinine greater than 2.5. He does meet criteria for inpatient admission. Last echocardiogram was on 03/26/17 revealing global hypokinesia with an EF of 30 -35%. Catheterization completed at the beginning of March revealed severe multivessel disease. However, due to patient's severe comorbidities, he is not a surgical candidate for cardiac intervention. Given his elevated d-dimer. We will obtain a VQ scan tomorrow to rule out pulmonary emboli. Will start patient on heparin drip for anticoagulation. Pharmacy consult placed for dosing. Will monitor accu-checks given reported DM Monitor patient on cardiac telemetry. We did review his wishes for advanced directives and he verbalizes that he would like to be initially a full code, however, would not want any long-term prolonging such as ventilator, feeding tube. Home medications will need to be reviewed by attending SCDs to bilateral lower extremity for DVT prophylaxis Will recheck CBC and CMP tomorrow morning to follow blood counts renal function and electrolytes. Scuffs further orders and plan of care with attending, Dr. Kelly. At time of discharge medical care will return to primary care provider, Dr. Batrlett 04/24 VQ scan and lower extremity Doppler both negative for acute thrombus. Heparin drip was discontinued. Continue with Bumex 2 milligrams every 8 hours for diuresis. 04/25/17 Assessment GRACE - Cr still elevated at 2.9; continue reduced dose of Bumex (he is diuresing well). Neomycin dc'd since it can be potentially nephrotoxic. Stone in place. Acute on chronic systolic CHF - continue Bumex as above. Decrease Toprol - HR in low-60s. BP under good control. Anemia, macrocytic - hx of PRBC transfusion during previous hospital stay. 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 Reduce dose of lactulose (consider dc).
[2017-04-26] MEDS: LR 1,000 ML IV SCH ×2 (09:59→23:20)
[2017-04-26] MEDS: INSULIN ASPART 100unit/ml INJECTION SQ PRN ×3 (10:56→21:34)
[2017-04-26] MEDS: CALCIUM ACETATE 667 MG CAPSULE PO SCH ×2 (12:30→17:09)
[2017-04-26] MEDS: ATORVASTATIN 40 MG TABLET PO SCH (21:33)
[2017-04-26] MEDS: TAMSULOSIN 0.4 MG CAPSULE PO SCH (21:33)
[2017-04-27] MEDS ORDERED: MAGNESIUM SULFATE 1gm PREMIX 1 GM/100 ML BAG IV ONE (05:14)
[2017-04-27] MEDS ORDERED: NS FLUSH BAG 500ml IV PRN (05:24)
[2017-04-27] MEDS: OMEPRAZOLE 20 MG CAPSULE PO SCH (05:45)
[2017-04-27] MEDS: ASPIRIN *EC* 81 MG TABLET PO SCH (08:52)
[2017-04-27] MEDS: LACTULOSE 20 GM/30 ML ORAL LIQUID PO SCH ×2 (08:52→10:11)
[2017-04-27] MEDS: MAGNESIUM OXIDE 400 MG TABLET PO SCH ×2 (08:52→21:00)
[2017-04-27] MEDS: CALCIUM ACETATE 667 MG CAPSULE PO SCH ×3 (08:53→17:11)
[2017-04-27] MEDS: SODIUM BICARBONATE 650 MG TABLET PO SCH ×2 (08:53→21:00)
[2017-04-27] MEDS: FOLIC ACID PO SCH (08:53)
[2017-04-27] MEDS: COENZYME Q-10 200mg TABLET PO SCH (08:53)
[2017-04-27] MEDS: [UNRECOGNIZED DRUG - OTHER] PO SCH (08:53)
[2017-04-27] MEDS: VIT B COMP PO SCH (08:53)
[2017-04-27] MEDS: SALINE FLUSH 10ml SYRINGE IVF PRN ×2 (08:53→20:55)
--- NOTE | 2017-04-27 10:01 | Ultrasound Report ---
Indication: Follow up on hydronephrosis. PROCEDURE: US renal BI: Encounter: Initial Comparison: Abdominal sonogram, 03/27/2017 Technique: Grayscale and color flow sonographic evaluation of the kidneys was performed. Findings: The right kidney measures 10.3 cm longitudinally and the left kidney measures 10.4 cm. There is no mass, perinephric fluid, or hydronephrosis, bilaterally. Impression: Negative renal sonogram. .
[2017-04-27] MEDS: INSULIN ASPART 100unit/ml INJECTION SQ PRN ×3 (11:04→22:37)
--- NOTE | 2017-04-27 11:24 | Progress Note ---
Subjective: Pt seems to be doing well. He has no complaints. 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 His K was replaced. He is eating well and saturating well on RA. Objective Vital signs: Temperature 96.3 F L 04/27/17 08:00 Pulse Rate 69 04/27/17 08:00 Respiratory Rate 20 04/27/17 08:00 Blood Pressure 134/76 04/27/17 08:00 Pulse Oximetry 97 04/27/17 08:00 Oxygen Delivery Method Room Air Rhythm: Normal Sinus Rhythm Cardiac Ectopy: Rare PVC's Weight: 132.8 kg - Constitutional Present: no acute distress - Routine HEENT Exam Head: Present: normocephalic, atraumatic Eye: Present: EOMI, PERRL - Routine Respiratory Exam Present: CTA bilaterally - Routine Cardiovascular Exam Present: RRR, S1, S2 - Routine Abdominal Exam Present: soft, non distended, non tender - Routine Extremities Exam Present: edema. Absent: cyanosis, clubbing - Routine Neurological Exam Present: alert, oriented X3, CN II-XII intact - Routine Psychiatric Exam Present: normal affect, cooperative, good insight, good judgment Results - Labs CBC & Chem 7: 04/27/17 04:31 04/27/17 04:31 Assessment and Plan (1) Acute kidney injury Current visit: No Status: Acute (2) Hyperkalemia Current visit: No Status: Acute (3) Acute on chronic heart failure Problem details: Systolic Current visit: Yes Status: Acute (4) Chronic kidney disease (CKD) stage G3a/A2, moderately decreased glomerular filtration rate (GFR) between 45-59 mL/min/1.73 square meter and albuminuria creatinine ratio between 30-299 mg/g Current visit: Yes Status: Chronic Assessment and Plan: This is a pt well known to me from a previous admission to us in early March 2017 ; at that time, he was hospitalized for a NSTEMI; he had severe metabolic acidosis, was in the ICU with bicarb drip + Nitrodrip and heparin drip. His Cirrhosis was well compensated: he had no significant ascites to tap, was not significantly coagulopathic and his ammonia was low (and remained low while off Lactulose and oral aminoglycoside). Also he had MSSA bacteremia. He had a cardiac cath that showed non operable CAD. He was D/C in stable condition and then, back when finishing his oral antibiotics (for the MSSA) to the ED with a rash and was given oral steroids; this resulted in resolution of his rash but then had an episode thought to be pulmonary edema. He has admitted and was diuresed very well and is not off O2 brething well. His CKD is worse, probably due to overdiuresis. DIAGNOSIS - 1) RENAL ASSESSMENT - Kidney function is deteriorating despite IVF yesterday - could be due to overdiuresis will observe off BUMEX. A) CKD + Acute renal failure last admission - worse at this time, probably in part due to aggressive diuresis. Will keep off Bumex for now, and observe. - Repeat U/S today - no hydronephrosis. - Intact PTH was HIGH - 160.3 * (last admission) - PSA DONE VERY LOW 0.1 (last admission) - Will hydrate gently (on 04/27) - with LR 1000 cc @ 75cc/hr since BUN is even higher. B) Acidosis - Oral bicarb resumed @ 650 mg PO BID (04/25). CO2 about the same today. C) Hydronephrosis - per U/S done early March - resolved per new U/S (04/27/2017 ) - Continue with Flomax. D) Hyperkalemia - stable - will observe for now. E) Hyperphosphatemia - will add Calcium acetate (04/26) . 2) CARDIOVASCULAR ASSESSMENT - A) Congestive heart failure - with pulmonary edema after the NSTEMI (Per CT report - 03/27 - responded very well to diuretics) - and recurrent fluid overload that triggered this admission. Now pt is much improved. - Will STOP Bumex now and observe off bumex. If Kidney function continues to deteriorate may need Dobutamine drip trial. - Admission - Weight - 140.5 kg - Today's - Weight - 132.8 kg - Toprol XL dose was decreased from 150mg to 100mg (04/25). This was done to be able to increase kidney perfusion (with a higher HR) - 2-D echo (03/26/2017) showed Global hypokinesia with ejection fraction of about 30-35%, concentric LVH with LV dilatation. Mod MR, Aortic sclerosis and mild TR with normal PA pressures. B) RECENT NSTEMI (03/26/2017) - INOPERABLE CAD Pt has had a previous stent. - Pt denies having new episodes of CP, this admission. - Lipitor was resumed on 04/25. C) Hypertension, probably in part due to hyperaldosteronism (Aldosterone high - see last admission) - Due to CKD and hyperkalemia will not be able to safely use Aldactone any more. 3) Cirrhosis of the liver, with thrombocytopenia, mild coagulopathy, ascites ( minimal), esophageal varices (H/O). Pt apparently had a TIPS procedure in the past. Pt is compensated at present. - Stop oral aminoglycoside - Oral Neomycin has been associated with [place] and nephrotoxicity. - Lowered dose of Lactulose. 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 4) Type II DM, and obesity - BS control has improved with nutritional deterioration, over the last several years in part due to his CKD. 5) Anemia probably due to inflammation (ACD) but pt may have to be checked for GI bleed. (Had heme + stools). Epogen level was high (last admission) @ 62.7 - Recheck iron studies - check also LDH and Haptoglobin - may need transfussion again and scopes. - Anemia workup EARLY [facility] - Suggesive of ACD - Iron - 53 (N), TIBC 181 (LOW) , Saturation 29%. B12 is normal @ 464. Was given 2U PRBC early March. - Hemoglobin was trending down, and the last level trended up - probably reflecting variable hydration/dehydration. 6) Severe protein calorie malnutrition - due to chronic illness (cirrhosis, CKD ) PREVENTION PUD - PPI DVT - SCD Sepsis Assessment - Evaluation Sepsis screening result: No Definite Risk Hospital Course Summary Disclaimer: The visit summary below is not to be considered part of the above Progress Note. Hospital Course: 04/23/17-admission Admit patient as a inpatient under the care of Dr Kelly for Acute on chronic heart failure, with acute kidney injury and hyperkalemia Given the acute elevation in potassium, accompanied with acute renal failure and creatinine greater than 2.5. He does meet criteria for inpatient admission. Last echocardiogram was on 03/26/17 revealing global hypokinesia with an EF of 30 -35%. Catheterization completed at the beginning of March revealed severe multivessel disease. However, due to patient's severe comorbidities, he is not a surgical candidate for cardiac intervention. Given his elevated d-dimer. We will obtain a VQ scan tomorrow to rule out pulmonary emboli. Will start patient on heparin drip for anticoagulation. Pharmacy consult placed for dosing. Will monitor accu-checks given reported DM Monitor patient on cardiac telemetry. We did review his wishes for advanced directives and he verbalizes that he would like to be initially a full code, however, would not want any long-term prolonging such as ventilator, feeding tube. Home medications will need to be reviewed by attending SCDs to bilateral lower extremity for DVT prophylaxis Will recheck CBC and CMP tomorrow morning to follow blood counts renal function and electrolytes. Scuffs further orders and plan of care with attending, Dr. Kelly. At time of discharge medical care will return to primary care provider, Dr. Bartlett 04/24 VQ scan and lower extremity Doppler both negative for acute thrombus. Heparin drip was discontinued. Continue with Bumex 2 milligrams every 8 hours for diuresis. 04/25/17 Assessment GRACE - Cr still elevated at 2.9; continue reduced dose of Bumex (he is diuresing well). Neomycin dc'd since it can be potentially nephrotoxic. Stone in place. Acute on chronic systolic CHF - continue Bumex as above. Decrease Toprol - HR in low-60s. BP under good control. Anemia, macrocytic - hx of PRBC transfusion during previous hospital stay. 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 Reduce dose of lactulose (consider dc).
[2017-04-27] MEDS ORDERED: PHYTONADIONE 5 MG/2.5 ML ORAL LIQUID PO ONE (11:30)
[2017-04-27] MEDS: TAMSULOSIN 0.4 MG CAPSULE PO SCH (21:00)
[2017-04-27] MEDS: ATORVASTATIN 40 MG TABLET PO SCH (21:00)
[2017-04-28] MEDS: OMEPRAZOLE 20 MG CAPSULE PO SCH (05:53)
[2017-04-28] MEDS: SODIUM BICARBONATE 650 MG TABLET PO SCH (08:07)
[2017-04-28] MEDS: FOLIC ACID PO SCH (08:07)
[2017-04-28] MEDS: [UNRECOGNIZED DRUG - OTHER] PO SCH (08:07)
[2017-04-28] MEDS: VIT B COMP PO SCH (08:07)
[2017-04-28] MEDS: COENZYME Q-10 200mg TABLET PO SCH (08:08)
[2017-04-28] MEDS: MAGNESIUM OXIDE 400 MG TABLET PO SCH ×2 (08:08→21:29)
[2017-04-28] MEDS: LACTULOSE 20 GM/30 ML ORAL LIQUID PO SCH (08:09)
[2017-04-28] MEDS: SALINE FLUSH 10ml SYRINGE IVF PRN ×2 (08:09→13:23)
[2017-04-28] MEDS: CALCIUM ACETATE 667 MG CAPSULE PO SCH ×3 (08:19→23:25)
[2017-04-28] MEDS: ASPIRIN *EC* 81 MG TABLET PO SCH (08:19)
--- NOTE | 2017-04-28 11:10 | XRay Report ---
INDICATION: Follow up on pulmonary edema PROCEDURE: CHEST 2-VIEWS UPRIGHT (PA & LAT) Encounter: Initial COMPARISON: April 23, 2017 FINDINGS: Right pleural effusion is slightly decreased. There is again a round mass projecting over the right midlung measuring 4 cm in diameter. Small left pleural effusion. No pneumothorax. Bilateral lower lobe airspace disease is improved. Heart size and mediastinal contours are stable. No acute bony changes. Impression: Improving pulmonary edema with slight decrease in pleural effusions. Continued right lung mass that could represent a "pseudotumor" or true mass. .
[2017-04-28] MEDS: INSULIN ASPART 100unit/ml INJECTION SQ PRN ×2 (11:55→14:54)
--- NOTE | 2017-04-28 12:27 | Progress Note ---
Subjective: Pt has no complaints as usual. His kidney function has not improved, and it is worse than on his last discharge (was 2.2 on D/C). This could be due to CHF -> poor renal perfussion, hepatorenal syndrome or other renal process. I spoke with Dr Lujan's team (Leah) to send him to the ICU for Dobutamine - to see if his renal function improves - if no improvement is seen pt may need to see nephrology soon as he is loosing his renal function fast and he will end up on HD sooner than expected. Discussed with pt, who agrees with current plan of care. Objective Vital signs: Temperature 96.8 F 04/28/17 07:34 Pulse Rate 75 04/28/17 08:00 Respiratory Rate 20 04/28/17 07:34 Blood Pressure 120/66 04/28/17 07:34 Pulse Oximetry 93 04/28/17 07:34 Oxygen Delivery Method Room Air Rhythm: Normal Sinus Rhythm Cardiac Ectopy: Rare PVC's Weight: 132.8 kg - Constitutional Present: no acute distress, obese - Routine HEENT Exam Head: Present: normocephalic, atraumatic Eye: Present: EOMI, PERRL - Routine Respiratory Exam Present: CTA bilaterally - Routine Cardiovascular Exam Present: RRR, S1, S2 - Routine Abdominal Exam Present: soft, non distended, non tender - Routine Extremities Exam Absent: cyanosis, clubbing, edema - Routine Skin Exam Present: intact - Routine Neurological Exam Present: alert, oriented X3, CN II-XII intact - Routine Psychiatric Exam Present: normal affect, cooperative, good insight, good judgment Results - Labs CBC & Chem 7: 04/28/17 04:36 04/28/17 04:36 Assessment and Plan (1) Acute kidney injury Current visit: No Status: Acute (2) Hyperkalemia Current visit: No Status: Acute (3) Acute on chronic heart failure Problem details: Systolic Current visit: Yes Status: Acute (4) Chronic kidney disease (CKD) stage G3a/A2, moderately decreased glomerular filtration rate (GFR) between 45-59 mL/min/1.73 square meter and albuminuria creatinine ratio between 30-299 mg/g Current visit: Yes Status: Chronic Will get a 24 hr urine collection to better estimate once more compensated Assessment and Plan: This is a pt well known to me from a previous admission to us in early March 2017 ; at that time, he was hospitalized for a NSTEMI; he had severe metabolic acidosis, was in the ICU with bicarb drip + Nitrodrip and heparin drip. His Cirrhosis was well compensated: he had no significant ascites to tap, was not significantly coagulopathic and his ammonia was low (and remained low while off Lactulose and oral aminoglycoside). Also he had MSSA bacteremia. He had a cardiac cath that showed non operable CAD. He was D/C in stable condition. Creatinine on D/C was 2.2. He came to the ED, close to his final antibiotic day (for the MSSA) with a rash and was given oral steroids; this resulted in resolution of his rash but then had an episode thought to be pulmonary edema. He has admitted and was diuresed very well and currently off O2 breathing well. His CKD is worse. His BUN/Cr remains high despite having lowered his diuretics and his BB. I discussed the case with Cardiology team (Dr Tai Lynn). Will do a trial with Dobutamine - if his renal function improves then it is due to his CHF, if there is no improvement will have to call Nephrology or refer out. DIAGNOSIS - 1) RENAL ASSESSMENT - Will start Dobutamine drip, if GRACE is worse due to CHF, we should see improvement. First will correct hypomagnesemia. A) CKD + Acute renal failure, worsening. Pt has advanced CKD with elevated iPTH - 160.3 * (last admission) - Repeat U/S (04/27) - no hydronephrosis. - PSA DONE VERY LOW 0.1 (last admission) - On Calcium Acetate for high PO4 - B) Acidosis - Oral bicarb resumed @ 650 mg PO BID (04/25). CO2 about the same today. C) Hydronephrosis - per U/S done early March - resolved per new U/S (04/27/2017 ) - Continue with Flomax & Stone D) Hyperkalemia - stable - will observe for now. E) Hyperphosphatemia - will add Calcium acetate (04/26) . 2) CARDIOVASCULAR ASSESSMENT - A) Congestive heart failure - with pulmonary edema after the NSTEMI (Per CT report - 03/27 - responded very well to diuretics) - and recurrent fluid overload that triggered this admission. Now pt is much improved. - Admission - Weight - 140.5 kg - Today's - Weight - 132.8 kg - Toprol XL dose was decreased from 150mg to 100mg (04/25). This was done to be able to increase kidney perfusion (with a higher HR), I can not see a positive effect. - 2-D echo (03/26/2017) showed Global hypokinesia with ejection fraction of about 30-35%, concentric LVH with LV dilatation. Mod MR, Aortic sclerosis and mild TR with normal PA pressures. B) RECENT NSTEMI (03/26/2017) - INOPERABLE CAD Pt has had a previous stent. - Pt denies having new episodes of CP, this admission. - Lipitor was resumed on 04/25. C) Hypertension, probably in part due to hyperaldosteronism (Aldosterone high - see last admission) - Due to CKD and hyperkalemia will not be able to safely use Aldactone any more. - Currently BP control is good. 3) Cirrhosis of the liver, with thrombocytopenia, mild coagulopathy, ascites ( minimal), esophageal varices (H/O). Pt apparently had a TIPS procedure in the past. Pt is compensated at present. - Stop oral aminoglycoside - Oral Neomycin has been associated with Osorio and nephrotoxicity. - Lowered dose of Lactulose, can not resume Aldactone - recheck INR in the AM. A) Hyperbilirrubinemia (1.50) with no elevation of the AST/ALT or Alk Phos - LDH normal - Haptoglobin low (unknown if due to cirrhosis or hemolysis) . 4) Type II DM, and obesity - BS control has improved with nutritional deterioration, over the last several years in part due to his CKD. 5) Anemia probably due to inflammation (ACD) but pt may have to be checked for GI bleed. (Had heme + stools). Erythropoietin level was HIGH (last admission) @ 62.7 - Recheck iron studies - may need transfussion again and scopes. - Anemia workup EARLY MARCH - Suggesive of ACD - Iron - 53 (N), TIBC 181 (LOW) , Saturation 29%. B12 is normal @ 464. Was given 2U PRBC early March. 6) Severe protein calorie malnutrition - due to chronic illness (cirrhosis, CKD ) PREVENTION PUD - PPI DVT - SCD - Time spent with patient greater than 35 minutes Sepsis Assessment - Evaluation Sepsis screening result: No Definite Risk Hospital Course Summary Disclaimer: The visit summary below is not to be considered part of the above Progress Note. Hospital Course: 04/23/17-admission Admit patient as a inpatient under the care of Dr Kelly for Acute on chronic heart failure, with acute kidney injury and hyperkalemia Given the acute elevation in potassium, accompanied with acute renal failure and creatinine greater than 2.5. He does meet criteria for inpatient admission. Last echocardiogram was on 03/26/17 revealing global hypokinesia with an EF of 30 -35%. Catheterization completed at the beginning of March revealed severe multivessel disease. However, due to patient's severe comorbidities, he is not a surgical candidate for cardiac intervention. Given his elevated d-dimer. We will obtain a VQ scan tomorrow to rule out pulmonary emboli. Will start patient on heparin drip for anticoagulation. Pharmacy consult placed for dosing. Will monitor accu-checks given reported DM Monitor patient on cardiac telemetry. We did review his wishes for advanced directives and he verbalizes that he would like to be initially a full code, however, would not want any long-term prolonging such as ventilator, feeding tube. Home medications will need to be reviewed by attending SCDs to bilateral lower extremity for DVT prophylaxis Will recheck CBC and CMP tomorrow morning to follow blood counts renal function and electrolytes. Scuffs further orders and plan of care with attending, Dr. Kelly. At time of discharge medical care will return to primary care provider, Dr. Bartlett 04/24 VQ scan and lower extremity Doppler both negative for acute thrombus. Heparin drip was discontinued. Continue with Bumex 2 milligrams every 8 hours for diuresis. 04/25/17 Assessment GRACE - Cr still elevated at 2.9; continue reduced dose of Bumex (he is diuresing well). Neomycin dc'd since it can be potentially nephrotoxic. Stone in place. Acute on chronic systolic CHF - continue Bumex as above. Decrease Toprol - HR in low-60s. BP under good control. Anemia, macrocytic - hx of PRBC transfusion during previous hospital stay. 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 Reduce dose of lactulose (consider dc).
[2017-04-28] MEDS: MAGNESIUM SULFATE 1gm PREMIX 1 GM/100 ML BAG IV SCH ×2 (13:24→14:38)
[2017-04-28] MEDS ORDERED: DOBUTAMINE IV PRN (14:30)
--- NOTE | 2017-04-28 15:44 | Cardiology Consult Note ---
History of Present Illness Consult date: 04/28/17 <Leah Kerr - 04/28/17 16:05> Requesting physician: Jax Osborne <Leah Kerr - 04/28/17 16:05> Consult reason: congestive heart failure <Leah Kerr - 04/28/17 16:05> Chief complaint: SOA <Leah Kerr - 04/28/17 16:05> History of present illness: Dakota is a pleasant 71-year-old male who is well known to Dr. Lujan and the hospitalist services as he was recently admitted on 03/26/17 with sirs, acute kidney injury, hyperkalemia and chest pain. His discharged on April 03 and has been at [facility] under the care of Dr. Bartlett. He was evaluated again in the emergency room on 04/08/17 when he was found to have a rash to his abdomen, groin and arms. At that time he was discharged on a prednisone taper as well as Lamisil and Benadryl. He notes that following this emergency room visit, he started noticing increased edema of the lower extremities. For the last week he has noticed increased dyspnea especially with exertion. Due to the worsening symptoms, he presented to the emergency room for further acute evaluation and treatment. Chest x-ray did reveal worsening pulmonary edema with rounded mass in the right midlung that may represent loculated fluid or "pseudocyst". His weight on the day of last admission 03/17/17 was 110 kilograms, and his discharge weight on 04/03 was 132 kg. Today, his weight is 139 kilograms. Given his increased peripheral edema, accompanied with symptomatic dyspnea, elevated potassium with acute renal failure and creatinine greater than 2.5. He met criteria for inpatient admission under the care of the hospitalist services. Dr. Lujan is consulted for assistance with CHF with CKD + GRACE on a cirrhotic patient. He is examined in the CCU. He denies chest pain or pressure, palpitations or racing heart rate, dyspnea, dizziness or lightheadedness. <Leah Kerr - 04/28/17 16:05> Review of Systems - Constitutional Constitutional: Present: fatigue, weight gain. Absent: chills, fever(s) < Leah Kerr - 04/28/17 16:05> - EENMT Eyes: Absent: change in vision <CiriloLeah lopez 04/28/17 16:05> Balance: Absent: vertigo <CiriloLeah lopez 04/28/17 16:05> Mouth/Throat: Absent: sore throat <CiriloLeah lopez 04/28/17 16:05> - Cardiovascular Cardiovascular: Absent: chest pain, palpitations, syncope <CiriloLeah lopez 16:05> Vascular: Present: pedal edema <Cirilo,Amy 04/28/17 16:05> - Respiratory Respiratory: Present: dyspnea. Absent: cough <CiriloLeah lopez 04/28/17 16:05 > - Gastrointestinal Gastrointestinal: Absent: diarrhea, nausea, vomiting <CiriloLeah lopez 16:05> - Genitourinary Genitourinary: Absent: dysuria <CiriloLeah lopez 04/28/17 16:05> - Integumentary/Breasts Integumentary: Absent: rash <CiriloLeah lopez 04/28/17 16:05> - Neurological Neurological: Absent: dizziness <CiriloLeah lopez 04/28/17 16:05> - Endocrine Endocrine: Absent: palpitations <CiriloLeah lopez 04/28/17 16:05> [facility] Patient Stated Medical History Glaucoma Yes: fixed Coronary Artery Disease Yes Hypertension Yes Other Cardiology Yes: chf Diabetes Mellitus Type 2 Yes Cirrhosis Yes Gastroesophageal Reflux Yes Disease Other GI Yes: ESOPH VARICIES Hx Renal Disease Yes Other Musculoskeletal Yes: [facility] W[facility]ING [facility] Medical History (Last Updated 04/28/17 @ 16:05 by Leah Kerr APRN) Cataracts, bilateral (Chronic Medical) HTN (hypertension) (Chronic Medical) Liver disease (Chronic Medical) Type 2 diabetes mellitus (Chronic Medical) <Jerson Lujan - 04/29/17 13:07> Patient Stated Medical History Glaucoma Yes: fixed Coronary Artery Disease Yes Hypertension Yes Other Cardiology Yes: chf Diabetes Mellitus Type 2 Yes Cirrhosis Yes Gastroesophageal Reflux Yes Disease Other GI Yes: ESOPH VARICIES Hx Renal Disease Yes Other Musculoskeletal Yes: DIFFICULTY WALKING Clinic Medical History (Last Updated 04/26/17 @ 09:55 by Jax Osborne MD) Type 2 diabetes mellitus (Chronic Medical) Liver disease (Chronic Medical) HTN (hypertension) (Chronic Medical) Cataracts, bilateral (Chronic Medical) <Leah Kerr 04/28/17 16:05> Surgical History: Cardiac stent x 1. Liver stent. Knee arthoscopy, bilateral. EGD with banding - > 10 years ago. <Leah Kerr 04/28/17 16:05> Family History: Family History Mother HTN (hypertension) Stroke Father Heart failure <Jerson Lujan - 04/29/17 13:07> Family History Mother HTN (hypertension) Stroke Father Heart failure <Leah Kerr 04/28/17 16:05> - Social History Smoking status: Never smoker <Leah Kerr 04/28/17 16:05> Substance use type: does not use <Leah Kerr 04/28/17 16:05> Alcohol intake frequency: former alcohol drinker <Leah Kerr 04/28/17 16 :05> Household members: none <Laeh Kerr 04/28/17 16:05> Current occupational status: disabled <Leah Kerr 04/28/17 16:05> Current residence: Assisted Living <Leah Kerr 04/28/17 16:05> Medications Home Medications Medication Instructions Recorded Confirmed Type Acetaminophen 650 mg PO Q4HR PRN #0 10/11/15 04/23/17 History Omeprazole 20 mg PO ACB #0 10/11/15 04/23/17 History Folic Acid/Vit B Comp + C 1 mg PO DAILY 04/08/17 04/23/17 History [Nephrocaps] Lactulose Oral Liq [Lactulose] 40 gm PO BID 04/08/17 04/23/17 History Benzonatate 100 mg PO Q6H PRN 04/23/17 04/23/17 History DiphenhydrAMINE [Benadryl] 25 mg PO Q6H PRN 04/23/17 04/23/17 History <Jerson Lujan - 04/29/17 13:07> Allergies Allergy/AdvReac Type Severity Reaction Status Date / Time No Known Drug Allergies Allergy Unknown Verified 04/23/17 14:48 <Jerson Lujan - 04/29/17 13:07> Exam Vital signs: Temperature 97.9 F 04/29/17 04:00 Pulse Rate 80 04/29/17 05:15 Respiratory Rate 24 04/29/17 05:15 Blood Pressure 93/52 04/29/17 05:15 Pulse Oximetry 92 04/29/17 05:15 Oxygen Delivery Method Room Air <Jerson Lujan - 04/29/17 13:07> Temperature 96.8 F 04/28/17 07:34 Pulse Rate 75 04/28/17 08:00 Respiratory Rate 20 04/28/17 07:34 Blood Pressure 120/66 04/28/17 07:34 Pulse Oximetry 93 04/28/17 07:34 Oxygen Delivery Method Room Air <Leah Kerr [facility] 04/28/17 16:05> - Constitutional no acute distress, morbidly obese, cooperative <Leah Kerr [facility] 04/28/17 16: 05> - Routine HEENT Exam Head: Present: normocephalic <CiriloLeah lopez [facility] 04/28/17 16:05> Nose: moist mucous membranes <CiriloLeah lopez [facility] 04/28/17 16:05> - Routine Neck Exam Absent: JVD, carotid bruit <[facility] 04/28/17 16:05> - Routine Chest/Breast/Axilla Exam Chest wall: Absent: tenderness <CiriloLeah lopez [facility] 04/28/17 16:05> - Routine Respiratory Exam Present: CTA bilaterally. Absent: rales, wheezes <CiriloLeah lopez [facility] 04/28/17 16:05> - Routine Cardiovascular Exam Present: RRR, no murmur. Absent: JVD <Leah Kerr [facility] 04/28/17 16:05> - Routine Abdominal Exam Present: soft, normoactive bowel sounds <CiriloLeah lopez [facility] 04/28/17 16:05> - Routine Extremities Exam Present: edema <CiriloLeah lopez [facility] 04/28/17 16:05> - Routine Skin Exam Present: intact, dry, warm <CiriloLeah lopez [facility] 04/28/17 16:05> - Routine Neurological Exam Present: alert, oriented X3 <Leah Kerr [facility] 04/28/17 16:05> - Routine Psychiatric Exam Present: normal affect, normal thought process <Leah Kerr - 04/28/17 16: 05> Results 04/29/17 04:35 04/29/17 04:35 <TaiJerson - 04/29/17 13:07> Cardiac Enzymes 04/29/17 Range/Units 04:35 AST 35 (17-59) U/L CBC 04/29/17 Range/Units 04:35 WBC 4.3 L (4.5-11.0) T/MM3 RBC 2.35 L (4.50-5.90) M/MM3 Hgb 8.2 L (13.5-17.5) GM/DL Hct 24.9 L (41-53) % Plt Count 47 L (130-400) T/MM3 Neut # 3.4 (1.8-7.7) T/MM3 Lymph # 0.3 L (1-4.8) T/MM3 Pender # 0.3 (0-0.8) T/MM3 Eos # 0.2 (0-0.5) T/MM3 Baso # 0.0 (0-0.2) T/MM3 Comprehensive Metabolic Panel 04/29/17 Range/Units 04:35 Sodium 137 (134-144) MEQ/L Potassium 5.4 H (3.6-5) MEQ/L Chloride 108 H (98-107) MEQ/L Carbon Dioxide 18 L (22-30) MEQ/L BUN 59.0 H* (9-20) MG/DL Creatinine 2.8 H (0.8-1.5) MG/DL Glucose 129 H (75-110) MG/DL Calcium 8.7 (8.4-10.2) MG/DL Unconjugated Bilirubin 1.30 (0.00-11.10) MG/DL AST 35 (17-59) U/L ALT 42 (21-72) U/L Alkaline Phosphatase 87 (38-126) U/L Total Protein 6.1 L (6.3-8.2) G/DL Albumin 2.6 L (3.5-5.0) G/DL Intake and Output 04/28/17 04/29/17 04/29/17 22:59 06:59 14:59 Intake Total 192.13 / 192.13 500.000 / 500.000 100 / 100 Output Total 193 / 193 / Balance -0.87 / -0.87 304.000 / 304.000 Intake: IV 192.13 / 192.13 200.000 / 200.000 100 / 100 Rocephin 1 G In Normal 100 / 100 Saline 100 ml @ 200 mls/ hr IV Q24H [facility] Rx#: [id number] MAG SULF 1gm PREMIX 1 gm 100 / 100 In 100 ml @ 100 mls/hr IV Q1H [facility] Rx#:[id number] MILRINONE DRIP 20 mg In 92.13 / 92.13 100.000 / 100.000 100 / 100 100 ml @ 0.375 MCG/KG/MIN 14.94 mls/hr IV .Q6H42M PRN Rx#:[id number] Oral 300 / 300 Output: Urine Amount (Catheter) Other: Weight 129.2 kg Patient Weight 04/30/17 06:59 Weight 129.2 kg <Jerson Lujan - 04/29/17 13:07> Cardiac Enzymes 04/28/17 Range/Units 04:36 AST 31 (17-59) U/L CBC 04/28/17 Range/Units 04:36 WBC 4.1 L (4.5-11.0) T/MM3 RBC 2.51 L (4.50-5.90) M/MM3 Hgb 8.6 L (13.5-17.5) GM/DL Hct 26.8 L (41-53) % Plt Count 49 L (130-400) T/MM3 Comprehensive Metabolic Panel 04/27/17 04/28/17 Range/Units 16:16 04:36 Sodium 142 138 (134-144) MEQ/L Potassium 5.4 H 5.3 H (3.6-5) MEQ/L Chloride 108 H 110 H (98-107) MEQ/L Carbon Dioxide 22 20 L (22-30) MEQ/L BUN 54.0 H* 56.0 H* (9-20) MG/DL Creatinine 2.9 H 2.9 H (0.8-1.5) MG/DL Glucose 125 H 92 (75-110) MG/DL Calcium 8.9 8.5 (8.4-10.2) MG/DL AST 31 (17-59) U/L ALT 37 (21-72) U/L Alkaline Phosphatase 89 (38-126) U/L Total Protein 6.4 (6.3-8.2) G/DL Albumin 2.5 L (3.5-5.0) G/DL Intake and Output 04/28/17 04/28/17 04/28/17 06:59 14:59 22:59 Intake Total 450 / 450 458 / 458 Output Total 375 / 375 250 / 250 Balance 75 / 75 208 / 208 Intake: IV 100 / 100 MAG SULF 1gm PREMIX 1 gm 100 / 100 In 100 ml @ 100 mls/hr IV Q1H [facility] Rx#:[id number] Oral 450 / 450 358 / 358 Output: Urine Amount (Catheter) 375 / 375 250 / 250 Other: Weight 292 lb 12.382 oz Patient Weight 04/29/17 06:59 Weight 292 lb 12.382 oz <Leah Kerr 04/28/17 16:05> - Imaging and Cardiology Echo: report reviewed <Leah Kerr 04/28/17 16:05> EKG results: image reviewed <Leah Kerr 04/28/17 16:05> Imaging & Cardiology Narrative: Date of Exam: 04/28/17 Ordering Provider: Jax Osborne MD Type of Exam(s): XR chest 2V Reason for Exam(s): Follow up on pulmonary edema INDICATION: Follow up on pulmonary edema PROCEDURE: CHEST 2-VIEWS UPRIGHT (PA & LAT) Encounter: Initial COMPARISON: April 23, 2017 FINDINGS: Right pleural effusion is slightly decreased. There is again a round mass projecting over the right midlung measuring 4 cm in diameter. Small left pleural effusion. No pneumothorax. Bilateral lower lobe airspace disease is improved. Heart size and mediastinal contours are stable. No acute bony changes. Impression: Improving pulmonary edema with slight decrease in pleural effusions. Continued right lung mass that could represent a "pseudotumor" or true mass. 04/28/17 15:54 <Leah Kerr 04/28/17 16:05> - EKG Interpretation EKG: no acute changes <Leah Kerr 04/28/17 16:05> EKG interpretations - Dysrhythmias Sinus rhythms and dysrhythmias: sinus rhythm <Leah Kerr 04/28/17 16:05> - Blocks, axis, hypertrophy, ST abn AV and intraventricular conduction: 1 AV block, left bundle branch block (fixed/ intermittent, complete/incomplete), left anterior fascicular block <Cirilo Leah Milla - 04/28/17 16:05> Assessment and Plan (1) HTN (hypertension) Current visit: No Status: Chronic (2) Type 2 diabetes mellitus Current visit: No Status: Chronic (3) Dyslipidemia Current visit: No Status: Chronic (4) CAD (coronary artery disease) Current visit: No Status: Chronic (5) Obesity (BMI 30-39.9) Current visit: No Status: Chronic (6) Acute kidney injury Current visit: No Status: Acute (7) Acute on chronic systolic (congestive) heart failure Current visit: Yes Status: Acute <MargieivánJerson - 04/29/17 13:07> (1) Acute kidney injury Current visit: No Status: Acute Milrinone 0.375mcg/kg/min drip. Bumex 2mg IV Q8H. Monitor Lytes and renal function. (2) CAD (coronary artery disease) Current visit: No Status: Chronic Severe multivessel coronary artery disease on left heart cath on 03/30/17. PLAN The patient is not a good surgical candidate with multiple severe comorbid problems. Continue medical management given the severity of the coronary artery disease and the location of the lesions which would put him at high risk of having intervention. (3) Dyslipidemia Current visit: No Status: Chronic Continue Lipitor, monitor LFTs due to history of liver disease. (4) HTN (hypertension) Current visit: No Status: Chronic (5) Type 2 diabetes mellitus Current visit: No Status: Chronic per attending (6) Obesity (BMI 30-39.9) Current visit: No Status: Chronic (7) Acute on chronic systolic (congestive) heart failure Current visit: Yes Status: Acute Last ECHO: Date of Exam: 03/26/17 Type of Exam(s): US echo doppler complete DATE OF PROCEDURE March 26, [address] Yair Larkin This is a two-dimensional echo with spectral Doppler, color-flow and M-mode. It was obtained in a patient with chest pain. Left atrium is dilated. Left ventricle end-diastolic dimension is increased. Left ventricle wall thickness is increased. Global hypokinesia is present with ejection fraction of about 30-35%. Right atrium is normal. Right ventricle is normal. Aortic root dimension is normal. Mitral annulus is calcified. Mitral valve leaflets are normal with moderate mitral regurgitation. Aortic valve shows fibrocalcific changes with no stenosis or insufficiency. Pulmonary valve shows no pulmonary insufficiency. There is no pericardial effusion. IMPRESSION 1. Global hypokinesia with ejection fraction of about 30-35%. 2. Left ventricular dilation. 3. Concentric left ventricular hypertrophy. 4. Left atrial dilation. 5. Mitral annulus calcification with moderate mitral regurgitation. 6. Aortic sclerosis. 7. Mild tricuspid regurgitation with normal estimated pulmonary artery systolic pressure of 20. Plan: Milrinone 0.375mcg/kg/min drip. Bumex 2mg IV Q8H. Monitor Lytes and renal function <Leah Kerr - 04/29/17 10:45> - Attestation Attestation Narrative: 04/29/17 13:07 Recommendation After examining the patient I agree with the above assessment. I am involved in the formulation of the patient's plan of care. <Jerson Lujan - 04/29/17 13:07> Hospital Course Summary Disclaimer: The visit summary below is not to be considered part of the above Progress Note. <Jerson Lujan - 04/29/17 13:07> The visit summary below is not to be considered part of the above Progress Note. <Leah Kerr - 04/28/17 16:05> Hospital Course: 04/23/17-admission Admit patient as a inpatient under the care of Dr Kelly for Acute on chronic heart failure, with acute kidney injury and hyperkalemia Given the acute elevation in potassium, accompanied with acute renal failure and creatinine greater than 2.5. He does meet criteria for inpatient admission. Last echocardiogram was on 03/26/17 revealing global hypokinesia with an EF of 30 -35%. Catheterization completed at the beginning of March revealed severe multivessel disease. However, due to patient's severe comorbidities, he is not a surgical candidate for cardiac intervention. Given his elevated d-dimer. We will obtain a VQ scan tomorrow to rule out pulmonary emboli. Will start patient on heparin drip for anticoagulation. Pharmacy consult placed for dosing. Will monitor accu-checks given reported DM Monitor patient on cardiac telemetry. We did review his wishes for advanced directives and he verbalizes that he would like to be initially a full code, however, would not want any long-term prolonging such as ventilator, feeding tube. Home medications will need to be reviewed by attending SCDs to bilateral lower extremity for DVT prophylaxis Will recheck CBC and CMP tomorrow morning to follow blood counts renal function and electrolytes. Scuffs further orders and plan of care with attending, Dr. Kelly. At time of discharge medical care will return to primary care provider, Dr. Bartlett 04/24 VQ scan and lower extremity Doppler both negative for acute thrombus. Heparin drip was discontinued. Continue with Bumex 2 milligrams every 8 hours for diuresis. 04/25/17 Assessment GRACE - Cr still elevated at 2.9; continue reduced dose of Bumex (he is diuresing well). Neomycin dc'd since it can be potentially nephrotoxic. Stone in place. Acute on chronic systolic CHF - continue Bumex as above. Decrease Toprol - HR in low-60s. BP under good control. Anemia, macrocytic - hx of PRBC transfusion during previous hospital stay. 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 Reduce dose of lactulose (consider dc). <Leah Kerr - 04/28/17 16:05> Sepsis Assessment - Evaluation Sepsis screening result: No Definite Risk <Leah Kerr - 04/28/17 16:05>
[2017-04-28] MEDS: MILRINONE DRIP 20 MG/100 ML BAG IV PRN ×2 (16:30→22:40)
[2017-04-28] MEDS ORDERED: BUMETANIDE 2.5mg/10ml INJECTION IVP SCH (21:00)
[2017-04-28] MEDS: ATORVASTATIN 40 MG TABLET PO SCH (21:29)
[2017-04-28] MEDS: ACETAMINOPHEN 325 MG TABLET PO PRN (22:41)
[2017-04-29] MEDS: MORPHINE SULFATE 2 MG SYRINGE IVP PRN ×4 (01:30→20:02)
[2017-04-29] MEDS: CEFTRIAXONE 1 G in NS 100 ML IV SCH (03:37)
[2017-04-29] MEDS: MILRINONE DRIP 20 MG/100 ML BAG IV PRN ×3 (05:42→19:36)
[2017-04-29] MEDS: OMEPRAZOLE 20 MG CAPSULE PO SCH (06:10)
[2017-04-29] MEDS: CALCIUM ACETATE 667 MG CAPSULE PO SCH ×3 (08:39→18:16)
[2017-04-29] MEDS: ASPIRIN *EC* 81 MG TABLET PO SCH (09:11)
[2017-04-29] MEDS: VIT B COMP PO SCH (09:11)
[2017-04-29] MEDS: [UNRECOGNIZED DRUG - OTHER] PO SCH (09:11)
[2017-04-29] MEDS: COENZYME Q-10 200mg TABLET PO SCH (09:11)
[2017-04-29] MEDS: LACTULOSE 20 GM/30 ML ORAL LIQUID PO SCH ×2 (09:11→21:26)
[2017-04-29] MEDS: MAGNESIUM OXIDE 400 MG TABLET PO SCH ×2 (09:11→21:26)
[2017-04-29] MEDS: FOLIC ACID PO SCH (09:11)
--- NOTE | 2017-04-29 10:35 | Progress Note ---
Subjective: Pt states he is feeling well. Last night had abdominal pain and a UA showed hematuria and many WBC. Was placed on Rocephin - Urine culture has been ordered. On Milrinone at the ICU - BB being held. Mentation is normal, he is oriented x 3, conversant. Tolerating well PO. He is very malnourished. Objective Vital signs: Temperature 97.9 F 04/29/17 04:00 Pulse Rate 80 04/29/17 05:15 Respiratory Rate 24 04/29/17 05:15 Blood Pressure 93/52 04/29/17 05:15 Pulse Oximetry 92 04/29/17 05:15 Oxygen Delivery Method Room Air Rhythm: Normal Sinus Rhythm Weight: 129.2 kg - Constitutional Present: no acute distress - Routine HEENT Exam Head: Present: normocephalic, atraumatic Eye: Present: EOMI, PERRL - Routine Respiratory Exam Present: CTA bilaterally - Routine Cardiovascular Exam Present: RRR, S1, S2 - Routine Abdominal Exam Present: soft, non distended, non tender - Routine Extremities Exam Absent: cyanosis, clubbing, edema - Routine Skin Exam Present: intact - Routine Neurological Exam Present: alert, oriented X3, CN II-XII intact - Routine Psychiatric Exam Present: normal affect, cooperative, good insight, good judgment Results - Labs CBC & Chem 7: 04/29/17 04:35 04/29/17 04:35 Assessment and Plan (1) Acute kidney injury Current visit: No Status: Acute (2) Hyperkalemia Current visit: No Status: Acute (3) Acute on chronic heart failure Problem details: Systolic Current visit: Yes Status: Acute (4) Chronic kidney disease (CKD) stage G3a/A2, moderately decreased glomerular filtration rate (GFR) between 45-59 mL/min/1.73 square meter and albuminuria creatinine ratio between 30-299 mg/g Current visit: Yes Status: Chronic Will get a 24 hr urine collection to better estimate once more compensated Assessment and Plan: This is a pt well known to me from a previous admission to us in early March 2017 ; at that time, he was hospitalized for a NSTEMI; he had severe metabolic acidosis, was in the ICU with bicarb drip + Nitrodrip and heparin drip. His Cirrhosis was well compensated: he had no significant ascites to tap, was not significantly coagulopathic and his ammonia was low (and remained low while off Lactulose and oral aminoglycoside). Also he had MSSA bacteremia. He had a cardiac cath that showed non operable CAD. He was D/C in stable condition. Creatinine on D/C was 2.2. He came to the ED, close to his final antibiotic day (for the MSSA) with a rash and was given oral steroids; this resulted in resolution of his rash but then had an episode thought to be pulmonary edema. He has admitted and was diuresed very well and currently off O2 breathing well. His CKD is worse. His BUN/Cr remains high despite having lowered his diuretics and his BB and it has been getting worse. I discussed the case with Cardiology team (Dr Tai Lynn), pt was transfered to the ICU for MIlrinone - if no improvement of his kidney function is seen, will have to refer for evaluation by neprhology for HRS or other renal process. On 04/28 - he was found to have a UTI - with hematuria - so this could have been contributing to his lab abnormalities - pt had no symptoms. DIAGNOSIS - 1) RENAL ASSESSMENT - CKD + GRACE (WORSENING) A) CKD + Acute renal failure, worsening. Pt has advanced CKD with elevated iPTH - 160.3 * (last admission) - Repeat U/S (04/27) - no hydronephrosis. - UA suggestive of UTI - On Rocephin. - PSA DONE VERY LOW 0.1 (last admission) - U/S done early MARCH - showed hydronephrosis - pt was given Flomax - this admission - no hydronephrosis on repeat U/S - On Calcium Acetate for high PO4 B) Acidosis (RTA ?) - Oral bicarb resumed @ 650 mg PO BID -> resumed. C) Hydronephrosis - per U/S done early March - resolved per new U/S (04/27/2017 ). UTI now, will D/C Stone and check PVR - Flomax D/C yesterday. D) Hyperkalemia - K today 5.4 (04/29) stable - will observe for now. E) Hyperphosphatemia - Added Calcium acetate (04/26) . 2) CARDIOVASCULAR ASSESSMENT - A) Congestive heart failure - with pulmonary edema after the NSTEMI (Per CT report - 03/27 - responded very well to diuretics) - and recurrent fluid overload that triggered this admission. Pt on Milrinone drip to see if his renal function improves - this would argue against HRS (Hepato-renal syndrome). - Admission - Weight - 140.5 kg Today's - Weight - 129.2 kg - Toprol XL ON HOLD - 2-D echo (03/26/2017) showed Global hypokinesia with ejection fraction of about 30-35%, concentric LVH with LV dilatation. Mod MR, Aortic sclerosis and mild TR with normal PA pressures. B) RECENT NSTEMI (03/26/2017) - INOPERABLE CAD Pt has had a previous stent. - Pt denies having new episodes of CP, this admission. - Lipitor was resumed on 04/25 - will monitor LFT's C) Hypertension, probably in part due to hyperaldosteronism (Aldosterone level was high - see last admission) - Due to CKD and hyperkalemia will not be able to safely use Aldactone. - Currently BP control is good. 3) Cirrhosis of the liver, with thrombocytopenia, mild coagulopathy, ascites ( minimal), esophageal varices (H/O). Pt apparently had a TIPS procedure in the past. Pt is compensated at present. - Stop oral aminoglycoside - Oral Neomycin has been associated with [place] and nephrotoxicity. - Ammonia increased to 33 - could be related to UTI - Will increase lactulose and Follow Ammonia. A) Hyperbilirrubinemia (1.90) with no elevation of the AST/ALT or Alk Phos - LDH normal - Haptoglobin low (unknown if due to cirrhosis or hemolysis). Check Krysten test B) Thrombocytopenia - PLT has been dropping gradually since admission - from 79K to 47K 4) Type II DM, and obesity - BS control has improved with nutritional deterioration, over the last several years in part due to his CKD. 5) Anemia probably due to inflammation (ACD) but pt may have to be checked for GI bleed. (Had heme + stools). Erythropoietin level was HIGH (last admission) @ 62.7 - Recheck iron studies - may need transfussion again and scopes. - Anemia workup EARLY MARCH - Suggesive of ACD - Iron - 53 (N), TIBC 181 (LOW) , Saturation 29%. B12 is normal @ 464. Was given 2U PRBC early March. 6) Severe protein calorie malnutrition - due to chronic illness (cirrhosis, CKD ) - May consider appetite stimulation with marinol once more stable. Discussed with patient and he agreed. PREVENTION PUD - PPI DVT - SCD Sepsis Assessment - Evaluation Sepsis screening result: No Definite Risk Hospital Course Summary Disclaimer: The visit summary below is not to be considered part of the above Progress Note. Hospital Course: 04/23/17-admission Admit patient as a inpatient under the care of Dr Kelly for Acute on chronic heart failure, with acute kidney injury and hyperkalemia Given the acute elevation in potassium, accompanied with acute renal failure and creatinine greater than 2.5. He does meet criteria for inpatient admission. Last echocardiogram was on 03/26/17 revealing global hypokinesia with an EF of 30 -35%. Catheterization completed at the beginning of March revealed severe multivessel disease. However, due to patient's severe comorbidities, he is not a surgical candidate for cardiac intervention. Given his elevated d-dimer. We will obtain a VQ scan tomorrow to rule out pulmonary emboli. Will start patient on heparin drip for anticoagulation. Pharmacy consult placed for dosing. Will monitor accu-checks given reported DM Monitor patient on cardiac telemetry. We did review his wishes for advanced directives and he verbalizes that he would like to be initially a full code, however, would not want any long-term prolonging such as ventilator, feeding tube. Home medications will need to be reviewed by attending SCDs to bilateral lower extremity for DVT prophylaxis Will recheck CBC and CMP tomorrow morning to follow blood counts renal function and electrolytes. Scuffs further orders and plan of care with attending, Dr. Kelly. At time of discharge medical care will return to primary care provider, Dr. Bartlett 04/24 VQ scan and lower extremity Doppler both negative for acute thrombus. Heparin drip was discontinued. Continue with Bumex 2 milligrams every 8 hours for diuresis. 04/25/17 Assessment GRACE - Cr still elevated at 2.9; continue reduced dose of Bumex (he is diuresing well). Neomycin dc'd since it can be potentially nephrotoxic. Stone in place. Acute on chronic systolic CHF - continue Bumex as above. Decrease Toprol - HR in low-60s. BP under good control. Anemia, macrocytic - hx of PRBC transfusion during previous hospital stay. 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 Reduce dose of lactulose (consider dc).
--- NOTE | 2017-04-29 10:50 | Cardiology Progress Note ---
Subjective Principal diagnosis: dyspnea, peripheral edema <Leah Kerr - 04/29/17 10: 55> Interval history: Dakota is seen in his room in CCU. He denies cardiac complaints. <Leah Kerr 04/29/17 10:55> Exam Vital signs: Temperature 97.9 F 04/29/17 20:00 Pulse Rate 95 04/30/17 06:00 Respiratory Rate 23 04/30/17 05:30 Blood Pressure 97/54 04/30/17 06:00 Pulse Oximetry 94 04/30/17 06:00 Oxygen Delivery Method Room Air <Jerson Lujan - 04/30/17 13:01> Temperature 97.9 F 04/29/17 04:00 Pulse Rate 80 04/29/17 05:15 Respiratory Rate 24 04/29/17 05:15 Blood Pressure 93/52 04/29/17 05:15 Pulse Oximetry 92 04/29/17 05:15 Oxygen Delivery Method Room Air <Leah Kerr 04/29/17 10:55> - Constitutional no acute distress, obese, cooperative <Leah Kerr 04/29/17 10:55> - Routine HEENT Exam Head: Present: normocephalic <Leah Kerr 04/29/17 10:55> - Routine Neck Exam Absent: JVD, carotid bruit <Leah Kerr 04/29/17 10:55> - Routine Chest/Breast/Axilla Exam Chest wall: Absent: tenderness <Leah Kerr 04/29/17 10:55> - Routine Respiratory Exam Present: CTA bilaterally. Absent: rales, wheezes <Leah Kerr 04/29/17 10:55> - Routine Cardiovascular Exam Present: RRR, no murmur. Absent: JVD <CiriloLeah Loyola 04/29/17 10:55> - Routine Abdominal Exam Present: soft, normoactive bowel sounds <CiriloLeah Loyola 04/29/17 10:55> - Routine Extremities Exam Present: no edema <CiriloLeah Loyola 04/29/17 10:55> - Routine Skin Exam Present: intact, dry, warm <CiriloLeah Loyola 04/29/17 10:55> - Routine Neurological Exam Present: alert, oriented X3 <Leah Kerr - 04/29/17 10:55> - Routine Psychiatric Exam Present: normal affect, normal thought process <Leah Kerr - 04/29/17 10: 55> - Urinary Catheter Management Urethral Cath placed during this visit: no <Allyssa Lujanin - 04/30/17 13:01> yes <CiriloLeah Milla - 04/30/17 10:54> Urethral indwelling: Yes <Cirilo,Leah Loyola - 04/30/17 10:54> Reason for continuing: Accurate I&O/Aggressive Diuresis <CiriloLeah Milla 12/12 10:54> Insertion date: 04/23/17 <CiriloLeah Milla 04/29/17 10:55> Insertion time: 19:56 <Leah Kerr - 04/29/17 10:55> Progress Note-A&P (1) HTN (hypertension) Status: Chronic Current Visit: No (2) Type 2 diabetes mellitus Status: Chronic Current Visit: No (3) Dyslipidemia Status: Chronic Current Visit: No (4) CAD (coronary artery disease) Status: Chronic Current Visit: No (5) Obesity (BMI 30-39.9) Status: Chronic Current Visit: No (6) Acute kidney injury Status: Acute Current Visit: No (7) Acute on chronic systolic (congestive) heart failure Status: Acute Current Visit: Yes <Jerson Lujan - 04/30/17 13:01> (1) Acute kidney injury Status: Acute Assessment and plan: Low U/O, Stop Bumex. Repeat BMP this afternoon Current Visit: No (2) CAD (coronary artery disease) Status: Chronic Assessment and plan: Severe multivessel coronary artery disease on left heart cath on 03/30/17. PLAN The patient is not a good surgical candidate with multiple severe comorbid problems. Continue medical management given the severity of the coronary artery disease and the location of the lesions which would put him at high risk of having intervention. Current Visit: No (3) Dyslipidemia Status: Chronic Current Visit: No (4) HTN (hypertension) Status: Chronic Assessment and plan: borderline hypotensive today. Current Visit: No (5) Type 2 diabetes mellitus Status: Chronic Current Visit: No (6) Obesity (BMI 30-39.9) Status: Chronic Current Visit: No (7) Acute on chronic systolic (congestive) heart failure Status: Acute Assessment and plan: Stopped Bumex, will check BNP at 1600 Current Visit: Yes <Leah Kerr 04/30/17 10:49> - Time Spent With Patient Total time spent is greater than 50% in coordination of care (as documented) at patient's floor/unit and/or counseling patient: <Jerson Lujan - 04/30/17 13:01> Total time spent is greater than 50% in coordination of care (as documented) at patient's floor/unit and/or counseling patient: <Leah Kerr 04/29/17 10:55> less than 15 minutes <Leah Kerr 04/29/17 10:55> - Attestation Attestation Narrative: Recommendation After examining the patient I agree with the above assessment. I am involved in the formulation of the patient's plan of care. <Jerson Lujan - 04/30/17 13:01> Sepsis Assessment - Evaluation Sepsis screening result: No Definite Risk <Leah Kerr 04/29/17 10:55> Hospital Course Summary Disclaimer: The visit summary below is not to be considered part of the above Progress Note. <Jerson Lujan - 04/30/17 13:01> The visit summary below is not to be considered part of the above Progress Note. <Leah Kerr 04/29/17 10:55> Hospital Course: 04/23/17-admission Admit patient as a inpatient under the care of Dr Kelly for Acute on chronic heart failure, with acute kidney injury and hyperkalemia Given the acute elevation in potassium, accompanied with acute renal failure and creatinine greater than 2.5. He does meet criteria for inpatient admission. Last echocardiogram was on 03/26/17 revealing global hypokinesia with an EF of 30 -35%. Catheterization completed at the beginning of March revealed severe multivessel disease. However, due to patient's severe comorbidities, he is not a surgical candidate for cardiac intervention. Given his elevated d-dimer. We will obtain a VQ scan tomorrow to rule out pulmonary emboli. Will start patient on heparin drip for anticoagulation. Pharmacy consult placed for dosing. Will monitor accu-checks given reported DM Monitor patient on cardiac telemetry. We did review his wishes for advanced directives and he verbalizes that he would like to be initially a full code, however, would not want any long-term prolonging such as ventilator, feeding tube. Home medications will need to be reviewed by attending SCDs to bilateral lower extremity for DVT prophylaxis Will recheck CBC and CMP tomorrow morning to follow blood counts renal function and electrolytes. Scuffs further orders and plan of care with attending, Dr. Kelly. At time of discharge medical care will return to primary care provider, Dr. Bartlett 04/24 VQ scan and lower extremity Doppler both negative for acute thrombus. Heparin drip was discontinued. Continue with Bumex 2 milligrams every 8 hours for diuresis. 04/25/17 Assessment GRACE - Cr still elevated at 2.9; continue reduced dose of Bumex (he is diuresing well). Neomycin dc'd since it can be potentially nephrotoxic. Stone in place. Acute on chronic systolic CHF - continue Bumex as above. Decrease Toprol - HR in low-60s. BP under good control. Anemia, macrocytic - hx of PRBC transfusion during previous hospital stay. 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 Reduce dose of lactulose (consider dc). 04/29/17 Stop Bumex. Continue milrinone drip. Repeat BMP at 1600 with BNP. <Leah Kerr - 04/30/17 10:54>
[2017-04-29] MEDS: INSULIN ASPART 100unit/ml INJECTION SQ PRN ×3 (11:12→21:25)
[2017-04-29] MEDS: ACETAMINOPHEN 325 MG TABLET PO PRN ×2 (12:12→22:29)
[2017-04-29] MEDS ORDERED: ONDANSETRON 4 MG/2 ML INJECTION IVP PRN (20:49)
[2017-04-29] MEDS: HYDROMORPHONE 2 MG/ML INJECTION IVP PRN ×2 (20:59→23:29)
[2017-04-29] MEDS: SODIUM BICARBONATE 650 MG TABLET PO SCH (21:26)
[2017-04-29] MEDS ORDERED: TAMSULOSIN 0.4 MG CAPSULE PO SCH (22:00)
[2017-04-29] MEDS: ATORVASTATIN 40 MG TABLET PO SCH (22:41)
[2017-04-30] MEDS: MILRINONE DRIP 20 MG/100 ML BAG IV PRN ×3 (02:34→16:55)
[2017-04-30] MEDS: CEFTRIAXONE 1 G in NS 100 ML IV SCH (04:45)
[2017-04-30] MEDS: OMEPRAZOLE 20 MG CAPSULE PO SCH (06:24)
[2017-04-30] MEDS: INSULIN ASPART 100unit/ml INJECTION SQ PRN ×3 (06:27→20:01)
[2017-04-30] MEDS ORDERED: MAGNESIUM CITRATE 296ml PO ONE (06:30)
[2017-04-30] MEDS: LACTULOSE 20 GM/30 ML ORAL LIQUID PO SCH ×2 (08:36→22:31)
[2017-04-30] MEDS: MAGNESIUM OXIDE 400 MG TABLET PO SCH ×2 (08:37→22:32)
[2017-04-30] MEDS: ASPIRIN *EC* 81 MG TABLET PO SCH (08:37)
[2017-04-30] MEDS: FOLIC ACID PO SCH (08:37)
[2017-04-30] MEDS: VIT B COMP PO SCH (08:37)
[2017-04-30] MEDS: COENZYME Q-10 200mg TABLET PO SCH (08:37)
[2017-04-30] MEDS: [UNRECOGNIZED DRUG - OTHER] PO SCH (08:37)
[2017-04-30] MEDS: SODIUM BICARBONATE 650 MG TABLET PO SCH ×2 (08:38→22:31)
[2017-04-30] MEDS: CALCIUM ACETATE 667 MG CAPSULE PO SCH ×3 (08:39→19:24)
[2017-04-30] MEDS: HYDROMORPHONE 2 MG/ML INJECTION IVP PRN ×3 (10:47→18:24)
--- NOTE | 2017-04-30 11:25 | Cardiology Progress Note ---
Subjective Principal diagnosis: dyspnea, peripheral edema <Leah Kerr - 04/30/17 11: 25> Interval history: Dakota is seen in his room in CCU. He is in the recliner and states he spent much of the night there. He reports some abdominal pain earlier which has resolved with pain medication. He denies chest pain or pressure, palpitations or dyspnea. <Leah Kerr - 05/01/17 13:14> Exam Vital signs: Temperature 97.8 F 05/01/17 06:00 Pulse Rate 96 05/01/17 13:15 Respiratory Rate 32 H 05/01/17 13:15 Blood Pressure 154/65 H 05/01/17 13:15 Pulse Oximetry 97 05/01/17 13:15 Oxygen Delivery Method Room Air <Jerson Lujan - 05/04/17 15:59> Temperature 97.9 F 04/29/17 20:00 Pulse Rate 95 04/30/17 06:00 Respiratory Rate 23 04/30/17 05:30 Blood Pressure 97/54 04/30/17 06:00 Pulse Oximetry 94 04/30/17 06:00 Oxygen Delivery Method Room Air <Leah Kerr - 04/30/17 11:25> - Constitutional no acute distress, obese, cooperative <Leah Kerr 04/30/17 11:55> - Routine HEENT Exam Head: Present: normocephalic <Leah Kerr 04/30/17 11:55> - Routine Neck Exam Absent: JVD, carotid bruit <Leah Kerr 04/30/17 11:55> - Routine Chest/Breast/Axilla Exam Chest wall: Absent: tenderness <Leah Kerr 04/30/17 11:55> - Routine Respiratory Exam Present: CTA bilaterally. Absent: rales, wheezes <Leah Kerr 04/30/17 11:55> - Routine Cardiovascular Exam Present: murmur, tachycardia. Absent: JVD <Leah Kerr 04/30/17 11:55> - Routine Abdominal Exam Present: soft, normoactive bowel sounds <Leah Kerr 04/30/17 11:55> - Routine Extremities Exam Present: edema <Leah Kerr 04/30/17 11:55> - Routine Skin Exam Present: intact, erythema (right arm) <Leah Kerr - 04/30/17 11:55> - Routine Neurological Exam Present: alert, oriented X3 <Leah Kerr - 04/30/17 11:55> - Routine Psychiatric Exam Present: normal affect, normal thought process <Leah Kerr - 04/30/17 11: 55> - Additional findings Additional findings: Laboratory Tests 04/23/17 04/23/17 04/23/17 15:09 15:09 15:09 WBC 7.5 RBC 2.81 L Hgb 9.9 L Hct 30.5 L MCV 108.5 H MCH 35.2 H MCHC 32.5 RDW Std Deviation 67.1 H Plt Count 79 L MPV 11.7 Immature Gran % (Auto) 0.5 Neut % (Auto) 81.8 H Lymph % (Auto) 6.7 L [place] % (Auto) 7.1 Eos % (Auto) 3.1 Baso % (Auto) 0.8 Neut # 6.1 Lymph # 0.5 L [place] # 0.5 Eos # 0.2 Baso # 0.1 Abs Immat Gran (auto) 0.04 H Neutrophils % (Manual) Band Neutrophils % Lymphocytes % (Manual) Monocytes % (Manual) Eosinophils % (Manual) Neutrophils # (Manual) Band Neutrophils # Lymphocytes # (Manual) Monocytes # (Manual) Eosinophils # (Manual) Poikilocytosis Anisocytosis Macrocytosis Tear Drop Cells [place] Cells RBC Morph Comment Haptoglobin INR APTT D-Dimer 2356 H Turbidity < 20 Sodium 138 Potassium 5.6 H Chloride 113 H Carbon Dioxide 15 L Anion Gap 10 BUN 42.0 H Creatinine 2.8 H GFR Calculation 23 BUN/Creatinine Ratio 15 Glucose 163 H Glucometer Calculated Osmolality 281 H Calcium 8.5 Phosphorus Magnesium Iron TIBC % Saturation Total Bilirubin 1.40 H Conjugated Bilirubin Unconjugated Bilirubin Icterus Index < 2 AST 30 ALT 35 Alkaline Phosphatase 154 H Ammonia Lactate Dehydrogenase Creatine Kinase Troponin I 0.017 B-Natriuretic Peptide 7170 H Total Protein 7.4 Albumin 3.1 L Globulin 4.3 H Albumin/Globulin Ratio 0.7 L Plasma Lactate Vitamin B12 Procalcitonin Specimen Hemolysis < 15 Ur Collection Type Urine Color Urine Clarity Urine pH Ur Specific [place] Urine Protein Urine Glucose (UA) Urine Ketones Urine Occult Blood Urine Nitrate Urine Bilirubin Urine Urobilinogen Ur Leukocyte Esterase Urine RBC Urine WBC Urine Bacteria Urine Yeast Ur Culture Indicated? Urinalysis Comment Urine Eosinophils Ur Random Creatinine Ur Random Sodium Stool Occult Blood Specimen Comment Tests Not Done Reason Tests Not Done Blood Type Antibody Screen KRISTINA C3b, C3d 5 Min Crossmatch ([facility]) Blood Product Request 04/23/17 04/23/17 04/23/17 15:09 19:32 19:40 WBC RBC Hgb Hct MCV MCH MCHC RDW Std Deviation Plt Count MPV Immature Gran % (Auto) Neut % (Auto) Lymph % (Auto) [place] % (Auto) Eos % (Auto) Baso % (Auto) Neut # Lymph # [place] # Eos # Baso # Abs Immat Gran (auto) Neutrophils % (Manual) Band Neutrophils % Lymphocytes % (Manual) Monocytes % (Manual) Eosinophils % (Manual) Neutrophils # (Manual) Band Neutrophils # Lymphocytes # (Manual) Monocytes # (Manual) Eosinophils # (Manual) Poikilocytosis Anisocytosis Macrocytosis Tear Drop Cells [place] Cells RBC Morph Comment Haptoglobin INR APTT 29.8 D-Dimer Turbidity Sodium Potassium Chloride Carbon Dioxide Anion Gap BUN Creatinine GFR Calculation BUN/Creatinine Ratio Glucose Glucometer Calculated Osmolality Calcium Phosphorus Magnesium Iron TIBC % Saturation Total Bilirubin Conjugated Bilirubin Unconjugated Bilirubin Icterus Index AST ALT Alkaline Phosphatase Ammonia Lactate Dehydrogenase Creatine Kinase Troponin I 0.016 B-Natriuretic Peptide Total Protein Albumin Globulin Albumin/Globulin Ratio Plasma Lactate Vitamin B12 Procalcitonin Specimen Hemolysis < 15 Ur Collection Type Urine, clean catch Urine Color Yellow Urine Clarity Clear Urine pH 5.5 Ur Specific [place] 1.020 Urine Protein Negative Urine Glucose (UA) Negative Urine Ketones Negative Urine Occult Blood Negative Urine Nitrate Negative Urine Bilirubin Negative Urine Urobilinogen 0.2 Ur Leukocyte Esterase Negative Urine RBC Urine WBC Urine Bacteria Urine Yeast Ur Culture Indicated? Urinalysis Comment Microscopic not ind. Urine Eosinophils Ur Random Creatinine Ur Random Sodium Stool Occult Blood Specimen Comment Tests Not Done Reason Tests Not Done Blood Type Antibody Screen KRISTINA C3b, C3d 5 Min Crossmatch ([facility]) Blood Product Request 04/23/17 04/24/17 04/24/17 20:17 04:40 04:40 WBC 6.4 RBC 2.64 L Hgb 9.0 L Hct 28.5 L MCV 108.0 H MCH 34.1 H MCHC 31.6 RDW Std Deviation 65.4 H Plt Count 67 L MPV 12.1 Immature Gran % (Auto) 0.3 Neut % (Auto) 82.1 H Lymph % (Auto) 7.0 L [place] % (Auto) 6.7 Eos % (Auto) 3.4 Baso % (Auto) 0.5 Neut # 5.2 Lymph # 0.5 L [place] # 0.4 Eos # 0.2 Baso # 0.0 Abs Immat Gran (auto) 0.02 Neutrophils % (Manual) Band Neutrophils % Lymphocytes % (Manual) Monocytes % (Manual) Eosinophils % (Manual) Neutrophils # (Manual) Band Neutrophils # Lymphocytes # (Manual) Monocytes # (Manual) Eosinophils # (Manual) Poikilocytosis Anisocytosis Macrocytosis Tear Drop Cells [place] Cells RBC Morph Comment Haptoglobin INR APTT D-Dimer Turbidity < 20 Sodium 138 Potassium 5.3 H Chloride 113 H Carbon Dioxide 16 L Anion Gap 9 BUN 45.0 H Creatinine 2.9 H GFR Calculation 22 BUN/Creatinine Ratio 16 Glucose 130 H Glucometer 219 Calculated Osmolality 280 Calcium 8.6 Phosphorus 5.7 H Magnesium 2.0 Iron TIBC % Saturation Total Bilirubin 1.50 H Conjugated Bilirubin Unconjugated Bilirubin Icterus Index < 2 AST 28 ALT 31 Alkaline Phosphatase 112 D Ammonia Lactate Dehydrogenase Creatine Kinase Troponin I B-Natriuretic Peptide Total Protein 6.5 Albumin 2.7 L Globulin 3.8 H Albumin/Globulin Ratio 0.7 L Plasma Lactate Vitamin B12 Procalcitonin Specimen Hemolysis < 15 Ur Collection Type Urine Color Urine Clarity Urine pH Ur Specific [place] Urine Protein Urine Glucose (UA) Urine Ketones Urine Occult Blood Urine Nitrate Urine Bilirubin Urine Urobilinogen Ur Leukocyte Esterase Urine RBC Urine WBC Urine Bacteria Urine Yeast Ur Culture Indicated? Urinalysis Comment Urine Eosinophils Ur Random Creatinine Ur Random Sodium Stool Occult Blood Specimen Comment Tests Not Done Reason Tests Not Done Blood Type Antibody Screen KRISTINA C3b, C3d 5 Min Crossmatch ([facility]) Blood Product Request 04/24/17 04/24/17 04/24/17 05:58 07:14 07:15 WBC RBC Hgb Hct MCV MCH MCHC RDW Std Deviation Plt Count MPV Immature Gran % (Auto) Neut % (Auto) Lymph % (Auto) [place] % (Auto) Eos % (Auto) Baso % (Auto) Neut # Lymph # [place] # Eos # Baso # Abs Immat Gran (auto) Neutrophils % (Manual) Band Neutrophils % Lymphocytes % (Manual) Monocytes % (Manual) Eosinophils % (Manual) Neutrophils # (Manual) Band Neutrophils # Lymphocytes # (Manual) Monocytes # (Manual) Eosinophils # (Manual) Poikilocytosis Anisocytosis Macrocytosis Tear Drop Cells [place] Cells RBC Morph Comment Haptoglobin INR APTT > 200.0 H* D-Dimer Turbidity Sodium Potassium Chloride Carbon Dioxide Anion Gap BUN Creatinine GFR Calculation BUN/Creatinine Ratio Glucose Glucometer 128 Calculated Osmolality Calcium Phosphorus Magnesium Iron TIBC % Saturation Total Bilirubin Conjugated Bilirubin Unconjugated Bilirubin Icterus Index AST ALT Alkaline Phosphatase Ammonia Lactate Dehydrogenase Creatine Kinase Troponin I B-Natriuretic Peptide Total Protein Albumin Globulin Albumin/Globulin Ratio Plasma Lactate Vitamin B12 Procalcitonin Specimen Hemolysis Ur Collection Type Urine Color Urine Clarity Urine pH Ur Specific [place] Urine Protein Urine Glucose (UA) Urine Ketones Urine Occult Blood Urine Nitrate Urine Bilirubin Urine Urobilinogen Ur Leukocyte Esterase Urine RBC Urine WBC Urine Bacteria Urine Yeast Ur Culture Indicated? Urinalysis Comment Urine Eosinophils Ur Random Creatinine Ur Random Sodium Stool Occult Blood Specimen Comment Lab to recollect Tests Not Done Ptt Reason Tests Not Done Contaminated Blood Type Antibody Screen KRISTINA C3b, C3d 5 Min Crossmatch ([facility]) Blood Product Request 04/24/17 04/24/17 04/24/17 07:15 10:01 14:59 WBC RBC Hgb Hct MCV MCH MCHC RDW Std Deviation Plt Count MPV Immature Gran % (Auto) Neut % (Auto) Lymph % (Auto) [place] % (Auto) Eos % (Auto) Baso % (Auto) Neut # Lymph # [place] # Eos # Baso # Abs Immat Gran (auto) Neutrophils % (Manual) Band Neutrophils % Lymphocytes % (Manual) Monocytes % (Manual) Eosinophils % (Manual) Neutrophils # (Manual) Band Neutrophils # Lymphocytes # (Manual) Monocytes # (Manual) Eosinophils # (Manual) Poikilocytosis Anisocytosis Macrocytosis Tear Drop Cells [place] Cells RBC Morph Comment Haptoglobin INR 1.40 H APTT D-Dimer Turbidity Sodium Potassium Chloride Carbon Dioxide Anion Gap BUN Creatinine GFR Calculation BUN/Creatinine Ratio Glucose Glucometer 178 187 Calculated Osmolality Calcium Phosphorus Magnesium Iron TIBC % Saturation Total Bilirubin Conjugated Bilirubin Unconjugated Bilirubin Icterus Index AST ALT Alkaline Phosphatase Ammonia Lactate Dehydrogenase Creatine Kinase Troponin I B-Natriuretic Peptide Total Protein Albumin Globulin Albumin/Globulin Ratio Plasma Lactate Vitamin B12 Procalcitonin Specimen Hemolysis Ur Collection Type Urine Color Urine Clarity Urine pH Ur Specific [place] Urine Protein Urine Glucose (UA) Urine Ketones Urine Occult Blood Urine Nitrate Urine Bilirubin Urine Urobilinogen Ur Leukocyte Esterase Urine RBC Urine WBC Urine Bacteria Urine Yeast Ur Culture Indicated? Urinalysis Comment Urine Eosinophils Ur Random Creatinine Ur Random Sodium Stool Occult Blood Specimen Comment Tests Not Done Reason Tests Not Done Blood Type Antibody Screen KRISTINA C3b, C3d 5 Min Crossmatch ([facility]) Blood Product Request 04/24/17 04/25/17 04/25/17 20:01 04:37 04:37 WBC 5.5 RBC 2.53 L Hgb 8.7 L Hct 27.3 L MCV 107.9 H MCH 34.4 H MCHC 31.9 RDW Std Deviation 65.1 H Plt Count 66 L MPV 11.7 Immature Gran % (Auto) Neut % (Auto) Lymph % (Auto) [place] % (Auto) Eos % (Auto) Baso % (Auto) Neut # Lymph # [place] # Eos # Baso # Abs Immat Gran (auto) Neutrophils % (Manual) Band Neutrophils % Lymphocytes % (Manual) Monocytes % (Manual) Eosinophils % (Manual) Neutrophils # (Manual) Band Neutrophils # Lymphocytes # (Manual) Monocytes # (Manual) Eosinophils # (Manual) Poikilocytosis Anisocytosis Macrocytosis Tear Drop Cells [place] Cells RBC Morph Comment Haptoglobin INR APTT D-Dimer Turbidity < 20 Sodium 138 Potassium 5.3 H Chloride 112 H Carbon Dioxide 16 L Anion Gap 10 BUN 48.0 H Creatinine 2.9 H GFR Calculation 22 BUN/Creatinine Ratio 17 Glucose 95 Glucometer 172 Calculated Osmolality 279 Calcium 8.6 Phosphorus 5.1 H Magnesium 1.8 Iron TIBC % Saturation Total Bilirubin Conjugated Bilirubin Unconjugated Bilirubin Icterus Index < 2 AST ALT Alkaline Phosphatase Ammonia Lactate Dehydrogenase Creatine Kinase Troponin I B-Natriuretic Peptide Total Protein Albumin 2.6 L Globulin Albumin/Globulin Ratio Plasma Lactate Vitamin B12 Procalcitonin Specimen Hemolysis < 15 Ur Collection Type Urine Color Urine Clarity Urine pH Ur Specific [place] Urine Protein Urine Glucose (UA) Urine Ketones Urine Occult Blood Urine Nitrate Urine Bilirubin Urine Urobilinogen Ur Leukocyte Esterase Urine RBC Urine WBC Urine Bacteria Urine Yeast Ur Culture Indicated? Urinalysis Comment Urine Eosinophils Ur Random Creatinine Ur Random Sodium Stool Occult Blood Specimen Comment Tests Not Done Reason Tests Not Done Blood Type Antibody Screen KRISTINA C3b, C3d 5 Min Crossmatch ([facility]) Blood Product Request 04/25/17 04/25/17 04/25/17 06:24 09:39 11:00 WBC RBC Hgb Hct MCV MCH MCHC RDW Std Deviation Plt Count MPV Immature Gran % (Auto) Neut % (Auto) Lymph % (Auto) [place] % (Auto) Eos % (Auto) Baso % (Auto) Neut # Lymph # [place] # Eos # Baso # Abs Immat Gran (auto) Neutrophils % (Manual) Band Neutrophils % Lymphocytes % (Manual) Monocytes % (Manual) Eosinophils % (Manual) Neutrophils # (Manual) Band Neutrophils # Lymphocytes # (Manual) Monocytes # (Manual) Eosinophils # (Manual) Poikilocytosis Anisocytosis Macrocytosis Tear Drop Cells [place] Cells RBC Morph Comment Haptoglobin INR APTT D-Dimer Turbidity < 20 Sodium Potassium Chloride Carbon Dioxide Anion Gap BUN Creatinine GFR Calculation BUN/Creatinine Ratio Glucose Glucometer 93 192 Calculated Osmolality Calcium Phosphorus Magnesium Iron TIBC % Saturation Total Bilirubin 1.80 H Conjugated Bilirubin 0.00 Unconjugated Bilirubin 1.50 Icterus Index < 2 AST 33 ALT 37 Alkaline Phosphatase 95 Ammonia < 9 L Lactate Dehydrogenase Creatine Kinase 30 L Troponin I B-Natriuretic Peptide Total Protein 6.6 Albumin 2.7 L Globulin 3.9 H Albumin/Globulin Ratio 0.7 L Plasma Lactate Vitamin B12 Procalcitonin Specimen Hemolysis < 15 Ur Collection Type Urine Color Urine Clarity Urine pH Ur Specific [place] Urine Protein Urine Glucose (UA) Urine Ketones Urine Occult Blood Urine Nitrate Urine Bilirubin Urine Urobilinogen Ur Leukocyte Esterase Urine RBC Urine WBC Urine Bacteria Urine Yeast Ur Culture Indicated? Urinalysis Comment Urine Eosinophils Ur Random Creatinine Ur Random Sodium Stool Occult Blood Specimen Comment Tests Not Done Reason Tests Not Done Blood Type Antibody Screen KRISTINA C3b, C3d 5 Min Crossmatch ([facility]) Blood Product Request 04/25/17 04/26/17 04/26/17 20:05 04:25 04:25 WBC RBC Hgb Hct MCV MCH MCHC RDW Std Deviation Plt Count MPV Immature Gran % (Auto) Neut % (Auto) Lymph % (Auto) [place] % (Auto) Eos % (Auto) Baso % (Auto) Neut # Lymph # [place] # Eos # Baso # Abs Immat Gran (auto) Neutrophils % (Manual) Band Neutrophils % Lymphocytes % (Manual) Monocytes % (Manual) Eosinophils % (Manual) Neutrophils # (Manual) Band Neutrophils # Lymphocytes # (Manual) Monocytes # (Manual) Eosinophils # (Manual) Poikilocytosis Anisocytosis Macrocytosis Tear Drop Cells [place] Cells RBC Morph Comment Haptoglobin INR APTT D-Dimer Turbidity Sodium Potassium Chloride Carbon Dioxide Anion Gap BUN Creatinine GFR Calculation BUN/Creatinine Ratio Glucose Glucometer 146 Calculated Osmolality Calcium Phosphorus Magnesium Iron 68 TIBC 245 L % Saturation 28 Total Bilirubin Conjugated Bilirubin Unconjugated Bilirubin Icterus Index AST ALT Alkaline Phosphatase Ammonia Lactate Dehydrogenase Creatine Kinase Troponin I B-Natriuretic Peptide Total Protein Albumin Globulin Albumin/Globulin Ratio Plasma Lactate Vitamin B12 918 Procalcitonin Specimen Hemolysis Ur Collection Type Urine Color Urine Clarity Urine pH Ur Specific [place] Urine Protein Urine Glucose (UA) Urine Ketones Urine Occult Blood Urine Nitrate Urine Bilirubin Urine Urobilinogen Ur Leukocyte Esterase Urine RBC Urine WBC Urine Bacteria Urine Yeast Ur Culture Indicated? Urinalysis Comment Urine Eosinophils Ur Random Creatinine Ur Random Sodium Stool Occult Blood Specimen Comment Tests Not Done Reason Tests Not Done Blood Type Antibody Screen KRISTINA C3b, C3d 5 Min Crossmatch ([facility]) Blood Product Request 04/26/17 04/26/17 04/26/17 04:25 04:25 04:26 WBC 4.8 RBC 2.52 L Hgb 8.6 L Hct 27.1 L MCV 107.5 H MCH 34.1 H MCHC 31.7 RDW Std Deviation 65.3 H Plt Count 58 L MPV 12.0 Immature Gran % (Auto) 0.2 Neut % (Auto) 79.1 H Lymph % (Auto) 8.8 L [place] % (Auto) 7.1 Eos % (Auto) 4.2 H Baso % (Auto) 0.6 Neut # 3.8 Lymph # 0.4 L [place] # 0.3 Eos # 0.2 Baso # 0.0 Abs Immat Gran (auto) 0.01 Neutrophils % (Manual) Band Neutrophils % Lymphocytes % (Manual) Monocytes % (Manual) Eosinophils % (Manual) Neutrophils # (Manual) Band Neutrophils # Lymphocytes # (Manual) Monocytes # (Manual) Eosinophils # (Manual) Poikilocytosis Anisocytosis Macrocytosis Tear Drop Cells [place] Cells RBC Morph Comment Haptoglobin INR APTT D-Dimer Turbidity Sodium Potassium Chloride Carbon Dioxide Anion Gap BUN Creatinine GFR Calculation BUN/Creatinine Ratio Glucose Glucometer Calculated Osmolality Calcium Phosphorus Magnesium Iron TIBC % Saturation Total Bilirubin Conjugated Bilirubin Unconjugated Bilirubin Icterus Index AST ALT Alkaline Phosphatase Ammonia Lactate Dehydrogenase 437 Creatine Kinase Troponin I B-Natriuretic Peptide 6730 H Total Protein Albumin Globulin Albumin/Globulin Ratio Plasma Lactate Vitamin B12 Procalcitonin Specimen Hemolysis Ur Collection Type Urine Color Urine Clarity Urine pH Ur Specific [place] Urine Protein Urine Glucose (UA) Urine Ketones Urine Occult Blood Urine Nitrate Urine Bilirubin Urine Urobilinogen Ur Leukocyte Esterase Urine RBC Urine WBC Urine Bacteria Urine Yeast Ur Culture Indicated? Urinalysis Comment Urine Eosinophils Ur Random Creatinine Ur Random Sodium Stool Occult Blood Specimen Comment Tests Not Done Reason Tests Not Done Blood Type Antibody Screen KRISTINA C3b, C3d 5 Min Crossmatch ([facility]) Blood Product Request 04/26/17 04/26/17 04/26/17 04:26 06:16 10:05 WBC RBC Hgb Hct MCV MCH MCHC RDW Std Deviation Plt Count MPV Immature Gran % (Auto) Neut % (Auto) Lymph % (Auto) [place] % (Auto) Eos % (Auto) Baso % (Auto) Neut # Lymph # [place] # Eos # Baso # Abs Immat Gran (auto) Neutrophils % (Manual) Band Neutrophils % Lymphocytes % (Manual) Monocytes % (Manual) Eosinophils % (Manual) Neutrophils # (Manual) Band Neutrophils # Lymphocytes # (Manual) Monocytes # (Manual) Eosinophils # (Manual) Poikilocytosis Anisocytosis Macrocytosis Tear Drop Cells [place] Cells RBC Morph Comment Haptoglobin INR APTT D-Dimer Turbidity < 20 Sodium 139 Potassium 5.2 H Chloride 111 H Carbon Dioxide 18 L Anion Gap 10 BUN 51.0 H* Creatinine 2.9 H GFR Calculation 22 BUN/Creatinine Ratio 18 Glucose 94 Glucometer 103 158 Calculated Osmolality 282 H Calcium 8.8 Phosphorus 5.0 H Magnesium 1.7 Iron TIBC % Saturation Total Bilirubin 1.50 H Conjugated Bilirubin 0.00 Unconjugated Bilirubin 1.30 Icterus Index < 2 AST 28 ALT 37 Alkaline Phosphatase 94 Ammonia Lactate Dehydrogenase Creatine Kinase Troponin I B-Natriuretic Peptide Total Protein 6.2 L Albumin 2.6 L Globulin 3.6 Albumin/Globulin Ratio 0.7 L Plasma Lactate Vitamin B12 Procalcitonin Specimen Hemolysis < 15 Ur Collection Type Urine Color Urine Clarity Urine pH Ur Specific [place] Urine Protein Urine Glucose (UA) Urine Ketones Urine Occult Blood Urine Nitrate Urine Bilirubin Urine Urobilinogen Ur Leukocyte Esterase Urine RBC Urine WBC Urine Bacteria Urine Yeast Ur Culture Indicated? Urinalysis Comment Urine Eosinophils Ur Random Creatinine Ur Random Sodium Stool Occult Blood Specimen Comment Tests Not Done Reason Tests Not Done Blood Type Antibody Screen KRISTINA C3b, C3d 5 Min Crossmatch ([facility]) Blood Product Request 04/26/17 04/26/17 04/26/17 14:04 14:16 20:27 WBC RBC Hgb Hct MCV MCH MCHC RDW Std Deviation Plt Count MPV Immature Gran % (Auto) Neut % (Auto) Lymph % (Auto) [place] % (Auto) Eos % (Auto) Baso % (Auto) Neut # Lymph # [place] # Eos # Baso # Abs Immat Gran (auto) Neutrophils % (Manual) Band Neutrophils % Lymphocytes % (Manual) Monocytes % (Manual) Eosinophils % (Manual) Neutrophils # (Manual) Band Neutrophils # Lymphocytes # (Manual) Monocytes # (Manual) Eosinophils # (Manual) Poikilocytosis Anisocytosis Macrocytosis Tear Drop Cells [place] Cells RBC Morph Comment Haptoglobin INR APTT D-Dimer Turbidity Sodium Potassium Chloride Carbon Dioxide Anion Gap BUN Creatinine GFR Calculation BUN/Creatinine Ratio Glucose Glucometer 253 200 Calculated Osmolality Calcium Phosphorus Magnesium Iron TIBC % Saturation Total Bilirubin Conjugated Bilirubin Unconjugated Bilirubin Icterus Index AST ALT Alkaline Phosphatase Ammonia Lactate Dehydrogenase Creatine Kinase Troponin I B-Natriuretic Peptide Total Protein Albumin Globulin Albumin/Globulin Ratio Plasma Lactate Vitamin B12 Procalcitonin Specimen Hemolysis Ur Collection Type Urine Color Urine Clarity Urine pH Ur Specific [place] Urine Protein Urine Glucose (UA) Urine Ketones Urine Occult Blood Urine Nitrate Urine Bilirubin Urine Urobilinogen Ur Leukocyte Esterase Urine RBC Urine WBC Urine Bacteria Urine Yeast Ur Culture Indicated? Urinalysis Comment Urine Eosinophils Ur Random Creatinine Ur Random Sodium Stool Occult Blood Negative Specimen Comment Tests Not Done Reason Tests Not Done Blood Type Antibody Screen KRISTINA C3b, C3d 5 Min Crossmatch ([facility]) Blood Product Request 04/27/17 04/27/17 04/27/17 04:31 04:31 04:31 WBC 5.7 RBC 2.71 L Hgb 9.4 L Hct 29.2 L MCV 107.7 H MCH 34.7 H MCHC 32.2 RDW Std Deviation 64.7 H Plt Count 59 L MPV 12.8 H Immature Gran % (Auto) 0.4 Neut % (Auto) 76.9 H Lymph % (Auto) 9.4 L [place] % (Auto) 8.5 Eos % (Auto) 3.9 Baso % (Auto) 0.9 Neut # 4.4 Lymph # 0.5 L [place] # 0.5 Eos # 0.2 Baso # 0.1 Abs Immat Gran (auto) 0.02 Neutrophils % (Manual) Band Neutrophils % Lymphocytes % (Manual) Monocytes % (Manual) Eosinophils % (Manual) Neutrophils # (Manual) Band Neutrophils # Lymphocytes # (Manual) Monocytes # (Manual) Eosinophils # (Manual) Poikilocytosis Anisocytosis Macrocytosis Tear Drop Cells Alicia Cells RBC Morph Comment Haptoglobin 7 L INR APTT D-Dimer Turbidity Sodium Potassium Chloride Carbon Dioxide Anion Gap BUN Creatinine GFR Calculation BUN/Creatinine Ratio Glucose Glucometer Calculated Osmolality Calcium Phosphorus Magnesium 1.7 Iron TIBC % Saturation Total Bilirubin Conjugated Bilirubin Unconjugated Bilirubin Icterus Index AST ALT Alkaline Phosphatase Ammonia Lactate Dehydrogenase Creatine Kinase Troponin I B-Natriuretic Peptide Total Protein Albumin Globulin Albumin/Globulin Ratio Plasma Lactate Vitamin B12 Procalcitonin Specimen Hemolysis Ur Collection Type Urine Color Urine Clarity Urine pH Ur Specific [place] Urine Protein Urine Glucose (UA) Urine Ketones Urine Occult Blood Urine Nitrate Urine Bilirubin Urine Urobilinogen Ur Leukocyte Esterase Urine RBC Urine WBC Urine Bacteria Urine Yeast Ur Culture Indicated? Urinalysis Comment Urine Eosinophils Ur Random Creatinine Ur Random Sodium Stool Occult Blood Specimen Comment Tests Not Done Reason Tests Not Done Blood Type Antibody Screen KRISTINA C3b, C3d 5 Min Crossmatch ([facility]) Blood Product Request 04/27/17 04/27/17 04/27/17 04:31 06:18 10:58 WBC RBC Hgb Hct MCV MCH MCHC RDW Std Deviation Plt Count MPV Immature Gran % (Auto) Neut % (Auto) Lymph % (Auto) [place] % (Auto) Eos % (Auto) Baso % (Auto) Neut # Lymph # [place] # Eos # Baso # Abs Immat Gran (auto) Neutrophils % (Manual) Band Neutrophils % Lymphocytes % (Manual) Monocytes % (Manual) Eosinophils % (Manual) Neutrophils # (Manual) Band Neutrophils # Lymphocytes # (Manual) Monocytes # (Manual) Eosinophils # (Manual) Poikilocytosis Anisocytosis Macrocytosis Tear Drop Cells [place] Cells RBC Morph Comment Haptoglobin INR APTT D-Dimer Turbidity < 20 Sodium 143 Potassium 5.2 H Chloride 112 H Carbon Dioxide 17 L Anion Gap 14 BUN 53.0 H* Creatinine 3.0 H GFR Calculation 21 BUN/Creatinine Ratio 18 Glucose 96 Glucometer 117 192 Calculated Osmolality 289 H Calcium 9.0 Phosphorus Magnesium Cancelled Iron TIBC % Saturation Total Bilirubin 1.50 H Conjugated Bilirubin 0.00 Unconjugated Bilirubin 0.90 Icterus Index < 2 AST 31 ALT 43 Alkaline Phosphatase 97 Ammonia Lactate Dehydrogenase Creatine Kinase Troponin I B-Natriuretic Peptide Total Protein 6.8 Albumin 2.7 L Globulin 4.1 H Albumin/Globulin Ratio 0.7 L Plasma Lactate Vitamin B12 Procalcitonin Specimen Hemolysis < 15 Ur Collection Type Urine Color Urine Clarity Urine pH Ur Specific [place] Urine Protein Urine Glucose (UA) Urine Ketones Urine Occult Blood Urine Nitrate Urine Bilirubin Urine Urobilinogen Ur Leukocyte Esterase Urine RBC Urine WBC Urine Bacteria Urine Yeast Ur Culture Indicated? Urinalysis Comment Urine Eosinophils Ur Random Creatinine Ur Random Sodium Stool Occult Blood Specimen Comment Tests Not Done Reason Tests Not Done Blood Type Antibody Screen KRISTINA C3b, C3d 5 Min Crossmatch ([facility]) Blood Product Request 04/27/17 04/27/17 04/27/17 14:09 16:16 20:07 WBC RBC Hgb Hct MCV MCH MCHC RDW Std Deviation Plt Count MPV Immature Gran % (Auto) Neut % (Auto) Lymph % (Auto) [place] % (Auto) Eos % (Auto) Baso % (Auto) Neut # Lymph # [place] # Eos # Baso # Abs Immat Gran (auto) Neutrophils % (Manual) Band Neutrophils % Lymphocytes % (Manual) Monocytes % (Manual) Eosinophils % (Manual) Neutrophils # (Manual) Band Neutrophils # Lymphocytes # (Manual) Monocytes # (Manual) Eosinophils # (Manual) Poikilocytosis Anisocytosis Macrocytosis Tear Drop Cells [place] Cells RBC Morph Comment Haptoglobin INR APTT D-Dimer Turbidity < 20 Sodium 142 Potassium 5.4 H Chloride 108 H Carbon Dioxide 22 Anion Gap 12 BUN 54.0 H* Creatinine 2.9 H GFR Calculation 22 BUN/Creatinine Ratio 19 Glucose 125 H Glucometer 211 186 Calculated Osmolality 289 H Calcium 8.9 Phosphorus Magnesium Iron TIBC % Saturation Total Bilirubin Conjugated Bilirubin Unconjugated Bilirubin Icterus Index < 2 AST ALT Alkaline Phosphatase Ammonia Lactate Dehydrogenase Creatine Kinase Troponin I B-Natriuretic Peptide Total Protein Albumin Globulin Albumin/Globulin Ratio Plasma Lactate Vitamin B12 Procalcitonin Specimen Hemolysis < 15 Ur Collection Type Urine Color Urine Clarity Urine pH Ur Specific [place] Urine Protein Urine Glucose (UA) Urine Ketones Urine Occult Blood Urine Nitrate Urine Bilirubin Urine Urobilinogen Ur Leukocyte Esterase Urine RBC Urine WBC Urine Bacteria Urine Yeast Ur Culture Indicated? Urinalysis Comment Urine Eosinophils Ur Random Creatinine Ur Random Sodium Stool Occult Blood Specimen Comment Tests Not Done Reason Tests Not Done Blood Type Antibody Screen KRISTINA C3b, C3d 5 Min Crossmatch ([facility]) Blood Product Request 04/28/17 04/28/17 04/28/17 04:36 04:36 05:56 WBC 4.1 L RBC 2.51 L Hgb 8.6 L Hct 26.8 L MCV 106.8 H MCH 34.3 H MCHC 32.1 RDW Std Deviation 63.0 H Plt Count 49 L MPV 11.3 Immature Gran % (Auto) Neut % (Auto) Lymph % (Auto) [place] % (Auto) Eos % (Auto) Baso % (Auto) Neut # Lymph # [place] # Eos # Baso # Abs Immat Gran (auto) Neutrophils % (Manual) 90.0 H Band Neutrophils % 2.0 Lymphocytes % (Manual) 3.0 L Monocytes % (Manual) 2.0 Eosinophils % (Manual) 3.0 Neutrophils # (Manual) 3.7 Band Neutrophils # 0.1 Lymphocytes # (Manual) 0.1 L Monocytes # (Manual) 0.1 Eosinophils # (Manual) 0.1 Poikilocytosis 1+ Anisocytosis 1+ Macrocytosis Tear Drop Cells [place] Cells RBC Morph Comment Abnormal Haptoglobin INR APTT D-Dimer Turbidity < 20 Sodium 138 Potassium 5.3 H Chloride 110 H Carbon Dioxide 20 L Anion Gap 8 BUN 56.0 H* Creatinine 2.9 H GFR Calculation 22 BUN/Creatinine Ratio 19 Glucose 92 Glucometer 92 Calculated Osmolality 282 H Calcium 8.5 Phosphorus Magnesium 1.7 Iron TIBC % Saturation Total Bilirubin 1.50 H Conjugated Bilirubin Unconjugated Bilirubin Icterus Index < 2 AST 31 ALT 37 Alkaline Phosphatase 89 Ammonia Lactate Dehydrogenase Creatine Kinase Troponin I B-Natriuretic Peptide Total Protein 6.4 Albumin 2.5 L Globulin 3.9 H Albumin/Globulin Ratio 0.6 L Plasma Lactate Vitamin B12 Procalcitonin Specimen Hemolysis < 15 Ur Collection Type Urine Color Urine Clarity Urine pH Ur Specific [place] Urine Protein Urine Glucose (UA) Urine Ketones Urine Occult Blood Urine Nitrate Urine Bilirubin Urine Urobilinogen Ur Leukocyte Esterase Urine RBC Urine WBC Urine Bacteria Urine Yeast Ur Culture Indicated? Urinalysis Comment Urine Eosinophils Ur Random Creatinine Ur Random Sodium Stool Occult Blood Specimen Comment Tests Not Done Reason Tests Not Done Blood Type Antibody Screen KRISTINA C3b, C3d 5 Min Crossmatch ([facility]) Blood Product Request 04/28/17 04/28/17 04/28/17 09:55 14:47 20:03 WBC RBC Hgb Hct MCV MCH MCHC RDW Std Deviation Plt Count MPV Immature Gran % (Auto) Neut % (Auto) Lymph % (Auto) [place] % (Auto) Eos % (Auto) Baso % (Auto) Neut # Lymph # [place] # Eos # Baso # Abs Immat Gran (auto) Neutrophils % (Manual) Band Neutrophils % Lymphocytes % (Manual) Monocytes % (Manual) Eosinophils % (Manual) Neutrophils # (Manual) Band Neutrophils # Lymphocytes # (Manual) Monocytes # (Manual) Eosinophils # (Manual) Poikilocytosis Anisocytosis Macrocytosis Tear Drop Cells [place] Cells RBC Morph Comment Haptoglobin INR APTT D-Dimer Turbidity Sodium Potassium Chloride Carbon Dioxide Anion Gap BUN Creatinine GFR Calculation BUN/Creatinine Ratio Glucose Glucometer 190 207 173 Calculated Osmolality Calcium Phosphorus Magnesium Iron TIBC % Saturation Total Bilirubin Conjugated Bilirubin Unconjugated Bilirubin Icterus Index AST ALT Alkaline Phosphatase Ammonia Lactate Dehydrogenase Creatine Kinase Troponin I B-Natriuretic Peptide Total Protein Albumin Globulin Albumin/Globulin Ratio Plasma Lactate Vitamin B12 Procalcitonin Specimen Hemolysis Ur Collection Type Urine Color Urine Clarity Urine pH Ur Specific [place] Urine Protein Urine Glucose (UA) Urine Ketones Urine Occult Blood Urine Nitrate Urine Bilirubin Urine Urobilinogen Ur Leukocyte Esterase Urine RBC Urine WBC Urine Bacteria Urine Yeast Ur Culture Indicated? Urinalysis Comment Urine Eosinophils Ur Random Creatinine Ur Random Sodium Stool Occult Blood Specimen Comment Tests Not Done Reason Tests Not Done Blood Type Antibody Screen KRISTINA C3b, C3d 5 Min Crossmatch ([facility]) Blood Product Request 04/29/17 04/29/17 04/29/17 01:34 04:35 04:35 WBC 4.3 L RBC 2.35 L Hgb 8.2 L Hct 24.9 L MCV 106.0 H MCH 34.9 H MCHC 32.9 RDW Std Deviation 61.1 H Plt Count 47 L MPV 12.1 Immature Gran % (Auto) 0.0 Neut % (Auto) 79.9 H Lymph % (Auto) 7.7 L [place] % (Auto) 8.0 Eos % (Auto) 3.5 Baso % (Auto) 0.9 Neut # 3.4 Lymph # 0.3 L [place] # 0.3 Eos # 0.2 Baso # 0.0 Abs Immat Gran (auto) 0.00 Neutrophils % (Manual) Band Neutrophils % Lymphocytes % (Manual) Monocytes % (Manual) Eosinophils % (Manual) Neutrophils # (Manual) Band Neutrophils # Lymphocytes # (Manual) Monocytes # (Manual) Eosinophils # (Manual) Poikilocytosis Anisocytosis Macrocytosis Tear Drop Cells [place] Cells RBC Morph Comment Haptoglobin INR APTT D-Dimer Turbidity < 20 Sodium 137 Potassium 5.4 H Chloride 108 H Carbon Dioxide 18 L Anion Gap 11 BUN 59.0 H* Creatinine 2.8 H GFR Calculation 23 BUN/Creatinine Ratio 21 Glucose 129 H Glucometer Calculated Osmolality 283 H Calcium 8.7 Phosphorus Magnesium Iron TIBC % Saturation Total Bilirubin 1.90 H Conjugated Bilirubin 0.00 Unconjugated Bilirubin 1.30 Icterus Index < 2 AST 35 ALT 42 Alkaline Phosphatase 87 Ammonia Lactate Dehydrogenase Creatine Kinase Troponin I B-Natriuretic Peptide Total Protein 6.1 L Albumin 2.6 L Globulin 3.5 Albumin/Globulin Ratio 0.7 L Plasma Lactate Vitamin B12 Procalcitonin Specimen Hemolysis 25 Ur Collection Type Urine, perez Urine Color Yellow Urine Clarity Sl cloudy Urine pH 5.5 Ur Specific [place] 1.020 Urine Protein Trace A Urine Glucose (UA) Negative Urine Ketones Negative Urine Occult Blood 3+ A Urine Nitrate Negative Urine Bilirubin Negative Urine Urobilinogen 0.2 Ur Leukocyte Esterase 3+ Urine RBC 50-200 H Urine WBC Tntc Urine Bacteria 1+ H Urine Yeast Budding+pseudohyphae A Ur Culture Indicated? Cult not indicated Urinalysis Comment Urine Eosinophils Ur Random Creatinine Ur Random Sodium Stool Occult Blood Specimen Comment Tests Not Done Reason Tests Not Done Blood Type Antibody Screen KRISTINA C3b, C3d 5 Min Crossmatch ([facility]) Blood Product Request 04/29/17 04/29/17 04/29/17 08:23 10:54 11:03 WBC RBC Hgb Hct MCV MCH MCHC RDW Std Deviation Plt Count MPV Immature Gran % (Auto) Neut % (Auto) Lymph % (Auto) [place] % (Auto) Eos % (Auto) Baso % (Auto) Neut # Lymph # [place] # Eos # Baso # Abs Immat Gran (auto) Neutrophils % (Manual) Band Neutrophils % Lymphocytes % (Manual) Monocytes % (Manual) Eosinophils % (Manual) Neutrophils # (Manual) Band Neutrophils # Lymphocytes # (Manual) Monocytes # (Manual) Eosinophils # (Manual) Poikilocytosis Anisocytosis Macrocytosis Tear Drop Cells [place] Cells RBC Morph Comment Haptoglobin INR APTT D-Dimer Turbidity Sodium Potassium Chloride Carbon Dioxide Anion Gap BUN Creatinine GFR Calculation BUN/Creatinine Ratio Glucose Glucometer 214 Calculated Osmolality Calcium Phosphorus Magnesium Iron TIBC % Saturation Total Bilirubin Conjugated Bilirubin Unconjugated Bilirubin Icterus Index AST ALT Alkaline Phosphatase Ammonia 33 Lactate Dehydrogenase Creatine Kinase Troponin I B-Natriuretic Peptide Total Protein Albumin Globulin Albumin/Globulin Ratio Plasma Lactate Vitamin B12 Procalcitonin Specimen Hemolysis Ur Collection Type Urine Color Urine Clarity Urine pH Ur Specific [place] Urine Protein Urine Glucose (UA) Urine Ketones Urine Occult Blood Urine Nitrate Urine Bilirubin Urine Urobilinogen Ur Leukocyte Esterase Urine RBC Urine WBC Urine Bacteria Urine Yeast Ur Culture Indicated? Urinalysis Comment Urine Eosinophils Ur Random Creatinine Ur Random Sodium Stool Occult Blood Specimen Comment Tests Not Done Reason Tests Not Done Blood Type Antibody Screen KRISTINA C3b, C3d 5 Min Positive H Crossmatch ([facility]) Blood Product Request 04/29/17 04/29/17 04/29/17 14:47 15:50 16:31 WBC RBC Hgb 8.7 L Hct MCV MCH MCHC RDW Std Deviation Plt Count MPV Immature Gran % (Auto) Neut % (Auto) Lymph % (Auto) [place] % (Auto) Eos % (Auto) Baso % (Auto) Neut # Lymph # [place] # Eos # Baso # Abs Immat Gran (auto) Neutrophils % (Manual) Band Neutrophils % Lymphocytes % (Manual) Monocytes % (Manual) Eosinophils % (Manual) Neutrophils # (Manual) Band Neutrophils # Lymphocytes # (Manual) Monocytes # (Manual) Eosinophils # (Manual) Poikilocytosis Anisocytosis Macrocytosis Tear Drop Cells [place] Cells RBC Morph Comment Haptoglobin INR APTT D-Dimer Turbidity Sodium Potassium Chloride Carbon Dioxide Anion Gap BUN Creatinine GFR Calculation BUN/Creatinine Ratio Glucose Glucometer 244 Calculated Osmolality Calcium Phosphorus Magnesium Iron TIBC % Saturation Total Bilirubin Conjugated Bilirubin Unconjugated Bilirubin Icterus Index AST ALT Alkaline Phosphatase Ammonia Lactate Dehydrogenase Creatine Kinase Troponin I B-Natriuretic Peptide 7100 H Total Protein Albumin Globulin Albumin/Globulin Ratio Plasma Lactate Vitamin B12 Procalcitonin Specimen Hemolysis Ur Collection Type Urine Color Urine Clarity Urine pH Ur Specific [place] Urine Protein Urine Glucose (UA) Urine Ketones Urine Occult Blood Urine Nitrate Urine Bilirubin Urine Urobilinogen Ur Leukocyte Esterase Urine RBC Urine WBC Urine Bacteria Urine Yeast Ur Culture Indicated? Urinalysis Comment Urine Eosinophils Ur Random Creatinine Ur Random Sodium Stool Occult Blood Specimen Comment Tests Not Done Reason Tests Not Done Blood Type Antibody Screen KRISTINA C3b, C3d 5 Min Crossmatch (G) Blood Product Request 04/29/17 04/29/17 04/29/17 16:31 16:31 16:31 WBC RBC Hgb Hct MCV MCH MCHC RDW Std Deviation Plt Count MPV Immature Gran % (Auto) Neut % (Auto) Lymph % (Auto) [place] % (Auto) Eos % (Auto) Baso % (Auto) Neut # Lymph # [place] # Eos # Baso # Abs Immat Gran (auto) Neutrophils % (Manual) Band Neutrophils % Lymphocytes % (Manual) Monocytes % (Manual) Eosinophils % (Manual) Neutrophils # (Manual) Band Neutrophils # Lymphocytes # (Manual) Monocytes # (Manual) Eosinophils # (Manual) Poikilocytosis Anisocytosis Macrocytosis Tear Drop Cells [place] Cells RBC Morph Comment Haptoglobin INR APTT D-Dimer Turbidity < 20 Sodium 137 Potassium 5.7 H Chloride 104 Carbon Dioxide 19 L Anion Gap 14 BUN 64.0 H* Creatinine 3.2 H D GFR Calculation 19 BUN/Creatinine Ratio 20 Glucose 200 H Glucometer Calculated Osmolality 288 H Calcium 8.8 Phosphorus 4.4 Magnesium 2.2 D Iron TIBC % Saturation Total Bilirubin Conjugated Bilirubin Unconjugated Bilirubin Icterus Index < 2 AST ALT Alkaline Phosphatase Ammonia Lactate Dehydrogenase Creatine Kinase Troponin I B-Natriuretic Peptide Total Protein Albumin Globulin Albumin/Globulin Ratio Plasma Lactate Vitamin B12 Procalcitonin Specimen Hemolysis 34 H Ur Collection Type Urine Color Urine Clarity Urine pH Ur Specific [place] Urine Protein Urine Glucose (UA) Urine Ketones Urine Occult Blood Urine Nitrate Urine Bilirubin Urine Urobilinogen Ur Leukocyte Esterase Urine RBC Urine WBC Urine Bacteria Urine Yeast Ur Culture Indicated? Urinalysis Comment Urine Eosinophils Ur Random Creatinine Ur Random Sodium Stool Occult Blood Specimen Comment Tests Not Done Reason Tests Not Done Blood Type Antibody Screen KRISTINA C3b, C3d 5 Min Crossmatch ([facility]) Blood Product Request 04/29/17 04/29/17 04/30/17 19:46 20:55 03:26 WBC RBC Hgb Hct MCV MCH MCHC RDW Std Deviation Plt Count MPV Immature Gran % (Auto) Neut % (Auto) Lymph % (Auto) [place] % (Auto) Eos % (Auto) Baso % (Auto) Neut # Lymph # [place] # Eos # Baso # Abs Immat Gran (auto) Neutrophils % (Manual) Band Neutrophils % Lymphocytes % (Manual) Monocytes % (Manual) Eosinophils % (Manual) Neutrophils # (Manual) Band Neutrophils # Lymphocytes # (Manual) Monocytes # (Manual) Eosinophils # (Manual) Poikilocytosis Anisocytosis Macrocytosis Tear Drop Cells [place] Cells RBC Morph Comment Haptoglobin INR 1.29 H APTT D-Dimer Turbidity < 20 Sodium 135 Potassium 5.9 H Chloride 105 Carbon Dioxide 18 L Anion Gap 12 BUN 64.0 H* Creatinine 3.4 H D GFR Calculation 18 BUN/Creatinine Ratio 19 Glucose 200 H Glucometer Calculated Osmolality 284 H Calcium 9.1 Phosphorus Magnesium 2.3 Iron TIBC % Saturation Total Bilirubin 1.60 H Conjugated Bilirubin Unconjugated Bilirubin Icterus Index < 2 AST 39 ALT 39 Alkaline Phosphatase 98 Ammonia Lactate Dehydrogenase Creatine Kinase Troponin I 0.116 0.483 H D B-Natriuretic Peptide Total Protein 7.0 Albumin 3.0 L Globulin 4.0 H Albumin/Globulin Ratio 0.8 L Plasma Lactate Vitamin B12 Procalcitonin Specimen Hemolysis < 15 < 15 Ur Collection Type Urine Color Urine Clarity Urine pH Ur Specific [place] Urine Protein Urine Glucose (UA) Urine Ketones Urine Occult Blood Urine Nitrate Urine Bilirubin Urine Urobilinogen Ur Leukocyte Esterase Urine RBC Urine WBC Urine Bacteria Urine Yeast Ur Culture Indicated? Urinalysis Comment Urine Eosinophils Ur Random Creatinine Ur Random Sodium Stool Occult Blood Specimen Comment Tests Not Done Reason Tests Not Done Blood Type Antibody Screen KRISTINA C3b, C3d 5 Min Crossmatch ([facility]) Blood Product Request 04/30/17 04/30/17 04/30/17 03:26 07:53 07:54 WBC 6.7 D RBC 2.48 L Hgb 8.7 L Hct 26.5 L MCV 106.9 H MCH 35.1 H MCHC 32.8 RDW Std Deviation 61.7 H Plt Count 45 L MPV 11.7 Immature Gran % (Auto) Not performed Neut % (Auto) Not performed Lymph % (Auto) Not performed [place] % (Auto) Not performed Eos % (Auto) Not performed Baso % (Auto) Not performed Neut # Not performed Lymph # Not performed [place] # Not performed Eos # Not performed Baso # Not performed Abs Immat Gran (auto) Not performed Neutrophils % (Manual) 95.0 H Band Neutrophils % 1.0 Lymphocytes % (Manual) 4.0 L Monocytes % (Manual) Eosinophils % (Manual) Neutrophils # (Manual) 6.4 Band Neutrophils # 0.1 Lymphocytes # (Manual) 0.3 L Monocytes # (Manual) Eosinophils # (Manual) Poikilocytosis Anisocytosis Macrocytosis Tear Drop Cells [place] Cells RBC Morph Comment Normal Haptoglobin INR APTT D-Dimer Turbidity Sodium Potassium Chloride Carbon Dioxide Anion Gap BUN Creatinine GFR Calculation BUN/Creatinine Ratio Glucose Glucometer Calculated Osmolality Calcium Phosphorus Magnesium Iron TIBC % Saturation Total Bilirubin Conjugated Bilirubin Unconjugated Bilirubin Icterus Index AST ALT Alkaline Phosphatase Ammonia Lactate Dehydrogenase Creatine Kinase Troponin I B-Natriuretic Peptide Total Protein Albumin Globulin Albumin/Globulin Ratio Plasma Lactate Vitamin B12 Procalcitonin Specimen Hemolysis Ur Collection Type Urine Color Urine Clarity Urine pH Ur Specific [place] Urine Protein Urine Glucose (UA) Urine Ketones Urine Occult Blood Urine Nitrate Urine Bilirubin Urine Urobilinogen Ur Leukocyte Esterase Urine RBC Urine WBC Urine Bacteria Urine Yeast Ur Culture Indicated? Urinalysis Comment Urine Eosinophils Ur Random Creatinine 167.8 Ur Random Sodium 24 L Stool Occult Blood Specimen Comment Tests Not Done Reason Tests Not Done Blood Type Antibody Screen KRISTINA C3b, C3d 5 Min Crossmatch ([facility]) Blood Product Request 04/30/17 04/30/17 04/30/17 08:50 10:34 12:17 WBC RBC Hgb Hct MCV MCH MCHC RDW Std Deviation Plt Count MPV Immature Gran % (Auto) Neut % (Auto) Lymph % (Auto) [place] % (Auto) Eos % (Auto) Baso % (Auto) Neut # Lymph # [place] # Eos # Baso # Abs Immat Gran (auto) Neutrophils % (Manual) Band Neutrophils % Lymphocytes % (Manual) Monocytes % (Manual) Eosinophils % (Manual) Neutrophils # (Manual) Band Neutrophils # Lymphocytes # (Manual) Monocytes # (Manual) Eosinophils # (Manual) Poikilocytosis Anisocytosis Macrocytosis Tear Drop Cells Alicia Cells RBC Morph Comment Haptoglobin INR APTT D-Dimer Turbidity Sodium Potassium Chloride Carbon Dioxide Anion Gap BUN Creatinine GFR Calculation BUN/Creatinine Ratio Glucose Glucometer 235 Calculated Osmolality Calcium Phosphorus Magnesium Iron TIBC % Saturation Total Bilirubin Conjugated Bilirubin Unconjugated Bilirubin Icterus Index AST ALT Alkaline Phosphatase Ammonia Lactate Dehydrogenase Creatine Kinase Troponin I 1.230 H D B-Natriuretic Peptide Total Protein Albumin Globulin Albumin/Globulin Ratio Plasma Lactate Vitamin B12 Procalcitonin Specimen Hemolysis < 15 Ur Collection Type Urine Color Urine Clarity Urine pH Ur Specific [place] Urine Protein Urine Glucose (UA) Urine Ketones Urine Occult Blood Urine Nitrate Urine Bilirubin Urine Urobilinogen Ur Leukocyte Esterase Urine RBC Urine WBC Urine Bacteria Urine Yeast Ur Culture Indicated? Urinalysis Comment Urine Eosinophils 0 Ur Random Creatinine Ur Random Sodium Stool Occult Blood Specimen Comment Tests Not Done Reason Tests Not Done Blood Type Antibody Screen KRISTINA C3b, C3d 5 Min Crossmatch ([facility]) Blood Product Request 04/30/17 04/30/17 04/30/17 15:11 16:10 17:16 WBC RBC Hgb Hct MCV MCH MCHC RDW Std Deviation Plt Count MPV Immature Gran % (Auto) Neut % (Auto) Lymph % (Auto) [place] % (Auto) Eos % (Auto) Baso % (Auto) Neut # Lymph # [place] # Eos # Baso # Abs Immat Gran (auto) Neutrophils % (Manual) Band Neutrophils % Lymphocytes % (Manual) Monocytes % (Manual) Eosinophils % (Manual) Neutrophils # (Manual) Band Neutrophils # Lymphocytes # (Manual) Monocytes # (Manual) Eosinophils # (Manual) Poikilocytosis Anisocytosis Macrocytosis Tear Drop Cells Alicia Cells RBC Morph Comment Haptoglobin INR APTT D-Dimer Turbidity Sodium Potassium Chloride Carbon Dioxide Anion Gap BUN Creatinine GFR Calculation BUN/Creatinine Ratio Glucose Glucometer 253 Calculated Osmolality Calcium Phosphorus Magnesium Iron TIBC % Saturation Total Bilirubin Conjugated Bilirubin Unconjugated Bilirubin Icterus Index AST ALT Alkaline Phosphatase Ammonia Lactate Dehydrogenase Creatine Kinase Troponin I 1.530 H B-Natriuretic Peptide Total Protein Albumin Globulin Albumin/Globulin Ratio Plasma Lactate Vitamin B12 Procalcitonin Specimen Hemolysis < 15 Ur Collection Type Urine Color Urine Clarity Urine pH Ur Specific [place] Urine Protein Urine Glucose (UA) Urine Ketones Urine Occult Blood Urine Nitrate Urine Bilirubin Urine Urobilinogen Ur Leukocyte Esterase Urine RBC Urine WBC Urine Bacteria Urine Yeast Ur Culture Indicated? Urinalysis Comment Urine Eosinophils Ur Random Creatinine Ur Random Sodium Stool Occult Blood Specimen Comment Tests Not Done Reason Tests Not Done Blood Type Antibody Screen KRISTINA C3b, C3d 5 Min Crossmatch ([facility]) Blood Product Request 1 unit pc issued 04/30/17 04/30/17 04/30/17 17:58 17:58 19:49 WBC RBC Hgb Hct MCV MCH MCHC RDW Std Deviation Plt Count MPV Immature Gran % (Auto) Neut % (Auto) Lymph % (Auto) [place] % (Auto) Eos % (Auto) Baso % (Auto) Neut # Lymph # [place] # Eos # Baso # Abs Immat Gran (auto) Neutrophils % (Manual) Band Neutrophils % Lymphocytes % (Manual) Monocytes % (Manual) Eosinophils % (Manual) Neutrophils # (Manual) Band Neutrophils # Lymphocytes # (Manual) Monocytes # (Manual) Eosinophils # (Manual) Poikilocytosis Anisocytosis Macrocytosis Tear Drop Cells Alicia Cells RBC Morph Comment Haptoglobin INR APTT D-Dimer Turbidity < 20 Sodium 135 Potassium 5.6 H Chloride 103 Carbon Dioxide 16 L Anion Gap 16 H BUN 64.0 H* Creatinine 3.8 H D GFR Calculation 16 BUN/Creatinine Ratio 17 Glucose 244 H Glucometer 276 Calculated Osmolality 286 H Calcium 9.1 Phosphorus Magnesium 2.5 H Iron TIBC % Saturation Total Bilirubin Conjugated Bilirubin Unconjugated Bilirubin Icterus Index < 2 AST ALT Alkaline Phosphatase Ammonia Lactate Dehydrogenase Creatine Kinase Troponin I B-Natriuretic Peptide Total Protein Albumin Globulin Albumin/Globulin Ratio Plasma Lactate Vitamin B12 Procalcitonin Specimen Hemolysis < 15 Ur Collection Type Urine Color Urine Clarity Urine pH Ur Specific [place] Urine Protein Urine Glucose (UA) Urine Ketones Urine Occult Blood Urine Nitrate Urine Bilirubin Urine Urobilinogen Ur Leukocyte Esterase Urine RBC Urine WBC Urine Bacteria Urine Yeast Ur Culture Indicated? Urinalysis Comment Urine Eosinophils Ur Random Creatinine Ur Random Sodium Stool Occult Blood Specimen Comment Tests Not Done Reason Tests Not Done Blood Type B Positive Antibody Screen Negative KRISTINA C3b, C3d 5 Min Crossmatch ([facility]) See Detail Blood Product Request 05/01/17 05/01/17 05/01/17 01:14 04:18 04:18 WBC 6.3 RBC 2.62 L Hgb 8.6 L 8.8 L Hct 27.2 L MCV 103.8 H MCH 33.6 MCHC 32.4 RDW Std Deviation 73.6 H Plt Count 43 L MPV 11.1 Immature Gran % (Auto) Not performed Neut % (Auto) Not performed Lymph % (Auto) Not performed [place] % (Auto) Not performed Eos % (Auto) Not performed Baso % (Auto) Not performed Neut # Not performed Lymph # Not performed [place] # Not performed Eos # Not performed Baso # Not performed Abs Immat Gran (auto) Not performed Neutrophils % (Manual) 91.0 H Band Neutrophils % Lymphocytes % (Manual) 5.0 L Monocytes % (Manual) 2.0 Eosinophils % (Manual) 2.0 Neutrophils # (Manual) 5.7 Band Neutrophils # Lymphocytes # (Manual) 0.3 L Monocytes # (Manual) 0.1 Eosinophils # (Manual) 0.1 Poikilocytosis 1+ Anisocytosis 2+ Macrocytosis 1+ Tear Drop Cells 1+ [place] Cells 1+ RBC Morph Comment Abnormal Haptoglobin INR APTT D-Dimer Turbidity < 20 Sodium 135 Potassium 5.4 H Chloride 102 Carbon Dioxide 17 L Anion Gap 16 H BUN 62.0 H* Creatinine 4.1 H D GFR Calculation 14 BUN/Creatinine Ratio 15 Glucose 214 H Glucometer Calculated Osmolality 284 H Calcium 8.9 Phosphorus Magnesium 2.6 H Iron TIBC % Saturation Total Bilirubin 1.20 Conjugated Bilirubin 0.00 Unconjugated Bilirubin 0.60 Icterus Index < 2 AST 50 ALT 34 Alkaline Phosphatase 107 Ammonia 103 H Lactate Dehydrogenase Creatine Kinase Troponin I 2.340 H B-Natriuretic Peptide Total Protein 7.1 Albumin 3.0 L Globulin 4.1 H Albumin/Globulin Ratio 0.7 L Plasma Lactate Vitamin B12 Procalcitonin Specimen Hemolysis < 15 Ur Collection Type Urine Color Urine Clarity Urine pH Ur Specific [place] Urine Protein Urine Glucose (UA) Urine Ketones Urine Occult Blood Urine Nitrate Urine Bilirubin Urine Urobilinogen Ur Leukocyte Esterase Urine RBC Urine WBC Urine Bacteria Urine Yeast Ur Culture Indicated? Urinalysis Comment Urine Eosinophils Ur Random Creatinine Ur Random Sodium Stool Occult Blood Specimen Comment Tests Not Done Reason Tests Not Done Blood Type Antibody Screen KRISTINA C3b, C3d 5 Min Crossmatch ([facility]) Blood Product Request 05/01/17 05/01/17 05/01/17 06:19 10:06 11:42 WBC RBC Hgb Hct MCV MCH MCHC RDW Std Deviation Plt Count MPV Immature Gran % (Auto) Neut % (Auto) Lymph % (Auto) [place] % (Auto) Eos % (Auto) Baso % (Auto) Neut # Lymph # [place] # Eos # Baso # Abs Immat Gran (auto) Neutrophils % (Manual) Band Neutrophils % Lymphocytes % (Manual) Monocytes % (Manual) Eosinophils % (Manual) Neutrophils # (Manual) Band Neutrophils # Lymphocytes # (Manual) Monocytes # (Manual) Eosinophils # (Manual) Poikilocytosis Anisocytosis Macrocytosis Tear Drop Cells Alicia Cells RBC Morph Comment Haptoglobin INR APTT D-Dimer Turbidity < 20 Sodium 133 L Potassium 5.7 H Chloride 102 Carbon Dioxide 17 L Anion Gap 14 BUN 64.0 H* Creatinine 4.0 H GFR Calculation 15 BUN/Creatinine Ratio 16 Glucose 235 H Glucometer 230 280 Calculated Osmolality 282 H Calcium 8.6 Phosphorus Magnesium Iron TIBC % Saturation Total Bilirubin Conjugated Bilirubin Unconjugated Bilirubin Icterus Index < 2 AST ALT Alkaline Phosphatase Ammonia Lactate Dehydrogenase Creatine Kinase Troponin I B-Natriuretic Peptide Total Protein Albumin Globulin Albumin/Globulin Ratio Plasma Lactate Vitamin B12 Procalcitonin Specimen Hemolysis < 15 Ur Collection Type Urine Color Urine Clarity Urine pH Ur Specific [place] Urine Protein Urine Glucose (UA) Urine Ketones Urine Occult Blood Urine Nitrate Urine Bilirubin Urine Urobilinogen Ur Leukocyte Esterase Urine RBC Urine WBC Urine Bacteria Urine Yeast Ur Culture Indicated? Urinalysis Comment Urine Eosinophils Ur Random Creatinine Ur Random Sodium Stool Occult Blood Specimen Comment Tests Not Done Reason Tests Not Done Blood Type Antibody Screen KRISTINA C3b, C3d 5 Min Crossmatch ([facility]) Blood Product Request 05/01/17 05/01/17 11:44 11:44 WBC RBC Hgb Hct MCV MCH MCHC RDW Std Deviation Plt Count MPV Immature Gran % (Auto) Neut % (Auto) Lymph % (Auto) [place] % (Auto) Eos % (Auto) Baso % (Auto) Neut # Lymph # [place] # Eos # Baso # Abs Immat Gran (auto) Neutrophils % (Manual) Band Neutrophils % Lymphocytes % (Manual) Monocytes % (Manual) Eosinophils % (Manual) Neutrophils # (Manual) Band Neutrophils # Lymphocytes # (Manual) Monocytes # (Manual) Eosinophils # (Manual) Poikilocytosis Anisocytosis Macrocytosis Tear Drop Cells Alicia Cells RBC Morph Comment Haptoglobin INR APTT D-Dimer Turbidity Sodium Potassium Chloride Carbon Dioxide Anion Gap BUN Creatinine GFR Calculation BUN/Creatinine Ratio Glucose Glucometer Calculated Osmolality Calcium Phosphorus Magnesium Iron TIBC % Saturation Total Bilirubin Conjugated Bilirubin Unconjugated Bilirubin Icterus Index AST ALT Alkaline Phosphatase Ammonia Lactate Dehydrogenase Creatine Kinase Troponin I B-Natriuretic Peptide Total Protein Albumin Globulin Albumin/Globulin Ratio Plasma Lactate 4.1 H* Vitamin B12 Procalcitonin 0.34 Specimen Hemolysis Ur Collection Type Urine Color Urine Clarity Urine pH Ur Specific [place] Urine Protein Urine Glucose (UA) Urine Ketones Urine Occult Blood Urine Nitrate Urine Bilirubin Urine Urobilinogen Ur Leukocyte Esterase Urine RBC Urine WBC Urine Bacteria Urine Yeast Ur Culture Indicated? Urinalysis Comment Urine Eosinophils Ur Random Creatinine Ur Random Sodium Stool Occult Blood Specimen Comment Tests Not Done Reason Tests Not Done Blood Type Antibody Screen KRISTINA C3b, C3d 5 Min Crossmatch ([facility]) Blood Product Request Acetaminophen (Tylenol) 650 mg PO Q4H PRN PRN Reason: Pain Last Admin: 04/30/17 19:24 Dose: 650 mg Aspirin (Ecotrin) 81 mg PO DAILY [facility] Last Admin: 05/01/17 08:27 Dose: 81 mg Atorvastatin Calcium (Lipitor) 40 mg PO HS [facility] Last Admin: 04/30/17 22:31 Dose: 40 mg Benzonatate (Tessalon Perles) 100 mg PO Q6H PRN PRN Reason: Cough Calcium Acetate (Phoslo) 1,334 mg PO TIDWM [facility] Last Admin: 05/01/17 10:40 Dose: 1,334 mg Coenzyme Q10 (Co Q-10) 200 mg PO DAILY [facility] Last Admin: 05/01/17 08:27 Dose: 200 mg Dextrose (D50%W) 50 ml IVP PRN PRN PRN Reason: Hypoglycemia Diphenhydramine HCl (Benadryl) 25 mg PO Q6H PRN PRN Reason: Rash Glucose (Glutose 15) 37.5 gm PO PRN PRN PRN Reason: Hypoglycemia Hydromorphone HCl (Dilaudid) 0.5 mg IVP Q2H PRN PRN Reason: Pain Last Admin: 04/30/17 18:24 Dose: 0.5 mg Sodium Chloride (Normal Saline) 1,000 mls @ 125 mls/hr IV .Q8H KVNG Last Infusion: 05/01/17 11:00 Dose: 125 mls/hr Milrinone Lactate/Dextrose (Milrinone Drip Premix) 20 mg in 100 mls @ 12.698 mls/hr IV .Q7H53M PRN; 0.375 MCG/KG/MIN PRN Reason: Protocol Last Admin: 05/01/17 11:53 Dose: 0.29 mcg/kg/min, 9.82 mls/hr Insulin Aspart (Novolog) 0 unit SQ SS PRN; Protocol PRN Reason: Hyperglycemia Last Admin: 05/01/17 10:12 Dose: 5 unit Lactulose (Lactulose) 30 gm PO TID [facility] Last Admin: 05/01/17 08:25 Dose: 30 gm Magnesium Oxide (Magox) 400 mg PO BID [facility] Last Admin: 04/30/17 22:32 Dose: 400 mg Morphine Sulfate (Morphine Sulfate Inj) 2 mg IVP Q2H PRN PRN Reason: Pain Last Admin: 04/29/17 20:02 Dose: 2 mg Omeprazole (Prilosec) 20 mg PO ACB [facility] Last Admin: 05/01/17 06:22 Dose: 20 mg Ondansetron HCl (Zofran) 4 mg IVP Q4H PRN PRN Reason: Nausea &/or vomiting Last Admin: 04/29/17 20:58 Dose: 4 mg Sodium Bicarbonate (Sodium Bicarbonate) 1,300 mg PO BID [facility] Last Admin: 05/01/17 08:26 Dose: 1,300 mg Tamsulosin HCl (Flomax) 0.4 mg PO HS [facility] Last Admin: 04/29/17 22:41 Dose: 0.4 mg Vitamin B Complex/Folic Acid (Nephrocaps) 1 cap PO DAILY [facility] Last Admin: 05/01/17 08:26 Dose: 1 cap <Leah Kerr - 05/01/17 13:14> - Urinary Catheter Management Urethral Cath placed during this visit: no <Jerson Lujan - 05/04/17 15:59> yes <Leah Kerr - 05/01/17 16:31> Urethral indwelling: Yes <Leah Kerr - 04/30/17 11:25> Reason for continuing: Accurate I&O/Aggressive Diuresis <Leah Kerr 12/12 11:55> Insertion date: 04/23/17 <Leah Kerr 04/30/17 11:25> Insertion time: 19:56 <Leah Kerr 04/30/17 11:25> Progress Note-A&P (1) HTN (hypertension) Status: Chronic (2) Type 2 diabetes mellitus Status: Chronic (3) Dyslipidemia Status: Chronic (4) CAD (coronary artery disease) Status: Chronic (5) Obesity (BMI 30-39.9) Status: Chronic (6) Acute kidney injury Status: Acute (7) Hyperkalemia Status: Acute (8) NSTEMI (non-ST elevated myocardial infarction) Status: Acute (9) Acute on chronic systolic (congestive) heart failure Status: Acute <Jerson Lujan - 05/04/17 15:59> (1) NSTEMI (non-ST elevated myocardial infarction) Status: Acute Assessment and plan: Severe multivessel coronary artery disease on left heart cath on 7/3/17. The patient is not a good surgical candidate with multiple severe comorbid problems. Continue medical management given the severity of the coronary artery disease and the location of the lesions which would put him at high risk of having intervention. (2) Hyperkalemia Status: Acute Assessment and plan: K+ 5.9 today, Kaexelate given per attending (3) Acute kidney injury Status: Acute Assessment and plan: Creatinine is 3.4 today. IVF at 125ml/hr overnight. (4) CAD (coronary artery disease) Status: Chronic Assessment and plan: Severe multivessel coronary artery disease on left heart cath on 03/30/17. PLAN The patient is not a good surgical candidate with multiple severe comorbid problems. Continue medical management given the severity of the coronary artery disease and the location of the lesions which would put him at high risk of having intervention. (5) Dyslipidemia Status: Chronic Assessment and plan: Continue Lipitor (6) HTN (hypertension) Status: Chronic Assessment and plan: borderline hypotensive today. (7) Type 2 diabetes mellitus Status: Chronic Assessment and plan: per attending (8) Obesity (BMI 30-39.9) Status: Chronic (9) Acute on chronic systolic (congestive) heart failure Status: Acute Assessment and plan: BNP 7100. Give IVF at 125ml/hr overnight with echo in the morning to check PA pressure. Wean Milrinone drip. <Leah Kerr 05/01/17 16:30> - Time Spent With Patient Total time spent is greater than 50% in coordination of care (as documented) at patient's floor/unit and/or counseling patient: <Jerson Lujan - 05/04/17 15:59> Total time spent is greater than 50% in coordination of care (as documented) at patient's floor/unit and/or counseling patient: <Leah Kerr 04/30/17 11:25> less than 15 minutes <Leah Kerr 05/01/17 16:31> - Attestation Attestation Narrative: Recommendation After examining the patient I agree with the above assessment. I am involved in the formulation of the patient's plan of care. <Jerson Lujan 05/04/17 15:59> Sepsis Assessment - Evaluation Sepsis screening result: No Definite Risk <Leah Kerr 04/30/17 11:25> Hospital Course Summary Disclaimer: The visit summary below is not to be considered part of the above Progress Note. <Jerson Lujan - 05/04/17 15:59> The visit summary below is not to be considered part of the above Progress Note. <Leah Kerr - 04/30/17 11:25> Hospital Course: 04/23/17-admission Admit patient as a inpatient under the care of Dr Kelly for Acute on chronic heart failure, with acute kidney injury and hyperkalemia Given the acute elevation in potassium, accompanied with acute renal failure and creatinine greater than 2.5. He does meet criteria for inpatient admission. Last echocardiogram was on 03/26/17 revealing global hypokinesia with an EF of 30 -35%. Catheterization completed at the beginning of March revealed severe multivessel disease. However, due to patient's severe comorbidities, he is not a surgical candidate for cardiac intervention. Given his elevated d-dimer. We will obtain a VQ scan tomorrow to rule out pulmonary emboli. Will start patient on heparin drip for anticoagulation. Pharmacy consult placed for dosing. Will monitor accu-checks given reported DM Monitor patient on cardiac telemetry. We did review his wishes for advanced directives and he verbalizes that he would like to be initially a full code, however, would not want any long-term prolonging such as ventilator, feeding tube. Home medications will need to be reviewed by attending SCDs to bilateral lower extremity for DVT prophylaxis Will recheck CBC and CMP tomorrow morning to follow blood counts renal function and electrolytes. Scuffs further orders and plan of care with attending, Dr. Kelly. At time of discharge medical care will return to primary care provider, Dr. Bartlett 04/24 VQ scan and lower extremity Doppler both negative for acute thrombus. Heparin drip was discontinued. Continue with Bumex 2 milligrams every 8 hours for diuresis. 04/25/17 Assessment GRACE - Cr still elevated at 2.9; continue reduced dose of Bumex (he is diuresing well). Neomycin dc'd since it can be potentially nephrotoxic. Perez in place. Acute on chronic systolic CHF - continue Bumex as above. Decrease Toprol - HR in low-60s. BP under good control. Anemia, macrocytic - hx of PRBC transfusion during previous hospital stay. 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 Reduce dose of lactulose (consider dc). 04/29/17 Stop Bumex. Continue milrinone drip. Repeat BMP at 1600 with BNP. 04/30/17 CHF: BNP 7100. Give IVF at 125ml/hr overnight with echo in the morning to check PA pressure. Wean Milrinone drip. K+ 5.9 today, Kaexelate given per attending. GRACE: Creatinine is 3.4 today. IVF at 125ml/hr overnight. NSTEMI/ CAD: Severe multivessel coronary artery disease on left heart cath on 03/30/17. The patient is not a good surgical candidate with multiple severe comorbid problems. Continue medical management given the severity of the coronary artery disease and the location of the lesions which would put him at high risk of having intervent <Leah Kerr - 05/01/17 16:31>
[2017-04-30] MEDS: ACETAMINOPHEN 325 MG TABLET PO PRN ×2 (12:12→19:24)
[2017-04-30] MEDS: NS 1,000 ML IV SCH ×2 (12:13→20:46)
[2017-04-30] MEDS ORDERED: SODIUM POLYSTYRENE SULFONATE 15 GM/60 ML BOTTLE PO ONE (13:26)
[2017-04-30] MEDS ORDERED: DEXTROSE 50% SYRINGE 50ml (1 AMP) IVP PRN (13:34)
[2017-04-30] MEDS ORDERED: GLUCOSE ORAL GEL 40% 37.5gm PO PRN (13:34)
[2017-04-30 16:00] VITALS: BMI 33.7
--- NOTE | 2017-04-30 16:02 | Ultrasound Report ---
Indication: Please address patency of TIPS - SMA flow, VELIA - thanks PROCEDURE: US abd/pelvic doppler complete: Encounter: Initial Comparison: None Technique: Grayscale and color Doppler sonographic imaging of the abdomen was attempted. Findings/ Impression: The exam is nondiagnostic. The liver was poorly visualized due to body habitus and acoustic shadowing. The TIPS shunt, portal vein, aorta and superior mesenteric artery could not be visualized. .
--- NOTE | 2017-04-30 16:06 | Ultrasound Report ---
Indication: elevated creatinine, renal failure PROCEDURE: US renal doppler: Encounter: Initial Comparison: None Technique: Grayscale and color Doppler sonographic imaging of both kidneys was attempted. Findings/ Impression: The exam is nondiagnostic. Accurate renal artery velocity measurements could not be obtained due to patient body habitus and acoustic shadowing. Segmental renal artery waveforms were able to be obtained showing elevated resistive indices bilaterally which are nonspecific and can be due to a number of factors including medical renal disease. .
[2017-04-30] MEDS ORDERED: ADENOSINE 6mg/2ml INJECTION IVP ONE ×2 (17:11)
--- NOTE | 2017-04-30 17:15 | Progress Note ---
Subjective: Pt states he is feeling fine. He has developed intermittent abdominal pain that apparently is worse when he eats. He has been having poor oral intake for a while but it has been worse recently. He is not SOB and is off O2. No arrythmias seen. Objective Vital signs: Temperature 98.5 F 04/30/17 12:00 Pulse Rate 104 H 04/30/17 16:00 Respiratory Rate 20 04/30/17 15:45 Blood Pressure 103/60 04/30/17 15:45 Pulse Oximetry 96 04/30/17 15:45 Oxygen Delivery Method Room Air Rhythm: Sinus Tachycardia Cardiac Ectopy: Rare PVC's Height: 6 ft Weight: 112.871 kg Body Mass Index: 33.7 - Constitutional Present: no acute distress, cooperative Comments: Chronically malnourished. - Routine HEENT Exam Head: Present: normocephalic Eye: Present: EOMI, PERRL - Routine Respiratory Exam Present: CTA bilaterally - Routine Cardiovascular Exam Present: RRR - Routine Extremities Exam Absent: cyanosis, clubbing, edema - Routine Neurological Exam Present: alert, oriented X3, CN II-XII intact - Routine Psychiatric Exam Present: normal affect, cooperative, good insight, good judgment Results - Labs CBC & Chem 7: 04/30/17 03:26 04/30/17 03:26 Microbiology Results: Microbiology 04/29/17 10:22 Urine, Cath Stone Urine Culture - Final Karin albicans Assessment and Plan (1) Acute kidney injury Current visit: No Status: Acute (2) Hyperkalemia Current visit: No Status: Acute (3) Acute on chronic heart failure Problem details: Systolic Current visit: Yes Status: Acute (4) Chronic kidney disease (CKD) stage G3a/A2, moderately decreased glomerular filtration rate (GFR) between 45-59 mL/min/1.73 square meter and albuminuria creatinine ratio between 30-299 mg/g Current visit: Yes Status: Chronic Will get a 24 hr urine collection to better estimate once more compensated DVT Prophylaxis: SCD's GI Prophylaxis: Protonix Assessment and Plan: This is a pt well known to me from a previous admission to us in early March 2017 ; at that time, he was hospitalized for a NSTEMI; he had severe metabolic acidosis, was in the ICU with bicarb drip + Nitrodrip and heparin drip. His Cirrhosis was well compensated: he had no significant ascites to tap, was not significantly coagulopathic and his ammonia was low (and remained low while off Lactulose and oral aminoglycoside). Also he had MSSA bacteremia. He had a cardiac cath that showed non operable CAD. He was D/C in stable condition. Creatinine on D/C was 2.2. He came to the ED, close to his final antibiotic day (for the MSSA) with a rash and was given oral steroids; this resulted in resolution of his rash but then had an episode thought to be pulmonary edema. He has admitted and was diuresed very well and currently off O2 breathing well. His CKD is worse. His BUN/Cr remains high despite having lowered his diuretics and his BB and it has been getting worse. I discussed the case with Cardiology team (Dr Tai Lynn), pt was transfered to the ICU for MIlrinone - diuretics were held on 04/29 - despite these pt renal function continues to deteriorate. U/ S of the abdomen to asses patency of the TIPS was of poor quality due to "Body habitus". He had troponins done last night and appears to have had a small KS. Will be having a repeat 2-D in the AM. DIAGNOSIS - 1) RENAL ASSESSMENT - CKD + GRACE (WORSENING) - Multifactorial - cardio-renal +/ - hepato-renal + anemia. Pt is Oliguric at present. A) CKD + Acute renal failure, worsening. Pt has advanced CKD with elevated iPTH - 160.3 * (last admission). ? of UTI - culture - yeast. - Abd U/S on 04/30 - could not determine if pt has VELIA - could not determine if TIPS is patent. - Last renal U/S (04/27) - no hydronephrosis, previous abdominal U/S -> hydronephrosis - early March 2017 - UA suggestive of UTI (04/27) -> received Rocephin - culture - yeast. - PSA DONE VERY LOW 0.1 (last admission) - U/S done early MARCH - showed hydronephrosis - Urine for Eosinophills ordered -> Of superimposed interstitial nephritis with Rocephin ? Will stop due to results of culture and observe. - On Calcium Acetate for high PO4 B) Acidosis (RTA ?) - Oral bicarb resumed @ 650 mg PO BID C) Hyperkalemia - Ordered Kayexalate (04/30) E) Hyperphosphatemia - Added Calcium acetate (04/26) . 2) CARDIOVASCULAR ASSESSMENT - A) Congestive heart failure - with pulmonary edema after the NSTEMI (Per CT report - 03/27 - responded very well to diuretics) - and recurrent fluid overload that triggered this admission. Pt on Milrinone drip to see if his renal function improves - this would argue against HRS (Hepato-renal syndrome). - Admission - Weight - 140.5 kg Today's - Weight - 129.2 kg - Toprol XL ON HOLD - 2-D echo (03/26/2017) showed Global hypokinesia with ejection fraction of about 30-35%, concentric LVH with LV dilatation. Mod MR, Aortic sclerosis and mild TR with normal PA pressures. B) POSSIBLE NEW NSTEMI - RECENT NSTEMI (03/26/2017) - INOPERABLE CAD Pt has had a previous stent. - Pt denies having new episodes of CP, this admission. - TnI - trending up - Milrinone will be weaned off * - Lipitor was resumed on 04/25 - will monitor LFT's C) Hypertension, probably in part due to hyperaldosteronism (Aldosterone level was high - see last admission) - Due to CKD and hyperkalemia will not be able to safely use Aldactone. - Currently BP is low. 3) Cirrhosis of the liver, with thrombocytopenia, mild coagulopathy, ascites ( minimal), esophageal varices (H/O). Pt apparently had a TIPS procedure in the past. Pt is compensated at present. - Stop oral aminoglycoside - Oral Neomycin has been associated with [place] and nephrotoxicity. - Ammonia increased to 33 - could be related to UTI - Will increase lactulose and Follow Ammonia. A) Hyperbilirrubinemia (1.90) with no elevation of the AST/ALT or Alk Phos - LDH normal - Haptoglobin low (unknown if due to cirrhosis or hemolysis). Check Krysten test B) Thrombocytopenia - PLT has been dropping gradually since admission - from 79K to 47K 4) Type II DM, and obesity - BS control has improved with nutritional deterioration, over the last several years in part due to his CKD. 5) Anemia probably due to inflammation (ACD) but pt may have to be checked for GI bleed. (Had heme + stools). Erythropoietin level was HIGH (last admission) @ 62.7 - Hemoglobin today 8.7 will give 1 unit of PRBC. - Anemia workup EARLY MARCH - Suggesive of ACD - Iron - 53 (N), TIBC 181 (LOW) , Saturation 29%. B12 is normal @ 464. - TRANSFUSSIONS -> Was given 2U PRBC early March; ordered 1 U PRBC (04/30) 6) Severe protein calorie malnutrition - due to chronic illness (cirrhosis, CKD ) - May consider appetite stimulation with marinol once more stable. Discussed with patient. PREVENTION PUD - PPI DVT - SCD Sepsis Assessment - Evaluation Sepsis screening result: No Definite Risk Hospital Course Summary Disclaimer: The visit summary below is not to be considered part of the above Progress Note. Hospital Course: 04/23/17-admission Admit patient as a inpatient under the care of Dr Kelly for Acute on chronic heart failure, with acute kidney injury and hyperkalemia Given the acute elevation in potassium, accompanied with acute renal failure and creatinine greater than 2.5. He does meet criteria for inpatient admission. Last echocardiogram was on 03/26/17 revealing global hypokinesia with an EF of 30 -35%. Catheterization completed at the beginning of March revealed severe multivessel disease. However, due to patient's severe comorbidities, he is not a surgical candidate for cardiac intervention. Given his elevated d-dimer. We will obtain a VQ scan tomorrow to rule out pulmonary emboli. Will start patient on heparin drip for anticoagulation. Pharmacy consult placed for dosing. Will monitor accu-checks given reported DM Monitor patient on cardiac telemetry. We did review his wishes for advanced directives and he verbalizes that he would like to be initially a full code, however, would not want any long-term prolonging such as ventilator, feeding tube. Home medications will need to be reviewed by attending SCDs to bilateral lower extremity for DVT prophylaxis Will recheck CBC and CMP tomorrow morning to follow blood counts renal function and electrolytes. Scuffs further orders and plan of care with attending, Dr. Kelly. At time of discharge medical care will return to primary care provider, Dr. Bartlett 04/24 VQ scan and lower extremity Doppler both negative for acute thrombus. Heparin drip was discontinued. Continue with Bumex 2 milligrams every 8 hours for diuresis. 04/25/17 Assessment GRACE - Cr still elevated at 2.9; continue reduced dose of Bumex (he is diuresing well). Neomycin dc'd since it can be potentially nephrotoxic. Stone in place. Acute on chronic systolic CHF - continue Bumex as above. Decrease Toprol - HR in low-60s. BP under good control. Anemia, macrocytic - hx of PRBC transfusion during previous hospital stay. 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 Reduce dose of lactulose (consider dc). 04/29/17 Stop Bumex. Continue milrinone drip. Repeat BMP at 1600 with BNP.
[2017-04-30] MEDS: ATORVASTATIN 40 MG TABLET PO SCH (22:31)
[2017-05-01] MEDS: MILRINONE DRIP 20 MG/100 ML BAG IV PRN ×2 (01:26→11:53)
[2017-05-01] MEDS: NS 1,000 ML IV SCH ×2 (04:33→13:02)
[2017-05-01] MEDS: OMEPRAZOLE 20 MG CAPSULE PO SCH (06:22)
[2017-05-01] MEDS: INSULIN ASPART 100unit/ml INJECTION SQ PRN ×2 (06:23→10:12)
[2017-05-01 06:35] VITALS: TEMP 97.8
[2017-05-01] MEDS ORDERED: HYDROCORTISONE SOD SUCC 100mg/2ml INJECTION IVP ONE (08:18)
[2017-05-01] MEDS: FOLIC ACID PO SCH (08:26)
[2017-05-01] MEDS: VIT B COMP PO SCH (08:26)
[2017-05-01] MEDS: [UNRECOGNIZED DRUG - OTHER] PO SCH (08:26)
[2017-05-01] MEDS: COENZYME Q-10 200mg TABLET PO SCH (08:27)
[2017-05-01] MEDS: ASPIRIN *EC* 81 MG TABLET PO SCH (08:27)
[2017-05-01] MEDS ORDERED: LACTULOSE 20 GM/30 ML ORAL LIQUID PO SCH (09:00)
[2017-05-01] MEDS ORDERED: SODIUM BICARBONATE 650 MG TABLET PO SCH (09:00)
[2017-05-01] MEDS: MAGNESIUM OXIDE 400 MG TABLET PO SCH ×2 (10:39→13:30)
[2017-05-01] MEDS: CALCIUM ACETATE 667 MG CAPSULE PO SCH (10:40)
--- NOTE | 2017-05-01 11:16 | Progress Note ---
Subjective: MR Paul states he is feeling fine. Last night he had an episode of tachycardia and was given Adenosine by cardiology. He was on Milrinone and this was being weaned off. His renal function continues to deteriorate and his Ammonia went up abruptly. His FENA was less than 1%; C/W with either prerenal failure or HRS. His 2-D echo showed higher pulmonary pressures than last admission (A PE was suspected this admission but was R/O), suggesting that this could be due to HRS. Objective Vital signs: Temperature 97.8 F 05/01/17 06:00 Pulse Rate 87 05/01/17 10:30 Respiratory Rate 18 05/01/17 10:30 Blood Pressure 69/39 05/01/17 10:30 Pulse Oximetry 95 05/01/17 10:30 Oxygen Delivery Method Room Air Rhythm: Normal Sinus Rhythm Cardiac Ectopy: Rare PVC's Weight: 134.4 kg - Constitutional Present: mild distress - Routine HEENT Exam Head: Present: normocephalic, atraumatic Eye: Present: EOMI, PERRL - Routine Cardiovascular Exam Present: RRR, murmur - Routine Abdominal Exam Present: soft Comments: Mild diffuse tenderness. - Routine Extremities Exam Present: edema. Absent: cyanosis, clubbing - Routine Neurological Exam Present: alert, oriented X3, CN II-XII intact - Routine Psychiatric Exam Present: normal affect, cooperative, good insight, good judgment Results - Labs CBC & Chem 7: 05/01/17 04:18 05/01/17 04:18 Microbiology Results: Microbiology 04/29/17 10:22 Urine, Cath Stone Urine Culture - Final Karin albicans Assessment and Plan (1) Acute kidney injury Current visit: No Status: Acute (2) Hyperkalemia Current visit: No Status: Acute (3) Acute on chronic heart failure Problem details: Systolic Current visit: Yes Status: Acute Assessment and Plan: This is a pt well known to me from a previous admission to us in early March 2017 ; at that time, he was hospitalized for a NSTEMI; he had severe metabolic acidosis, was in the ICU with bicarb drip + Nitrodrip and heparin drip. His Cirrhosis was well compensated at that time: he had no significant ascites to tap, was not significantly coagulopathic and his ammonia was low (and remained low while off Lactulose and oral aminoglycoside). Also he had MSSA bacteremia, with no obvious source. He had a cardiac cath that showed non operable CAD. He was D/C back to IF much improved. His creatinine on D/C was 2.2 (Early March) He came to the ED, close to his final antibiotic day (for the MSSA) with a rash and was given oral steroids; this resulted in resolution of his rash but then had an episode thought to be pulmonary edema - fluid overload. He has admitted and was diuresed very well and currently off O2 breathing well. His BUN/Cr has been increasing gradually, despite having stopped his diuretics (48 hrs ago), placing him on Milrinone drip and stopping his BB. I discussed the case with Cardiology team (Dr Tai Lynn), pt was transfered to the ICU for MIlrinone - diuretics were held on 04/29 - despite these pt renal function continues to deteriorate. U/S of the abdomen to asses patency of the TIPS was of poor quality due to "Body habitus". He had troponins done last night and appears to have had a small IA. This AM 2-D echo showed higher pulmonary pressures and his FeNa was less than 1%. His ammonia has an acute rise to 103, he has been complaining of adbominal pain and is distended. Very concerning for HRS and possible closure of the TIPS with portal acute worsening of his portal pressures. Will transfer pt to higher level of care. DISCHARGE DIAGNOSIS - 1) RENAL ASSESSMENT - CKD + GRACE (WORSENING) - Multifactorial - cardio-renal +/ - hepato-renal + anemia. Pt is Oliguric at present. FENA is less than 1%, since the pulmonary pressures appear higher on the Echo this AM (Verbal communication ) this appears to correspond to HRS and not to GRACE due to hypovolemia. A) CKD + Acute renal failure, worsening. Pt has advanced CKD with elevated iPTH - 160.3 * (last admission). ? - FeNa calculation - Urine Creatinine - 167.8; Urine Na - 24 - Serum Cr - 3.8; Serum Na - 135 - Calculated FeNa - 0.4% - of UTI ? - culture resulted yesterday showed yeast. - Abd U/S on 04/30 - could not determine if TIPS is patent. Could not measure flow in renal arteries. - Ammonia today showed an acute rise to over 100. - Last renal U/S (04/27) - no hydronephrosis, previous abdominal U/S -> hydronephrosis - early March 2017. - PSA DONE VERY LOW 0.1 (last admission) - Urine for Eosinophills ordered -> Of superimposed interstitial nephritis with Rocephin ? PENDING - On Calcium Acetate for high PO4 B) Acidosis (RTA ? - related to H.O DM) - Oral bicarb @ 1300 mg PO BID. Last admission he was in the ICU with a bicarb drip ( plus heparin and nitro - when he had his first NSTEMI - march) C) Hyperkalemia - Ordered Kayexalate (04/30) -> Will repeat dose prior to referral to [facility]. E) Hyperphosphatemia - Added Calcium acetate (04/26) . 2) CARDIOVASCULAR ASSESSMENT - A) Congestive heart failure - with pulmonary edema after the NSTEMI (Per CT report - 03/27 - responded very well to diuretics) - and recurrent fluid overload that triggered this admission, with recurrent pulmonary edema, resolved currnetly. - Admission - Weight - 140.5 kg Today's - Weight - 129.2 kg - Toprol XL ON HOLD - 2-D echo (03/26/2017) showed Global hypokinesia with ejection fraction of about 30-35%, concentric LVH with LV dilatation. Mod MR, Aortic sclerosis and mild TR with normal PA pressures. B) POSSIBLE NEW NSTEMI (04/29/2017) - RECENT NSTEMI (03/26/2017) - INOPERABLE CAD Pt has had a previous stent. - Pt denies having new episodes of CP, this admission. - TnI - trending up - Milrinone will be weaned off * - Lipitor was resumed on 04/25 - will monitor LFT's - Pt had 2-D echo done this AM by Dr Lujan - final report is pending. C) Hypertension, probably in part due to hyperaldosteronism ? Aldosterone was high on march - Can't use Aldactone due to K being high. - Due to CKD and hyperkalemia will not be able to safely use Aldactone. - Currently BP is low. 3) Cirrhosis of the liver, with thrombocytopenia, mild coagulopathy, ascites ( minimal), esophageal varices (H/O). Pt apparently had a TIPS procedure in the past. ? if TIPS closed or occluded leading to portal HTN and acute renal deterioration. - Oral Neomycin was D/C on 04/26 - has been associated with Osorio and nephrotoxicity. - Ammonia was very stable last hospitalization and early this hospitalization but acutely abigail today at > 100. - ? of Upper GI bleed or SBP ? A) Hyperbilirrubinemia (1.90) with no elevation of the AST/ALT or Alk Phos - LDH normal - Haptoglobin low (unknown if due to cirrhosis or hemolysis). Check Krysten test B) Thrombocytopenia - PLT has been dropping gradually since admission - from 79K to 43K today. 4) Type II DM, and obesity - BS control has improved with nutritional deterioration, over the last several years in part due to his CKD. 5) Anemia probably due to inflammation (ACD) but pt may have to be checked for GI bleed. (Had heme + stools). Erythropoietin level was HIGH (last admission) @ 62.7 - Hemoglobin today 8.7 will give 1 unit of PRBC. - Anemia workup EARLY MARCH - Suggesive of ACD - Iron - 53 (N), TIBC 181 (LOW) , Saturation 29%. B12 is normal @ 464. Hemoccult x 2 this admission NEGATIVE. - TRANSFUSSIONS -> Was given 2U PRBC early March; ordered 1 U PRBC (04/30) - Erythropoietin level in March was HIGH 6) Severe protein calorie malnutrition - due to chronic illness (cirrhosis, CKD ) Pt needs a higher level of care for possible HRS, to evaluate patency of TIPS. Spoke with Internal Medicine resident and pt has been accepted. (Dr Lindquist) DISPOSITON - TO [facility] - UNDER THE CARE OF DR DEN KAPOOR. Sepsis Assessment - Evaluation Sepsis screening result: No Definite Risk Hospital Course Summary Disclaimer: The visit summary below is not to be considered part of the above Progress Note. Hospital Course: 04/23/17-admission Admit patient as a inpatient under the care of Dr Kelly for Acute on chronic heart failure, with acute kidney injury and hyperkalemia Given the acute elevation in potassium, accompanied with acute renal failure and creatinine greater than 2.5. He does meet criteria for inpatient admission. Last echocardiogram was on 03/26/17 revealing global hypokinesia with an EF of 30 -35%. Catheterization completed at the beginning of March revealed severe multivessel disease. However, due to patient's severe comorbidities, he is not a surgical candidate for cardiac intervention. Given his elevated d-dimer. We will obtain a VQ scan tomorrow to rule out pulmonary emboli. Will start patient on heparin drip for anticoagulation. Pharmacy consult placed for dosing. Will monitor accu-checks given reported DM Monitor patient on cardiac telemetry. We did review his wishes for advanced directives and he verbalizes that he would like to be initially a full code, however, would not want any long-term prolonging such as ventilator, feeding tube. Home medications will need to be reviewed by attending SCDs to bilateral lower extremity for DVT prophylaxis Will recheck CBC and CMP tomorrow morning to follow blood counts renal function and electrolytes. Scuffs further orders and plan of care with attending, Dr. Kelly. At time of discharge medical care will return to primary care provider, Dr. Bartlett 04/24 VQ scan and lower extremity Doppler both negative for acute thrombus. Heparin drip was discontinued. Continue with Bumex 2 milligrams every 8 hours for diuresis. 04/25/17 Assessment GRACE - Cr still elevated at 2.9; continue reduced dose of Bumex (he is diuresing well). Neomycin dc'd since it can be potentially nephrotoxic. Stone in place. Acute on chronic systolic CHF - continue Bumex as above. Decrease Toprol - HR in low-60s. BP under good control. Anemia, macrocytic - hx of PRBC transfusion during previous hospital stay. 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 Reduce dose of lactulose (consider dc). 04/29/17 Stop Bumex. Continue milrinone drip. Repeat BMP at 1600 with BNP.
--- NOTE | 2017-05-01 12:19 | Discharge Summary ---
Discharge Information Date of admission: 04/23/17 16:44 Attending Physician: Jax Osborne MD Primary care physician: AMARI Bartlett MD Consults: 04/29/17 15:00 Physician Consult [CONS] Routine Consulting Provider: Jerson Lujan Reason For Exam: CHF with CKD + GRACE on a cirrhotic pt Ordering Provider has Notified Automatic Furnace Operator: Yes - Discharge Diagnosis Discharge Diagnosis: Assessment and Plan: This is a pt well known to me from a previous admission to us in early March 2017 ; at that time, he was hospitalized for a NSTEMI; he had severe metabolic acidosis, was in the ICU with bicarb drip + Nitrodrip and heparin drip. His Cirrhosis was well compensated at that time: he had no significant ascites to tap, was not significantly coagulopathic and his ammonia was low (and remained low while off Lactulose and oral aminoglycoside). Also he had MSSA bacteremia, with no obvious source. He had a cardiac cath that showed non operable CAD. He was D/C back to IF much improved. His creatinine on D/C was 2.2 (Early March) He came to the ED, close to his final antibiotic day (for the MSSA) with a rash and was given oral steroids; this resulted in resolution of his rash but then had an episode thought to be pulmonary edema - fluid overload. Another diagnostic consideration was a PE, so pt was placed on Lovenox and studies were obtained. - VQ scan and lower extremity Doppler both negative for acute thrombus. He was diuresed with excellent response and fast improvement in his breathing status. Since admission, his BUN/Cr has been increasing gradually, despite having stopped his diuretics (48 hrs ago), placing him on Milrinone drip and stopping his BB. I discussed the case with Cardiology team (Dr Lujan & Leah CARABALLO) and transfered to the ICU for MIlrinone - diuretics were held on 04/29 - despite these pt renal function continued to deteriorate. U/S of the abdomen to asses patency of the TIPS was of poor quality due to "Body habitus". He had troponins done on 04/29 and 04/30 and appears to have had a small PA. Since yesterday evening pt BP has been very low with MAP in the 50's and very low urine output. This AM 2-D echo showed higher pulmonary pressures and his FeNa was less than 1%. His ammonia has an acute rise to 103, he has been complaining of adbominal pain; very concerning for HRS and possible closure of the TIPS with portal acute worsening of his portal pressures. Due to his hypotension, I gave him a test dose of Solu-Cortef this AM - He received it at 10:33AM - since then 4 BP measurements have been normal (SBP above 110 and DBP above 55). DISCHARGE DIAGNOSIS - 1) RENAL ASSESSMENT - CKD + GRACE (WORSENING) - Multifactorial - cardio-renal +/ - hepato-renal + anemia. Pt is Oliguric at present. FENA is less than 1%, since the pulmonary pressures appear higher on the Echo this AM (Verbal communication ) this appears to correspond to HRS and not to GRACE due to hypovolemia. A) CKD + Acute renal failure, worsening. Pt has advanced CKD with elevated iPTH - 160.3 * (last admission). ? of HRS. Another possibility is adrenal failure - due to the dramatic hemodynamic response in his BP after Solu-Cortef - but it is too early to tell. A Random Cortisol was ordered on blood in lab done at 4AM. - FeNa calculation - Urine Creatinine - 167.8; Urine Na - 24 - Serum Cr - 3.8; Serum Na - 135 - Calculated FeNa - 0.4% - of UTI ? - culture resulted yesterday showed yeast. - Abd U/S on 04/30 - could not determine if TIPS is patent. Could not measure flow in renal arteries. - Ammonia today showed an acute rise to over 100. - Last renal U/S (04/27) - no hydronephrosis, previous abdominal U/S -> hydronephrosis - early March 2017. - PSA DONE VERY LOW 0.1 (last admission) - Urine for Eosinophills ordered -> Of superimposed interstitial nephritis with Rocephin ? PENDING - On Calcium Acetate for high PO4 B) Acidosis (RTA ? - related to H.O DM) - Oral bicarb @ 1300 mg PO BID. Last admission he was in the ICU with a bicarb drip ( plus heparin and nitro - when he had his first NSTEMI - early march) - Lactic acid this AM - 4.1 HIGH - Procalcitonin - NORMAL at 0.34. C) Hyperkalemia - Ordered Kayexalate (04/30) E) Hyperphosphatemia - Added Calcium acetate (04/26) . 2) CARDIOVASCULAR ASSESSMENT - A) Congestive heart failure - with pulmonary edema after the NSTEMI (Per CT report - 03/27 - responded very well to diuretics) - and recurrent fluid overload that triggered this admission, with recurrent pulmonary edema, resolved currnetly. - Admission - Weight - 140.5 kg Today's - Weight - 129.2 kg - Toprol XL ON HOLD - 2-D echo (03/26/2017) showed Global hypokinesia with ejection fraction of about 30-35%, concentric LVH with LV dilatation. Mod MR, Aortic sclerosis and mild TR with normal PA pressures. B) POSSIBLE NEW NSTEMI (04/29/2017) - RECENT NSTEMI (03/26/2017) - INOPERABLE CAD Pt has had a previous stent. - Pt denies having new episodes of CP, this admission. - TnI - trending up - Milrinone will be weaned off * - Lipitor was resumed on 04/25 - will monitor LFT's - Pt had 2-D echo done this AM by Dr Lujan - final report is pending. C) Chronic hypertension with hypotension over the last 2 days. - Due to CKD and hyperkalemia will not be able to safely use Aldactone. - BP was trending down over the last 36 hrs, normalized x 5 measurements after IV solu-cortef. 3) Cirrhosis of the liver, with thrombocytopenia, mild coagulopathy, ascites ( minimal), esophageal varices (H/O). Pt apparently had a TIPS procedure in the past. ? if TIPS closed or occluded leading to portal HTN and acute renal deterioration. - Oral Neomycin was D/C on 04/26 - has been associated with Osorio and nephrotoxicity. - Ammonia was very stable last hospitalization and early this hospitalization but acutely abigail today at > 100. - ? of Upper GI bleed or SBP ? A) Hyperbilirrubinemia (1.90) with no elevation of the AST/ALT or Alk Phos - LDH normal - Haptoglobin low (unknown if due to cirrhosis or hemolysis). Check Krysten test B) Thrombocytopenia - PLT has been dropping gradually since admission - from 79K to 43K today. 4) Type II DM, and obesity - BS control has improved with nutritional deterioration, over the last several years in part due to his CKD. - On medium "Intensity' Sliding scale. 5) Anemia probably due to inflammation (ACD) but pt may have to be checked for GI bleed. (Had heme + stools). Erythropoietin level was HIGH (last admission) @ 62.7 - Hemoglobin today 8.7 will give 1 unit of PRBC. - Anemia workup EARLY MARCH - Suggesive of ACD - Iron - 53 (N), TIBC 181 (LOW) , Saturation 29%. B12 is normal @ 464. Hemoccult x 2 this admission NEGATIVE. - TRANSFUSSIONS -> Was given 2U PRBC early March; ordered 1 U PRBC (04/30) - Erythropoietin level in March was HIGH 6) ? of Adrenal insufficiency (See above). 7) Severe protein calorie malnutrition - due to chronic illness (cirrhosis, CKD ) Pt needs a higher level of care for possible HRS, to evaluate patency of TIPS. Spoke with Internal Medicine resident and pt has been accepted. (Dr Lindquist) DISPOSITON - TO [facility] - UNDER THE CARE OF DR DEN KAPOOR. - Laboratory Labs: 05/01/17 04:18 05/01/17 11:42 - Microbiology Microbiology 05/01/17 11:44 Cath/Port/Line/Picc Blood Culture - Preliminary Culture Initiated - Results Pending 05/01/17 11:44 Peripheral/Iv Start Blood Culture - Preliminary Culture Initiated - Results Pending 04/29/17 10:22 Urine, Cath Stone Urine Culture - Final Karin albicans History of Present Illness HPI: Patient is a pleasant 71-year-old male who is well known to the hospitalist services as she was recently admitted on 03/26/17 with sirs, acute kidney injury , hyperkalemia and chest pain. His discharged on April 03 and has been at [facility] under the care of Dr. Bartlett. Patient was evaluated again in the emergency room on 04/08/17 when he was found to have a rash to his abdomen, groin and arms. At that time he was discharged on a prednisone taper as well as Lamisil and Benadryl. He notes that following this emergency room visit, he started noticing increased edema of the lower extremities. For the last week he has noticed increased dyspnea especially with exertion. Due to the worsening symptoms. Today he presented to the emergency room for further acute evaluation and treatment. Lab studies were obtained . WBC count 7.5, hemoglobin 9.9, hematocrit 30.5, platelet count 79. Sodium 138, potassium 5.6, BUN 42, creatinine 2.8, total bilirubin 1.4. Alkaline phosphatase is elevated at 154. An INR was elevated at 2356. Chest x-ray did reveal worsening pulmonary edema with rounded mass in the right midlung that may represent loculated fluid or "pseudocyst". His weight on the day of last admission 03/17/17 was 110 kilograms , and his discharge weight on 04/03 was 132 kg. Today, his weight is 139 kilograms. Given his increased peripheral edema, accompanied with symptomatic dyspnea, elevated potassium with acute renal failure and creatinine greater than 2.5. Patient does meet criteria for inpatient admission under the care of the hospitalist services. It is expected that his stay will be greater than 2 overnights. Objective Vital signs: Temperature 97.8 F 05/01/17 06:00 Pulse Rate 87 05/01/17 10:30 Respiratory Rate 18 05/01/17 10:30 Blood Pressure 69/39 05/01/17 10:30 Pulse Oximetry 95 05/01/17 10:30 Oxygen Delivery Method Room Air Rhythm: Normal Sinus Rhythm Cardiac Ectopy: Rare PVC's Weight: 134.4 kg - Additional findings Additional findings: PLEASE REFER TO TODAY'S PROGRESS NOTES FOR DETAILS ON HIS PHYSICAL EXAM. Hospital Course This is a general summary of the patient's hospital course. For more details refer to the complete medical record. Hospital course: 04/23/17-admission Admit patient as a inpatient under the care of Dr Kelly for Acute on chronic heart failure, with acute kidney injury and hyperkalemia Given the acute elevation in potassium, accompanied with acute renal failure and creatinine greater than 2.5. He does meet criteria for inpatient admission. Last echocardiogram was on 03/26/17 revealing global hypokinesia with an EF of 30 -35%. Catheterization completed at the beginning of March revealed severe multivessel disease. However, due to patient's severe comorbidities, he is not a surgical candidate for cardiac intervention. Given his elevated d-dimer. We will obtain a VQ scan tomorrow to rule out pulmonary emboli. Will start patient on heparin drip for anticoagulation. Pharmacy consult placed for dosing. Will monitor accu-checks given reported DM Monitor patient on cardiac telemetry. We did review his wishes for advanced directives and he verbalizes that he would like to be initially a full code, however, would not want any long-term prolonging such as ventilator, feeding tube. Home medications will need to be reviewed by attending SCDs to bilateral lower extremity for DVT prophylaxis Will recheck CBC and CMP tomorrow morning to follow blood counts renal function and electrolytes. Scuffs further orders and plan of care with attending, Dr. Kelly. At time of discharge medical care will return to primary care provider, Dr. Bartlett Discharge Plan - Med Rec/Dispo Truvjoseline Instructions: Heart Failure (GEN) Prescriptions: No Action Acetaminophen 650 mg PO Q4HR PRN #0 PRN Reason: PAIN Aspirin *EC* [Ecotrin] 81 mg PO DAILY tablet Metoprolol Succinate (Xl) [Toprol Xl] 150 mg PO DAILY #30 tablet Tamsulosin [Flomax] 0.4 mg PO HS #30 capsule Lactulose Oral Liq [Lactulose] 40 gm PO BID Folic Acid/Vit B Comp + C [Nephrocaps] 1 mg PO DAILY Benzonatate 100 mg PO Q6H PRN PRN Reason: Cough DiphenhydrAMINE [Benadryl] 25 mg PO Q6H PRN PRN Reason: Rash Omeprazole 20 mg PO ACB #0 Coenzyme Q-10 [Co Q-10] 200 mg PO DAILY capsule Furosemide [Lasix] 40 mg PO DAILY #30 tablet Spironolactone [Aldactone] 50 mg PO DAILY tablet Neomycin Sulfate 500 mg PO QID #28 tablet
[2017-05-01 13:31] VITALS: BP 154/65; PULSE 96; RESP 32; O2SAT 97
--- NOTE | 2017-05-02 11:55 | Echocardiogram ---
DATE OF PROCEDURE May 01, [address] Jax Osborne This is a two-dimensional echo with spectral Doppler, color-flow and M-mode. It was obtained in a patient with congestive heart failure. Left atrium is dilated. Left ventricle end-diastolic dimension is increased. Left ventricle wall thickness is increased. Global hypokinesia is present with ejection fraction of about 30%. Right atrium is dilated. Right ventricle is normal. Aortic root dimension is normal. Mitral annulus is calcified. Mitral valve leaflets are normal with moderate mitral regurgitation. Aortic valve shows fibrocalcific changes with no stenosis or insufficiency. Tricuspid valve shows [id number] tricuspid regurgitation with moderate pulmonary hypertension with estimated pulmonary artery systolic pressure of 48. Pulmonary valve shows trace of pulmonary insufficiency. There is no pericardial effusion. IMPRESSION 1. Global hypokinesia with ejection fraction of about 30%. 2. Biatrial dilation. 3. Left ventricular dilation. 4. Left ventricular hypertrophy. 5. Mitral annulus calcification with moderate mitral regurgitation. 6. Aortic sclerosis. 7. [id number] tricuspid regurgitation with moderate pulmonary hypertension with estimated pulmonary artery systolic pressure of 48. 8. Trace of pulmonary insufficiency. MTDD
== END 2017-05-01 13:35 | disposition short-term general hospital (02) | DRG 682 ==
LOC: ED 14:27 → MED 16:44 → CCU 04-28 14:27
PROVIDERS: ADMIT Internal Medicine; ATTEND Internal Medicine